=== PATIENT | male | born 1935 | race Caucasian/White ===

== ENCOUNTER 2017-01-04 15:11 | Inpatient (IN) | payer OTHER ==
[~2017-01-04] VITALS: Ht 172.7 cm; Wt 68.9 kg
[~2017-01-04 15:11] MED LIST: ACET325T21 PO; ASPI81TA2 PO; ASPI81TA9 PO; ATOR10TA60 PO; BISA10SU55 RC; BUDE10.2 IH; FURO40TA4 PO; GUAI600T28 PO; IPRA3AMP NEB; LORA0.5T PO; MAGN400O4 PO; METO50TA10 PO; NA P133E2 RC; PANT40TA5 PO; PRIM50TA PO; SPIR25TA3 PO; TAMS0.4C2 PO
[2017-01-04] MEDS ORDERED: PIP/TAZO PER PHARMACY MC PRN (15:30)
[2017-01-04] MEDS ORDERED: IV NORMAL SALINE 500ML BAG 500 ML IV ONE ×2 (15:30→15:45)
[2017-01-04] MEDS ORDERED: methylPREDNISolone SOD SUCC PF 125 MG/2 ML VIAL. IV ONE (15:30)
[2017-01-04] MEDS ORDERED: VANCOMYCIN PER PHARMACY MC ONE (15:30)
--- NOTE | 2017-01-04 15:36 | EKG ---
[facility] [address] [place] [address] Test Date: 2017-01-04 Test Time: 15:24:38 Pat Name: JOSE OLSON Department: Room: Gender: M Foster Parent: : 1935 Requested By: OLIMPIA VILLASENOR Order Number: [id number] Reading MD: Measurements Intervals [place] Rate: 153 P: 77 WI: 116 QRS: 46 QRSD: 84 T: -34 QT: 268 QTc: 432 Interpretive Statements SINUS TACHYCARDIA LOW LIMB LEAD VOLTAGE QRS(T) CONTOUR ABNORMALITY CONSIDER ANTEROSEPTAL MYOCARDIAL DAMAGE ST & T ABNORMALITY, CONSIDER INFERIOR ISCHEMIA OR LEFT VENTRICULAR STRAIN ABNORMAL ECG RI6.01 No previous ECG available for comparison
[2017-01-04] MEDS ORDERED: ACETAMINOPHEN 500 MG TABLET PO ONE (15:45)
[2017-01-04 15:49] LABS: BASO % 0 % (0-3); EOS % 1 % (0-3); HEMATOCRIT 31.6 % (39.0-53.0); HEMOGLOBIN 9.9 g/dL (13.0-17.5); LYMPH # 0.9 x10^3/uL (1.0-4.8); LYMPH % 5 % (24-48); MEAN CORPUSCULAR HEMOGLOBIN 27 pg (25-35); MEAN CORPUSCULAR HGB CONC 31 g/dL (31-37); MEAN CORPUSCULAR VOLUME 85 fL (79-100); MONO % 2 % (0-9); NEUT % 92 % (31-73); PLATELET COUNT 408 x10^3/uL (140-400); RED CELL DISTRIBUTION WIDTH 18.6 % (11.5-14.5); WHITE BLOOD COUNT 18.5 x10^3/uL (4.0-11.0)
--- NOTE | 2017-01-04 15:50 | RAD ---
Exam performed: One view chest. Indication: cough, SOB, fever Date of Service: 01/04/2017 5:21 PM Comparison: Single view chest from 11/08/16. Single AP upright portable view chest findings: Cardiomediastinal silhouette is within limits of normal. Pulmonary vascularity is unremarkable. Coarse prominent interstitial markings are seen in both lungs similar to previous study. Large emphysematous bulla seen in the left upper and mid lung. Minimal airspace opacities seen in the medial left lung base and right midlung. Impression: Minimal infiltrates right midlung and medial left lower lobe. Emphysematous lungs.
[2017-01-04 16:07] LABS: HCO3 ABG 18 mmol/L (21-28); PCO2 ABG 25 mmHg (35-46); PH ABG 7.48 (7.35-7.45); PO2 ABG 57 mmHg (65-108); SAT O2 ABG 90 % (92-99)
[2017-01-04] MEDS ORDERED: PIPERACILLIN/TAZOBACTAM 3.375 GM in IV NORMAL SALINE 50ML 50 ML IV ONE (16:15)
[2017-01-04] MEDS ORDERED: VANCOMYCIN 1.5 GM in IV NORMAL SALINE 500ML BAG 500 ML IV ONE (16:15)
--- NOTE | 2017-01-04 16:15 | PHYS DOC ---
Past Medical History Past Medical History: A-Fib, CHF, COPD, CVA, Hypertension Additional Past Surgical Histo: hernia repair Alcohol Use: Occasionally Drug Use: None Adult General Chief Complaint Chief Complaint: SHORTNESS OF BREATH HPI HPI Patient is a 81 year old male who presents with SOB. Patient sent from [facility]) with c/o SOB. Patient also reports productive cough. He denies significant chest discomfort. Patient is poor historian. Patient's daughter present and reports he has been in and out of the hospital since August. Had been getting care at [place] but she works at [employer] and therefore he has been brought here for care. Review of Systems Review of Systems Constitutional: Chills Eyes: Denies change in visual acuity or eye pain HENT: Denies nasal congestion or sore throat Respiratory: Cough, shortness of breath Cardiovascular: Denies chest pain GI: Denies abdominal pain, nausea, vomiting, bloody stools or diarrhea : Denies dysuria or hematuria Musculoskeletal: Denies back pain or joint pain Integument: Denies rash or skin lesions Neurologic: Denies headache, focal weakness or sensory changes Current Medications Current Medications Current Medications Medications (Trade) Dose Ordered Sig/Porfirio Start Time Stop Time Status Last Admin Dose Admin Acetaminophen 1000 mg 1,000 mg 1X ONCE 01/04/17 15:45 01/04/17 15:47 DC 01/04/17 15:45 1,000 MG Methylprednisolone Sodium Succinate 125 mg 125 mg 1X ONCE 01/04/17 15:30 01/04/17 15:31 DC 01/04/17 15:30 125 MG Piperacillin Sod/ Tazobactam Sod (Zosyn Per Pharmacy) 1 each PRN DAILY PRN 01/04/17 15:30 01/04/17 17:09 DC Piperacillin Sod/ Tazobactam Sod/ Sodium Chloride (Zosyn/Iv Sodium Chloride 0.9% 50ml) 50 ml @ 100 mls/hr 1X ONCE 01/04/17 16:15 01/04/17 16:44 DC 01/04/17 16:15 100 MLS/HR Sodium Chloride 500 ml @ 500 mls/hr 1X ONCE 01/04/17 15:45 01/04/17 16:44 DC 01/04/17 15:45 500 MLS/HR Sodium Chloride (Iv Sodium Chloride 0.9% 500ml Bag) 500 ml @ 500 mls/hr 1X ONCE 01/04/17 15:30 01/04/17 16:29 DC 01/04/17 15:30 500 MLS/HR Vancomycin HCl (Vanco Per Pharmacy) 1 each 1X ONCE 01/04/17 15:30 01/04/17 15:31 UNV Vancomycin HCl 1.5 gm/Sodium Chloride 500 ml @ 250 mls/hr 1X ONCE 01/04/17 16:15 01/04/17 18:14 DC 01/04/17 16:15 250 MLS/HR Allergies Allergies Allergies Coded Allergies Type Severity Reaction Last Updated Verified No Known Drug Allergies 11/08/16 No Physical Exam Physical Exam Constitutional: Well developed, well nourished, no acute distress, non-toxic appearance HENT: Normocephalic, atraumatic, bilateral external ears normal Eyes: EOMI, conjunctiva normal, no discharge Neck: Normal range of motion, no stridor Cardiovascular: Tachycardic to 150, regular rhythm, no murmur Lungs & Thorax: Tachypneic, scattered expiratory wheezing Abdomen: Bowel sounds normal, soft, non-distended, no TTP Skin: Hot, dry, no erythema, no rash Extremities: No obvious deformity, no edema Neurologic: Alert, MORTON on command, no gross deficits noted Current Patient Data Vital Signs Vital Signs Date Time Temp Pulse Resp B/P Pulse Ox O2 Delivery O2 Flow Rate FiO2 01/04/17 16:28 150 30 111/63 90 Nasal Cannula 2 01/04/17 15:48 101.5 101.5 Lab Values Laboratory Tests Test 01/04/17 15:35 01/04/17 16:00 White Blood Count 18.5x10^3/uL (4.0-11.0) H Red Blood Count 3.70x10^6/uL (4.30-5.70) L Hemoglobin 9.9g/dL (13.0-17.5) L Hematocrit 31.6% (39.0-53.0) L Mean Corpuscular Volume 85fL (79-100) Mean Corpuscular Hemoglobin 27pg (25-35) Mean Corpuscular Hemoglobin Concent 31g/dL (31-37) Red Cell Distribution Width 18.6% (11.5-14.5) H Platelet Count 408x10^3/uL (140-400) H Neutrophils (%) (Auto) 92% (31-73) H Lymphocytes (%) (Auto) 5% (24-48) L Monocytes (%) (Auto) 2% (0-9) Eosinophils (%) (Auto) 1% (0-3) Basophils (%) (Auto) 0% (0-3) Neutrophils # (Auto) 17.0x10^3uL (1.8-7.7) H Lymphocytes # (Auto) 0.9x10^3/uL (1.0-4.8) L Monocytes # (Auto) 0.4x10^3/uL (0.0-1.1) Eosinophils # (Auto) 0.1x10^3/uL (0.0-0.7) Basophils # (Auto) 0.0x10^3/uL (0.0-0.2) Segmented Neutrophils % 86% (35-66) H Band Neutrophils % 5% (0-9) Lymphocytes % 5% (24-48) L Monocytes % 4% (0-10) Platelet Estimate Increased (ADEQUATE) Poikilocytosis Slight Anisocytosis Slight Ovalocytes Few Schistocytes Few Sodium Level 134mmol/L (136-145) L Potassium Level 4.4mmol/L (3.5-5.1) Chloride Level 95mmol/L (98-107) L Carbon Dioxide Level 25mmol/L (21-32) Anion Gap 14 (6-14) Blood Urea Nitrogen 46mg/dL (8-26) H Creatinine 2.5mg/dL (0.7-1.3) H Estimated GFR (Cockcroft-Gault) 25.0 BUN/Creatinine Ratio 18 (6-20) Glucose Level 162mg/dL (70-99) H Lactic Acid Level 2.4mmol/L (0.4-2.0) H Calcium Level 9.3mg/dL (8.5-10.1) Total Bilirubin 0.3mg/dL (0.2-1.0) Aspartate Amino Transferase (AST) 22U/L (15-37) Alanine Aminotransferase (ALT) 13U/L (16-63) L Alkaline Phosphatase 70U/L (46-116) Troponin I Quantitative < 0.017ng/mL (0.000-0.055) XG-Mau-G-Type Natriuretic Peptide 1638pg/mL (0-449) H Total Protein 7.5g/dL (6.4-8.2) Albumin 3.2g/dL (3.4-5.0) L Albumin/Globulin Ratio 0.7 (1.0-1.7) L O2 Saturation 90% (92-99) L Arterial Blood pH 7.48 (7.35-7.45) H Arterial Blood pCO2 at Patient Temp 25mmHg (35-46) L Arterial Blood pO2 at Patient Temp 57mmHg (65-108) L Arterial Blood HCO3 18mmol/L (21-28) L Arterial Blood Base Excess -5mmol/L (-3-3) L FiO2 6 lpm nc Laboratory Tests 01/04/17 15:35 Laboratory Tests 01/04/17 15:35 EKG EKG EKG (my read): tachycardia (?atrial flutter), rate 153, normal axis, nonspecific ST changes Radiology/Procedures Radiology/Procedures CXR: Impression: Minimal infiltrates right midlung and medial left lower lobe. Emphysematous lungs. Course & Med Decision Making Course & Med Decision Making Pertinent Labs and Imaging studies reviewed. (See chart for details) Patient is 81 year old male who presents with SOB, cough. Possible pneumonia, appears to have COPD component as well. Will check EKG, CXR, labs to evaluate. Fluid bolus, breathing treatment, steroids ordered. Given broad spectrum abx to cover for HCAP. Appears to be in atrial flutter. CXR results as above. Has leukocytosis. Creatinine 2.5 similar to prior. BNP elevated, also similar to prior. ABG concerning for hypoxemia; placed on NRB, trialed bipap but patient did not tolerate. While BP was initially ok, he became hypotensive while in the ED. Patient is DNR; I discussed electrical cardioversion with patient and daughter. Again, he is DNR and he does not want to be shocked. BP temporarily responsive to IVF; I do wish to be conservative with fluids given h/o CHF, although recent echo shows EF 50-55%. Discussed central line with patient's daughter, will not place at this time as not in line with current goals of care. I discussed options for rate control with Dr. Antonio, as electrical cardioversion is out and typical rate control agents (eg diltiazem) will impact BP. Therefore dose of digoxin ordered (decreased dose due to renal function). Discussed results with patient and daughter. Discussed with Dr. Higgins, will admit under her care for further evaluation and treatment. Critical care time: I spent 40 minutes critical care time with this patient. This does not include time spent on procedures. Dragon Disclaimer Dragon Disclaimer This electronic medical record was generated, in whole or in part, using a voice recognition dictation system. Departure Departure Impression: Primary Impression: Sepsis Disposition: ADMITTED INPATIENT Admitting Physician: Hal Higgins Condition: GUARDED Referrals: UNKNOWN PCP NAME (PCP) OLIMPIA VILLASENOR MD Jan 04, 2017 16:15
[2017-01-04 16:16] LABS: CALCIUM 9.3 mg/dL (8.5-10.1); CREATININE 2.5 mg/dL (0.7-1.3); POTASSIUM 4.4 mmol/L (3.5-5.1)
[2017-01-04 16:23] LABS: ALBUMIN 3.2 g/dL (3.4-5.0); ALBUMIN/GLOBULIN RATIO 0.7 (1.0-1.7); TOTAL BILIRUBIN 0.3 mg/dL (0.2-1.0); TOTAL PROTEIN 7.5 g/dL (6.4-8.2)
[2017-01-04 16:34] LABS: ANISOCYTOSIS SLIGHT; OVALOCYTES FEW; PLT ESTIMATE INCREASED (ADEQUATE); POIKILOCYTOSIS SLIGHT
[2017-01-04 16:35] LABS: SCHISTOCYTES FEW
--- NOTE | 2017-01-04 17:01 | PDOC1 ---
History and Physical Date of Admission Date of Admission 01/04/17 Identification/Chief Complaint Chief Complaint sob Problems: Source Source: Chart review, Patient History of Present Illness History of Present Illness HPI HPI Patient is a 81 year old male who presents with SOB. pt has been feeling sick and was admitted here before for PNA, was sent from SNF. DAUghter works here and require to send pt here. pT is a poor historian. Pt admited cough with sputum, with sob, denies chest pain. was found T 101 , HR 150s in ER. Past Medical History Cardiovascular: CHF, HTN, Hyperlipidemia Pulmonary: COPD CENTRAL NERVOUS SYSTEM: Dementia Renal/: Benign prostatic enlarg. Past Surgical History Past Surgical History: Hernia Repair, Other Family History Family History: No Significant, Family History Unknown Social History Smoke: Quit ALCOHOL: heavy Drugs: None Current Medications Current Medications Current Medications Medications (Trade) Dose Ordered Sig/Porfirio Start Time Stop Time Status Last Admin Dose Admin Acetaminophen 1000 mg 1,000 mg 1X ONCE 01/04/17 15:45 01/04/17 15:47 DC 01/04/17 15:45 1,000 MG Methylprednisolone Sodium Succinate 125 mg 125 mg 1X ONCE 01/04/17 15:30 01/04/17 15:31 DC 01/04/17 15:30 125 MG Piperacillin Sod/ Tazobactam Sod (Zosyn Per Pharmacy) 1 each PRN DAILY PRN 01/04/17 15:30 UNV Piperacillin Sod/ Tazobactam Sod/ Sodium Chloride (Zosyn/Iv Sodium Chloride 0.9% 50ml) 50 ml @ 100 mls/hr 1X ONCE 01/04/17 16:15 01/04/17 16:44 DC 01/04/17 16:15 100 MLS/HR Sodium Chloride 500 ml @ 500 mls/hr 1X ONCE 01/04/17 15:45 01/04/17 16:44 DC 01/04/17 15:45 500 MLS/HR Sodium Chloride (Iv Sodium Chloride 0.9% 500ml Bag) 500 ml @ 500 mls/hr 1X ONCE 01/04/17 15:30 01/04/17 16:29 DC 01/04/17 15:30 500 MLS/HR Vancomycin HCl (Vanco Per Pharmacy) 1 each 1X ONCE 01/04/17 15:30 01/04/17 15:31 UNV Vancomycin HCl 1.5 gm/Sodium Chloride 500 ml @ 250 mls/hr 1X ONCE 01/04/17 16:15 01/04/17 18:14 01/04/17 16:15 250 MLS/HR Allergies Allergies Allergies Coded Allergies Type Severity Reaction Last Updated Verified No Known Drug Allergies 11/08/16 No ROS Review of System CONSTITUTIONAL: No fever or chills EYES: No recent changes SKIN: No rash or itching CARDIOVASCULAR: No chest pain, syncope, palpitations, or edema RESPIRATORY: No SOB or cough GASTROINTESTINAL: No nausea, vomiting or abdominal pain NEUROLOGICAL: No headaches or weakness ENDOCRINE: No cold or heat intolerance GENITOURINARY: No urgency or frequency of urination MUSCULOSKELETAL: No back pain or joint pain LYMPHATICS: No enlarged lymph nodes PSYCHIATRIC: No anxiety or depression Physical Exam Physical Exam GEN.: Alert and oriented. very sob HEENT: Head is normocephalic, atraumatic NECK: Supple. LUNGS: bl mild wheezing HEART: RRR, S1, S2 present. Peripheral pulses intact ABDOMEN: Soft, nontender. Positive bowel sounds. EXTREMITIES: Without any cyanosis. NEUROLOGIC: Normal speech, normal tone PSYCHIATRIC: Normal affect, normal mood. SKIN: No ulcerations Vitals Vitals Vital Signs Date Time Temp Pulse Resp B/P Pulse Ox O2 Delivery O2 Flow Rate FiO2 01/04/17 15:48 101.5 152 30 121/74 Room Air 101.5 Labs Labs Laboratory Tests Test 01/04/17 15:35 01/04/17 16:00 White Blood Count 18.5x10^3/uL (4.0-11.0) Red Blood Count 3.70x10^6/uL (4.30-5.70) Hemoglobin 9.9g/dL (13.0-17.5) Hematocrit 31.6% (39.0-53.0) Mean Corpuscular Volume 85fL (79-100) Mean Corpuscular Hemoglobin 27pg (25-35) Mean Corpuscular Hemoglobin Concent 31g/dL (31-37) Red Cell Distribution Width 18.6% (11.5-14.5) Platelet Count 408x10^3/uL (140-400) Neutrophils (%) (Auto) 92% (31-73) Lymphocytes (%) (Auto) 5% (24-48) Monocytes (%) (Auto) 2% (0-9) Eosinophils (%) (Auto) 1% (0-3) Basophils (%) (Auto) 0% (0-3) Neutrophils # (Auto) 17.0x10^3uL (1.8-7.7) Lymphocytes # (Auto) 0.9x10^3/uL (1.0-4.8) Monocytes # (Auto) 0.4x10^3/uL (0.0-1.1) Eosinophils # (Auto) 0.1x10^3/uL (0.0-0.7) Basophils # (Auto) 0.0x10^3/uL (0.0-0.2) Segmented Neutrophils % 86% (35-66) Band Neutrophils % 5% (0-9) Lymphocytes % 5% (24-48) Monocytes % 4% (0-10) Platelet Estimate Increased (ADEQUATE) Poikilocytosis Slight Anisocytosis Slight Ovalocytes Few Schistocytes Few Sodium Level 134mmol/L (136-145) Potassium Level 4.4mmol/L (3.5-5.1) Chloride Level 95mmol/L (98-107) Carbon Dioxide Level 25mmol/L (21-32) Anion Gap 14 (6-14) Blood Urea Nitrogen 46mg/dL (8-26) Creatinine 2.5mg/dL (0.7-1.3) Estimated GFR (Cockcroft-Gault) 25.0 BUN/Creatinine Ratio 18 (6-20) Glucose Level 162mg/dL (70-99) Lactic Acid Level 2.4mmol/L (0.4-2.0) Calcium Level 9.3mg/dL (8.5-10.1) Total Bilirubin 0.3mg/dL (0.2-1.0) Aspartate Amino Transf (AST/SGOT) 22U/L (15-37) Alanine Aminotransferase (ALT/SGPT) 13U/L (16-63) Alkaline Phosphatase 70U/L (46-116) Troponin I Quantitative < 0.017ng/mL (0.000-0.055) ZB-Ojj-Y-Type Natriuretic Peptide 1638pg/mL (0-449) Total Protein 7.5g/dL (6.4-8.2) Albumin 3.2g/dL (3.4-5.0) Albumin/Globulin Ratio 0.7 (1.0-1.7) O2 Saturation 90% (92-99) Arterial Blood pH 7.48 (7.35-7.45) Arterial Blood pCO2 at Patient Temp 25mmHg (35-46) Arterial Blood pO2 at Patient Temp 57mmHg (65-108) Arterial Blood HCO3 18mmol/L (21-28) Arterial Blood Base Excess -5mmol/L (-3-3) FiO2 6 lpm nc Laboratory Tests Test 01/04/17 15:35 01/04/17 16:00 White Blood Count 18.5x10^3/uL (4.0-11.0) Red Blood Count 3.70x10^6/uL (4.30-5.70) Hemoglobin 9.9g/dL (13.0-17.5) Hematocrit 31.6% (39.0-53.0) Mean Corpuscular Volume 85fL (79-100) Mean Corpuscular Hemoglobin 27pg (25-35) Mean Corpuscular Hemoglobin Concent 31g/dL (31-37) Red Cell Distribution Width 18.6% (11.5-14.5) Platelet Count 408x10^3/uL (140-400) Neutrophils (%) (Auto) 92% (31-73) Lymphocytes (%) (Auto) 5% (24-48) Monocytes (%) (Auto) 2% (0-9) Eosinophils (%) (Auto) 1% (0-3) Basophils (%) (Auto) 0% (0-3) Neutrophils # (Auto) 17.0x10^3uL (1.8-7.7) Lymphocytes # (Auto) 0.9x10^3/uL (1.0-4.8) Monocytes # (Auto) 0.4x10^3/uL (0.0-1.1) Eosinophils # (Auto) 0.1x10^3/uL (0.0-0.7) Basophils # (Auto) 0.0x10^3/uL (0.0-0.2) Segmented Neutrophils % 86% (35-66) Band Neutrophils % 5% (0-9) Lymphocytes % 5% (24-48) Monocytes % 4% (0-10) Platelet Estimate Increased (ADEQUATE) Poikilocytosis Slight Anisocytosis Slight Ovalocytes Few Schistocytes Few Sodium Level 134mmol/L (136-145) Potassium Level 4.4mmol/L (3.5-5.1) Chloride Level 95mmol/L (98-107) Carbon Dioxide Level 25mmol/L (21-32) Anion Gap 14 (6-14) Blood Urea Nitrogen 46mg/dL (8-26) Creatinine 2.5mg/dL (0.7-1.3) Estimated GFR (Cockcroft-Gault) 25.0 BUN/Creatinine Ratio 18 (6-20) Glucose Level 162mg/dL (70-99) Lactic Acid Level 2.4mmol/L (0.4-2.0) Calcium Level 9.3mg/dL (8.5-10.1) Total Bilirubin 0.3mg/dL (0.2-1.0) Aspartate Amino Transf (AST/SGOT) 22U/L (15-37) Alanine Aminotransferase (ALT/SGPT) 13U/L (16-63) Alkaline Phosphatase 70U/L (46-116) Troponin I Quantitative < 0.017ng/mL (0.000-0.055) HE-Znb-J-Type Natriuretic Peptide 1638pg/mL (0-449) Total Protein 7.5g/dL (6.4-8.2) Albumin 3.2g/dL (3.4-5.0) Albumin/Globulin Ratio 0.7 (1.0-1.7) O2 Saturation 90% (92-99) Arterial Blood pH 7.48 (7.35-7.45) Arterial Blood pCO2 at Patient Temp 25mmHg (35-46) Arterial Blood pO2 at Patient Temp 57mmHg (65-108) Arterial Blood HCO3 18mmol/L (21-28) Arterial Blood Base Excess -5mmol/L (-3-3) FiO2 6 lpm nc VTE Prophylaxis Ordered VTE Prophylaxis Devices: Yes VTE Pharmacological Prophylaxi: Yes Assessment/Plan Assessment/Plan 1. acute resp failure with hypoxia 2. COPD exacerbation 3. chronic diastolic chf with EF 50% 4. HTN 5. 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 PFIB 7. sepsis with bronchitis 8. anxiety 9. bedbound with generalized weakness 10.mild malnutrition 11. lactate acidosis 12. h/o CVA wo obvious weakness 13. tachycardia, cannot reach EKG online since needs password for [facility]? plan: 1. card, pulm consult 2. hold lasix, ivf for now 3. cont home meds 4. cough meds 5. check sputum last time was + Kpna 6. dc zosyn since resistent, add meropenum and vanco 7. dvt, gi ppx PTOT labs tmr JULIET GODOY MD Jan 04, 2017 17:01
[2017-01-04] MEDS ORDERED: BISACODYL 10 MG SUPP.RECT RC PRN (17:15)
[2017-01-04] MEDS ORDERED: IV NORMAL SALINE 1000ML BAG 1,000 ML IV ONE ×3 (17:15→19:45)
[2017-01-04] MEDS ORDERED: hydrALAZINE 20 MG/ML VIAL. IVP PRN (17:15)
[2017-01-04] MEDS ORDERED: MAGNESIUM HYDROXIDE 2,400 MG/30 ML ORAL.SUSP. PO PRN (17:15)
[2017-01-04] MEDS ORDERED: IPRATRPIUM/ALBUTEROL 0.5/2.5MG 3 ML NEBU. NEB PRN (17:15)
[2017-01-04] MEDS ORDERED: ACETAMINOPHEN 325 MG TABLET. PO PRN (17:15)
[2017-01-04] MEDS ORDERED: IPRATRPIUM/ALBUTEROL 0.5/2.5MG 3 ML NEBU. NEB ONE (17:45)
[2017-01-04] MEDS ORDERED: IV NORMAL SALINE 1000ML BAG 1,000 ML IV SCH (17:50)
[2017-01-04] MEDS ORDERED: MORPHINE SULFATE 2 MG/ML DISP.SYRIN. IV PRN (18:00)
[2017-01-04] MEDS ORDERED: ONDANSETRON PF 4 MG/2 ML VIAL. IV PRN (18:00)
[2017-01-04] MEDS: LORAZEPAM 0.5 MG TABLET. PO PRN (18:39)
[2017-01-04] MEDS ORDERED: DIGOXIN 500 MCG/2 ML AMPUL. IV ONE (19:15)
[2017-01-04] MEDS: VANCOMYCIN PER PHARMACY MC PRN (19:24)
--- NOTE | 2017-01-04 19:38 | ACF ---
Admission Forms Criteria RESPIRATORY FAILURE [facility] Clinical Indications for Admission to Inpatient Care (Place 'X' for any and all applicable criteria): Hospital admission is needed for appropriate care of the patient because of acute respiratory failure or insufficiency as indicated by ANY ONE of the following(1)(2)(3)(4)(5)(6)(7)(8): [X ]I. Mechanical ventilation needed (acute invasive or noninvasive) [ ]II. Severe ventilation deficit as indicated by ANY ONE of the following (9) [ ]a) Respiratory acidosis (pH less than 7.32 and partial pressure of carbon dioxide greater than 40 mm Hg (5.3 kPa)) [ ]b) Partial pressure of carbon dioxide greater than 44 mm Hg (5.9 kPa ) (new) [ ]c) Airflow measurements less than 25% of predicted (eg, peak expiratory flow rate less than 100 L/minute) [ ]d) Forced vital capacity less than 15 mL/kg of ideal body weight, or 50% decrease in vital capacity from baseline [ ]III. Noncardiac pulmonary edema not resolving with rapid emergency treatment (8) [ ]IV. Severe respiratory distress as indicated by ANY ONE of the following: [ ]a) Severe tachypnea (respiratory rate greater than 30, greater than 45 for 6-month-old, greater than 60 for ) [ ]b) Severe hypoxemia (partial pressure of oxygen less than 50 mm Hg ( 6.7 kPa) on greater than 50% oxygen or partial pressure of oxygen to FIO2 ratio less than 200) [ ]c) Mental status deterioration from respiratory disease [ ]V. Airway obstruction or inadequate protection [A](10)(11) The original [employer] content created by [employer] has been revised. The portions of the content which have been revised are identified through the use of italic text or in bold, and [employer] has neither reviewed nor approved the modified material. All other unmodified content is copyright [employer]. Please see references footnoted in the original [employer] edition 2016 Admission Criteria Met?: Yes CARISSA SNOWDEN Jan 04, 2017 19:38
[2017-01-04] MEDS ORDERED: IPRATRPIUM/ALBUTEROL 0.5/2.5MG 3 ML NEBU. NEB SCH (20:00)
[2017-01-04] MEDS: IPRATRPIUM/ALBUTEROL 0.5/2.5MG 3 ML NEBU. NEB SCH (20:09)
[2017-01-04] MEDS: BUDESONIDE 0.5 MG/2 ML NEBU NEB SCH (20:13)
[2017-01-04 20:27] LABS: OBC FLU VALID
[2017-01-04] MEDS ORDERED: MEROPENEM 500 MG in IV NORMAL SALINE 50ML 50 ML IV SCH (22:00)
[2017-01-04] MEDS: GUAIFENESIN ER 600 MG TABLET.ER PO SCH (22:14)
[2017-01-04] MEDS: methylPREDNISolone SOD SUCC PF 40 MG/ML VIAL. IV SCH (22:14)
[2017-01-04] MEDS ORDERED: NOREPINEPHRINE VIAL 8 MG in IV NORMAL SALINE 250ML 250 ML IV PRN (22:15)
[2017-01-04] MEDS: HEPARIN PF for SUB-Q USE 5,000 UNIT/0.5 ML VIAL. SQ SCH (22:16)
[2017-01-04] MEDS: MEROPENEM 500 MG in IV NORMAL SALINE 50ML 50 ML IV SCH (23:06)
[2017-01-04] MEDS: ATORVASTATIN CALCIUM 10 MG TABLET. PO SCH (23:36)
[2017-01-05] VITALS (24 sets, daily range): BP systolic 87–127; BP diastolic 52–80
[2017-01-05] MEDS: HEPARIN PF for SUB-Q USE 5,000 UNIT/0.5 ML VIAL. SQ SCH ×4 (05:32→22:00)
[2017-01-05 05:36] LABS: BASO % 0 % (0-3); EOS % 0 % (0-3); HEMATOCRIT 27.9 % (39.0-53.0); HEMOGLOBIN 8.6 g/dL (13.0-17.5); LYMPH # 0.6 x10^3/uL (1.0-4.8); LYMPH % 5 % (24-48); MEAN CORPUSCULAR HEMOGLOBIN 27 pg (25-35); MEAN CORPUSCULAR HGB CONC 31 g/dL (31-37); MEAN CORPUSCULAR VOLUME 87 fL (79-100); MONO % 2 % (0-9); NEUT % 93 % (31-73); PLATELET COUNT 327 x10^3/uL (140-400); RED CELL DISTRIBUTION WIDTH 18.7 % (11.5-14.5)
[2017-01-05 05:55] LABS: CALCIUM 8.2 mg/dL (8.5-10.1); CREATININE 2.2 mg/dL (0.7-1.3); GFR 28.9; POTASSIUM 4.1 mmol/L (3.5-5.1)
[2017-01-05] MEDS: PANTOPRAZOLE 40 MG TABLET. PO SCH (07:28)
[2017-01-05] MEDS: ASPIRIN 81 MG TAB.CHEW PO SCH (07:28)
[2017-01-05] MEDS: VANCOMYCIN PER PHARMACY MC PRN ×2 (08:29→08:53)
[2017-01-05] MEDS: MEROPENEM 500 MG in IV NORMAL SALINE 50ML 50 ML IV SCH ×2 (08:34→21:55)
[2017-01-05] MEDS: methylPREDNISolone SOD SUCC PF 40 MG/ML VIAL. IV SCH ×3 (08:35→21:54)
[2017-01-05] MEDS: BUDESONIDE 0.5 MG/2 ML NEBU NEB SCH ×2 (08:40→19:49)
[2017-01-05] MEDS: IPRATRPIUM/ALBUTEROL 0.5/2.5MG 3 ML NEBU. NEB SCH ×4 (08:40→19:49)
[2017-01-05] MEDS ORDERED: IV NORMAL SALINE 1000ML BAG 1,000 ML IV ONE (08:45)
[2017-01-05] MEDS ORDERED: DEXTROSE 50% 25 GM / 50ML DISP.SYRIN. IV PRN (08:45)
[2017-01-05] MEDS ORDERED: GUAIFENESIN 200 MG/10 ML LIQUID. PO PRN (08:45)
--- NOTE | 2017-01-05 08:58 | PDOC2 ---
CARDIAC CONSULT DATE OF CONSULT Date of Consult DATE: 01/05/17 TIME: 08:41 REASON FOR CONSULT Reason for Consult: atrial flutter REFERRING PHYSICIAN Referring Physician: Dr. Isra Reyes SOURCE Source: Chart review, Patient (who is unreliable historian) HISTORY OF PRESENT ILLNESS HISTORY OF PRESENT ILLNESS 81 year old male with 2 week history of difficulty breathing. Reports CXR done @ [facility] but never informed of results. Febrile with presentation to ER with WBC of 12.8. Lactate level elevated on presentation. CXR with bilateral infiltrates in the mid region. Reports productive cough of yellow to green sputum. Found to be in atrial flutter in ER; initially compensated and then become hypotensive. Declined cardioversion and was given digoxin IV. History of atrial fib. Bolused with IV fluids due to presumed sepsis. Reason for Visit: atrial flutter PAST MEDICAL HISTORY Cardiovascular: AFIB, CHF (diastolic), HTN, Hyperlipidemia Pulmonary: COPD (emphysema) CENTRAL NERVOUS SYSTEM: Dementia (?) Musculoskeletal: Osteoarthritis Renal/: Chronic renal insuff, Benign prostatic enlarg. PAST SURGICAL HISTORY Past Surgical History: Hernia Repair FAMILY HISTORY Family History: Family History Unknown SOCIAL HISTORY Smoke: Quit (70 pack year history) ALCOHOL: heavy (possibly up to a case a day when he was working; currently unknown) Lives: Skilled Nursing CURRENT MEDICATIONS CURRENT MEDICATIONS Current Medications Medications (Trade) Dose Ordered Sig/Porfirio Route PRN Reason Start Time Stop Time Status Last Admin Dose Admin Methylprednisolone Sodium Succinate 125 mg 125 mg 1X ONCE IV 01/04/17 15:30 01/04/17 15:31 DC 01/04/17 15:30 Sodium Chloride (Iv Sodium Chloride 0.9% 500ml Bag) 500 ml @ 500 mls/hr 1X ONCE IV 01/04/17 15:30 01/04/17 16:29 DC 01/04/17 15:30 Acetaminophen 1000 mg 1,000 mg 1X ONCE PO 01/04/17 15:45 01/04/17 15:47 DC 01/04/17 15:45 Sodium Chloride 500 ml @ 500 mls/hr 1X ONCE IV 01/04/17 15:45 01/04/17 16:44 DC 01/04/17 15:45 Vancomycin HCl 1.5 gm/Sodium Chloride 500 ml @ 250 mls/hr 1X ONCE IV 01/04/17 16:15 01/04/17 18:14 DC 01/04/17 16:15 Piperacillin Sod/ Tazobactam Sod/ Sodium Chloride (Zosyn/Iv Sodium Chloride 0.9% 50ml) 50 ml @ 100 mls/hr 1X ONCE IV 01/04/17 16:15 01/04/17 16:44 DC 01/04/17 16:15 Aspirin (Children'S Aspirin) 81 mg DAILYWBKFT PO 01/05/17 08:00 01/05/17 07:28 Atorvastatin Calcium (Lipitor) 10 mg QHS PO 01/04/17 21:00 01/04/17 23:36 Guaifenesin (Mucinex) 600 mg BID PO 01/04/17 21:00 01/04/17 22:14 Lorazepam (Ativan) 0.5 mg PRN Q8HRS PRN PO ANXIETY / AGITATION 01/04/17 17:15 01/04/17 18:39 Budesonide (Pulmicort) 0.5 mg RTBID NEB 01/04/17 20:00 01/05/17 08:40 Albuterol/ Ipratropium (Duoneb) 3 ml RTQID NEB 01/04/17 20:00 01/05/17 08:40 Vancomycin HCl (Vanco Per Pharmacy) 1 each PRN DAILY PRN MC SEE COMMENTS 01/04/17 17:15 01/05/17 08:29 Methylprednisolone Sodium Succinate (Solu-Medrol 40mg Vial) 40 mg TID IV 01/04/17 21:00 01/05/17 08:35 Pantoprazole Sodium 40 mg 40 mg DAILYAC PO 01/05/17 07:30 01/05/17 07:28 Sodium Chloride (Iv Sodium Chloride 0.9% 1000ml Bag) 1,000 ml @ 75 mls/hr 1X ONCE IV 01/04/17 17:15 01/05/17 06:34 DC 01/04/17 17:15 Heparin Sodium (Porcine) 5000 unit 5,000 unit Q8HRS SQ 01/04/17 22:00 01/05/17 05:32 Meropenem 500 mg/ Sodium Chloride 50 ml @ 100 mls/hr BID IV 01/04/17 21:00 01/05/17 08:34 Sodium Chloride (Iv Sodium Chloride 0.9% 1000ml Bag) 1,000 ml @ 1,000 mls/hr 1X ONCE IV 01/04/17 17:45 01/04/17 18:44 DC 01/04/17 17:45 Albuterol/ Ipratropium (Duoneb) 3 ml 1X ONCE NEB 01/04/17 17:45 01/04/17 17:49 DC 01/04/17 18:10 Digoxin 125 mcg 125 mcg 1X ONCE IV 01/04/17 19:15 01/04/17 19:16 DC 01/04/17 19:32 Sodium Chloride (Iv Sodium Chloride 0.9% 1000ml Bag) 1,000 ml @ 1,000 mls/hr 1X ONCE IV 01/04/17 19:45 01/04/17 20:44 DC 01/04/17 19:37 ALLERGIES ALLERGIES: Coded Allergies: No Known Drug Allergies (Unverified , 11/08/16) ROS General: YES: Fatigue, Malaise PSYCHOLOGICAL ROS: No: Anxiety, Behavioral Disorder, Concentration difficultie , Decreased libido, Depression, Disorientation, Hallucinations, Hostility, Irritablity, Memory difficulties, Mood Swings, Obsessive thoughts, Other, Physical abuse, Sexual abuse, Sleep disturbances, Suicidal ideation Eyes: No Blurry vision, No Decreased vision, No Double vision, No Dry eyes, No Excessive tearing, No Eye Pain, No Itchy Eyes, No Loss of vision, No Other, No Photophobia, No Scotomata, No Uses contacts, No Uses glasses HEENT: YES: Nasal congestion ALLERGY AND IMMUNOLOGY: No: Hives, Insect Bite Sensitivity, Itchy/Watery Eyes, Nasal Congestion, Other, Post Nasal Drip, Seasonal Allergies Hematological and Lymphatic: No: Bleeding Problems, Blood Clots, Blood Transfusions, Brusing, Night Sweats, Other, Pallor, Swollen Lymph Nodes ENDOCRINE: No: Breast Changes, Galactorrhea, Hair Pattern Changes, Hot Flashes , Malaise/lethargy, Mood Swings, Other, Palpitations, Polydipsia/polyuria, Skin Changes, Temperature Intolerance, Unexpected Weight Changes Respiratory: YES: Cough, SOB with excertion, Shortness of breath, Sputum Changes Cardiovascular: No Chest Pain, No Edema, No Lt Headedness, No Orthopnea, No Other, No Palpitations, No Paroxysmal Noc. Dyspnea Gastrointestinal: No Abdominal Pain, No Constipation, No Diarrhea, No Hematochezia, No Melena, No Nausea, No Other, No Vomiting Genitourinary: No , No , No , No , No , No , No , No Discharge, No Dysuria, No Flank Pain, No Frequency, No Hematuria, No Incontinence, No Other, No Pain, No Retention, No Urgency Musculoskeletal: No Gait Disturbance, No Joint Pain, No Joint Stiffness, No Joint Swelling, No Muscle Pain, No Muscular Weakness, No Other, No Pain In:, No Swelling In: Neurological: No Behavorial Changes, No Bowel/Bladder ControlChng, No Confusion , No Dizziness, No Gait Disturbance, No Headaches, No Impaired Coord/balance, No Memory Loss, No Numbness/Tingling, No Other, No Seizures, No Speech Problems , No Tremors, No Visual Changes, No Weakness Skin: No Acne, No Dry Skin, No Eczema, No Hair Changes, No Lumps, No Mole Changes, No Mottling, No Nail Changes, No Other, No Pruritus, No Rash, No Skin Lesion Changes PHYSICAL EXAM General: Alert, Oriented X3, Cooperative, No acute distress HEENT: Atraumatic, PERRLA Lungs: Other (decreased anteriorly) Heart: Normal S1, Normal S2, Other (IRRR; tele: atrial flutter) Extremities: No edema, Normal pulses Skin: No rashes Neuro: Normal speech Psych/Mental Status: Mental status NL, Mood NL MUSCULOSKELETAL: Osteoarthritic changes both hands VITALS VITALS Vital Signs Date Time Temp Pulse Resp B/P Pulse Ox O2 Delivery O2 Flow Rate FiO2 01/05/17 08:00 74 29 114/69 96 Nasal Cannula 2.0 01/05/17 04:00 98.4 98.4 LABS Lab: Laboratory Tests Test 01/04/17 15:35 01/04/17 16:00 01/04/17 17:30 01/04/17 19:46 White Blood Count 18.5x10^3/uL (4.0-11.0) Red Blood Count 3.70x10^6/uL (4.30-5.70) Hemoglobin 9.9g/dL (13.0-17.5) Hematocrit 31.6% (39.0-53.0) Mean Corpuscular Volume 85fL (79-100) Mean Corpuscular Hemoglobin 27pg (25-35) Mean Corpuscular Hemoglobin Concent 31g/dL (31-37) Red Cell Distribution Width 18.6% (11.5-14.5) Platelet Count 408x10^3/uL (140-400) Neutrophils (%) (Auto) 92% (31-73) Lymphocytes (%) (Auto) 5% (24-48) Monocytes (%) (Auto) 2% (0-9) Eosinophils (%) (Auto) 1% (0-3) Basophils (%) (Auto) 0% (0-3) Neutrophils # (Auto) 17.0x10^3uL (1.8-7.7) Lymphocytes # (Auto) 0.9x10^3/uL (1.0-4.8) Monocytes # (Auto) 0.4x10^3/uL (0.0-1.1) Eosinophils # (Auto) 0.1x10^3/uL (0.0-0.7) Basophils # (Auto) 0.0x10^3/uL (0.0-0.2) Segmented Neutrophils % 86% (35-66) Band Neutrophils % 5% (0-9) Lymphocytes % 5% (24-48) Monocytes % 4% (0-10) Platelet Estimate Increased (ADEQUATE) Poikilocytosis Slight Anisocytosis Slight Ovalocytes Few Schistocytes Few Sodium Level 134mmol/L (136-145) Potassium Level 4.4mmol/L (3.5-5.1) Chloride Level 95mmol/L (98-107) Carbon Dioxide Level 25mmol/L (21-32) Anion Gap 14 (6-14) Blood Urea Nitrogen 46mg/dL (8-26) Creatinine 2.5mg/dL (0.7-1.3) Estimated GFR (Cockcroft-Gault) 25.0 BUN/Creatinine Ratio 18 (6-20) Glucose Level 162mg/dL (70-99) Lactic Acid Level 2.4mmol/L (0.4-2.0) 1.1mmol/L (0.4-2.0) Calcium Level 9.3mg/dL (8.5-10.1) Total Bilirubin 0.3mg/dL (0.2-1.0) Aspartate Amino Transf (AST/SGOT) 22U/L (15-37) Alanine Aminotransferase (ALT/SGPT) 13U/L (16-63) Alkaline Phosphatase 70U/L (46-116) Troponin I Quantitative < 0.017ng/mL (0.000-0.055) RS-Qts-D-Type Natriuretic Peptide 1638pg/mL (0-449) Total Protein 7.5g/dL (6.4-8.2) Albumin 3.2g/dL (3.4-5.0) Albumin/Globulin Ratio 0.7 (1.0-1.7) O2 Saturation 90% (92-99) Arterial Blood pH 7.48 (7.35-7.45) Arterial Blood pCO2 at Patient Temp 25mmHg (35-46) Arterial Blood pO2 at Patient Temp 57mmHg (65-108) Arterial Blood HCO3 18mmol/L (21-28) Arterial Blood Base Excess -5mmol/L (-3-3) FiO2 6 lpm nc Influenza Type A Antigen Negative (NEGATIVE) Influenza Type B Antigen Negative (NEGATIVE) Test 01/05/17 05:00 White Blood Count 12.0x10^3/uL (4.0-11.0) Red Blood Count 3.20x10^6/uL (4.30-5.70) Hemoglobin 8.6g/dL (13.0-17.5) Hematocrit 27.9% (39.0-53.0) Mean Corpuscular Volume 87fL (79-100) Mean Corpuscular Hemoglobin 27pg (25-35) Mean Corpuscular Hemoglobin Concent 31g/dL (31-37) Red Cell Distribution Width 18.7% (11.5-14.5) Platelet Count 327x10^3/uL (140-400) Neutrophils (%) (Auto) 93% (31-73) Lymphocytes (%) (Auto) 5% (24-48) Monocytes (%) (Auto) 2% (0-9) Eosinophils (%) (Auto) 0% (0-3) Basophils (%) (Auto) 0% (0-3) Neutrophils # (Auto) 11.1x10^3uL (1.8-7.7) Lymphocytes # (Auto) 0.6x10^3/uL (1.0-4.8) Monocytes # (Auto) 0.3x10^3/uL (0.0-1.1) Eosinophils # (Auto) 0.0x10^3/uL (0.0-0.7) Basophils # (Auto) 0.0x10^3/uL (0.0-0.2) Sodium Level 136mmol/L (136-145) Potassium Level 4.1mmol/L (3.5-5.1) Chloride Level 104mmol/L (98-107) Carbon Dioxide Level 19mmol/L (21-32) Anion Gap 13 (6-14) Blood Urea Nitrogen 42mg/dL (8-26) Creatinine 2.2mg/dL (0.7-1.3) Estimated GFR (Cockcroft-Gault) 28.9 Glucose Level 210mg/dL (70-99) Lactic Acid Level 1.7mmol/L (0.4-2.0) Calcium Level 8.2mg/dL (8.5-10.1) IMAGES IMAGES CXR: Single AP upright portable view chest findings: Cardiomediastinal silhouette is within limits of normal. Pulmonary vascularity is unremarkable. Coarse prominent interstitial markings are seen in both lungs similar to previous study. Large emphysematous bulla seen in the left upper and mid lung. Minimal airspace opacities seen in the medial left lung base and right midlung. Impression: Minimal infiltrates right midlung and medial left lower lobe. Emphysematous lungs. EKG EKG can open computer program ECHOCARDIOGRAM ECHOCARDIOGRAM 11/09/2016: TTE: The left ventricle is normal size. Left ventricle systolic function is normal. The Ejection Fraction is 50-55%. There is borderline concentric left ventricular hypertrophy. There is no significant aortic valvular stenosis. Doppler and Color Flow revealed no significant aortic regurgitation. Doppler and Color Flow revealed trace mitral valve regurgitation. Doppler and Color Flow revealed mild tricuspid regurgitation. The PA pressure was estimated at 41 mmHg. ASSESSMENT/PLAN ASSESSMENT/PLAN 1. atrial flutter in the setting of sepsis and with atrial fib history K WNL, check Mg; TSH WNL 11/09/2016 rate control - will convert BB to IV while pt is NPO holding on additional digoxin due to elevated creatinine 2. chronic diastolic HF, preserved LV function of 50-55% Nt-proBNP not diagnostic when age adjusted and in setting of LISA continue previous medications 3. acute on chronic respiratory failure with AECOPD has been started on abx per ID and pulm 4. 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
[2017-01-05] MEDS ORDERED: METOPROLOL SUCC 24HR ER 25 MG TAB.ER.24H. PO SCH (09:00)
[2017-01-05] MEDS: TAMSULOSIN 0.4 MG CAP.ER.24H. PO SCH (09:00)
[2017-01-05] MEDS: GUAIFENESIN ER 600 MG TABLET.ER PO SCH ×3 (09:00→21:55)
[2017-01-05] MEDS: METOPROLOL TARTRATE 5 MG/5 ML VIAL. IVP SCH ×3 (09:25→17:08)
--- NOTE | 2017-01-05 09:33 | RAD ---
PROCEDURE Portable chest radiograph 01/05/2017 HISTORY Aspiration. COPD. FINDINGS An AP portable erect digital radiograph of the chest was obtained. Comparison study is dated 11/08/2016. The cardiac silhouette is normal in size. Atherosclerotic calcification of the thoracic aorta is seen. Bullous emphysematous changes are again seen bilaterally. Patchy left lower lobe atelectasis and/or infiltrate is seen. No pneumothorax or pleural effusion is noted. The osseous structures are unchanged. IMPRESSION Patchy left lower lobe atelectasis and/or infiltrate. Electronically signed by: Jose Roberto Richardson MD (Jan 05, 2017 09:30:55)
[2017-01-05] MEDS: INSULIN ASPART 300 UNITS/3 ML INSULN.PEN SQ SCH ×2 (11:38→18:29)
--- NOTE | 2017-01-05 12:58 | PDOC ---
PROGRESS NOTES Chief Complaint Chief Complaint sob, cough 1. acute resp failure with hypoxia 2. COPD exacerbation with bronchitis and possible PNA 3. chronic diastolic chf with EF 50% 4. HTN 5. 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 PFIB 7. sepsis with bronchitis 8. anxiety 9. bedbound with generalized weakness 10.mild malnutrition 11. lactate acidosis 12. h/o CVA wo obvious weakness 13. tachycardia, cannot reach EKG online since needs password for card center? plan: 1. card, pulm consult 2. hold lasix, ivf for now. npo for now , swallow eval given possible asp last night 3. cont home meds 4. cough meds 5. check sputum last time was + Kpna 6. dc zosyn since resistent, add meropenum and vanco 7. dvt, gi ppx PTOT labs tmr SSI for solumedrol now CXR REPeated History of Present Illness History of Present Illness still cough a lot, with sob, on NC now low bp and tachycardia last night, better now Vitals Vitals Vital Signs Date Time Temp Pulse Resp B/P Pulse Ox O2 Delivery O2 Flow Rate FiO2 01/05/17 12:05 96 Nasal Cannula 2.0 01/05/17 11:00 76 24 106/57 01/05/17 09:00 98.3 98.3 Physical Exam General: Alert, Oriented X3, Cooperative, No acute distress Heart: Normal S1, Normal S2, Other Lungs: Clear Extremities: No edema, Normal pulses Skin: No rashes Labs LABS Laboratory Tests Test 01/04/17 15:35 01/04/17 16:00 01/04/17 17:30 01/04/17 19:46 White Blood Count 18.5x10^3/uL (4.0-11.0) Red Blood Count 3.70x10^6/uL (4.30-5.70) Hemoglobin 9.9g/dL (13.0-17.5) Hematocrit 31.6% (39.0-53.0) Mean Corpuscular Volume 85fL (79-100) Mean Corpuscular Hemoglobin 27pg (25-35) Mean Corpuscular Hemoglobin Concent 31g/dL (31-37) Red Cell Distribution Width 18.6% (11.5-14.5) Platelet Count 408x10^3/uL (140-400) Neutrophils (%) (Auto) 92% (31-73) Lymphocytes (%) (Auto) 5% (24-48) Monocytes (%) (Auto) 2% (0-9) Eosinophils (%) (Auto) 1% (0-3) Basophils (%) (Auto) 0% (0-3) Neutrophils # (Auto) 17.0x10^3uL (1.8-7.7) Lymphocytes # (Auto) 0.9x10^3/uL (1.0-4.8) Monocytes # (Auto) 0.4x10^3/uL (0.0-1.1) Eosinophils # (Auto) 0.1x10^3/uL (0.0-0.7) Basophils # (Auto) 0.0x10^3/uL (0.0-0.2) Segmented Neutrophils % 86% (35-66) Band Neutrophils % 5% (0-9) Lymphocytes % 5% (24-48) Monocytes % 4% (0-10) Platelet Estimate Increased (ADEQUATE) Poikilocytosis Slight Anisocytosis Slight Ovalocytes Few Schistocytes Few Sodium Level 134mmol/L (136-145) Potassium Level 4.4mmol/L (3.5-5.1) Chloride Level 95mmol/L (98-107) Carbon Dioxide Level 25mmol/L (21-32) Anion Gap 14 (6-14) Blood Urea Nitrogen 46mg/dL (8-26) Creatinine 2.5mg/dL (0.7-1.3) Estimated GFR (Cockcroft-Gault) 25.0 BUN/Creatinine Ratio 18 (6-20) Glucose Level 162mg/dL (70-99) Lactic Acid Level 2.4mmol/L (0.4-2.0) 1.1mmol/L (0.4-2.0) Calcium Level 9.3mg/dL (8.5-10.1) Total Bilirubin 0.3mg/dL (0.2-1.0) Aspartate Amino Transf (AST/SGOT) 22U/L (15-37) Alanine Aminotransferase (ALT/SGPT) 13U/L (16-63) Alkaline Phosphatase 70U/L (46-116) Troponin I Quantitative < 0.017ng/mL (0.000-0.055) LW-Cov-W-Type Natriuretic Peptide 1638pg/mL (0-449) Total Protein 7.5g/dL (6.4-8.2) Albumin 3.2g/dL (3.4-5.0) Albumin/Globulin Ratio 0.7 (1.0-1.7) O2 Saturation 90% (92-99) Arterial Blood pH 7.48 (7.35-7.45) Arterial Blood pCO2 at Patient Temp 25mmHg (35-46) Arterial Blood pO2 at Patient Temp 57mmHg (65-108) Arterial Blood HCO3 18mmol/L (21-28) Arterial Blood Base Excess -5mmol/L (-3-3) FiO2 6 lpm nc Influenza Type A Antigen Negative (NEGATIVE) Influenza Type B Antigen Negative (NEGATIVE) Test 01/05/17 05:00 01/05/17 11:34 White Blood Count 12.0x10^3/uL (4.0-11.0) Red Blood Count 3.20x10^6/uL (4.30-5.70) Hemoglobin 8.6g/dL (13.0-17.5) Hematocrit 27.9% (39.0-53.0) Mean Corpuscular Volume 87fL (79-100) Mean Corpuscular Hemoglobin 27pg (25-35) Mean Corpuscular Hemoglobin Concent 31g/dL (31-37) Red Cell Distribution Width 18.7% (11.5-14.5) Platelet Count 327x10^3/uL (140-400) Neutrophils (%) (Auto) 93% (31-73) Lymphocytes (%) (Auto) 5% (24-48) Monocytes (%) (Auto) 2% (0-9) Eosinophils (%) (Auto) 0% (0-3) Basophils (%) (Auto) 0% (0-3) Neutrophils # (Auto) 11.1x10^3uL (1.8-7.7) Lymphocytes # (Auto) 0.6x10^3/uL (1.0-4.8) Monocytes # (Auto) 0.3x10^3/uL (0.0-1.1) Eosinophils # (Auto) 0.0x10^3/uL (0.0-0.7) Basophils # (Auto) 0.0x10^3/uL (0.0-0.2) Sodium Level 136mmol/L (136-145) Potassium Level 4.1mmol/L (3.5-5.1) Chloride Level 104mmol/L (98-107) Carbon Dioxide Level 19mmol/L (21-32) Anion Gap 13 (6-14) Blood Urea Nitrogen 42mg/dL (8-26) Creatinine 2.2mg/dL (0.7-1.3) Estimated GFR (Cockcroft-Gault) 28.9 Glucose Level 210mg/dL (70-99) Lactic Acid Level 1.7mmol/L (0.4-2.0) Calcium Level 8.2mg/dL (8.5-10.1) Glucose (Fingerstick) 133mg/dL (70-99) Review of Systems Review of Systems no fever ,chills, or chest pain Assessment and Plan Assessmemt and Plan Problems Medical Problems: (1) Sepsis Status: Acute Problems: Comment Review of Relevant I have reviewed the following items be (where applicable) has been applied. Labs Laboratory Tests Test 01/04/17 15:35 01/04/17 16:00 01/04/17 17:30 01/04/17 19:46 White Blood Count 18.5x10^3/uL (4.0-11.0) Red Blood Count 3.70x10^6/uL (4.30-5.70) Hemoglobin 9.9g/dL (13.0-17.5) Hematocrit 31.6% (39.0-53.0) Mean Corpuscular Volume 85fL (79-100) Mean Corpuscular Hemoglobin 27pg (25-35) Mean Corpuscular Hemoglobin Concent 31g/dL (31-37) Red Cell Distribution Width 18.6% (11.5-14.5) Platelet Count 408x10^3/uL (140-400) Neutrophils (%) (Auto) 92% (31-73) Lymphocytes (%) (Auto) 5% (24-48) Monocytes (%) (Auto) 2% (0-9) Eosinophils (%) (Auto) 1% (0-3) Basophils (%) (Auto) 0% (0-3) Neutrophils # (Auto) 17.0x10^3uL (1.8-7.7) Lymphocytes # (Auto) 0.9x10^3/uL (1.0-4.8) Monocytes # (Auto) 0.4x10^3/uL (0.0-1.1) Eosinophils # (Auto) 0.1x10^3/uL (0.0-0.7) Basophils # (Auto) 0.0x10^3/uL (0.0-0.2) Segmented Neutrophils % 86% (35-66) Band Neutrophils % 5% (0-9) Lymphocytes % 5% (24-48) Monocytes % 4% (0-10) Platelet Estimate Increased (ADEQUATE) Poikilocytosis Slight Anisocytosis Slight Ovalocytes Few Schistocytes Few Sodium Level 134mmol/L (136-145) Potassium Level 4.4mmol/L (3.5-5.1) Chloride Level 95mmol/L (98-107) Carbon Dioxide Level 25mmol/L (21-32) Anion Gap 14 (6-14) Blood Urea Nitrogen 46mg/dL (8-26) Creatinine 2.5mg/dL (0.7-1.3) Estimated GFR (Cockcroft-Gault) 25.0 BUN/Creatinine Ratio 18 (6-20) Glucose Level 162mg/dL (70-99) Lactic Acid Level 2.4mmol/L (0.4-2.0) 1.1mmol/L (0.4-2.0) Calcium Level 9.3mg/dL (8.5-10.1) Total Bilirubin 0.3mg/dL (0.2-1.0) Aspartate Amino Transf (AST/SGOT) 22U/L (15-37) Alanine Aminotransferase (ALT/SGPT) 13U/L (16-63) Alkaline Phosphatase 70U/L (46-116) Troponin I Quantitative < 0.017ng/mL (0.000-0.055) DC-Gmu-A-Type Natriuretic Peptide 1638pg/mL (0-449) Total Protein 7.5g/dL (6.4-8.2) Albumin 3.2g/dL (3.4-5.0) Albumin/Globulin Ratio 0.7 (1.0-1.7) O2 Saturation 90% (92-99) Arterial Blood pH 7.48 (7.35-7.45) Arterial Blood pCO2 at Patient Temp 25mmHg (35-46) Arterial Blood pO2 at Patient Temp 57mmHg (65-108) Arterial Blood HCO3 18mmol/L (21-28) Arterial Blood Base Excess -5mmol/L (-3-3) FiO2 6 lpm nc Influenza Type A Antigen Negative (NEGATIVE) Influenza Type B Antigen Negative (NEGATIVE) Test 01/05/17 05:00 01/05/17 11:34 White Blood Count 12.0x10^3/uL (4.0-11.0) Red Blood Count 3.20x10^6/uL (4.30-5.70) Hemoglobin 8.6g/dL (13.0-17.5) Hematocrit 27.9% (39.0-53.0) Mean Corpuscular Volume 87fL (79-100) Mean Corpuscular Hemoglobin 27pg (25-35) Mean Corpuscular Hemoglobin Concent 31g/dL (31-37) Red Cell Distribution Width 18.7% (11.5-14.5) Platelet Count 327x10^3/uL (140-400) Neutrophils (%) (Auto) 93% (31-73) Lymphocytes (%) (Auto) 5% (24-48) Monocytes (%) (Auto) 2% (0-9) Eosinophils (%) (Auto) 0% (0-3) Basophils (%) (Auto) 0% (0-3) Neutrophils # (Auto) 11.1x10^3uL (1.8-7.7) Lymphocytes # (Auto) 0.6x10^3/uL (1.0-4.8) Monocytes # (Auto) 0.3x10^3/uL (0.0-1.1) Eosinophils # (Auto) 0.0x10^3/uL (0.0-0.7) Basophils # (Auto) 0.0x10^3/uL (0.0-0.2) Sodium Level 136mmol/L (136-145) Potassium Level 4.1mmol/L (3.5-5.1) Chloride Level 104mmol/L (98-107) Carbon Dioxide Level 19mmol/L (21-32) Anion Gap 13 (6-14) Blood Urea Nitrogen 42mg/dL (8-26) Creatinine 2.2mg/dL (0.7-1.3) Estimated GFR (Cockcroft-Gault) 28.9 Glucose Level 210mg/dL (70-99) Lactic Acid Level 1.7mmol/L (0.4-2.0) Calcium Level 8.2mg/dL (8.5-10.1) Glucose (Fingerstick) 133mg/dL (70-99) Laboratory Tests Test 01/04/17 15:35 01/04/17 16:00 01/04/17 17:30 01/04/17 19:46 White Blood Count 18.5x10^3/uL (4.0-11.0) Red Blood Count 3.70x10^6/uL (4.30-5.70) Hemoglobin 9.9g/dL (13.0-17.5) Hematocrit 31.6% (39.0-53.0) Mean Corpuscular Volume 85fL (79-100) Mean Corpuscular Hemoglobin 27pg (25-35) Mean Corpuscular Hemoglobin Concent 31g/dL (31-37) Red Cell Distribution Width 18.6% (11.5-14.5) Platelet Count 408x10^3/uL (140-400) Neutrophils (%) (Auto) 92% (31-73) Lymphocytes (%) (Auto) 5% (24-48) Monocytes (%) (Auto) 2% (0-9) Eosinophils (%) (Auto) 1% (0-3) Basophils (%) (Auto) 0% (0-3) Neutrophils # (Auto) 17.0x10^3uL (1.8-7.7) Lymphocytes # (Auto) 0.9x10^3/uL (1.0-4.8) Monocytes # (Auto) 0.4x10^3/uL (0.0-1.1) Eosinophils # (Auto) 0.1x10^3/uL (0.0-0.7) Basophils # (Auto) 0.0x10^3/uL (0.0-0.2) Segmented Neutrophils % 86% (35-66) Band Neutrophils % 5% (0-9) Lymphocytes % 5% (24-48) Monocytes % 4% (0-10) Platelet Estimate Increased (ADEQUATE) Poikilocytosis Slight Anisocytosis Slight Ovalocytes Few Schistocytes Few Sodium Level 134mmol/L (136-145) Potassium Level 4.4mmol/L (3.5-5.1) Chloride Level 95mmol/L (98-107) Carbon Dioxide Level 25mmol/L (21-32) Anion Gap 14 (6-14) Blood Urea Nitrogen 46mg/dL (8-26) Creatinine 2.5mg/dL (0.7-1.3) Estimated GFR (Cockcroft-Gault) 25.0 BUN/Creatinine Ratio 18 (6-20) Glucose Level 162mg/dL (70-99) Lactic Acid Level 2.4mmol/L (0.4-2.0) 1.1mmol/L (0.4-2.0) Calcium Level 9.3mg/dL (8.5-10.1) Total Bilirubin 0.3mg/dL (0.2-1.0) Aspartate Amino Transf (AST/SGOT) 22U/L (15-37) Alanine Aminotransferase (ALT/SGPT) 13U/L (16-63) Alkaline Phosphatase 70U/L (46-116) Troponin I Quantitative < 0.017ng/mL (0.000-0.055) GT-Hjs-R-Type Natriuretic Peptide 1638pg/mL (0-449) Total Protein 7.5g/dL (6.4-8.2) Albumin 3.2g/dL (3.4-5.0) Albumin/Globulin Ratio 0.7 (1.0-1.7) O2 Saturation 90% (92-99) Arterial Blood pH 7.48 (7.35-7.45) Arterial Blood pCO2 at Patient Temp 25mmHg (35-46) Arterial Blood pO2 at Patient Temp 57mmHg (65-108) Arterial Blood HCO3 18mmol/L (21-28) Arterial Blood Base Excess -5mmol/L (-3-3) FiO2 6 lpm nc Influenza Type A Antigen Negative (NEGATIVE) Influenza Type B Antigen Negative (NEGATIVE) Test 01/05/17 05:00 01/05/17 11:34 White Blood Count 12.0x10^3/uL (4.0-11.0) Red Blood Count 3.20x10^6/uL (4.30-5.70) Hemoglobin 8.6g/dL (13.0-17.5) Hematocrit 27.9% (39.0-53.0) Mean Corpuscular Volume 87fL (79-100) Mean Corpuscular Hemoglobin 27pg (25-35) Mean Corpuscular Hemoglobin Concent 31g/dL (31-37) Red Cell Distribution Width 18.7% (11.5-14.5) Platelet Count 327x10^3/uL (140-400) Neutrophils (%) (Auto) 93% (31-73) Lymphocytes (%) (Auto) 5% (24-48) Monocytes (%) (Auto) 2% (0-9) Eosinophils (%) (Auto) 0% (0-3) Basophils (%) (Auto) 0% (0-3) Neutrophils # (Auto) 11.1x10^3uL (1.8-7.7) Lymphocytes # (Auto) 0.6x10^3/uL (1.0-4.8) Monocytes # (Auto) 0.3x10^3/uL (0.0-1.1) Eosinophils # (Auto) 0.0x10^3/uL (0.0-0.7) Basophils # (Auto) 0.0x10^3/uL (0.0-0.2) Sodium Level 136mmol/L (136-145) Potassium Level 4.1mmol/L (3.5-5.1) Chloride Level 104mmol/L (98-107) Carbon Dioxide Level 19mmol/L (21-32) Anion Gap 13 (6-14) Blood Urea Nitrogen 42mg/dL (8-26) Creatinine 2.2mg/dL (0.7-1.3) Estimated GFR (Cockcroft-Gault) 28.9 Glucose Level 210mg/dL (70-99) Lactic Acid Level 1.7mmol/L (0.4-2.0) Calcium Level 8.2mg/dL (8.5-10.1) Glucose (Fingerstick) 133mg/dL (70-99) Microbiology 01/05/17 Gram Stain - Final, Complete Medications Current Medications Vancomycin HCl (Vanco Per Pharmacy) 1 each 1X ONCE MC ; Start 01/04/17 at 15:30 ; Stop 01/04/17 at 15:31; Status UNV Methylprednisolone Sodium Succinate 125 mg 125 mg 1X ONCE IV Last administered on 01/04/17 15:30; Start 01/04/17 at 15:30; Stop 01/04/17 at 15:31; Status DC Sodium Chloride (Iv Sodium Chloride 0.9% 500ml Bag) 500 ml @ 500 mls/hr 1X ONCE IV Last administered on 01/04/17 15:30; Start 01/04/17 at 15:30; Stop at 16:29; Status DC Piperacillin Sod/ Tazobactam Sod (Zosyn Per Pharmacy) 1 each PRN DAILY PRN MC SEE COMMENTS; Start 01/04/17 at 15:30; Stop 01/04/17 at 17:09; Status DC Acetaminophen 1000 mg 1,000 mg 1X ONCE PO Last administered on 01/04/17 15:45 ; Start 01/04/17 at 15:45; Stop 01/04/17 at 15:47; Status DC Sodium Chloride 500 ml @ 500 mls/hr 1X ONCE IV Last administered on 01/04/17 15:45; Start 01/04/17 at 15:45; Stop 01/04/17 at 16:44; Status DC Vancomycin HCl 1.5 gm/Sodium Chloride 500 ml @ 250 mls/hr 1X ONCE IV Last administered on 01/04/17 16:15; Start 01/04/17 at 16:15; Stop 01/04/17 at 18:14; Status DC Piperacillin Sod/ Tazobactam Sod/ Sodium Chloride (Zosyn/Iv Sodium Chloride 0.9 % 50ml) 50 ml @ 100 mls/hr 1X ONCE IV Last administered on 01/04/17 16:15; Start 01/04/17 at 16:15; Stop 01/04/17 at 16:44; Status DC Acetaminophen (Tylenol) 650 mg Q4HRS PRN PO MILD PAIN; Start 01/04/17 at 17:15 Aspirin (Children'S Aspirin) 81 mg DAILYWBKFT PO Last administered on 01/05/17 07:28; Start 01/05/17 at 08:00 Atorvastatin Calcium (Lipitor) 10 mg QHS PO Last administered on 01/04/17 23:36 ; Start 01/04/17 at 21:00 Bisacodyl (Dulcolax Supp) 10 mg PRN DAILY PRN RC CONSTIPATION; Start 01/04/17 at 17:15 Guaifenesin (Mucinex) 600 mg BID PO Last administered on 01/04/17 22:14; Start 01/04/17 at 21:00 Albuterol/ Ipratropium (Duoneb) 3 ml PRN Q4HRS PRN NEB SHORTNESS OF BREATH; Start 01/04/17 at 17:15; Stop 01/04/17 at 17:15; Status DC Lorazepam (Ativan) 0.5 mg PRN Q8HRS PRN PO ANXIETY / AGITATION Last administered on 01/04/17 18:39; Start 01/04/17 at 17:15 Magnesium Hydroxide (Milk Of Magnesia) 400 mg PRN DAILY PRN PO CONSTIPATION; Start 01/04/17 at 17:15 Metoprolol Succinate (Toprol Xl) 25 mg DAILY PO ; Start 01/05/17 at 09:00; Stop 01/05/17 at 09:00; Status DC Primidone (Mysoline) 50 mg DAILY PO ; Start 01/05/17 at 09:00 Spironolactone (Aldactone) 25 mg DAILY PO ; Start 01/05/17 at 09:00 Tamsulosin HCl (Flomax) 0.4 mg DAILY PO ; Start 01/05/17 at 09:00 Budesonide (Pulmicort) 0.5 mg RTBID NEB Last administered on 01/05/17 08:40; Start 01/04/17 at 20:00 Albuterol/ Ipratropium 3 ml 3 ml RTQID NEB Last administered on 01/05/17 12:05 ; Start 01/04/17 at 20:00 Meropenem/Sodium Chloride (Merrem/Iv Sodium Chloride 0.9% 50ml) 50 ml @ 100 mls /hr Q8HRS IV ; Start 01/04/17 at 22:00; Stop 01/04/17 at 22:00; Status DC Albuterol Sulfate (Ventolin Neb Soln) 2.5 mg PRN Q2HR PRN NEB SHORTNESS OF BREATH; Start 01/04/17 at 17:15 Vancomycin HCl (Vanco Per Pharmacy) 1 each PRN DAILY PRN MC SEE COMMENTS Last administered on 01/05/17 08:53; Start 01/04/17 at 17:15 Methylprednisolone Sodium Succinate (Solu-Medrol 40mg Vial) 40 mg TID IV Last administered on 01/05/17 08:35; Start 01/04/17 at 21:00 Pantoprazole Sodium (Protonix) 40 mg DAILYAC PO Last administered on 01/05/17 07:28; Start 01/05/17 at 07:30 Hydralazine HCl 10 mg 10 mg PRN Q4HRS PRN IVP HYPERTENSION, SEE COMMENTS; Start 01/04/17 at 17:15 Sodium Chloride (Iv Sodium Chloride 0.9% 1000ml Bag) 1,000 ml @ 75 mls/hr 1X ONCE IV Last administered on 01/04/17 17:15; Start 01/04/17 at 17:15; Stop at 06:34; Status DC Heparin Sodium (Porcine) 5000 unit 5,000 unit Q8HRS SQ Last administered on 01/05 05:32; Start 01/04/17 at 22:00 Meropenem 500 mg/ Sodium Chloride 50 ml @ 100 mls/hr BID IV Last administered on 01/05/17 08:34; Start 01/04/17 at 21:00 Sodium Chloride (Iv Sodium Chloride 0.9% 1000ml Bag) 1,000 ml @ 1,000 mls/hr 1X ONCE IV Last administered on 01/04/17 17:45; Start 01/04/17 at 17:45; Stop 01/04/17 at 18:44; Status DC Albuterol/ Ipratropium (Duoneb) 3 ml 1X ONCE NEB Last administered on 18:10; Start 01/04/17 at 17:45; Stop 01/04/17 at 17:49; Status DC Ondansetron HCl (Zofran) 4 mg PRN Q8HRS PRN IV NAUSEA/VOMITING; Start 01/04/17 at 18:00; Stop 01/05/17 at 17:59 Morphine Sulfate 2 mg 2 mg PRN Q2HR PRN IV PAIN; Start 01/04/17 at 18:00; Stop 01/05/17 at 17:59 Sodium Chloride (Iv Sodium Chloride 0.9% 1000ml Bag) 1,000 ml @ 125 mls/hr Q8H IV ; Start 01/04/17 at 17:50; Stop 01/05/17 at 17:49; Status Cancel Albuterol/ Ipratropium (Duoneb) 3 ml RTQID NEB ; Start 01/04/17 at 20:00; Stop at 19:59; Status UNV Digoxin 125 mcg 125 mcg 1X ONCE IV Last administered on 01/04/17 19:32; Start 01/04/17 at 19:15; Stop 01/04/17 at 19:16; Status DC Vancomycin HCl/ Sodium Chloride (Iv Sodium Chloride 0.9% 250ml) 250 ml @ 167 mls/hr Q24H IV ; Start 01/05/17 at 16:00 Vancomycin HCl 1 each 1 each 1X ONCE MC ; Start 01/06/17 at 15:30; Stop 01/06/17 at 15:31 Sodium Chloride 1,000 ml @ 1,000 mls/hr 1X ONCE IV Last administered on 19:37; Start 01/04/17 at 19:45; Stop 01/04/17 at 20:44; Status DC Norepinephrine Bitartrate 8 mg/ Sodium Chloride 258 ml @ 0 mls/hr CONT PRN IV SEE I/O RECORD; Start 01/04/17 at 22:15 Sodium Chloride (Iv Sodium Chloride 0.9% 1000ml Bag) 1,000 ml @ 75 mls/hr 1X ONCE IV Last administered on 01/05/17 09:34; Start 01/05/17 at 08:45; Stop at 22:04 Insulin Aspart (Novolog) 0-9 UNITS TIDWMEALS SQ ; Start 01/05/17 at 12:00 Dextrose 12.5 gm PRN Q15MIN PRN IV SEE COMMENTS; Start 01/05/17 at 08:45 Guaifenesin (Robitussin) 200 mg PRN Q4HRS PRN PO COUGH; Start 01/05/17 at 08:45 Metoprolol Tartrate (Lopressor) 5 mg Q6HRS IVP Last administered on 01/05/17 09 :25; Start 01/05/17 at 09:30 Active Scripts Active Reported Tamsulosin Hcl 0.4 Mg Cap.er.24h 1 Cap PO DAILY Symbicort 160-4.5 Mcg Inhaler (Budesonide/Formoterol Fumarate) 10.2 Gm Hfa.aer.ad 2 Puff IH BID Spironolactone 25 Mg Tablet 1 Tab PO DAILY Primidone 50 Mg Tablet 50 Mg PO DAILY Pantoprazole Sodium 40 Mg Tablet.dr 1 Tab PO BID Metoprolol Succinate 50 Mg Tab.er.24h 25 Mg PO DAILY Lorazepam 0.5 Mg Tablet 1 Tab PO PRN Q8HRS PRN Duoneb 0.5-3(2.5) Mg/3 Ml (Albuterol/Ipratropium) 3 Ml Ampul.neb 3 Ml NEB Q4HRS Milk Of Magnesia (Magnesium Hydroxide) 400 Mg/5 Ml Oral.susp 400 Mg PO PRN DAILY PRN Atorvastatin Calcium 10 Mg Tablet 1 Tab PO DAILY Aspirin 81 Mg Tab.chew 81 Mg PO DAILY Acetaminophen 325 Mg Tablet 650 Mg PO Q4HRS PRN Duoneb 0.5-3(2.5) Mg/3 Ml (Albuterol/Ipratropium) 3 Ml Ampul.neb 3 Ml NEB PRN Q4HRS PRN Guaifenesin 600 Mg Tablet.er 600 Mg PO BID Furosemide 40 Mg Tablet 40 Mg PO DAILY Fleet Enema (Na Phos,M-B/Na Phos,Di-Ba) 133 Ml Enema 1 Each RC PRN DAILY PRN Aspirin Ec (Aspirin) 81 Mg Tablet.dr 1 Tab PO DAILY Dulcolax (Bisacodyl) 10 Mg Supp.rect 10 Mg RC PRN DAILY PRN Vitals/I & O Vital Sign - Last 24 Hours 01/04/17 01/04/17 01/04/17 01/04/17 15:48 15:48 16:28 16:48 Temp 101.5 101.5 Pulse 155 152 150 148 Resp 30 30 30 30 B/P 118/72 121/74 111/63 103/58 Pulse Ox 92 90 95 O2 Delivery Nasal Cannula Room Air Nasal Cannula NonRebreather Mask O2 Flow Rate 2 2 15 01/04/17 01/04/17 01/04/17 01/04/17 17:08 17:50 17:56 18:10 Pulse 148 115 126 Resp 30 30 B/P 97/60 89/66 96/68 Pulse Ox 99 99 100 100 O2 Delivery NonRebreather Mask NonRebreather Mask BiPAP/CPAP BiPAP/CPAP O2 Flow Rate 15 01/04/17 01/04/17 01/04/17 01/04/17 18:11 18:12 18:26 18:41 Pulse 112 144 142 B/P 96/64 87/60 79/52 Pulse Ox 100 100 100 99 O2 Delivery BiPAP/CPAP BiPAP/CPAP NonRebreather Mask NonRebreather Mask 01/04/17 01/04/17 01/04/17 01/04/17 18:56 19:01 19:06 19:10 Pulse 140 140 124 122 B/P 75/51 80/48 75/48 67/51 Pulse Ox 98 87 100 100 O2 Delivery NonRebreather Mask NonRebreather Mask NonRebreather Mask NonRebreather Mask 01/04/17 01/04/17 01/04/17 01/04/17 19:11 19:26 19:27 19:32 Pulse 124 130 138 137 B/P 78/48 64/46 72/50 72/50 Pulse Ox 100 99 99 O2 Delivery NonRebreather Mask NonRebreather Mask NonRebreather Mask 01/04/17 01/04/17 01/04/17 01/04/17 19:36 19:41 19:56 20:11 Pulse 118 102 96 96 B/P 82/54 83/58 87/46 93/46 Pulse Ox 100 100 100 100 O2 Delivery NonRebreather Mask NonRebreather Mask NonRebreather Mask NonRebreather Mask 01/04/17 01/04/17 01/04/17 01/04/17 20:19 20:22 20:26 20:41 Pulse 90 82 B/P 82/48 92/53 Pulse Ox 100 100 98 100 O2 Delivery Venturi Mask Venturi Mask NonRebreather Mask NonRebreather Mask O2 Flow Rate 10.0 10.0 01/04/17 01/04/17 01/04/17 01/04/17 20:56 21:07 21:26 21:56 Pulse 72 76 88 88 Resp 21 22 23 B/P 72/38 84/28 77/35 91/41 Pulse Ox 100 100 100 100 O2 Delivery NonRebreather Mask NonRebreather Mask NonRebreather Mask NonRebreather Mask O2 Flow Rate 10 10 10 01/04/17 01/04/17 01/05/17 01/05/17 22:11 23:59 00:00 01:00 Temp 98.0 98.0 Pulse 84 92 100 Resp 21 22 22 B/P 92/47 97/52 100/52 Pulse Ox 100 96 96 O2 Delivery NonRebreather Mask Nasal Cannula Nasal Cannula Nasal Cannula O2 Flow Rate 10 4.0 4.0 4.0 01/05/17 01/05/17 01/05/17 01/05/17 02:00 03:00 04:00 04:00 Temp 98.4 98.4 Pulse 67 66 67 Resp 20 20 20 B/P 105/55 99/55 123/64 Pulse Ox 97 94 94 O2 Delivery Nasal Cannula Nasal Cannula Nasal Cannula Nasal Cannula O2 Flow Rate 3.0 3.0 3.0 3.0 01/05/17 01/05/17 01/05/17 01/05/17 05:00 06:00 07:00 08:00 Pulse 67 68 69 Resp 20 20 24 B/P 121/66 100/55 96/76 Pulse Ox 100 98 97 O2 Delivery Nasal Cannula Nasal Cannula Nasal Cannula Nasal Cannula O2 Flow Rate 3.0 2.0 2.0 2.0 01/05/17 01/05/17 01/05/17 01/05/17 08:00 08:40 09:00 09:25 Temp 98.3 98.3 Pulse 74 95 145 Resp 29 26 B/P 114/69 110/62 110/62 Pulse Ox 96 95 91 O2 Delivery Nasal Cannula Nasal Cannula Nasal Cannula O2 Flow Rate 2.0 2.0 2.0 01/05/17 01/05/17 01/05/17 10:00 11:00 12:05 Pulse 72 76 Resp 26 24 B/P 105/54 106/57 Pulse Ox 95 97 96 O2 Delivery Nasal Cannula Nasal Cannula Nasal Cannula O2 Flow Rate 2.0 2.0 2.0 Intake and Output 01/04/17 01/04/17 01/05/17 15:00 23:00 07:00 Intake Total 2500 ml 650 ml Output Total 1600 ml Balance 2500 ml -950 ml JULIET GODOY MD Jan 05, 2017 12:58
[2017-01-05] MEDS: PRIMIDONE 50 MG TABLET PO SCH (14:34)
[2017-01-05] MEDS: SPIRONOLACTONE 25 MG TABLET PO SCH (14:34)
[2017-01-05] MEDS: LORAZEPAM 0.5 MG TABLET. PO PRN (15:19)
--- NOTE | 2017-01-05 15:44 | PDOC ---
PULMONARY PROGRESS NOTES Vitals Vital Signs Date Time Temp Pulse Resp B/P Pulse Ox O2 Delivery O2 Flow Rate FiO2 01/05/17 15:00 146 24 94/56 96 Nasal Cannula 2.0 01/05/17 12:00 98.4 98.4 General: Alert, No acute distress HEENT: Other Lungs: Clear Cardiovascular: S1, S2 Abdomen: Soft, Non-tender Extremities: No Edema Labs Laboratory Tests Test 01/04/17 15:35 01/04/17 16:00 01/04/17 17:30 01/04/17 19:46 White Blood Count 18.5x10^3/uL (4.0-11.0) Red Blood Count 3.70x10^6/uL (4.30-5.70) Hemoglobin 9.9g/dL (13.0-17.5) Hematocrit 31.6% (39.0-53.0) Mean Corpuscular Volume 85fL (79-100) Mean Corpuscular Hemoglobin 27pg (25-35) Mean Corpuscular Hemoglobin Concent 31g/dL (31-37) Red Cell Distribution Width 18.6% (11.5-14.5) Platelet Count 408x10^3/uL (140-400) Neutrophils (%) (Auto) 92% (31-73) Lymphocytes (%) (Auto) 5% (24-48) Monocytes (%) (Auto) 2% (0-9) Eosinophils (%) (Auto) 1% (0-3) Basophils (%) (Auto) 0% (0-3) Neutrophils # (Auto) 17.0x10^3uL (1.8-7.7) Lymphocytes # (Auto) 0.9x10^3/uL (1.0-4.8) Monocytes # (Auto) 0.4x10^3/uL (0.0-1.1) Eosinophils # (Auto) 0.1x10^3/uL (0.0-0.7) Basophils # (Auto) 0.0x10^3/uL (0.0-0.2) Segmented Neutrophils % 86% (35-66) Band Neutrophils % 5% (0-9) Lymphocytes % 5% (24-48) Monocytes % 4% (0-10) Platelet Estimate Increased (ADEQUATE) Poikilocytosis Slight Anisocytosis Slight Ovalocytes Few Schistocytes Few Sodium Level 134mmol/L (136-145) Potassium Level 4.4mmol/L (3.5-5.1) Chloride Level 95mmol/L (98-107) Carbon Dioxide Level 25mmol/L (21-32) Anion Gap 14 (6-14) Blood Urea Nitrogen 46mg/dL (8-26) Creatinine 2.5mg/dL (0.7-1.3) Estimated GFR (Cockcroft-Gault) 25.0 BUN/Creatinine Ratio 18 (6-20) Glucose Level 162mg/dL (70-99) Lactic Acid Level 2.4mmol/L (0.4-2.0) 1.1mmol/L (0.4-2.0) Calcium Level 9.3mg/dL (8.5-10.1) Total Bilirubin 0.3mg/dL (0.2-1.0) Aspartate Amino Transf (AST/SGOT) 22U/L (15-37) Alanine Aminotransferase (ALT/SGPT) 13U/L (16-63) Alkaline Phosphatase 70U/L (46-116) Troponin I Quantitative < 0.017ng/mL (0.000-0.055) QE-Cpx-E-Type Natriuretic Peptide 1638pg/mL (0-449) Total Protein 7.5g/dL (6.4-8.2) Albumin 3.2g/dL (3.4-5.0) Albumin/Globulin Ratio 0.7 (1.0-1.7) O2 Saturation 90% (92-99) Arterial Blood pH 7.48 (7.35-7.45) Arterial Blood pCO2 at Patient Temp 25mmHg (35-46) Arterial Blood pO2 at Patient Temp 57mmHg (65-108) Arterial Blood HCO3 18mmol/L (21-28) Arterial Blood Base Excess -5mmol/L (-3-3) FiO2 6 lpm nc Influenza Type A Antigen Negative (NEGATIVE) Influenza Type B Antigen Negative (NEGATIVE) Test 01/05/17 05:00 01/05/17 11:34 White Blood Count 12.0x10^3/uL (4.0-11.0) Red Blood Count 3.20x10^6/uL (4.30-5.70) Hemoglobin 8.6g/dL (13.0-17.5) Hematocrit 27.9% (39.0-53.0) Mean Corpuscular Volume 87fL (79-100) Mean Corpuscular Hemoglobin 27pg (25-35) Mean Corpuscular Hemoglobin Concent 31g/dL (31-37) Red Cell Distribution Width 18.7% (11.5-14.5) Platelet Count 327x10^3/uL (140-400) Neutrophils (%) (Auto) 93% (31-73) Lymphocytes (%) (Auto) 5% (24-48) Monocytes (%) (Auto) 2% (0-9) Eosinophils (%) (Auto) 0% (0-3) Basophils (%) (Auto) 0% (0-3) Neutrophils # (Auto) 11.1x10^3uL (1.8-7.7) Lymphocytes # (Auto) 0.6x10^3/uL (1.0-4.8) Monocytes # (Auto) 0.3x10^3/uL (0.0-1.1) Eosinophils # (Auto) 0.0x10^3/uL (0.0-0.7) Basophils # (Auto) 0.0x10^3/uL (0.0-0.2) Sodium Level 136mmol/L (136-145) Potassium Level 4.1mmol/L (3.5-5.1) Chloride Level 104mmol/L (98-107) Carbon Dioxide Level 19mmol/L (21-32) Anion Gap 13 (6-14) Blood Urea Nitrogen 42mg/dL (8-26) Creatinine 2.2mg/dL (0.7-1.3) Estimated GFR (Cockcroft-Gault) 28.9 Glucose Level 210mg/dL (70-99) Lactic Acid Level 1.7mmol/L (0.4-2.0) Calcium Level 8.2mg/dL (8.5-10.1) Glucose (Fingerstick) 133mg/dL (70-99) Laboratory Tests Test 01/04/17 16:00 01/04/17 17:30 01/04/17 19:46 01/05/17 05:00 O2 Saturation 90% (92-99) Arterial Blood pH 7.48 (7.35-7.45) Arterial Blood pCO2 at Patient Temp 25mmHg (35-46) Arterial Blood pO2 at Patient Temp 57mmHg (65-108) Arterial Blood HCO3 18mmol/L (21-28) Arterial Blood Base Excess -5mmol/L (-3-3) FiO2 6 lpm nc Lactic Acid Level 1.1mmol/L (0.4-2.0) 1.7mmol/L (0.4-2.0) Influenza Type A Antigen Negative (NEGATIVE) Influenza Type B Antigen Negative (NEGATIVE) White Blood Count 12.0x10^3/uL (4.0-11.0) Red Blood Count 3.20x10^6/uL (4.30-5.70) Hemoglobin 8.6g/dL (13.0-17.5) Hematocrit 27.9% (39.0-53.0) Mean Corpuscular Volume 87fL (79-100) Mean Corpuscular Hemoglobin 27pg (25-35) Mean Corpuscular Hemoglobin Concent 31g/dL (31-37) Red Cell Distribution Width 18.7% (11.5-14.5) Platelet Count 327x10^3/uL (140-400) Neutrophils (%) (Auto) 93% (31-73) Lymphocytes (%) (Auto) 5% (24-48) Monocytes (%) (Auto) 2% (0-9) Eosinophils (%) (Auto) 0% (0-3) Basophils (%) (Auto) 0% (0-3) Neutrophils # (Auto) 11.1x10^3uL (1.8-7.7) Lymphocytes # (Auto) 0.6x10^3/uL (1.0-4.8) Monocytes # (Auto) 0.3x10^3/uL (0.0-1.1) Eosinophils # (Auto) 0.0x10^3/uL (0.0-0.7) Basophils # (Auto) 0.0x10^3/uL (0.0-0.2) Sodium Level 136mmol/L (136-145) Potassium Level 4.1mmol/L (3.5-5.1) Chloride Level 104mmol/L (98-107) Carbon Dioxide Level 19mmol/L (21-32) Anion Gap 13 (6-14) Blood Urea Nitrogen 42mg/dL (8-26) Creatinine 2.2mg/dL (0.7-1.3) Estimated GFR (Cockcroft-Gault) 28.9 Glucose Level 210mg/dL (70-99) Calcium Level 8.2mg/dL (8.5-10.1) Test 01/05/17 11:34 Glucose (Fingerstick) 133mg/dL (70-99) Medications Active Scripts Medications Dose Route/Sig Days Date Category Tamsulosin Hcl 0.4 Mg Cap.er.24h 1 Cap PO DAILY 11/09/16 Reported Symbicort 160-4.5 Mcg Inhaler (Budesonide/Formoterol Fumarate) 10.2 Gm Hfa.aer.ad 2 Puff IH BID 11/09/16 Reported Spironolactone 25 Mg Tablet 1 Tab PO DAILY 11/09/16 Reported Primidone 50 Mg Tablet 50 Mg PO DAILY 11/09/16 Reported Pantoprazole Sodium 40 Mg Tablet.dr 1 Tab PO BID 11/09/16 Reported Metoprolol Succinate 50 Mg Tab.er.24h 25 Mg PO DAILY 11/09/16 Reported Lorazepam 0.5 Mg Tablet 1 Tab PO PRN Q8HRS PRN 11/09/16 Reported Duoneb 0.5-3(2.5) Mg/3 Ml (Albuterol/Ipratropium) 3 Ml Ampul.neb 3 Ml NEB Q4HRS 11/09/16 Reported Milk Of Magnesia (Magnesium Hydroxide) 400 Mg/5 Ml Oral.susp 400 Mg PO PRN DAILY PRN 11/09/16 Reported Atorvastatin Calcium 10 Mg Tablet 1 Tab PO DAILY 11/09/16 Reported Aspirin 81 Mg Tab.chew 81 Mg PO DAILY 11/09/16 Reported Acetaminophen 325 Mg Tablet 650 Mg PO Q4HRS PRN 11/09/16 Reported Duoneb 0.5-3(2.5) Mg/3 Ml (Albuterol/Ipratropium) 3 Ml Ampul.neb 3 Ml NEB PRN Q4HRS PRN 11/09/16 Reported Guaifenesin 600 Mg Tablet.er 600 Mg PO BID 11/09/16 Reported Furosemide 40 Mg Tablet 40 Mg PO DAILY 11/09/16 Reported Fleet Enema (Na Phos,M-B/Na Phos,Di-Ba) 133 Ml Enema 1 Each RC PRN DAILY PRN 11/09/16 Reported Aspirin Ec (Aspirin) 81 Mg Tablet.dr 1 Tab PO DAILY 11/09/16 Reported Dulcolax (Bisacodyl) 10 Mg Supp.rect 10 Mg RC PRN DAILY PRN 11/09/16 Reported Impression . FULL CONSULT DICTATED SEE ORDERS THANKS AGREE WITH CURRENT RX ALLEY ROSSI MD Jan 05, 2017 15:44
[2017-01-05] MEDS: VANCOMYCIN 1.25 GM in IV NORMAL SALINE 250ML 250 ML IV SCH (15:47)
[2017-01-05] MEDS ORDERED: DIGOXIN 500 MCG/2 ML AMPUL. IV ONE (20:00)
[2017-01-05] MEDS: ATORVASTATIN CALCIUM 10 MG TABLET. PO SCH ×2 (21:00→21:55)
[2017-01-06] VITALS (20 sets, daily range): BP systolic 108–153; BP diastolic 53–85
[2017-01-06] MEDS: ALBUTEROL SULFATE 2.5 MG/3 ML NEBU. NEB PRN (03:17)
[2017-01-06] MEDS ORDERED: FUROSEMIDE 40 MG/4 ML VIAL IVP ONE (04:00)
[2017-01-06] MEDS: METOPROLOL TARTRATE 5 MG/5 ML VIAL. IVP SCH ×4 (05:21→17:23)
[2017-01-06] MEDS: HEPARIN PF for SUB-Q USE 5,000 UNIT/0.5 ML VIAL. SQ SCH ×3 (05:23→20:10)
[2017-01-06] MEDS: ASPIRIN 81 MG TAB.CHEW PO SCH (08:14)
[2017-01-06] MEDS: methylPREDNISolone SOD SUCC PF 40 MG/ML VIAL. IV SCH ×2 (08:14→20:09)
[2017-01-06] MEDS: SPIRONOLACTONE 25 MG TABLET PO SCH (08:14)
[2017-01-06] MEDS: PANTOPRAZOLE 40 MG TABLET. PO SCH (08:14)
[2017-01-06] MEDS: PRIMIDONE 50 MG TABLET PO SCH (08:15)
[2017-01-06] MEDS: GUAIFENESIN ER 600 MG TABLET.ER PO SCH ×2 (08:15→20:09)
[2017-01-06] MEDS: TAMSULOSIN 0.4 MG CAP.ER.24H. PO SCH (08:15)
[2017-01-06] MEDS: MEROPENEM 500 MG in IV NORMAL SALINE 50ML 50 ML IV SCH ×2 (08:19→21:00)
[2017-01-06] MEDS: INSULIN ASPART 300 UNITS/3 ML INSULN.PEN SQ SCH ×3 (08:26→17:30)
[2017-01-06] MEDS: IPRATRPIUM/ALBUTEROL 0.5/2.5MG 3 ML NEBU. NEB SCH ×4 (08:38→19:52)
[2017-01-06] MEDS: BUDESONIDE 0.5 MG/2 ML NEBU NEB SCH ×2 (08:38→19:52)
[2017-01-06 09:55] LABS: BASO % 0 % (0-3); EOS % 0 % (0-3); HEMOGLOBIN 8.7 g/dL (13.0-17.5); LYMPH # 1.1 x10^3/uL (1.0-4.8); LYMPH % 9 % (24-48); MEAN CORPUSCULAR HEMOGLOBIN 26 pg (25-35); MEAN CORPUSCULAR HGB CONC 31 g/dL (31-37); MEAN CORPUSCULAR VOLUME 84 fL (79-100); MONO % 3 % (0-9); NEUT % 88 % (31-73); PLATELET COUNT 413 x10^3/uL (140-400); RED BLOOD COUNT 3.32 x10^6/uL (4.30-5.70); RED CELL DISTRIBUTION WIDTH 18.5 % (11.5-14.5); WHITE BLOOD COUNT 11.9 x10^3/uL (4.0-11.0)
[2017-01-06 10:03] LABS: CALCIUM 8.4 mg/dL (8.5-10.1); GFR 32.3; POTASSIUM 3.9 mmol/L (3.5-5.1)
--- NOTE | 2017-01-06 12:20 | PDOC ---
PROGRESS NOTES Subjective Subjective The patient appears mildly improved today. Objective Objective Vital Signs Date Time Temp Pulse Resp B/P Pulse Ox O2 Delivery O2 Flow Rate FiO2 01/06/17 11:28 152 111/71 01/06/17 11:00 20 100 Nasal Cannula 2.0 01/06/17 08:00 98.3 98.3 Intake and Output 01/06/17 07:00 Intake Total 634 ml Output Total 2122 ml Balance -1488 ml Intake Oral 260 ml Blood Product IV Normal Saline Flush 374 ml Output Urine Total 2122 ml # Bowel Movements 2 Physical Exam Abdomen: Normal bowel sounds Heart: Other (140.) General: mild distress Lungs: Other (decreased breath sounds) Assessment Assessment Problems Medical Problems: (1) Sepsis Status: Acute 1. atrial flutter in the setting of sepsis and with atrial fib history A control has been difficult but will continue on beta blockers as tolerated. Will not give additional digoxin at this time secondary to patient's renal function. May require further calcium blockers if the patient's blood pressure tolerates it. 2. chronic diastolic HF, preserved LV function of 50-55% Nt-proBNP not diagnostic when age adjusted and in setting of LISA continue previous medications 3. acute on chronic respiratory failure with AECOPD has been started on abx per ID and pulm Comment Review of Relevant I have reviewed the following items be (where applicable) has been applied. Labs Laboratory Tests Test 01/04/17 15:35 01/04/17 16:00 01/04/17 17:30 01/04/17 19:46 White Blood Count 18.5x10^3/uL (4.0-11.0) Red Blood Count 3.70x10^6/uL (4.30-5.70) Hemoglobin 9.9g/dL (13.0-17.5) Hematocrit 31.6% (39.0-53.0) Mean Corpuscular Volume 85fL (79-100) Mean Corpuscular Hemoglobin 27pg (25-35) Mean Corpuscular Hemoglobin Concent 31g/dL (31-37) Red Cell Distribution Width 18.6% (11.5-14.5) Platelet Count 408x10^3/uL (140-400) Neutrophils (%) (Auto) 92% (31-73) Lymphocytes (%) (Auto) 5% (24-48) Monocytes (%) (Auto) 2% (0-9) Eosinophils (%) (Auto) 1% (0-3) Basophils (%) (Auto) 0% (0-3) Neutrophils # (Auto) 17.0x10^3uL (1.8-7.7) Lymphocytes # (Auto) 0.9x10^3/uL (1.0-4.8) Monocytes # (Auto) 0.4x10^3/uL (0.0-1.1) Eosinophils # (Auto) 0.1x10^3/uL (0.0-0.7) Basophils # (Auto) 0.0x10^3/uL (0.0-0.2) Segmented Neutrophils % 86% (35-66) Band Neutrophils % 5% (0-9) Lymphocytes % 5% (24-48) Monocytes % 4% (0-10) Platelet Estimate Increased (ADEQUATE) Poikilocytosis Slight Anisocytosis Slight Ovalocytes Few Schistocytes Few Sodium Level 134mmol/L (136-145) Potassium Level 4.4mmol/L (3.5-5.1) Chloride Level 95mmol/L (98-107) Carbon Dioxide Level 25mmol/L (21-32) Anion Gap 14 (6-14) Blood Urea Nitrogen 46mg/dL (8-26) Creatinine 2.5mg/dL (0.7-1.3) Estimated GFR (Cockcroft-Gault) 25.0 BUN/Creatinine Ratio 18 (6-20) Glucose Level 162mg/dL (70-99) Lactic Acid Level 2.4mmol/L (0.4-2.0) 1.1mmol/L (0.4-2.0) Calcium Level 9.3mg/dL (8.5-10.1) Total Bilirubin 0.3mg/dL (0.2-1.0) Aspartate Amino Transf (AST/SGOT) 22U/L (15-37) Alanine Aminotransferase (ALT/SGPT) 13U/L (16-63) Alkaline Phosphatase 70U/L (46-116) Troponin I Quantitative < 0.017ng/mL (0.000-0.055) LQ-Nvd-T-Type Natriuretic Peptide 1638pg/mL (0-449) Total Protein 7.5g/dL (6.4-8.2) Albumin 3.2g/dL (3.4-5.0) Albumin/Globulin Ratio 0.7 (1.0-1.7) O2 Saturation 90% (92-99) Arterial Blood pH 7.48 (7.35-7.45) Arterial Blood pCO2 at Patient Temp 25mmHg (35-46) Arterial Blood pO2 at Patient Temp 57mmHg (65-108) Arterial Blood HCO3 18mmol/L (21-28) Arterial Blood Base Excess -5mmol/L (-3-3) FiO2 6 lpm nc Influenza Type A Antigen Negative (NEGATIVE) Influenza Type B Antigen Negative (NEGATIVE) Test 01/05/17 02:45 01/05/17 05:00 01/05/17 11:34 01/05/17 17:05 Nasal Screen MRSA (PCR) Negative (Negative) White Blood Count 12.0x10^3/uL (4.0-11.0) Red Blood Count 3.20x10^6/uL (4.30-5.70) Hemoglobin 8.6g/dL (13.0-17.5) Hematocrit 27.9% (39.0-53.0) Mean Corpuscular Volume 87fL (79-100) Mean Corpuscular Hemoglobin 27pg (25-35) Mean Corpuscular Hemoglobin Concent 31g/dL (31-37) Red Cell Distribution Width 18.7% (11.5-14.5) Platelet Count 327x10^3/uL (140-400) Neutrophils (%) (Auto) 93% (31-73) Lymphocytes (%) (Auto) 5% (24-48) Monocytes (%) (Auto) 2% (0-9) Eosinophils (%) (Auto) 0% (0-3) Basophils (%) (Auto) 0% (0-3) Neutrophils # (Auto) 11.1x10^3uL (1.8-7.7) Lymphocytes # (Auto) 0.6x10^3/uL (1.0-4.8) Monocytes # (Auto) 0.3x10^3/uL (0.0-1.1) Eosinophils # (Auto) 0.0x10^3/uL (0.0-0.7) Basophils # (Auto) 0.0x10^3/uL (0.0-0.2) Sodium Level 136mmol/L (136-145) Potassium Level 4.1mmol/L (3.5-5.1) Chloride Level 104mmol/L (98-107) Carbon Dioxide Level 19mmol/L (21-32) Anion Gap 13 (6-14) Blood Urea Nitrogen 42mg/dL (8-26) Creatinine 2.2mg/dL (0.7-1.3) Estimated GFR (Cockcroft-Gault) 28.9 Glucose Level 210mg/dL (70-99) Lactic Acid Level 1.7mmol/L (0.4-2.0) Calcium Level 8.2mg/dL (8.5-10.1) Glucose (Fingerstick) 133mg/dL (70-99) 248mg/dL (70-99) Test 01/06/17 08:21 01/06/17 09:45 Glucose (Fingerstick) 168mg/dL (70-99) White Blood Count 11.9x10^3/uL (4.0-11.0) Red Blood Count 3.32x10^6/uL (4.30-5.70) Hemoglobin 8.7g/dL (13.0-17.5) Hematocrit 28.0% (39.0-53.0) Mean Corpuscular Volume 84fL (79-100) Mean Corpuscular Hemoglobin 26pg (25-35) Mean Corpuscular Hemoglobin Concent 31g/dL (31-37) Red Cell Distribution Width 18.5% (11.5-14.5) Platelet Count 413x10^3/uL (140-400) Neutrophils (%) (Auto) 88% (31-73) Lymphocytes (%) (Auto) 9% (24-48) Monocytes (%) (Auto) 3% (0-9) Eosinophils (%) (Auto) 0% (0-3) Basophils (%) (Auto) 0% (0-3) Neutrophils # (Auto) 10.5x10^3uL (1.8-7.7) Lymphocytes # (Auto) 1.1x10^3/uL (1.0-4.8) Monocytes # (Auto) 0.4x10^3/uL (0.0-1.1) Eosinophils # (Auto) 0.0x10^3/uL (0.0-0.7) Basophils # (Auto) 0.0x10^3/uL (0.0-0.2) Sodium Level 141mmol/L (136-145) Potassium Level 3.9mmol/L (3.5-5.1) Chloride Level 105mmol/L (98-107) Carbon Dioxide Level 23mmol/L (21-32) Anion Gap 13 (6-14) Blood Urea Nitrogen 48mg/dL (8-26) Creatinine 2.0mg/dL (0.7-1.3) Estimated GFR (Cockcroft-Gault) 32.3 Glucose Level 182mg/dL (70-99) Calcium Level 8.4mg/dL (8.5-10.1) Laboratory Tests Test 01/05/17 17:05 01/06/17 08:21 01/06/17 09:45 Glucose (Fingerstick) 248mg/dL (70-99) 168mg/dL (70-99) White Blood Count 11.9x10^3/uL (4.0-11.0) Red Blood Count 3.32x10^6/uL (4.30-5.70) Hemoglobin 8.7g/dL (13.0-17.5) Hematocrit 28.0% (39.0-53.0) Mean Corpuscular Volume 84fL (79-100) Mean Corpuscular Hemoglobin 26pg (25-35) Mean Corpuscular Hemoglobin Concent 31g/dL (31-37) Red Cell Distribution Width 18.5% (11.5-14.5) Platelet Count 413x10^3/uL (140-400) Neutrophils (%) (Auto) 88% (31-73) Lymphocytes (%) (Auto) 9% (24-48) Monocytes (%) (Auto) 3% (0-9) Eosinophils (%) (Auto) 0% (0-3) Basophils (%) (Auto) 0% (0-3) Neutrophils # (Auto) 10.5x10^3uL (1.8-7.7) Lymphocytes # (Auto) 1.1x10^3/uL (1.0-4.8) Monocytes # (Auto) 0.4x10^3/uL (0.0-1.1) Eosinophils # (Auto) 0.0x10^3/uL (0.0-0.7) Basophils # (Auto) 0.0x10^3/uL (0.0-0.2) Sodium Level 141mmol/L (136-145) Potassium Level 3.9mmol/L (3.5-5.1) Chloride Level 105mmol/L (98-107) Carbon Dioxide Level 23mmol/L (21-32) Anion Gap 13 (6-14) Blood Urea Nitrogen 48mg/dL (8-26) Creatinine 2.0mg/dL (0.7-1.3) Estimated GFR (Cockcroft-Gault) 32.3 Glucose Level 182mg/dL (70-99) Calcium Level 8.4mg/dL (8.5-10.1) Microbiology 01/04/17 Blood Culture - Preliminary, Resulted NO GROWTH AFTER 1 DAY 01/05/17 Gram Stain - Final, Complete Medications Current Medications Vancomycin HCl (Vanco Per Pharmacy) 1 each 1X ONCE MC ; Start 01/04/17 at 15:30 ; Stop 01/04/17 at 15:31; Status UNV Methylprednisolone Sodium Succinate 125 mg 125 mg 1X ONCE IV Last administered on 01/04/17 15:30; Start 01/04/17 at 15:30; Stop 01/04/17 at 15:31; Status DC Sodium Chloride (Iv Sodium Chloride 0.9% 500ml Bag) 500 ml @ 500 mls/hr 1X ONCE IV Last administered on 01/04/17 15:30; Start 01/04/17 at 15:30; Stop at 16:29; Status DC Piperacillin Sod/ Tazobactam Sod (Zosyn Per Pharmacy) 1 each PRN DAILY PRN MC SEE COMMENTS; Start 01/04/17 at 15:30; Stop 01/04/17 at 17:09; Status DC Acetaminophen 1000 mg 1,000 mg 1X ONCE PO Last administered on 01/04/17 15:45 ; Start 01/04/17 at 15:45; Stop 01/04/17 at 15:47; Status DC Sodium Chloride 500 ml @ 500 mls/hr 1X ONCE IV Last administered on 01/04/17 15:45; Start 01/04/17 at 15:45; Stop 01/04/17 at 16:44; Status DC Vancomycin HCl 1.5 gm/Sodium Chloride 500 ml @ 250 mls/hr 1X ONCE IV Last administered on 01/04/17 16:15; Start 01/04/17 at 16:15; Stop 01/04/17 at 18:14; Status DC Piperacillin Sod/ Tazobactam Sod/ Sodium Chloride (Zosyn/Iv Sodium Chloride 0.9 % 50ml) 50 ml @ 100 mls/hr 1X ONCE IV Last administered on 01/04/17 16:15; Start 01/04/17 at 16:15; Stop 01/04/17 at 16:44; Status DC Acetaminophen (Tylenol) 650 mg Q4HRS PRN PO MILD PAIN; Start 01/04/17 at 17:15 Aspirin (Children'S Aspirin) 81 mg DAILYWBKFT PO Last administered on 01/06/17 08:14; Start 01/05/17 at 08:00 Atorvastatin Calcium (Lipitor) 10 mg QHS PO Last administered on 01/04/17 23:36 ; Start 01/04/17 at 21:00 Bisacodyl (Dulcolax Supp) 10 mg PRN DAILY PRN RC CONSTIPATION; Start 01/04/17 at 17:15 Guaifenesin (Mucinex) 600 mg BID PO Last administered on 01/06/17 08:15; Start 01/04/17 at 21:00 Albuterol/ Ipratropium (Duoneb) 3 ml PRN Q4HRS PRN NEB SHORTNESS OF BREATH; Start 01/04/17 at 17:15; Stop 01/04/17 at 17:15; Status DC Lorazepam (Ativan) 0.5 mg PRN Q8HRS PRN PO ANXIETY / AGITATION Last administered on 01/05/17 15:19; Start 01/04/17 at 17:15 Magnesium Hydroxide (Milk Of Magnesia) 400 mg PRN DAILY PRN PO CONSTIPATION; Start 01/04/17 at 17:15 Metoprolol Succinate (Toprol Xl) 25 mg DAILY PO ; Start 01/05/17 at 09:00; Stop 01/05/17 at 09:00; Status DC Primidone (Mysoline) 50 mg DAILY PO Last administered on 01/06/17 08:15; Start 01/05/17 at 09:00 Spironolactone (Aldactone) 25 mg DAILY PO Last administered on 01/06/17 08:14; Start 01/05/17 at 09:00 Tamsulosin HCl (Flomax) 0.4 mg DAILY PO Last administered on 01/06/17 08:15; Start 01/05/17 at 09:00 Budesonide (Pulmicort) 0.5 mg RTBID NEB Last administered on 01/06/17 08:38; Start 01/04/17 at 20:00 Albuterol/ Ipratropium 3 ml 3 ml RTQID NEB Last administered on 01/06/17 08:38 ; Start 01/04/17 at 20:00 Meropenem/Sodium Chloride (Merrem/Iv Sodium Chloride 0.9% 50ml) 50 ml @ 100 mls /hr Q8HRS IV ; Start 01/04/17 at 22:00; Stop 01/04/17 at 22:00; Status DC Albuterol Sulfate (Ventolin Neb Soln) 2.5 mg PRN Q2HR PRN NEB SHORTNESS OF BREATH Last administered on 01/06/17 03:17; Start 01/04/17 at 17:15 Vancomycin HCl (Vanco Per Pharmacy) 1 each PRN DAILY PRN MC SEE COMMENTS Last administered on 01/05/17 08:53; Start 01/04/17 at 17:15 Methylprednisolone Sodium Succinate (Solu-Medrol 40mg Vial) 40 mg TID IV Last administered on 01/06/17 08:14; Start 01/04/17 at 21:00 Pantoprazole Sodium (Protonix) 40 mg DAILYAC PO Last administered on 01/06/17 08:14; Start 01/05/17 at 07:30 Hydralazine HCl 10 mg 10 mg PRN Q4HRS PRN IVP HYPERTENSION, SEE COMMENTS; Start 01/04/17 at 17:15 Sodium Chloride (Iv Sodium Chloride 0.9% 1000ml Bag) 1,000 ml @ 75 mls/hr 1X ONCE IV Last administered on 01/04/17 17:15; Start 01/04/17 at 17:15; Stop at 06:34; Status DC Heparin Sodium (Porcine) 5000 unit 5,000 unit Q8HRS SQ Last administered on 01/06 05:23; Start 01/04/17 at 22:00 Meropenem 500 mg/ Sodium Chloride 50 ml @ 100 mls/hr BID IV Last administered on 01/06/17 08:19; Start 01/04/17 at 21:00 Sodium Chloride (Iv Sodium Chloride 0.9% 1000ml Bag) 1,000 ml @ 1,000 mls/hr 1X ONCE IV Last administered on 01/04/17 17:45; Start 01/04/17 at 17:45; Stop 01/04/17 at 18:44; Status DC Albuterol/ Ipratropium (Duoneb) 3 ml 1X ONCE NEB Last administered on 18:10; Start 01/04/17 at 17:45; Stop 01/04/17 at 17:49; Status DC Ondansetron HCl (Zofran) 4 mg PRN Q8HRS PRN IV NAUSEA/VOMITING; Start 01/04/17 at 18:00; Stop 01/05/17 at 17:59; Status DC Morphine Sulfate 2 mg 2 mg PRN Q2HR PRN IV PAIN; Start 01/04/17 at 18:00; Stop 01/05/17 at 17:59; Status DC Sodium Chloride (Iv Sodium Chloride 0.9% 1000ml Bag) 1,000 ml @ 125 mls/hr Q8H IV ; Start 01/04/17 at 17:50; Stop 01/05/17 at 17:49; Status Cancel Albuterol/ Ipratropium (Duoneb) 3 ml RTQID NEB ; Start 01/04/17 at 20:00; Stop at 19:59; Status UNV Digoxin 125 mcg 125 mcg 1X ONCE IV Last administered on 01/04/17 19:32; Start 01/04/17 at 19:15; Stop 01/04/17 at 19:16; Status DC Vancomycin HCl/ Sodium Chloride (Iv Sodium Chloride 0.9% 250ml) 250 ml @ 167 mls/hr Q24H IV Last administered on 01/05/17 15:47; Start 01/05/17 at 16:00 Vancomycin HCl 1 each 1 each 1X ONCE MC ; Start 01/06/17 at 15:30; Stop 01/06/17 at 15:31 Sodium Chloride 1,000 ml @ 1,000 mls/hr 1X ONCE IV Last administered on 19:37; Start 01/04/17 at 19:45; Stop 01/04/17 at 20:44; Status DC Norepinephrine Bitartrate 8 mg/ Sodium Chloride 258 ml @ 0 mls/hr CONT PRN IV SEE I/O RECORD; Start 01/04/17 at 22:15 Sodium Chloride (Iv Sodium Chloride 0.9% 1000ml Bag) 1,000 ml @ 75 mls/hr 1X ONCE IV Last administered on 01/05/17 09:34; Start 01/05/17 at 08:45; Stop at 22:04; Status DC Insulin Aspart (Novolog) 0-9 UNITS TIDWMEALS SQ Last administered on 01/06/17 08:26; Start 01/05/17 at 12:00 Dextrose 12.5 gm PRN Q15MIN PRN IV SEE COMMENTS; Start 01/05/17 at 08:45 Guaifenesin (Robitussin) 200 mg PRN Q4HRS PRN PO COUGH; Start 01/05/17 at 08:45 ; Stop 01/05/17 at 12:57; Status DC Metoprolol Tartrate (Lopressor) 5 mg Q6HRS IVP Last administered on 01/06/17 11 :28; Start 01/05/17 at 09:30 Digoxin (Lanoxin) 250 mcg 1X ONCE IV Last administered on 01/05/17 21:54; Start 01/05/17 at 20:00; Stop 01/05/17 at 20:01; Status DC Furosemide (Lasix) 40 mg 1X ONCE IVP Last administered on 01/06/17 03:37; Start 01/06/17 at 04:00; Stop 01/06/17 at 04:01; Status DC Active Scripts Active Reported Tamsulosin Hcl 0.4 Mg Cap.er.24h 1 Cap PO DAILY Symbicort 160-4.5 Mcg Inhaler (Budesonide/Formoterol Fumarate) 10.2 Gm Hfa.aer.ad 2 Puff IH BID Spironolactone 25 Mg Tablet 1 Tab PO DAILY Primidone 50 Mg Tablet 50 Mg PO DAILY Pantoprazole Sodium 40 Mg Tablet.dr 1 Tab PO BID Metoprolol Succinate 50 Mg Tab.er.24h 25 Mg PO DAILY Lorazepam 0.5 Mg Tablet 1 Tab PO PRN Q8HRS PRN Duoneb 0.5-3(2.5) Mg/3 Ml (Albuterol/Ipratropium) 3 Ml Ampul.neb 3 Ml NEB Q4HRS Milk Of Magnesia (Magnesium Hydroxide) 400 Mg/5 Ml Oral.susp 400 Mg PO PRN DAILY PRN Atorvastatin Calcium 10 Mg Tablet 1 Tab PO DAILY Aspirin 81 Mg Tab.chew 81 Mg PO DAILY Acetaminophen 325 Mg Tablet 650 Mg PO Q4HRS PRN Duoneb 0.5-3(2.5) Mg/3 Ml (Albuterol/Ipratropium) 3 Ml Ampul.neb 3 Ml NEB PRN Q4HRS PRN Guaifenesin 600 Mg Tablet.er 600 Mg PO BID Furosemide 40 Mg Tablet 40 Mg PO DAILY Fleet Enema (Na Phos,M-B/Na Phos,Di-Ba) 133 Ml Enema 1 Each RC PRN DAILY PRN Aspirin Ec (Aspirin) 81 Mg Tablet.dr 1 Tab PO DAILY Dulcolax (Bisacodyl) 10 Mg Supp.rect 10 Mg RC PRN DAILY PRN Vitals/I & O Vital Sign - Last 24 Hours 01/05/17 01/05/17 01/05/17 01/05/17 12:51 13:00 14:00 15:00 Pulse 144 95 86 146 Resp 24 24 24 B/P 108/55 112/55 112/55 94/56 Pulse Ox 98 97 96 O2 Delivery Nasal Cannula Nasal Cannula Nasal Cannula O2 Flow Rate 2.0 2.0 2.0 01/05/17 01/05/17 01/05/17 01/05/17 16:00 16:00 17:00 17:08 Temp 99.3 99.3 Pulse 148 146 148 Resp 25 24 B/P 98/68 99/60 99/60 Pulse Ox 93 95 O2 Delivery Nasal Cannula Nasal Cannula Nasal Cannula O2 Flow Rate 2.0 2.0 2.0 01/05/17 01/05/17 01/05/17 01/05/17 18:00 19:00 19:51 20:00 Pulse 144 144 Resp 26 22 B/P 87/64 99/64 Pulse Ox 97 97 97 O2 Delivery Nasal Cannula Nasal Cannula Nasal Cannula Nasal Cannula O2 Flow Rate 2.0 2.0 2.0 2.0 01/05/17 01/05/17 01/05/17 01/05/17 20:00 21:00 21:54 22:00 Temp 98.5 98.5 Pulse 144 122 137 144 Resp 26 22 22 B/P 87/70 100/64 106/64 115/71 Pulse Ox 94 97 97 O2 Delivery Nasal Cannula Nasal Cannula Nasal Cannula O2 Flow Rate 2.0 2.0 2.0 01/05/17 01/05/17 01/06/17 01/06/17 23:00 23:59 00:00 00:00 Temp 98.0 98.0 Pulse 112 61 72 Resp 22 B/P 127/80 127/68 115/53 Pulse Ox 97 97 O2 Delivery Nasal Cannula Nasal Cannula Nasal Cannula O2 Flow Rate 2.0 2.0 2.0 01/06/17 01/06/17 01/06/17 01/06/17 01:00 02:00 03:00 03:17 Pulse 112 70 132 Resp 22 20 32 B/P 135/63 151/69 126/73 Pulse Ox 99 99 96 96 O2 Delivery Nasal Cannula Nasal Cannula Nasal Cannula Nasal Cannula O2 Flow Rate 2.0 2.0 2.0 2.0 01/06/17 01/06/17 01/06/17 01/06/17 04:00 04:00 05:00 05:21 Temp 98.2 98.2 Pulse 146 106 90 Resp 30 26 B/P 124/70 135/59 135/59 Pulse Ox 96 96 O2 Delivery Nasal Cannula Nasal Cannula Nasal Cannula O2 Flow Rate 2.0 2.0 2.0 01/06/17 01/06/17 01/06/17 01/06/17 06:00 07:00 08:00 08:00 Temp 98.3 98.3 Pulse 69 73 69 Resp 20 24 28 B/P 122/58 119/58 119/63 Pulse Ox 96 97 98 O2 Delivery Nasal Cannula Nasal Cannula Nasal Cannula Nasal Cannula O2 Flow Rate 2.0 2.0 2.0 2.0 01/06/17 01/06/17 01/06/17 01/06/17 08:30 09:00 10:00 11:00 Pulse 152 152 148 Resp 22 21 20 B/P 128/76 109/71 111/71 Pulse Ox 99 98 97 100 O2 Delivery Nasal Cannula Nasal Cannula Nasal Cannula Nasal Cannula O2 Flow Rate 2.0 2.0 2.0 2.0 01/06/17 11:28 Pulse 152 B/P 111/71 Intake and Output 01/05/17 01/05/17 01/06/17 15:00 23:00 07:00 Intake Total 60 ml 0 ml 574 ml Output Total 307 ml 215 ml 1600 ml Balance -247 ml -215 ml -1026 ml SVITLANA DOWELL MD Jan 06, 2017 12:20
--- NOTE | 2017-01-06 13:02 | PDOC ---
PROGRESS NOTES Chief Complaint Chief Complaint sob, cough 1. acute resp failure with hypoxia 2. COPD exacerbation with bronchitis and possible PNA 3. chronic diastolic chf with EF 50% 4. HTN 5. 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 PFIB 7. sepsis with bronchitis 8. anxiety 9. bedbound with generalized weakness 10.mild malnutrition 11. lactate acidosis 12. h/o CVA wo obvious weakness 13. tachycardia, cannot reach EKG online since needs password for [facility] center? plan: 1. card, pulm consult 2.dysphagia 1 diet 3. cont home meds, resume lasix 40mg po daily 4. cough meds 5. check sputum last time was + Kpna 6. dc zosyn since resistent, add meropenum and vanco 7. dvt, gi ppx PTOT labs tmr SSI for solumedrol now , decrease to bid on metoprolol 5mg iv qid as per card, no dig History of Present Illness History of Present Illness still cough a lot, with sob, on NC now tachycardia , required dig last nigh Vitals Vitals Vital Signs Date Time Temp Pulse Resp B/P Pulse Ox O2 Delivery O2 Flow Rate FiO2 01/06/17 12:38 100 Nasal Cannula 2.0 01/06/17 11:28 152 111/71 01/06/17 11:00 20 01/06/17 08:00 98.3 98.3 Physical Exam General: Alert, Oriented X3, Cooperative, mild distress Heart: Regular rate, Normal S1, Other (140.) Lungs: Crackles (bl basilar mild) Abdomen: Normal bowel sounds Extremities: No edema, Normal pulses Skin: No rashes Labs LABS Laboratory Tests Test 01/05/17 17:05 01/06/17 08:21 01/06/17 09:45 Glucose (Fingerstick) 248mg/dL (70-99) 168mg/dL (70-99) White Blood Count 11.9x10^3/uL (4.0-11.0) Red Blood Count 3.32x10^6/uL (4.30-5.70) Hemoglobin 8.7g/dL (13.0-17.5) Hematocrit 28.0% (39.0-53.0) Mean Corpuscular Volume 84fL (79-100) Mean Corpuscular Hemoglobin 26pg (25-35) Mean Corpuscular Hemoglobin Concent 31g/dL (31-37) Red Cell Distribution Width 18.5% (11.5-14.5) Platelet Count 413x10^3/uL (140-400) Neutrophils (%) (Auto) 88% (31-73) Lymphocytes (%) (Auto) 9% (24-48) Monocytes (%) (Auto) 3% (0-9) Eosinophils (%) (Auto) 0% (0-3) Basophils (%) (Auto) 0% (0-3) Neutrophils # (Auto) 10.5x10^3uL (1.8-7.7) Lymphocytes # (Auto) 1.1x10^3/uL (1.0-4.8) Monocytes # (Auto) 0.4x10^3/uL (0.0-1.1) Eosinophils # (Auto) 0.0x10^3/uL (0.0-0.7) Basophils # (Auto) 0.0x10^3/uL (0.0-0.2) Sodium Level 141mmol/L (136-145) Potassium Level 3.9mmol/L (3.5-5.1) Chloride Level 105mmol/L (98-107) Carbon Dioxide Level 23mmol/L (21-32) Anion Gap 13 (6-14) Blood Urea Nitrogen 48mg/dL (8-26) Creatinine 2.0mg/dL (0.7-1.3) Estimated GFR (Cockcroft-Gault) 32.3 Glucose Level 182mg/dL (70-99) Calcium Level 8.4mg/dL (8.5-10.1) Review of Systems Review of Systems no fever, chills, chest pain Assessment and Plan Assessmemt and Plan Problems Medical Problems: (1) Sepsis Status: Acute Problems: Comment Review of Relevant I have reviewed the following items be (where applicable) has been applied. Labs Laboratory Tests Test 01/04/17 15:35 01/04/17 16:00 01/04/17 17:30 01/04/17 19:46 White Blood Count 18.5x10^3/uL (4.0-11.0) Red Blood Count 3.70x10^6/uL (4.30-5.70) Hemoglobin 9.9g/dL (13.0-17.5) Hematocrit 31.6% (39.0-53.0) Mean Corpuscular Volume 85fL (79-100) Mean Corpuscular Hemoglobin 27pg (25-35) Mean Corpuscular Hemoglobin Concent 31g/dL (31-37) Red Cell Distribution Width 18.6% (11.5-14.5) Platelet Count 408x10^3/uL (140-400) Neutrophils (%) (Auto) 92% (31-73) Lymphocytes (%) (Auto) 5% (24-48) Monocytes (%) (Auto) 2% (0-9) Eosinophils (%) (Auto) 1% (0-3) Basophils (%) (Auto) 0% (0-3) Neutrophils # (Auto) 17.0x10^3uL (1.8-7.7) Lymphocytes # (Auto) 0.9x10^3/uL (1.0-4.8) Monocytes # (Auto) 0.4x10^3/uL (0.0-1.1) Eosinophils # (Auto) 0.1x10^3/uL (0.0-0.7) Basophils # (Auto) 0.0x10^3/uL (0.0-0.2) Segmented Neutrophils % 86% (35-66) Band Neutrophils % 5% (0-9) Lymphocytes % 5% (24-48) Monocytes % 4% (0-10) Platelet Estimate Increased (ADEQUATE) Poikilocytosis Slight Anisocytosis Slight Ovalocytes Few Schistocytes Few Sodium Level 134mmol/L (136-145) Potassium Level 4.4mmol/L (3.5-5.1) Chloride Level 95mmol/L (98-107) Carbon Dioxide Level 25mmol/L (21-32) Anion Gap 14 (6-14) Blood Urea Nitrogen 46mg/dL (8-26) Creatinine 2.5mg/dL (0.7-1.3) Estimated GFR (Cockcroft-Gault) 25.0 BUN/Creatinine Ratio 18 (6-20) Glucose Level 162mg/dL (70-99) Lactic Acid Level 2.4mmol/L (0.4-2.0) 1.1mmol/L (0.4-2.0) Calcium Level 9.3mg/dL (8.5-10.1) Total Bilirubin 0.3mg/dL (0.2-1.0) Aspartate Amino Transf (AST/SGOT) 22U/L (15-37) Alanine Aminotransferase (ALT/SGPT) 13U/L (16-63) Alkaline Phosphatase 70U/L (46-116) Troponin I Quantitative < 0.017ng/mL (0.000-0.055) FM-Vja-K-Type Natriuretic Peptide 1638pg/mL (0-449) Total Protein 7.5g/dL (6.4-8.2) Albumin 3.2g/dL (3.4-5.0) Albumin/Globulin Ratio 0.7 (1.0-1.7) O2 Saturation 90% (92-99) Arterial Blood pH 7.48 (7.35-7.45) Arterial Blood pCO2 at Patient Temp 25mmHg (35-46) Arterial Blood pO2 at Patient Temp 57mmHg (65-108) Arterial Blood HCO3 18mmol/L (21-28) Arterial Blood Base Excess -5mmol/L (-3-3) FiO2 6 lpm nc Influenza Type A Antigen Negative (NEGATIVE) Influenza Type B Antigen Negative (NEGATIVE) Test 01/05/17 02:45 01/05/17 05:00 01/05/17 11:34 01/05/17 17:05 Nasal Screen MRSA (PCR) Negative (Negative) White Blood Count 12.0x10^3/uL (4.0-11.0) Red Blood Count 3.20x10^6/uL (4.30-5.70) Hemoglobin 8.6g/dL (13.0-17.5) Hematocrit 27.9% (39.0-53.0) Mean Corpuscular Volume 87fL (79-100) Mean Corpuscular Hemoglobin 27pg (25-35) Mean Corpuscular Hemoglobin Concent 31g/dL (31-37) Red Cell Distribution Width 18.7% (11.5-14.5) Platelet Count 327x10^3/uL (140-400) Neutrophils (%) (Auto) 93% (31-73) Lymphocytes (%) (Auto) 5% (24-48) Monocytes (%) (Auto) 2% (0-9) Eosinophils (%) (Auto) 0% (0-3) Basophils (%) (Auto) 0% (0-3) Neutrophils # (Auto) 11.1x10^3uL (1.8-7.7) Lymphocytes # (Auto) 0.6x10^3/uL (1.0-4.8) Monocytes # (Auto) 0.3x10^3/uL (0.0-1.1) Eosinophils # (Auto) 0.0x10^3/uL (0.0-0.7) Basophils # (Auto) 0.0x10^3/uL (0.0-0.2) Sodium Level 136mmol/L (136-145) Potassium Level 4.1mmol/L (3.5-5.1) Chloride Level 104mmol/L (98-107) Carbon Dioxide Level 19mmol/L (21-32) Anion Gap 13 (6-14) Blood Urea Nitrogen 42mg/dL (8-26) Creatinine 2.2mg/dL (0.7-1.3) Estimated GFR (Cockcroft-Gault) 28.9 Glucose Level 210mg/dL (70-99) Lactic Acid Level 1.7mmol/L (0.4-2.0) Calcium Level 8.2mg/dL (8.5-10.1) Glucose (Fingerstick) 133mg/dL (70-99) 248mg/dL (70-99) Test 01/06/17 08:21 01/06/17 09:45 Glucose (Fingerstick) 168mg/dL (70-99) White Blood Count 11.9x10^3/uL (4.0-11.0) Red Blood Count 3.32x10^6/uL (4.30-5.70) Hemoglobin 8.7g/dL (13.0-17.5) Hematocrit 28.0% (39.0-53.0) Mean Corpuscular Volume 84fL (79-100) Mean Corpuscular Hemoglobin 26pg (25-35) Mean Corpuscular Hemoglobin Concent 31g/dL (31-37) Red Cell Distribution Width 18.5% (11.5-14.5) Platelet Count 413x10^3/uL (140-400) Neutrophils (%) (Auto) 88% (31-73) Lymphocytes (%) (Auto) 9% (24-48) Monocytes (%) (Auto) 3% (0-9) Eosinophils (%) (Auto) 0% (0-3) Basophils (%) (Auto) 0% (0-3) Neutrophils # (Auto) 10.5x10^3uL (1.8-7.7) Lymphocytes # (Auto) 1.1x10^3/uL (1.0-4.8) Monocytes # (Auto) 0.4x10^3/uL (0.0-1.1) Eosinophils # (Auto) 0.0x10^3/uL (0.0-0.7) Basophils # (Auto) 0.0x10^3/uL (0.0-0.2) Sodium Level 141mmol/L (136-145) Potassium Level 3.9mmol/L (3.5-5.1) Chloride Level 105mmol/L (98-107) Carbon Dioxide Level 23mmol/L (21-32) Anion Gap 13 (6-14) Blood Urea Nitrogen 48mg/dL (8-26) Creatinine 2.0mg/dL (0.7-1.3) Estimated GFR (Cockcroft-Gault) 32.3 Glucose Level 182mg/dL (70-99) Calcium Level 8.4mg/dL (8.5-10.1) Laboratory Tests Test 01/05/17 17:05 01/06/17 08:21 01/06/17 09:45 Glucose (Fingerstick) 248mg/dL (70-99) 168mg/dL (70-99) White Blood Count 11.9x10^3/uL (4.0-11.0) Red Blood Count 3.32x10^6/uL (4.30-5.70) Hemoglobin 8.7g/dL (13.0-17.5) Hematocrit 28.0% (39.0-53.0) Mean Corpuscular Volume 84fL (79-100) Mean Corpuscular Hemoglobin 26pg (25-35) Mean Corpuscular Hemoglobin Concent 31g/dL (31-37) Red Cell Distribution Width 18.5% (11.5-14.5) Platelet Count 413x10^3/uL (140-400) Neutrophils (%) (Auto) 88% (31-73) Lymphocytes (%) (Auto) 9% (24-48) Monocytes (%) (Auto) 3% (0-9) Eosinophils (%) (Auto) 0% (0-3) Basophils (%) (Auto) 0% (0-3) Neutrophils # (Auto) 10.5x10^3uL (1.8-7.7) Lymphocytes # (Auto) 1.1x10^3/uL (1.0-4.8) Monocytes # (Auto) 0.4x10^3/uL (0.0-1.1) Eosinophils # (Auto) 0.0x10^3/uL (0.0-0.7) Basophils # (Auto) 0.0x10^3/uL (0.0-0.2) Sodium Level 141mmol/L (136-145) Potassium Level 3.9mmol/L (3.5-5.1) Chloride Level 105mmol/L (98-107) Carbon Dioxide Level 23mmol/L (21-32) Anion Gap 13 (6-14) Blood Urea Nitrogen 48mg/dL (8-26) Creatinine 2.0mg/dL (0.7-1.3) Estimated GFR (Cockcroft-Gault) 32.3 Glucose Level 182mg/dL (70-99) Calcium Level 8.4mg/dL (8.5-10.1) Microbiology 01/04/17 Blood Culture - Preliminary, Resulted NO GROWTH AFTER 1 DAY 01/05/17 Gram Stain - Final, Complete Medications Current Medications Vancomycin HCl (Vanco Per Pharmacy) 1 each 1X ONCE MC ; Start 01/04/17 at 15:30 ; Stop 01/04/17 at 15:31; Status UNV Methylprednisolone Sodium Succinate 125 mg 125 mg 1X ONCE IV Last administered on 01/04/17 15:30; Start 01/04/17 at 15:30; Stop 01/04/17 at 15:31; Status DC Sodium Chloride (Iv Sodium Chloride 0.9% 500ml Bag) 500 ml @ 500 mls/hr 1X ONCE IV Last administered on 01/04/17 15:30; Start 01/04/17 at 15:30; Stop at 16:29; Status DC Piperacillin Sod/ Tazobactam Sod (Zosyn Per Pharmacy) 1 each PRN DAILY PRN MC SEE COMMENTS; Start 01/04/17 at 15:30; Stop 01/04/17 at 17:09; Status DC Acetaminophen 1000 mg 1,000 mg 1X ONCE PO Last administered on 01/04/17 15:45 ; Start 01/04/17 at 15:45; Stop 01/04/17 at 15:47; Status DC Sodium Chloride 500 ml @ 500 mls/hr 1X ONCE IV Last administered on 01/04/17 15:45; Start 01/04/17 at 15:45; Stop 01/04/17 at 16:44; Status DC Vancomycin HCl 1.5 gm/Sodium Chloride 500 ml @ 250 mls/hr 1X ONCE IV Last administered on 01/04/17 16:15; Start 01/04/17 at 16:15; Stop 01/04/17 at 18:14; Status DC Piperacillin Sod/ Tazobactam Sod/ Sodium Chloride (Zosyn/Iv Sodium Chloride 0.9 % 50ml) 50 ml @ 100 mls/hr 1X ONCE IV Last administered on 01/04/17 16:15; Start 01/04/17 at 16:15; Stop 01/04/17 at 16:44; Status DC Acetaminophen (Tylenol) 650 mg Q4HRS PRN PO MILD PAIN; Start 01/04/17 at 17:15 Aspirin (Children'S Aspirin) 81 mg DAILYWBKFT PO Last administered on 01/06/17 08:14; Start 01/05/17 at 08:00 Atorvastatin Calcium (Lipitor) 10 mg QHS PO Last administered on 01/04/17 23:36 ; Start 01/04/17 at 21:00 Bisacodyl (Dulcolax Supp) 10 mg PRN DAILY PRN RC CONSTIPATION; Start 01/04/17 at 17:15 Guaifenesin (Mucinex) 600 mg BID PO Last administered on 01/06/17 08:15; Start 01/04/17 at 21:00 Albuterol/ Ipratropium (Duoneb) 3 ml PRN Q4HRS PRN NEB SHORTNESS OF BREATH; Start 01/04/17 at 17:15; Stop 01/04/17 at 17:15; Status DC Lorazepam (Ativan) 0.5 mg PRN Q8HRS PRN PO ANXIETY / AGITATION Last administered on 01/05/17 15:19; Start 01/04/17 at 17:15 Magnesium Hydroxide (Milk Of Magnesia) 400 mg PRN DAILY PRN PO CONSTIPATION; Start 01/04/17 at 17:15 Metoprolol Succinate (Toprol Xl) 25 mg DAILY PO ; Start 01/05/17 at 09:00; Stop 01/05/17 at 09:00; Status DC Primidone (Mysoline) 50 mg DAILY PO Last administered on 01/06/17 08:15; Start 01/05/17 at 09:00 Spironolactone (Aldactone) 25 mg DAILY PO Last administered on 01/06/17 08:14; Start 01/05/17 at 09:00 Tamsulosin HCl (Flomax) 0.4 mg DAILY PO Last administered on 01/06/17 08:15; Start 01/05/17 at 09:00 Budesonide (Pulmicort) 0.5 mg RTBID NEB Last administered on 01/06/17 08:38; Start 01/04/17 at 20:00 Albuterol/ Ipratropium 3 ml 3 ml RTQID NEB Last administered on 01/06/17 12:38 ; Start 01/04/17 at 20:00 Meropenem/Sodium Chloride (Merrem/Iv Sodium Chloride 0.9% 50ml) 50 ml @ 100 mls /hr Q8HRS IV ; Start 01/04/17 at 22:00; Stop 01/04/17 at 22:00; Status DC Albuterol Sulfate (Ventolin Neb Soln) 2.5 mg PRN Q2HR PRN NEB SHORTNESS OF BREATH Last administered on 01/06/17 03:17; Start 01/04/17 at 17:15 Vancomycin HCl (Vanco Per Pharmacy) 1 each PRN DAILY PRN MC SEE COMMENTS Last administered on 01/05/17 08:53; Start 01/04/17 at 17:15 Methylprednisolone Sodium Succinate (Solu-Medrol 40mg Vial) 40 mg TID IV Last administered on 01/06/17 08:14; Start 01/04/17 at 21:00 Pantoprazole Sodium (Protonix) 40 mg DAILYAC PO Last administered on 01/06/17 08:14; Start 01/05/17 at 07:30 Hydralazine HCl 10 mg 10 mg PRN Q4HRS PRN IVP HYPERTENSION, SEE COMMENTS; Start 01/04/17 at 17:15 Sodium Chloride (Iv Sodium Chloride 0.9% 1000ml Bag) 1,000 ml @ 75 mls/hr 1X ONCE IV Last administered on 01/04/17 17:15; Start 01/04/17 at 17:15; Stop at 06:34; Status DC Heparin Sodium (Porcine) 5000 unit 5,000 unit Q8HRS SQ Last administered on 01/06 05:23; Start 01/04/17 at 22:00 Meropenem 500 mg/ Sodium Chloride 50 ml @ 100 mls/hr BID IV Last administered on 01/06/17 08:19; Start 01/04/17 at 21:00 Sodium Chloride (Iv Sodium Chloride 0.9% 1000ml Bag) 1,000 ml @ 1,000 mls/hr 1X ONCE IV Last administered on 01/04/17 17:45; Start 01/04/17 at 17:45; Stop 01/04/17 at 18:44; Status DC Albuterol/ Ipratropium (Duoneb) 3 ml 1X ONCE NEB Last administered on 18:10; Start 01/04/17 at 17:45; Stop 01/04/17 at 17:49; Status DC Ondansetron HCl (Zofran) 4 mg PRN Q8HRS PRN IV NAUSEA/VOMITING; Start 01/04/17 at 18:00; Stop 01/05/17 at 17:59; Status DC Morphine Sulfate 2 mg 2 mg PRN Q2HR PRN IV PAIN; Start 01/04/17 at 18:00; Stop 01/05/17 at 17:59; Status DC Sodium Chloride (Iv Sodium Chloride 0.9% 1000ml Bag) 1,000 ml @ 125 mls/hr Q8H IV ; Start 01/04/17 at 17:50; Stop 01/05/17 at 17:49; Status Cancel Albuterol/ Ipratropium (Duoneb) 3 ml RTQID NEB ; Start 01/04/17 at 20:00; Stop at 19:59; Status UNV Digoxin 125 mcg 125 mcg 1X ONCE IV Last administered on 01/04/17 19:32; Start 01/04/17 at 19:15; Stop 01/04/17 at 19:16; Status DC Vancomycin HCl/ Sodium Chloride (Iv Sodium Chloride 0.9% 250ml) 250 ml @ 167 mls/hr Q24H IV Last administered on 01/05/17 15:47; Start 01/05/17 at 16:00 Vancomycin HCl 1 each 1 each 1X ONCE MC ; Start 01/06/17 at 15:30; Stop 01/06/17 at 15:31 Sodium Chloride 1,000 ml @ 1,000 mls/hr 1X ONCE IV Last administered on 19:37; Start 01/04/17 at 19:45; Stop 01/04/17 at 20:44; Status DC Norepinephrine Bitartrate 8 mg/ Sodium Chloride 258 ml @ 0 mls/hr CONT PRN IV SEE I/O RECORD; Start 01/04/17 at 22:15 Sodium Chloride (Iv Sodium Chloride 0.9% 1000ml Bag) 1,000 ml @ 75 mls/hr 1X ONCE IV Last administered on 01/05/17 09:34; Start 01/05/17 at 08:45; Stop at 22:04; Status DC Insulin Aspart (Novolog) 0-9 UNITS TIDWMEALS SQ Last administered on 01/06/17 12:37; Start 01/05/17 at 12:00 Dextrose 12.5 gm PRN Q15MIN PRN IV SEE COMMENTS; Start 01/05/17 at 08:45 Guaifenesin (Robitussin) 200 mg PRN Q4HRS PRN PO COUGH; Start 01/05/17 at 08:45 ; Stop 01/05/17 at 12:57; Status DC Metoprolol Tartrate (Lopressor) 5 mg Q6HRS IVP Last administered on 01/06/17 11 :28; Start 01/05/17 at 09:30 Digoxin (Lanoxin) 250 mcg 1X ONCE IV Last administered on 01/05/17 21:54; Start 01/05/17 at 20:00; Stop 01/05/17 at 20:01; Status DC Furosemide (Lasix) 40 mg 1X ONCE IVP Last administered on 2/5/17at 03:37; Start 01/06/17 at 04:00; Stop 01/06/17 at 04:01; Status DC Active Scripts Active Reported Tamsulosin Hcl 0.4 Mg Cap.er.24h 1 Cap PO DAILY Symbicort 160-4.5 Mcg Inhaler (Budesonide/Formoterol Fumarate) 10.2 Gm Hfa.aer.ad 2 Puff IH BID Spironolactone 25 Mg Tablet 1 Tab PO DAILY Primidone 50 Mg Tablet 50 Mg PO DAILY Pantoprazole Sodium 40 Mg Tablet.dr 1 Tab PO BID Metoprolol Succinate 50 Mg Tab.er.24h 25 Mg PO DAILY Lorazepam 0.5 Mg Tablet 1 Tab PO PRN Q8HRS PRN Duoneb 0.5-3(2.5) Mg/3 Ml (Albuterol/Ipratropium) 3 Ml Ampul.neb 3 Ml NEB Q4HRS Milk Of Magnesia (Magnesium Hydroxide) 400 Mg/5 Ml Oral.susp 400 Mg PO PRN DAILY PRN Atorvastatin Calcium 10 Mg Tablet 1 Tab PO DAILY Aspirin 81 Mg Tab.chew 81 Mg PO DAILY Acetaminophen 325 Mg Tablet 650 Mg PO Q4HRS PRN Duoneb 0.5-3(2.5) Mg/3 Ml (Albuterol/Ipratropium) 3 Ml Ampul.neb 3 Ml NEB PRN Q4HRS PRN Guaifenesin 600 Mg Tablet.er 600 Mg PO BID Furosemide 40 Mg Tablet 40 Mg PO DAILY Fleet Enema (Na Phos,M-B/Na Phos,Di-Ba) 133 Ml Enema 1 Each RC PRN DAILY PRN Aspirin Ec (Aspirin) 81 Mg Tablet.dr 1 Tab PO DAILY Dulcolax (Bisacodyl) 10 Mg Supp.rect 10 Mg RC PRN DAILY PRN Vitals/I & O Vital Sign - Last 24 Hours 01/05/17 01/05/17 01/05/17 01/05/17 13:00 14:00 15:00 16:00 Pulse 95 86 146 Resp 24 24 24 B/P 112/55 112/55 94/56 Pulse Ox 98 97 96 O2 Delivery Nasal Cannula Nasal Cannula Nasal Cannula Nasal Cannula O2 Flow Rate 2.0 2.0 2.0 2.0 01/05/17 01/05/17 01/05/17 01/05/17 16:00 17:00 17:08 18:00 Temp 99.3 99.3 Pulse 148 146 148 144 Resp 26 B/P 98/68 99/60 99/60 87/64 Pulse Ox 93 95 97 O2 Delivery Nasal Cannula Nasal Cannula Nasal Cannula O2 Flow Rate 2.0 2.0 2.0 01/05/17 01/05/17 01/05/17 01/05/17 19:00 19:51 20:00 20:00 Temp 98.5 98.5 Pulse 144 144 Resp B/P 99/64 87/70 Pulse Ox 97 97 94 O2 Delivery Nasal Cannula Nasal Cannula Nasal Cannula Nasal Cannula O2 Flow Rate 2.0 2.0 2.0 2.0 01/05/17 01/05/17 01/05/17 01/05/17 21:00 21:54 22:00 23:00 Pulse 122 137 144 112 Resp B/P 100/64 106/64 115/71 127/80 Pulse Ox 97 97 97 O2 Delivery Nasal Cannula Nasal Cannula Nasal Cannula O2 Flow Rate 2.0 2.0 2.0 01/05/17 01/06/17 01/06/17 01/06/17 23:59 00:00 00:00 01:00 Temp 98.0 98.0 Pulse 61 72 112 Resp B/P 127/68 115/53 135/63 Pulse Ox 97 99 O2 Delivery Nasal Cannula Nasal Cannula Nasal Cannula O2 Flow Rate 2.0 2.0 2.0 01/06/17 01/06/17 01/06/17 01/06/17 02:00 03:00 03:17 04:00 Pulse 70 132 Resp 20 32 B/P 151/69 126/73 Pulse Ox 99 96 96 O2 Delivery Nasal Cannula Nasal Cannula Nasal Cannula Nasal Cannula O2 Flow Rate 2.0 2.0 2.0 2.0 01/06/17 01/06/17 01/06/17 01/06/17 04:00 05:00 05:21 06:00 Temp 98.2 98.2 Pulse 146 106 90 69 Resp 30 26 20 B/P 124/70 135/59 135/59 122/58 Pulse Ox 96 96 96 O2 Delivery Nasal Cannula Nasal Cannula Nasal Cannula O2 Flow Rate 2.0 2.0 2.0 01/06/17 01/06/17 01/06/17 01/06/17 07:00 08:00 08:00 08:30 Temp 98.3 98.3 Pulse 73 69 Resp 24 28 B/P 119/58 119/63 Pulse Ox 97 98 99 O2 Delivery Nasal Cannula Nasal Cannula Nasal Cannula Nasal Cannula O2 Flow Rate 2.0 2.0 2.0 2.0 01/06/17 01/06/17 01/06/17 01/06/17 09:00 10:00 11:00 11:28 Pulse 152 152 148 152 Resp 22 21 20 B/P 128/76 109/71 111/71 111/71 Pulse Ox 98 97 100 O2 Delivery Nasal Cannula Nasal Cannula Nasal Cannula O2 Flow Rate 2.0 2.0 2.0 01/06/17 12:38 Pulse Ox 100 O2 Delivery Nasal Cannula O2 Flow Rate 2.0 Intake and Output 01/05/17 01/05/17 01/06/17 15:00 23:00 07:00 Intake Total 60 ml 0 ml 574 ml Output Total 307 ml 215 ml 1600 ml Balance -247 ml -215 ml -1026 ml JULIET GODOY MD Jan 06, 2017 13:02
--- NOTE | 2017-01-06 13:41 | PDOC ---
PULMONARY PROGRESS NOTES Subjective PT FEELS BETTER LESS SOA Vitals Vital Signs Date Time Temp Pulse Resp B/P Pulse Ox O2 Delivery O2 Flow Rate FiO2 01/06/17 12:38 100 Nasal Cannula 2.0 01/06/17 12:00 98.5 140 25 135/69 98.5 ROS: No Nausea, No Chest Pain, No Abdominal Pain, No Increase Cough General: Alert, No acute distress HEENT: Other Lungs: Wheezing Cardiovascular: S1, S2 Abdomen: Soft, Non-tender Neuro Exam: Alert Extremities: No Edema Skin: Warm Labs Laboratory Tests Test 01/04/17 15:35 01/04/17 16:00 01/04/17 17:30 01/04/17 19:46 White Blood Count 18.5x10^3/uL (4.0-11.0) Red Blood Count 3.70x10^6/uL (4.30-5.70) Hemoglobin 9.9g/dL (13.0-17.5) Hematocrit 31.6% (39.0-53.0) Mean Corpuscular Volume 85fL (79-100) Mean Corpuscular Hemoglobin 27pg (25-35) Mean Corpuscular Hemoglobin Concent 31g/dL (31-37) Red Cell Distribution Width 18.6% (11.5-14.5) Platelet Count 408x10^3/uL (140-400) Neutrophils (%) (Auto) 92% (31-73) Lymphocytes (%) (Auto) 5% (24-48) Monocytes (%) (Auto) 2% (0-9) Eosinophils (%) (Auto) 1% (0-3) Basophils (%) (Auto) 0% (0-3) Neutrophils # (Auto) 17.0x10^3uL (1.8-7.7) Lymphocytes # (Auto) 0.9x10^3/uL (1.0-4.8) Monocytes # (Auto) 0.4x10^3/uL (0.0-1.1) Eosinophils # (Auto) 0.1x10^3/uL (0.0-0.7) Basophils # (Auto) 0.0x10^3/uL (0.0-0.2) Segmented Neutrophils % 86% (35-66) Band Neutrophils % 5% (0-9) Lymphocytes % 5% (24-48) Monocytes % 4% (0-10) Platelet Estimate Increased (ADEQUATE) Poikilocytosis Slight Anisocytosis Slight Ovalocytes Few Schistocytes Few Sodium Level 134mmol/L (136-145) Potassium Level 4.4mmol/L (3.5-5.1) Chloride Level 95mmol/L (98-107) Carbon Dioxide Level 25mmol/L (21-32) Anion Gap 14 (6-14) Blood Urea Nitrogen 46mg/dL (8-26) Creatinine 2.5mg/dL (0.7-1.3) Estimated GFR (Cockcroft-Gault) 25.0 BUN/Creatinine Ratio 18 (6-20) Glucose Level 162mg/dL (70-99) Lactic Acid Level 2.4mmol/L (0.4-2.0) 1.1mmol/L (0.4-2.0) Calcium Level 9.3mg/dL (8.5-10.1) Total Bilirubin 0.3mg/dL (0.2-1.0) Aspartate Amino Transf (AST/SGOT) 22U/L (15-37) Alanine Aminotransferase (ALT/SGPT) 13U/L (16-63) Alkaline Phosphatase 70U/L (46-116) Troponin I Quantitative < 0.017ng/mL (0.000-0.055) QL-Nib-D-Type Natriuretic Peptide 1638pg/mL (0-449) Total Protein 7.5g/dL (6.4-8.2) Albumin 3.2g/dL (3.4-5.0) Albumin/Globulin Ratio 0.7 (1.0-1.7) O2 Saturation 90% (92-99) Arterial Blood pH 7.48 (7.35-7.45) Arterial Blood pCO2 at Patient Temp 25mmHg (35-46) Arterial Blood pO2 at Patient Temp 57mmHg (65-108) Arterial Blood HCO3 18mmol/L (21-28) Arterial Blood Base Excess -5mmol/L (-3-3) FiO2 6 lpm nc Influenza Type A Antigen Negative (NEGATIVE) Influenza Type B Antigen Negative (NEGATIVE) Test 01/05/17 02:45 01/05/17 05:00 01/05/17 11:34 01/05/17 17:05 Nasal Screen MRSA (PCR) Negative (Negative) White Blood Count 12.0x10^3/uL (4.0-11.0) Red Blood Count 3.20x10^6/uL (4.30-5.70) Hemoglobin 8.6g/dL (13.0-17.5) Hematocrit 27.9% (39.0-53.0) Mean Corpuscular Volume 87fL (79-100) Mean Corpuscular Hemoglobin 27pg (25-35) Mean Corpuscular Hemoglobin Concent 31g/dL (31-37) Red Cell Distribution Width 18.7% (11.5-14.5) Platelet Count 327x10^3/uL (140-400) Neutrophils (%) (Auto) 93% (31-73) Lymphocytes (%) (Auto) 5% (24-48) Monocytes (%) (Auto) 2% (0-9) Eosinophils (%) (Auto) 0% (0-3) Basophils (%) (Auto) 0% (0-3) Neutrophils # (Auto) 11.1x10^3uL (1.8-7.7) Lymphocytes # (Auto) 0.6x10^3/uL (1.0-4.8) Monocytes # (Auto) 0.3x10^3/uL (0.0-1.1) Eosinophils # (Auto) 0.0x10^3/uL (0.0-0.7) Basophils # (Auto) 0.0x10^3/uL (0.0-0.2) Sodium Level 136mmol/L (136-145) Potassium Level 4.1mmol/L (3.5-5.1) Chloride Level 104mmol/L (98-107) Carbon Dioxide Level 19mmol/L (21-32) Anion Gap 13 (6-14) Blood Urea Nitrogen 42mg/dL (8-26) Creatinine 2.2mg/dL (0.7-1.3) Estimated GFR (Cockcroft-Gault) 28.9 Glucose Level 210mg/dL (70-99) Lactic Acid Level 1.7mmol/L (0.4-2.0) Calcium Level 8.2mg/dL (8.5-10.1) Glucose (Fingerstick) 133mg/dL (70-99) 248mg/dL (70-99) Test 01/06/17 08:21 01/06/17 09:45 Glucose (Fingerstick) 168mg/dL (70-99) White Blood Count 11.9x10^3/uL (4.0-11.0) Red Blood Count 3.32x10^6/uL (4.30-5.70) Hemoglobin 8.7g/dL (13.0-17.5) Hematocrit 28.0% (39.0-53.0) Mean Corpuscular Volume 84fL (79-100) Mean Corpuscular Hemoglobin 26pg (25-35) Mean Corpuscular Hemoglobin Concent 31g/dL (31-37) Red Cell Distribution Width 18.5% (11.5-14.5) Platelet Count 413x10^3/uL (140-400) Neutrophils (%) (Auto) 88% (31-73) Lymphocytes (%) (Auto) 9% (24-48) Monocytes (%) (Auto) 3% (0-9) Eosinophils (%) (Auto) 0% (0-3) Basophils (%) (Auto) 0% (0-3) Neutrophils # (Auto) 10.5x10^3uL (1.8-7.7) Lymphocytes # (Auto) 1.1x10^3/uL (1.0-4.8) Monocytes # (Auto) 0.4x10^3/uL (0.0-1.1) Eosinophils # (Auto) 0.0x10^3/uL (0.0-0.7) Basophils # (Auto) 0.0x10^3/uL (0.0-0.2) Sodium Level 141mmol/L (136-145) Potassium Level 3.9mmol/L (3.5-5.1) Chloride Level 105mmol/L (98-107) Carbon Dioxide Level 23mmol/L (21-32) Anion Gap 13 (6-14) Blood Urea Nitrogen 48mg/dL (8-26) Creatinine 2.0mg/dL (0.7-1.3) Estimated GFR (Cockcroft-Gault) 32.3 Glucose Level 182mg/dL (70-99) Calcium Level 8.4mg/dL (8.5-10.1) Laboratory Tests Test 01/05/17 17:05 01/06/17 08:21 01/06/17 09:45 Glucose (Fingerstick) 248mg/dL (70-99) 168mg/dL (70-99) White Blood Count 11.9x10^3/uL (4.0-11.0) Red Blood Count 3.32x10^6/uL (4.30-5.70) Hemoglobin 8.7g/dL (13.0-17.5) Hematocrit 28.0% (39.0-53.0) Mean Corpuscular Volume 84fL (79-100) Mean Corpuscular Hemoglobin 26pg (25-35) Mean Corpuscular Hemoglobin Concent 31g/dL (31-37) Red Cell Distribution Width 18.5% (11.5-14.5) Platelet Count 413x10^3/uL (140-400) Neutrophils (%) (Auto) 88% (31-73) Lymphocytes (%) (Auto) 9% (24-48) Monocytes (%) (Auto) 3% (0-9) Eosinophils (%) (Auto) 0% (0-3) Basophils (%) (Auto) 0% (0-3) Neutrophils # (Auto) 10.5x10^3uL (1.8-7.7) Lymphocytes # (Auto) 1.1x10^3/uL (1.0-4.8) Monocytes # (Auto) 0.4x10^3/uL (0.0-1.1) Eosinophils # (Auto) 0.0x10^3/uL (0.0-0.7) Basophils # (Auto) 0.0x10^3/uL (0.0-0.2) Sodium Level 141mmol/L (136-145) Potassium Level 3.9mmol/L (3.5-5.1) Chloride Level 105mmol/L (98-107) Carbon Dioxide Level 23mmol/L (21-32) Anion Gap 13 (6-14) Blood Urea Nitrogen 48mg/dL (8-26) Creatinine 2.0mg/dL (0.7-1.3) Estimated GFR (Cockcroft-Gault) 32.3 Glucose Level 182mg/dL (70-99) Calcium Level 8.4mg/dL (8.5-10.1) Medications Active Scripts Medications Dose Route/Sig Days Date Category Tamsulosin Hcl 0.4 Mg Cap.er.24h 1 Cap PO DAILY 11/09/16 Reported Symbicort 160-4.5 Mcg Inhaler (Budesonide/Formoterol Fumarate) 10.2 Gm Hfa.aer.ad 2 Puff IH BID 11/09/16 Reported Spironolactone 25 Mg Tablet 1 Tab PO DAILY 11/09/16 Reported Primidone 50 Mg Tablet 50 Mg PO DAILY 11/09/16 Reported Pantoprazole Sodium 40 Mg Tablet.dr 1 Tab PO BID 11/09/16 Reported Metoprolol Succinate 50 Mg Tab.er.24h 25 Mg PO DAILY 11/09/16 Reported Lorazepam 0.5 Mg Tablet 1 Tab PO PRN Q8HRS PRN 11/09/16 Reported Duoneb 0.5-3(2.5) Mg/3 Ml (Albuterol/Ipratropium) 3 Ml Ampul.neb 3 Ml NEB Q4HRS 11/09/16 Reported Milk Of Magnesia (Magnesium Hydroxide) 400 Mg/5 Ml Oral.susp 400 Mg PO PRN DAILY PRN 11/09/16 Reported Atorvastatin Calcium 10 Mg Tablet 1 Tab PO DAILY 11/09/16 Reported Aspirin 81 Mg Tab.chew 81 Mg PO DAILY 11/09/16 Reported Acetaminophen 325 Mg Tablet 650 Mg PO Q4HRS PRN 11/09/16 Reported Duoneb 0.5-3(2.5) Mg/3 Ml (Albuterol/Ipratropium) 3 Ml Ampul.neb 3 Ml NEB PRN Q4HRS PRN 11/09/16 Reported Guaifenesin 600 Mg Tablet.er 600 Mg PO BID 11/09/16 Reported Furosemide 40 Mg Tablet 40 Mg PO DAILY 11/09/16 Reported Fleet Enema (Na Phos,M-B/Na Phos,Di-Ba) 133 Ml Enema 1 Each RC PRN DAILY PRN 11/09/16 Reported Aspirin Ec (Aspirin) 81 Mg Tablet.dr 1 Tab PO DAILY 11/09/16 Reported Dulcolax (Bisacodyl) 10 Mg Supp.rect 10 Mg RC PRN DAILY PRN 11/09/16 Reported Impression . Acute resp failure sec to AECOPD Pneumonia atrial flutter chronic diastolic HF, preserved LV function of 50-55% Plan . continue the same follow card input PT eval see my dictation ALLEY ROSSI MD Jan 06, 2017 13:41
[2017-01-06] MEDS: VANCOMYCIN 1.25 GM in IV NORMAL SALINE 250ML 250 ML IV SCH (16:37)
[2017-01-06] MEDS: VANCOMYCIN PER PHARMACY MC PRN (17:26)
[2017-01-06] MEDS ORDERED: SODIUM CHLORIDE 0.65% NASAL SPRAY 45ML BOTTLE. NS PRN (17:45)
[2017-01-06] MEDS: DILTIAZEM 125 MG in IV DEXTROSE 5% 100 ML IV PRN (18:25)
--- NOTE | 2017-01-06 19:28 | CONS ---
DATE OF CONSULTATION: 01/05/2017 ATTENDING PHYSICIAN: Elen Higgins MD REASON FOR CONSULTATION: The patient seen in pulmonary consultation at the request of Dr. Higgins for abnormal x-ray and respiratory failure. HISTORY OF PRESENT ILLNESS: The patient is an 81-year-old that is currently residing at a group home facility. Actually, he was in the hospital back in early part of November with COPD exacerbation, pulmonary fibrosis, possible pneumonia. He was treated at that time. He was discharged to the group home facility. Over the last 2-3 days, he has had increasing shortness of breath, increasing oxygen requirements. He presented. He is hypotensive. He is currently being treated for sepsis. He had a chest x-ray, which revealed bilateral infiltrates, which have increased since yesterday. The patient has a cough productive of mucus. No hemoptysis. During his last visit, he had an echocardiogram on 11/09/2016, which revealed pulmonary artery pressure of 41, ejection fraction of 50%-55%. The patient had fever of 101 documented in the group home facility. PAST MEDICAL HISTORY: COPD, chronic heart failure, hypertension, hyperlipidemia, dementia, benign prostatic hypertrophy. PAST SURGICAL HISTORY: Status post hernia repair. FAMILY HISTORY: Noncontributory in this age group. SOCIAL HISTORY: History of tobacco, started at the age of 17. REVIEW OF SYSTEMS: As indicated above, otherwise, a 10-point system could not be adequately reviewed as a consequence of the patient's current dementia. He is on Symbicort at home. CURRENT MEDICATION: List was reviewed. Please see the MRAD. He is currently being treated with meropenem and vancomycin. PHYSICAL EXAMINATION: GENERAL: The patient was awake, alert, following commands, in no significant respiratory distress, currently on 2 liters of oxygen supplementation. HEENT: Eyes, the sclerae were nonicteric. NECK: Jugular venous distention was not elevated. No lymphadenopathy. LUNGS: [place] bilaterally with no wheezes. CARDIOVASCULAR: Regular rate and rhythm with S1, S2, no S3. ABDOMEN: Soft, nontender, nondistended. EXTREMITIES: No clubbing, cyanosis, or edema. NEUROLOGIC: The patient was awake, alert, following commands. A detailed neuro exam was not performed. LABORATORY DATA: White count was elevated at 18,000. Arterial blood gas, pH of 7.48, PaCO2 of 25, PaO2 of 57 on 6 liters. Electrolytes were noted. BUN was elevated. Creatinine was elevated. BNP was elevated. Albumin was low. Chest x-ray revealed bilateral pulmonary infiltrates, which have increased since yesterday. Serology for influenza was negative. IMPRESSION: 1. Acute on chronic respiratory failure, multifactorial. Suspect Gram-negative, possibly Gram-positive pneumonia. 2. History of chronic heart failure. 3. Sepsis with hypotension. 4. Dementia. 5. Mild protein malnutrition, present upon admission. 6. Lactic acidosis. 7. Possible aspiration pneumonia. 8. Acute exacerbation of chronic obstructive pulmonary disease secondary to above. PLAN: 1. Continue current IV fluids and Levophed if needed to maintain mean arterial pressure above 60. 2. Oxygen supplementation, titrate down. The patient at one point was requiring 15 liters. 3. Continue broad-spectrum antibiotics. 4. Recommend speech evaluation for possible aspiration. 5. DVT and GI prophylaxes. I do appreciate the privilege in sharing in the patient's care. Total cumulative critical care time of 40 minutes. ALLEY ROSSI MD DR: MILVIA/makenna JOB#: [id number] / [id number]
[2017-01-06] MEDS: LORAZEPAM 0.5 MG TABLET. PO PRN (20:09)
[2017-01-06] MEDS: ATORVASTATIN CALCIUM 10 MG TABLET. PO SCH (20:09)
[2017-01-07] VITALS (12 sets, daily range): BP systolic 115–139; BP diastolic 50–75
[2017-01-07] MEDS: ALBUTEROL SULFATE 2.5 MG/3 ML NEBU. NEB PRN (00:10)
[2017-01-07] MEDS ORDERED: FUROSEMIDE 40 MG/4 ML VIAL IVP ONE (00:30)
[2017-01-07] MEDS: DILTIAZEM 125 MG in IV DEXTROSE 5% 100 ML IV PRN (04:21)
[2017-01-07] MEDS: HEPARIN PF for SUB-Q USE 5,000 UNIT/0.5 ML VIAL. SQ SCH ×3 (05:55→22:09)
[2017-01-07 06:47] LABS: BASO % 0 % (0-3); EOS % 0 % (0-3); HEMATOCRIT 28.3 % (39.0-53.0); HEMOGLOBIN 8.8 g/dL (13.0-17.5); LYMPH # 0.8 x10^3/uL (1.0-4.8); LYMPH % 6 % (24-48); MEAN CORPUSCULAR HEMOGLOBIN 26 pg (25-35); MEAN CORPUSCULAR HGB CONC 31 g/dL (31-37); MEAN CORPUSCULAR VOLUME 84 fL (79-100); MONO % 3 % (0-9); NEUT % 91 % (31-73); PLATELET COUNT 421 x10^3/uL (140-400); RED BLOOD COUNT 3.36 x10^6/uL (4.30-5.70); RED CELL DISTRIBUTION WIDTH 18.8 % (11.5-14.5)
[2017-01-07 07:40] LABS: CALCIUM 8.8 mg/dL (8.5-10.1); CREATININE 1.8 mg/dL (0.7-1.3); GFR 36.5; POTASSIUM 4.5 mmol/L (3.5-5.1)
[2017-01-07] MEDS: methylPREDNISolone SOD SUCC PF 40 MG/ML VIAL. IV SCH ×2 (08:32→20:27)
[2017-01-07] MEDS: PRIMIDONE 50 MG TABLET PO SCH (08:32)
[2017-01-07] MEDS: PANTOPRAZOLE 40 MG TABLET. PO SCH (08:33)
[2017-01-07] MEDS: ASPIRIN 81 MG TAB.CHEW PO SCH (08:33)
[2017-01-07] MEDS: SPIRONOLACTONE 25 MG TABLET PO SCH (08:33)
[2017-01-07] MEDS: TAMSULOSIN 0.4 MG CAP.ER.24H. PO SCH (08:33)
[2017-01-07] MEDS: GUAIFENESIN ER 600 MG TABLET.ER PO SCH ×2 (08:33→20:28)
[2017-01-07] MEDS: FUROSEMIDE 40 MG TABLET PO SCH (08:38)
[2017-01-07] MEDS: MEROPENEM 500 MG in IV NORMAL SALINE 50ML 50 ML IV SCH ×2 (08:50→20:28)
[2017-01-07] MEDS: INSULIN ASPART 300 UNITS/3 ML INSULN.PEN SQ SCH ×3 (08:58→17:55)
[2017-01-07] MEDS: BUDESONIDE 0.5 MG/2 ML NEBU NEB SCH ×2 (09:00→20:15)
[2017-01-07] MEDS: IPRATRPIUM/ALBUTEROL 0.5/2.5MG 3 ML NEBU. NEB SCH ×4 (09:00→20:15)
--- NOTE | 2017-01-07 12:08 | PDOC ---
PULMONARY PROGRESS NOTES Subjective PT FEELS BETTER LESS SOA Vitals Vital Signs Date Time Temp Pulse Resp B/P Pulse Ox O2 Delivery O2 Flow Rate FiO2 01/07/17 11:00 98.2 92 28 115/62 98 Nasal Cannula 2.0 98.2 ROS: No Nausea, No Chest Pain, No Abdominal Pain, No Increase Cough General: Alert, No acute distress HEENT: Other Lungs: Clear Cardiovascular: S1, S2 Abdomen: Soft, Non-tender Neuro Exam: Alert Extremities: No Edema Skin: Warm Labs Laboratory Tests Test 01/05/17 17:05 01/06/17 08:21 01/06/17 09:45 01/06/17 12:33 Glucose (Fingerstick) 248mg/dL (70-99) 168mg/dL (70-99) 206mg/dL (70-99) White Blood Count 11.9x10^3/uL (4.0-11.0) Red Blood Count 3.32x10^6/uL (4.30-5.70) Hemoglobin 8.7g/dL (13.0-17.5) Hematocrit 28.0% (39.0-53.0) Mean Corpuscular Volume 84fL (79-100) Mean Corpuscular Hemoglobin 26pg (25-35) Mean Corpuscular Hemoglobin Concent 31g/dL (31-37) Red Cell Distribution Width 18.5% (11.5-14.5) Platelet Count 413x10^3/uL (140-400) Neutrophils (%) (Auto) 88% (31-73) Lymphocytes (%) (Auto) 9% (24-48) Monocytes (%) (Auto) 3% (0-9) Eosinophils (%) (Auto) 0% (0-3) Basophils (%) (Auto) 0% (0-3) Neutrophils # (Auto) 10.5x10^3uL (1.8-7.7) Lymphocytes # (Auto) 1.1x10^3/uL (1.0-4.8) Monocytes # (Auto) 0.4x10^3/uL (0.0-1.1) Eosinophils # (Auto) 0.0x10^3/uL (0.0-0.7) Basophils # (Auto) 0.0x10^3/uL (0.0-0.2) Sodium Level 141mmol/L (136-145) Potassium Level 3.9mmol/L (3.5-5.1) Chloride Level 105mmol/L (98-107) Carbon Dioxide Level 23mmol/L (21-32) Anion Gap 13 (6-14) Blood Urea Nitrogen 48mg/dL (8-26) Creatinine 2.0mg/dL (0.7-1.3) Estimated GFR (Cockcroft-Gault) 32.3 Glucose Level 182mg/dL (70-99) Calcium Level 8.4mg/dL (8.5-10.1) Test 01/06/17 15:30 01/06/17 17:28 01/07/17 06:19 Vancomycin Level Trough 17.1mcg/mL (10.0-20.0) Vancomycin Last Dose Date Vancomycin Last Dose Time Glucose (Fingerstick) 242mg/dL (70-99) White Blood Count 13.0x10^3/uL (4.0-11.0) Red Blood Count 3.36x10^6/uL (4.30-5.70) Hemoglobin 8.8g/dL (13.0-17.5) Hematocrit 28.3% (39.0-53.0) Mean Corpuscular Volume 84fL (79-100) Mean Corpuscular Hemoglobin 26pg (25-35) Mean Corpuscular Hemoglobin Concent 31g/dL (31-37) Red Cell Distribution Width 18.8% (11.5-14.5) Platelet Count 421x10^3/uL (140-400) Neutrophils (%) (Auto) 91% (31-73) Lymphocytes (%) (Auto) 6% (24-48) Monocytes (%) (Auto) 3% (0-9) Eosinophils (%) (Auto) 0% (0-3) Basophils (%) (Auto) 0% (0-3) Neutrophils # (Auto) 11.9x10^3uL (1.8-7.7) Lymphocytes # (Auto) 0.8x10^3/uL (1.0-4.8) Monocytes # (Auto) 0.4x10^3/uL (0.0-1.1) Eosinophils # (Auto) 0.0x10^3/uL (0.0-0.7) Basophils # (Auto) 0.0x10^3/uL (0.0-0.2) Sodium Level 139mmol/L (136-145) Potassium Level 4.5mmol/L (3.5-5.1) Chloride Level 105mmol/L (98-107) Carbon Dioxide Level 23mmol/L (21-32) Anion Gap 11 (6-14) Blood Urea Nitrogen 45mg/dL (8-26) Creatinine 1.8mg/dL (0.7-1.3) Estimated GFR (Cockcroft-Gault) 36.5 Glucose Level 203mg/dL (70-99) Calcium Level 8.8mg/dL (8.5-10.1) Laboratory Tests Test 01/06/17 12:33 01/06/17 15:30 01/06/17 17:28 01/07/17 06:19 Glucose (Fingerstick) 206mg/dL (70-99) 242mg/dL (70-99) Vancomycin Level Trough 17.1mcg/mL (10.0-20.0) Vancomycin Last Dose Date Vancomycin Last Dose Time White Blood Count 13.0x10^3/uL (4.0-11.0) Red Blood Count 3.36x10^6/uL (4.30-5.70) Hemoglobin 8.8g/dL (13.0-17.5) Hematocrit 28.3% (39.0-53.0) Mean Corpuscular Volume 84fL (79-100) Mean Corpuscular Hemoglobin 26pg (25-35) Mean Corpuscular Hemoglobin Concent 31g/dL (31-37) Red Cell Distribution Width 18.8% (11.5-14.5) Platelet Count 421x10^3/uL (140-400) Neutrophils (%) (Auto) 91% (31-73) Lymphocytes (%) (Auto) 6% (24-48) Monocytes (%) (Auto) 3% (0-9) Eosinophils (%) (Auto) 0% (0-3) Basophils (%) (Auto) 0% (0-3) Neutrophils # (Auto) 11.9x10^3uL (1.8-7.7) Lymphocytes # (Auto) 0.8x10^3/uL (1.0-4.8) Monocytes # (Auto) 0.4x10^3/uL (0.0-1.1) Eosinophils # (Auto) 0.0x10^3/uL (0.0-0.7) Basophils # (Auto) 0.0x10^3/uL (0.0-0.2) Sodium Level 139mmol/L (136-145) Potassium Level 4.5mmol/L (3.5-5.1) Chloride Level 105mmol/L (98-107) Carbon Dioxide Level 23mmol/L (21-32) Anion Gap 11 (6-14) Blood Urea Nitrogen 45mg/dL (8-26) Creatinine 1.8mg/dL (0.7-1.3) Estimated GFR (Cockcroft-Gault) 36.5 Glucose Level 203mg/dL (70-99) Calcium Level 8.8mg/dL (8.5-10.1) Medications Active Scripts Medications Dose Route/Sig Days Date Category Tamsulosin Hcl 0.4 Mg Cap.er.24h 1 Cap PO DAILY 11/09/16 Reported Symbicort 160-4.5 Mcg Inhaler (Budesonide/Formoterol Fumarate) 10.2 Gm Hfa.aer.ad 2 Puff IH BID 11/09/16 Reported Spironolactone 25 Mg Tablet 1 Tab PO DAILY 11/09/16 Reported Primidone 50 Mg Tablet 50 Mg PO DAILY 11/09/16 Reported Pantoprazole Sodium 40 Mg Tablet.dr 1 Tab PO BID 11/09/16 Reported Metoprolol Succinate 50 Mg Tab.er.24h 25 Mg PO DAILY 11/09/16 Reported Lorazepam 0.5 Mg Tablet 1 Tab PO PRN Q8HRS PRN 11/09/16 Reported Duoneb 0.5-3(2.5) Mg/3 Ml (Albuterol/Ipratropium) 3 Ml Ampul.neb 3 Ml NEB Q4HRS 11/09/16 Reported Milk Of Magnesia (Magnesium Hydroxide) 400 Mg/5 Ml Oral.susp 400 Mg PO PRN DAILY PRN 11/09/16 Reported Atorvastatin Calcium 10 Mg Tablet 1 Tab PO DAILY 11/09/16 Reported Aspirin 81 Mg Tab.chew 81 Mg PO DAILY 11/09/16 Reported Acetaminophen 325 Mg Tablet 650 Mg PO Q4HRS PRN 11/09/16 Reported Duoneb 0.5-3(2.5) Mg/3 Ml (Albuterol/Ipratropium) 3 Ml Ampul.neb 3 Ml NEB PRN Q4HRS PRN 11/09/16 Reported Guaifenesin 600 Mg Tablet.er 600 Mg PO BID 11/09/16 Reported Furosemide 40 Mg Tablet 40 Mg PO DAILY 11/09/16 Reported Fleet Enema (Na Phos,M-B/Na Phos,Di-Ba) 133 Ml Enema 1 Each RC PRN DAILY PRN 11/09/16 Reported Aspirin Ec (Aspirin) 81 Mg Tablet.dr 1 Tab PO DAILY 11/09/16 Reported Dulcolax (Bisacodyl) 10 Mg Supp.rect 10 Mg RC PRN DAILY PRN 11/09/16 Reported Impression . 1. Acute on chronic respiratory failure, multifactorial. Suspect Gram-negative, possibly Gram-positive pneumonia. 2. History of chronic heart failure. 3. Sepsis with hypotension.resolved 4. Dementia. 5. Mild protein malnutrition, present upon admission. 6. Lactic acidosis. 7. Possible aspiration pneumonia. 8. Acute exacerbation of chronic obstructive pulmonary disease secondary to above. Plan . 1. Doing better 2. Oxygen supplementation, titrate down. 3. Continue broad-spectrum antibiotics per ID 4. speech evaluation done/ dysphagia diet 5. DVT and GI prophylaxes. 6. clinically better 7. steroid taper YOSELIN KAUFMAN MD Jan 07, 2017 12:08
--- NOTE | 2017-01-07 12:29 | PDOC ---
PROGRESS NOTES Chief Complaint Chief Complaint sob, cough 1. acute resp failure with hypoxia 2. COPD exacerbation with bronchitis and possible PNA 3. chronic diastolic chf with EF 50% 4. HTN 5. 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 PFIB 7. sepsis with bronchitis 8. anxiety 9. bedbound with generalized weakness 10.mild malnutrition 11. lactate acidosis 12. h/o CVA wo obvious weakness 13. tachycardia, cannot reach EKG online since needs password for [facility]? plan: 1. card, pulm consulted 2.dysphagia 1 diet 3. cont home meds, resume lasix 40mg po daily 4. cough meds 5. check sputum last time was + Kpna 6. dc zosyn since resistent, add meropenum and vanco 7. dvt, gi ppx PTOT labs tmr SSI for solumedrol now , decrease to bid on metoprolol 5mg iv qid as per laura, dced today, i will add 25mg bid for now History of Present Illness History of Present Illness cough slightly better with mild sob, on NC4L now tachycardia BETTER Vitals Vitals Vital Signs Date Time Temp Pulse Resp B/P Pulse Ox O2 Delivery O2 Flow Rate FiO2 01/07/17 11:00 98.2 92 28 115/62 98 Nasal Cannula 2.0 98.2 Physical Exam General: Alert, Oriented X3, Cooperative, mild distress Heart: Regular rate, Normal S1, Other (140.) Lungs: Clear Abdomen: Normal bowel sounds Extremities: No edema, Normal pulses Skin: No rashes Labs LABS Laboratory Tests Test 01/06/17 12:33 01/06/17 15:30 01/06/17 17:28 01/07/17 06:19 Glucose (Fingerstick) 206mg/dL (70-99) 242mg/dL (70-99) Vancomycin Level Trough 17.1mcg/mL (10.0-20.0) Vancomycin Last Dose Date Vancomycin Last Dose Time White Blood Count 13.0x10^3/uL (4.0-11.0) Red Blood Count 3.36x10^6/uL (4.30-5.70) Hemoglobin 8.8g/dL (13.0-17.5) Hematocrit 28.3% (39.0-53.0) Mean Corpuscular Volume 84fL (79-100) Mean Corpuscular Hemoglobin 26pg (25-35) Mean Corpuscular Hemoglobin Concent 31g/dL (31-37) Red Cell Distribution Width 18.8% (11.5-14.5) Platelet Count 421x10^3/uL (140-400) Neutrophils (%) (Auto) 91% (31-73) Lymphocytes (%) (Auto) 6% (24-48) Monocytes (%) (Auto) 3% (0-9) Eosinophils (%) (Auto) 0% (0-3) Basophils (%) (Auto) 0% (0-3) Neutrophils # (Auto) 11.9x10^3uL (1.8-7.7) Lymphocytes # (Auto) 0.8x10^3/uL (1.0-4.8) Monocytes # (Auto) 0.4x10^3/uL (0.0-1.1) Eosinophils # (Auto) 0.0x10^3/uL (0.0-0.7) Basophils # (Auto) 0.0x10^3/uL (0.0-0.2) Sodium Level 139mmol/L (136-145) Potassium Level 4.5mmol/L (3.5-5.1) Chloride Level 105mmol/L (98-107) Carbon Dioxide Level 23mmol/L (21-32) Anion Gap 11 (6-14) Blood Urea Nitrogen 45mg/dL (8-26) Creatinine 1.8mg/dL (0.7-1.3) Estimated GFR (Cockcroft-Gault) 36.5 Glucose Level 203mg/dL (70-99) Calcium Level 8.8mg/dL (8.5-10.1) Test 01/07/17 07:32 01/07/17 12:19 Glucose (Fingerstick) 175mg/dL (70-99) 215mg/dL (70-99) Review of Systems Review of Systems no fever, chills, sob or chest pain Assessment and Plan Assessmemt and Plan Problems Medical Problems: (1) Sepsis Status: Acute Problems: Comment Review of Relevant I have reviewed the following items be (where applicable) has been applied. Labs Laboratory Tests Test 01/05/17 17:05 01/06/17 08:21 01/06/17 09:45 01/06/17 12:33 Glucose (Fingerstick) 248mg/dL (70-99) 168mg/dL (70-99) 206mg/dL (70-99) White Blood Count 11.9x10^3/uL (4.0-11.0) Red Blood Count 3.32x10^6/uL (4.30-5.70) Hemoglobin 8.7g/dL (13.0-17.5) Hematocrit 28.0% (39.0-53.0) Mean Corpuscular Volume 84fL (79-100) Mean Corpuscular Hemoglobin 26pg (25-35) Mean Corpuscular Hemoglobin Concent 31g/dL (31-37) Red Cell Distribution Width 18.5% (11.5-14.5) Platelet Count 413x10^3/uL (140-400) Neutrophils (%) (Auto) 88% (31-73) Lymphocytes (%) (Auto) 9% (24-48) Monocytes (%) (Auto) 3% (0-9) Eosinophils (%) (Auto) 0% (0-3) Basophils (%) (Auto) 0% (0-3) Neutrophils # (Auto) 10.5x10^3uL (1.8-7.7) Lymphocytes # (Auto) 1.1x10^3/uL (1.0-4.8) Monocytes # (Auto) 0.4x10^3/uL (0.0-1.1) Eosinophils # (Auto) 0.0x10^3/uL (0.0-0.7) Basophils # (Auto) 0.0x10^3/uL (0.0-0.2) Sodium Level 141mmol/L (136-145) Potassium Level 3.9mmol/L (3.5-5.1) Chloride Level 105mmol/L (98-107) Carbon Dioxide Level 23mmol/L (21-32) Anion Gap 13 (6-14) Blood Urea Nitrogen 48mg/dL (8-26) Creatinine 2.0mg/dL (0.7-1.3) Estimated GFR (Cockcroft-Gault) 32.3 Glucose Level 182mg/dL (70-99) Calcium Level 8.4mg/dL (8.5-10.1) Test 01/06/17 15:30 01/06/17 17:28 01/07/17 06:19 01/07/17 07:32 Vancomycin Level Trough 17.1mcg/mL (10.0-20.0) Vancomycin Last Dose Date Vancomycin Last Dose Time Glucose (Fingerstick) 242mg/dL (70-99) 175mg/dL (70-99) White Blood Count 13.0x10^3/uL (4.0-11.0) Red Blood Count 3.36x10^6/uL (4.30-5.70) Hemoglobin 8.8g/dL (13.0-17.5) Hematocrit 28.3% (39.0-53.0) Mean Corpuscular Volume 84fL (79-100) Mean Corpuscular Hemoglobin 26pg (25-35) Mean Corpuscular Hemoglobin Concent 31g/dL (31-37) Red Cell Distribution Width 18.8% (11.5-14.5) Platelet Count 421x10^3/uL (140-400) Neutrophils (%) (Auto) 91% (31-73) Lymphocytes (%) (Auto) 6% (24-48) Monocytes (%) (Auto) 3% (0-9) Eosinophils (%) (Auto) 0% (0-3) Basophils (%) (Auto) 0% (0-3) Neutrophils # (Auto) 11.9x10^3uL (1.8-7.7) Lymphocytes # (Auto) 0.8x10^3/uL (1.0-4.8) Monocytes # (Auto) 0.4x10^3/uL (0.0-1.1) Eosinophils # (Auto) 0.0x10^3/uL (0.0-0.7) Basophils # (Auto) 0.0x10^3/uL (0.0-0.2) Sodium Level 139mmol/L (136-145) Potassium Level 4.5mmol/L (3.5-5.1) Chloride Level 105mmol/L (98-107) Carbon Dioxide Level 23mmol/L (21-32) Anion Gap 11 (6-14) Blood Urea Nitrogen 45mg/dL (8-26) Creatinine 1.8mg/dL (0.7-1.3) Estimated GFR (Cockcroft-Gault) 36.5 Glucose Level 203mg/dL (70-99) Calcium Level 8.8mg/dL (8.5-10.1) Test 01/07/17 12:19 Glucose (Fingerstick) 215mg/dL (70-99) Laboratory Tests Test 01/06/17 12:33 01/06/17 15:30 01/06/17 17:28 01/07/17 06:19 Glucose (Fingerstick) 206mg/dL (70-99) 242mg/dL (70-99) Vancomycin Level Trough 17.1mcg/mL (10.0-20.0) Vancomycin Last Dose Date Vancomycin Last Dose Time White Blood Count 13.0x10^3/uL (4.0-11.0) Red Blood Count 3.36x10^6/uL (4.30-5.70) Hemoglobin 8.8g/dL (13.0-17.5) Hematocrit 28.3% (39.0-53.0) Mean Corpuscular Volume 84fL (79-100) Mean Corpuscular Hemoglobin 26pg (25-35) Mean Corpuscular Hemoglobin Concent 31g/dL (31-37) Red Cell Distribution Width 18.8% (11.5-14.5) Platelet Count 421x10^3/uL (140-400) Neutrophils (%) (Auto) 91% (31-73) Lymphocytes (%) (Auto) 6% (24-48) Monocytes (%) (Auto) 3% (0-9) Eosinophils (%) (Auto) 0% (0-3) Basophils (%) (Auto) 0% (0-3) Neutrophils # (Auto) 11.9x10^3uL (1.8-7.7) Lymphocytes # (Auto) 0.8x10^3/uL (1.0-4.8) Monocytes # (Auto) 0.4x10^3/uL (0.0-1.1) Eosinophils # (Auto) 0.0x10^3/uL (0.0-0.7) Basophils # (Auto) 0.0x10^3/uL (0.0-0.2) Sodium Level 139mmol/L (136-145) Potassium Level 4.5mmol/L (3.5-5.1) Chloride Level 105mmol/L (98-107) Carbon Dioxide Level 23mmol/L (21-32) Anion Gap 11 (6-14) Blood Urea Nitrogen 45mg/dL (8-26) Creatinine 1.8mg/dL (0.7-1.3) Estimated GFR (Cockcroft-Gault) 36.5 Glucose Level 203mg/dL (70-99) Calcium Level 8.8mg/dL (8.5-10.1) Test 01/07/17 07:32 01/07/17 12:19 Glucose (Fingerstick) 175mg/dL (70-99) 215mg/dL (70-99) Microbiology 01/04/17 Blood Culture - Preliminary, Resulted NO GROWTH AFTER 2 DAYS 01/05/17 Gram Stain - Final, Complete Medications Current Medications Vancomycin HCl (Vanco Per Pharmacy) 1 each 1X ONCE MC ; Start 01/04/17 at 15:30 ; Stop 01/04/17 at 15:31; Status UNV Methylprednisolone Sodium Succinate 125 mg 125 mg 1X ONCE IV Last administered on 01/04/17 15:30; Start 01/04/17 at 15:30; Stop 01/04/17 at 15:31; Status DC Sodium Chloride (Iv Sodium Chloride 0.9% 500ml Bag) 500 ml @ 500 mls/hr 1X ONCE IV Last administered on 01/04/17 15:30; Start 01/04/17 at 15:30; Stop at 16:29; Status DC Piperacillin Sod/ Tazobactam Sod (Zosyn Per Pharmacy) 1 each PRN DAILY PRN MC SEE COMMENTS; Start 01/04/17 at 15:30; Stop 01/04/17 at 17:09; Status DC Acetaminophen 1000 mg 1,000 mg 1X ONCE PO Last administered on 01/04/17 15:45 ; Start 01/04/17 at 15:45; Stop 01/04/17 at 15:47; Status DC Sodium Chloride 500 ml @ 500 mls/hr 1X ONCE IV Last administered on 01/04/17 15:45; Start 01/04/17 at 15:45; Stop 01/04/17 at 16:44; Status DC Vancomycin HCl 1.5 gm/Sodium Chloride 500 ml @ 250 mls/hr 1X ONCE IV Last administered on 01/04/17 16:15; Start 01/04/17 at 16:15; Stop 01/04/17 at 18:14; Status DC Piperacillin Sod/ Tazobactam Sod/ Sodium Chloride (Zosyn/Iv Sodium Chloride 0.9 % 50ml) 50 ml @ 100 mls/hr 1X ONCE IV Last administered on 01/04/17 16:15; Start 01/04/17 at 16:15; Stop 01/04/17 at 16:44; Status DC Acetaminophen (Tylenol) 650 mg Q4HRS PRN PO MILD PAIN; Start 01/04/17 at 17:15 Aspirin (Children'S Aspirin) 81 mg DAILYWBKFT PO Last administered on 01/07/17 08:33; Start 01/05/17 at 08:00 Atorvastatin Calcium (Lipitor) 10 mg QHS PO Last administered on 01/06/17 20:09 ; Start 01/04/17 at 21:00 Bisacodyl (Dulcolax Supp) 10 mg PRN DAILY PRN RC CONSTIPATION; Start 01/04/17 at 17:15 Guaifenesin (Mucinex) 600 mg BID PO Last administered on 01/07/17 08:33; Start 01/04/17 at 21:00 Albuterol/ Ipratropium (Duoneb) 3 ml PRN Q4HRS PRN NEB SHORTNESS OF BREATH; Start 01/04/17 at 17:15; Stop 01/04/17 at 17:15; Status DC Lorazepam (Ativan) 0.5 mg PRN Q8HRS PRN PO ANXIETY / AGITATION Last administered on 01/06/17 20:09; Start 01/04/17 at 17:15 Magnesium Hydroxide (Milk Of Magnesia) 400 mg PRN DAILY PRN PO CONSTIPATION; Start 01/04/17 at 17:15 Metoprolol Succinate (Toprol Xl) 25 mg DAILY PO ; Start 01/05/17 at 09:00; Stop 01/05/17 at 09:00; Status DC Primidone (Mysoline) 50 mg DAILY PO Last administered on 01/07/17 08:32; Start 01/05/17 at 09:00 Spironolactone (Aldactone) 25 mg DAILY PO Last administered on 01/07/17 08:33; Start 01/05/17 at 09:00 Tamsulosin HCl (Flomax) 0.4 mg DAILY PO Last administered on 01/07/17 08:33; Start 01/05/17 at 09:00 Budesonide (Pulmicort) 0.5 mg RTBID NEB Last administered on 01/07/17 09:00; Start 01/04/17 at 20:00 Albuterol/ Ipratropium 3 ml 3 ml RTQID NEB Last administered on 01/07/17 09:00 ; Start 01/04/17 at 20:00 Meropenem/Sodium Chloride (Merrem/Iv Sodium Chloride 0.9% 50ml) 50 ml @ 100 mls /hr Q8HRS IV ; Start 01/04/17 at 22:00; Stop 01/04/17 at 22:00; Status DC Albuterol Sulfate (Ventolin Neb Soln) 2.5 mg PRN Q2HR PRN NEB SHORTNESS OF BREATH Last administered on 01/07/17 00:10; Start 01/04/17 at 17:15 Vancomycin HCl (Vanco Per Pharmacy) 1 each PRN DAILY PRN MC SEE COMMENTS Last administered on 01/06/17 17:26; Start 01/04/17 at 17:15 Methylprednisolone Sodium Succinate (Solu-Medrol 40mg Vial) 40 mg TID IV Last administered on 01/06/17 08:14; Start 01/04/17 at 21:00; Stop 01/06/17 at 13:00; Status DC Pantoprazole Sodium (Protonix) 40 mg DAILYAC PO Last administered on 01/07/17 08:33; Start 01/05/17 at 07:30 Hydralazine HCl 10 mg 10 mg PRN Q4HRS PRN IVP HYPERTENSION, SEE COMMENTS; Start 01/04/17 at 17:15 Sodium Chloride (Iv Sodium Chloride 0.9% 1000ml Bag) 1,000 ml @ 75 mls/hr 1X ONCE IV Last administered on 01/04/17 17:15; Start 01/04/17 at 17:15; Stop at 06:34; Status DC Heparin Sodium (Porcine) 5000 unit 5,000 unit Q8HRS SQ Last administered on 01/07 05:55; Start 01/04/17 at 22:00 Meropenem 500 mg/ Sodium Chloride 50 ml @ 100 mls/hr BID IV Last administered on 01/07/17 08:50; Start 01/04/17 at 21:00 Sodium Chloride (Iv Sodium Chloride 0.9% 1000ml Bag) 1,000 ml @ 1,000 mls/hr 1X ONCE IV Last administered on 01/04/17 17:45; Start 01/04/17 at 17:45; Stop 01/04/17 at 18:44; Status DC Albuterol/ Ipratropium (Duoneb) 3 ml 1X ONCE NEB Last administered on 18:10; Start 01/04/17 at 17:45; Stop 01/04/17 at 17:49; Status DC Ondansetron HCl (Zofran) 4 mg PRN Q8HRS PRN IV NAUSEA/VOMITING; Start 01/04/17 at 18:00; Stop 01/05/17 at 17:59; Status DC Morphine Sulfate 2 mg 2 mg PRN Q2HR PRN IV PAIN; Start 01/04/17 at 18:00; Stop 01/05/17 at 17:59; Status DC Sodium Chloride (Iv Sodium Chloride 0.9% 1000ml Bag) 1,000 ml @ 125 mls/hr Q8H IV ; Start 01/04/17 at 17:50; Stop 01/05/17 at 17:49; Status Cancel Albuterol/ Ipratropium (Duoneb) 3 ml RTQID NEB ; Start 01/04/17 at 20:00; Stop at 19:59; Status UNV Digoxin 125 mcg 125 mcg 1X ONCE IV Last administered on 01/04/17 19:32; Start 01/04/17 at 19:15; Stop 01/04/17 at 19:16; Status DC Vancomycin HCl/ Sodium Chloride (Iv Sodium Chloride 0.9% 250ml) 250 ml @ 167 mls/hr Q24H IV Last administered on 01/06/17 16:37; Start 01/05/17 at 16:00 Vancomycin HCl 1 each 1 each 1X ONCE MC Last administered on 01/06/17 15:30; Start 01/06/17 at 15:30; Stop 01/06/17 at 15:31; Status DC Sodium Chloride 1,000 ml @ 1,000 mls/hr 1X ONCE IV Last administered on 19:37; Start 01/04/17 at 19:45; Stop 01/04/17 at 20:44; Status DC Norepinephrine Bitartrate 8 mg/ Sodium Chloride 258 ml @ 0 mls/hr CONT PRN IV SEE I/O RECORD; Start 01/04/17 at 22:15; Stop 01/06/17 at 22:35; Status DC Sodium Chloride (Iv Sodium Chloride 0.9% 1000ml Bag) 1,000 ml @ 75 mls/hr 1X ONCE IV Last administered on 01/05/17 09:34; Start 01/05/17 at 08:45; Stop at 22:04; Status DC Insulin Aspart (Novolog) 0-9 UNITS TIDWMEALS SQ Last administered on 01/07/17 08:58; Start 01/05/17 at 12:00 Dextrose 12.5 gm PRN Q15MIN PRN IV SEE COMMENTS; Start 01/05/17 at 08:45 Guaifenesin (Robitussin) 200 mg PRN Q4HRS PRN PO COUGH; Start 01/05/17 at 08:45 ; Stop 01/05/17 at 12:57; Status DC Metoprolol Tartrate (Lopressor) 5 mg Q6HRS IVP Last administered on 01/06/17 17 :23; Start 01/05/17 at 09:30; Stop 01/06/17 at 23:15; Status DC Digoxin (Lanoxin) 250 mcg 1X ONCE IV Last administered on 01/05/17 21:54; Start 01/05/17 at 20:00; Stop 01/05/17 at 20:01; Status DC Furosemide (Lasix) 40 mg 1X ONCE IVP Last administered on 01/06/17 03:37; Start 01/06/17 at 04:00; Stop 01/06/17 at 04:01; Status DC Methylprednisolone Sodium Succinate (Solu-Medrol 40mg Vial) 40 mg BID IV Last administered on 01/07/17 08:32; Start 01/06/17 at 21:00 Furosemide (Lasix) 40 mg DAILY PO Last administered on 01/07/17 08:38; Start at 09:00 Sodium Chloride 1 diana 1 diana PRN Q1HR PRN NS NASAL CONGESTION; Start 01/06/17 at 17:45 Diltiazem HCl/ Dextrose (Cardizem) 125 ml @ 0 mls/hr CONT PRN IV SEE I/O RECORD Last administered on 01/07/17 04:21; Start 01/06/17 at 18:00 Furosemide (Lasix) 40 mg 1X ONCE IVP Last administered on 01/07/17 00:12; Start 01/07/17 at 00:30; Stop 01/07/17 at 00:31; Status DC Active Scripts Active Reported Tamsulosin Hcl 0.4 Mg Cap.er.24h 1 Cap PO DAILY Symbicort 160-4.5 Mcg Inhaler (Budesonide/Formoterol Fumarate) 10.2 Gm Hfa.aer.ad 2 Puff IH BID Spironolactone 25 Mg Tablet 1 Tab PO DAILY Primidone 50 Mg Tablet 50 Mg PO DAILY Pantoprazole Sodium 40 Mg Tablet. 1 Tab PO BID Metoprolol Succinate 50 Mg Tab.er.24h 25 Mg PO DAILY Lorazepam 0.5 Mg Tablet 1 Tab PO PRN Q8HRS PRN Duoneb 0.5-3(2.5) Mg/3 Ml (Albuterol/Ipratropium) 3 Ml Ampul.neb 3 Ml NEB Q4HRS Milk Of Magnesia (Magnesium Hydroxide) 400 Mg/5 Ml Oral.susp 400 Mg PO PRN DAILY PRN Atorvastatin Calcium 10 Mg Tablet 1 Tab PO DAILY Aspirin 81 Mg Tab.chew 81 Mg PO DAILY Acetaminophen 325 Mg Tablet 650 Mg PO Q4HRS PRN Duoneb 0.5-3(2.5) Mg/3 Ml (Albuterol/Ipratropium) 3 Ml Ampul.neb 3 Ml NEB PRN Q4HRS PRN Guaifenesin 600 Mg Tablet.er 600 Mg PO BID Furosemide 40 Mg Tablet 40 Mg PO DAILY Fleet Enema (Na Phos,M-B/Na Phos,Di-Ba) 133 Ml Enema 1 Each RC PRN DAILY PRN Aspirin Ec (Aspirin) 81 Mg Tablet. 1 Tab PO DAILY Dulcolax (Bisacodyl) 10 Mg Supp.rect 10 Mg RC PRN DAILY PRN Vitals/I & O Vital Sign - Last 24 Hours 201/06/17 01/06/17 01/06/17 12:38 15:00 15:42 17:23 Temp 98.5 98.5 Pulse 136 136 Resp 26 B/P 121/63 121/63 Pulse Ox 100 100 98 O2 Delivery Nasal Cannula Nasal Cannula Nasal Cannula O2 Flow Rate 2.0 2.0 2.0 01/06/17 01/06/17 01/06/17 01/06/17 18:15 18:30 19:00 19:54 Temp 98.4 98.4 Pulse 154 136 141 Resp 22 B/P 108/72 113/79 127/70 Pulse Ox 100 98 O2 Delivery Nasal Cannula Nasal Cannula O2 Flow Rate 2.0 4.0 01/06/17 01/06/17 01/06/17 01/06/17 19:55 20:00 22:45 22:52 Temp 97.7 97.7 Pulse 102 Resp 34 B/P 129/63 Pulse Ox 98 96 O2 Delivery Nasal Cannula Nasal Cannula Room Air Nasal Cannula O2 Flow Rate 4.0 2.0 2.0 2.0 01/06/17 01/06/17 01/07/17 01/07/17 22:56 23:56 00:12 00:56 Pulse 100 156 114 B/P 139/66 153/85 139/63 Pulse Ox 98 O2 Delivery Nasal Cannula O2 Flow Rate 4.0 01/07/17 01/07/17 01/07/17 01/07/17 01:56 02:56 03:30 03:56 Temp 98.0 98.0 Pulse 80 80 79 98 Resp 28 B/P 122/63 115/65 127/60 Pulse Ox 97 O2 Delivery Nasal Cannula O2 Flow Rate 2.0 01/07/17 01/07/17 01/07/17 01/07/17 04:56 05:56 07:00 08:00 Temp 98.5 98.5 Pulse 78 79 62 Resp 26 B/P 118/62 122/65 118/65 Pulse Ox 98 O2 Delivery Nasal Cannula Nasal Cannula O2 Flow Rate 2.0 4.0 01/07/17 01/07/17 01/07/17 09:01 09:02 11:00 Temp 98.2 98.2 Pulse 92 Resp 28 B/P 115/62 Pulse Ox 97 98 O2 Delivery Nasal Cannula Nasal Cannula Nasal Cannula O2 Flow Rate 4.0 4.0 2.0 Intake and Output 01/06/17 01/06/17 01/07/17 15:00 23:00 07:00 Intake Total 720 ml 120 ml 201 ml Output Total 1150 ml 200 ml 1450 ml Balance -430 ml -80 ml -1249 ml JULIET GODOY MD Jan 07, 2017 12:29
[2017-01-07] MEDS: VANCOMYCIN PER PHARMACY MC PRN (13:52)
--- NOTE | 2017-01-07 14:00 | PDOC ---
CARDIO Progress Notes Date and Time Date of Service 01/07/2017 Time of Evaluation 1335 Subjective Subjective: No Chest Pain, No shortness of breath, No Palpitations, No Dizziness Vitals Vitals Vital Signs Date Time Temp Pulse Resp B/P Pulse Ox O2 Delivery O2 Flow Rate FiO2 01/07/17 12:32 Nasal Cannula 4.0 01/07/17 11:00 98.2 92 28 115/62 98 98.2 Weight Weight [ ] Input and Output Intake and Output Intake and Output 01/07/17 07:00 Intake Total 1041 ml Output Total 2800 ml Balance -1759 ml Intake Oral 958 ml IV Total 83 ml Output Urine Total 2550 ml Urine/Stool Mix 250 ml # Voids 1 # Bowel Movements 2 Laboratory Labs Laboratory Tests Test 01/06/17 15:30 01/06/17 17:28 01/07/17 06:19 01/07/17 07:32 Vancomycin Level Trough 17.1mcg/mL (10.0-20.0) Vancomycin Last Dose Date Vancomycin Last Dose Time Glucose (Fingerstick) 242mg/dL (70-99) 175mg/dL (70-99) White Blood Count 13.0x10^3/uL (4.0-11.0) Red Blood Count 3.36x10^6/uL (4.30-5.70) Hemoglobin 8.8g/dL (13.0-17.5) Hematocrit 28.3% (39.0-53.0) Mean Corpuscular Volume 84fL (79-100) Mean Corpuscular Hemoglobin 26pg (25-35) Mean Corpuscular Hemoglobin Concent 31g/dL (31-37) Red Cell Distribution Width 18.8% (11.5-14.5) Platelet Count 421x10^3/uL (140-400) Neutrophils (%) (Auto) 91% (31-73) Lymphocytes (%) (Auto) 6% (24-48) Monocytes (%) (Auto) 3% (0-9) Eosinophils (%) (Auto) 0% (0-3) Basophils (%) (Auto) 0% (0-3) Neutrophils # (Auto) 11.9x10^3uL (1.8-7.7) Lymphocytes # (Auto) 0.8x10^3/uL (1.0-4.8) Monocytes # (Auto) 0.4x10^3/uL (0.0-1.1) Eosinophils # (Auto) 0.0x10^3/uL (0.0-0.7) Basophils # (Auto) 0.0x10^3/uL (0.0-0.2) Sodium Level 139mmol/L (136-145) Potassium Level 4.5mmol/L (3.5-5.1) Chloride Level 105mmol/L (98-107) Carbon Dioxide Level 23mmol/L (21-32) Anion Gap 11 (6-14) Blood Urea Nitrogen 45mg/dL (8-26) Creatinine 1.8mg/dL (0.7-1.3) Estimated GFR (Cockcroft-Gault) 36.5 Glucose Level 203mg/dL (70-99) Calcium Level 8.8mg/dL (8.5-10.1) Test 01/07/17 12:19 Glucose (Fingerstick) 215mg/dL (70-99) Microbiology Micro Microbiology 01/04/17 Blood Culture - Preliminary, Resulted NO GROWTH AFTER 2 DAYS 01/05/17 Gram Stain - Final, Complete Physical Exam HEENT: Neck Supple W Full Motion Chest: Symmetric LUNGS: Other (bibasilar crackles) Heart: S1S2, murmurs (2/6 systolic murmur to LLS border), irregularly irregular (atrial flutter) Abdomen: Soft N/T Extremities: No Edema, No Calf Tenderness Neurology: alert, follow commands Assessment Assessment 1. 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 Atrial flutter: hx of AFIB, suspect chronic. Episodes of RVR mainly with activity. Likely accentuated by infectious process. 3. Chronic diastolic CHF: TTE 11/2016 unremarkable for significant changes. 4. LISA on CKD3: improved 5. Dementia 6. HTN/HLP Recommendations 1. Restart home metoprolol. DC cardizem drip and start on cardizem CD 120 mg po daily and will uptitrate per rate control. 2. Currently on ASA. Not on OAC, suspect poor candidate with noted dementia, significant fall risk, dizzy spells. 3. Continue with secondary prevention and diuretic therapy. ELIO SOMMERS APRN Jan 07, 2017 14:00
[2017-01-07] MEDS: DILTIAZEM HCL 120 MG CAP.ER.24H PO SCH (14:43)
[2017-01-07] MEDS: METOPROLOL TART IMMED RELEASE 25 MG TABLET PO SCH ×2 (14:43→20:27)
[2017-01-07] MEDS: VANCOMYCIN 1.25 GM in IV NORMAL SALINE 250ML 250 ML IV SCH (16:19)
[2017-01-07] MEDS: ATORVASTATIN CALCIUM 10 MG TABLET. PO SCH (20:27)
[2017-01-07] MEDS: LORAZEPAM 0.5 MG TABLET. PO PRN (20:57)
[2017-01-07] MEDS ORDERED: DIGOXIN 500 MCG/2 ML AMPUL. IV ONE (21:15)
[2017-01-08 03:00] VITALS: BP 150/93
[2017-01-08] MEDS: HEPARIN PF for SUB-Q USE 5,000 UNIT/0.5 ML VIAL. SQ SCH ×3 (05:10→21:21)
[2017-01-08 05:42] LABS: CALCIUM 9.3 mg/dL (8.5-10.1); CREATININE 1.6 mg/dL (0.7-1.3); GFR 41.8; POTASSIUM 4.8 mmol/L (3.5-5.1)
[2017-01-08 06:44] VITALS: BP 161/79
[2017-01-08] MEDS: IPRATRPIUM/ALBUTEROL 0.5/2.5MG 3 ML NEBU. NEB SCH ×4 (07:44→19:27)
[2017-01-08] MEDS: BUDESONIDE 0.5 MG/2 ML NEBU NEB SCH ×2 (07:44→19:27)
[2017-01-08] MEDS: PRIMIDONE 50 MG TABLET PO SCH (08:02)
[2017-01-08] MEDS: METOPROLOL TART IMMED RELEASE 25 MG TABLET PO SCH (08:02)
[2017-01-08] MEDS: TAMSULOSIN 0.4 MG CAP.ER.24H. PO SCH (08:02)
[2017-01-08] MEDS: SPIRONOLACTONE 25 MG TABLET PO SCH (08:02)
[2017-01-08] MEDS: DILTIAZEM HCL 120 MG CAP.ER.24H PO SCH (08:02)
[2017-01-08] MEDS: GUAIFENESIN ER 600 MG TABLET.ER PO SCH ×2 (08:03→20:49)
[2017-01-08] MEDS: ASPIRIN 81 MG TAB.CHEW PO SCH (08:03)
[2017-01-08] MEDS: PANTOPRAZOLE 40 MG TABLET. PO SCH (08:03)
[2017-01-08] MEDS: FUROSEMIDE 40 MG TABLET PO SCH (08:03)
[2017-01-08] MEDS: methylPREDNISolone SOD SUCC PF 40 MG/ML VIAL. IV SCH ×2 (08:04→20:49)
[2017-01-08] MEDS: MEROPENEM 500 MG in IV NORMAL SALINE 50ML 50 ML IV SCH ×2 (08:05→20:49)
[2017-01-08] MEDS: INSULIN ASPART 300 UNITS/3 ML INSULN.PEN SQ SCH ×3 (08:14→17:46)
[2017-01-08 11:24] VITALS: BP 124/67
--- NOTE | 2017-01-08 11:41 | PDOC ---
PULMONARY PROGRESS NOTES Subjective PT FEELS ,SOA WITH EXERTION Vitals Vital Signs Date Time Temp Pulse Resp B/P Pulse Ox O2 Delivery O2 Flow Rate FiO2 01/08/17 11:24 97.8 77 22 124/67 97 Nasal Cannula 3.0 97.8 ROS: No Nausea, No Chest Pain, No Abdominal Pain, No Increase Cough General: Alert, No acute distress HEENT: Other Lungs: Clear Cardiovascular: S1, S2 Abdomen: Soft, Non-tender Neuro Exam: Alert Extremities: No Edema Skin: Warm Labs Laboratory Tests Test 01/06/17 12:33 01/06/17 15:30 01/06/17 17:28 01/07/17 06:19 Glucose (Fingerstick) 206mg/dL (70-99) 242mg/dL (70-99) Vancomycin Level Trough 17.1mcg/mL (10.0-20.0) Vancomycin Last Dose Date Vancomycin Last Dose Time White Blood Count 13.0x10^3/uL (4.0-11.0) Red Blood Count 3.36x10^6/uL (4.30-5.70) Hemoglobin 8.8g/dL (13.0-17.5) Hematocrit 28.3% (39.0-53.0) Mean Corpuscular Volume 84fL (79-100) Mean Corpuscular Hemoglobin 26pg (25-35) Mean Corpuscular Hemoglobin Concent 31g/dL (31-37) Red Cell Distribution Width 18.8% (11.5-14.5) Platelet Count 421x10^3/uL (140-400) Neutrophils (%) (Auto) 91% (31-73) Lymphocytes (%) (Auto) 6% (24-48) Monocytes (%) (Auto) 3% (0-9) Eosinophils (%) (Auto) 0% (0-3) Basophils (%) (Auto) 0% (0-3) Neutrophils # (Auto) 11.9x10^3uL (1.8-7.7) Lymphocytes # (Auto) 0.8x10^3/uL (1.0-4.8) Monocytes # (Auto) 0.4x10^3/uL (0.0-1.1) Eosinophils # (Auto) 0.0x10^3/uL (0.0-0.7) Basophils # (Auto) 0.0x10^3/uL (0.0-0.2) Sodium Level 139mmol/L (136-145) Potassium Level 4.5mmol/L (3.5-5.1) Chloride Level 105mmol/L (98-107) Carbon Dioxide Level 23mmol/L (21-32) Anion Gap 11 (6-14) Blood Urea Nitrogen 45mg/dL (8-26) Creatinine 1.8mg/dL (0.7-1.3) Estimated GFR (Cockcroft-Gault) 36.5 Glucose Level 203mg/dL (70-99) Calcium Level 8.8mg/dL (8.5-10.1) Magnesium Level 2.0mg/dL (1.8-2.4) Test 01/07/17 07:32 01/07/17 12:19 01/07/17 17:13 01/07/17 20:25 Glucose (Fingerstick) 175mg/dL (70-99) 215mg/dL (70-99) 251mg/dL (70-99) 178mg/dL (70-99) Test 01/08/17 05:06 01/08/17 07:19 Sodium Level 140mmol/L (136-145) Potassium Level 4.8mmol/L (3.5-5.1) Chloride Level 106mmol/L (98-107) Carbon Dioxide Level 27mmol/L (21-32) Anion Gap 7 (6-14) Blood Urea Nitrogen 47mg/dL (8-26) Creatinine 1.6mg/dL (0.7-1.3) Estimated GFR (Cockcroft-Gault) 41.8 Glucose Level 191mg/dL (70-99) Calcium Level 9.3mg/dL (8.5-10.1) Glucose (Fingerstick) 159mg/dL (70-99) Laboratory Tests Test 01/07/17 12:19 01/07/17 17:13 01/07/17 20:25 01/08/17 05:06 Glucose (Fingerstick) 215mg/dL (70-99) 251mg/dL (70-99) 178mg/dL (70-99) Sodium Level 140mmol/L (136-145) Potassium Level 4.8mmol/L (3.5-5.1) Chloride Level 106mmol/L (98-107) Carbon Dioxide Level 27mmol/L (21-32) Anion Gap 7 (6-14) Blood Urea Nitrogen 47mg/dL (8-26) Creatinine 1.6mg/dL (0.7-1.3) Estimated GFR (Cockcroft-Gault) 41.8 Glucose Level 191mg/dL (70-99) Calcium Level 9.3mg/dL (8.5-10.1) Test 01/08/17 07:19 Glucose (Fingerstick) 159mg/dL (70-99) Medications Active Scripts Medications Dose Route/Sig Days Date Category Tamsulosin Hcl 0.4 Mg Cap.er.24h 1 Cap PO DAILY 11/09/16 Reported Symbicort 160-4.5 Mcg Inhaler (Budesonide/Formoterol Fumarate) 10.2 Gm Hfa.aer.ad 2 Puff IH BID 11/09/16 Reported Spironolactone 25 Mg Tablet 1 Tab PO DAILY 11/09/16 Reported Primidone 50 Mg Tablet 50 Mg PO DAILY 11/09/16 Reported Pantoprazole Sodium 40 Mg Tablet.dr 1 Tab PO BID 11/09/16 Reported Metoprolol Succinate 50 Mg Tab.er.24h 25 Mg PO DAILY 11/09/16 Reported Lorazepam 0.5 Mg Tablet 1 Tab PO PRN Q8HRS PRN 11/09/16 Reported Duoneb 0.5-3(2.5) Mg/3 Ml (Albuterol/Ipratropium) 3 Ml Ampul.neb 3 Ml NEB Q4HRS 11/09/16 Reported Milk Of Magnesia (Magnesium Hydroxide) 400 Mg/5 Ml Oral.susp 400 Mg PO PRN DAILY PRN 11/09/16 Reported Atorvastatin Calcium 10 Mg Tablet 1 Tab PO DAILY 11/09/16 Reported Aspirin 81 Mg Tab.chew 81 Mg PO DAILY 11/09/16 Reported Acetaminophen 325 Mg Tablet 650 Mg PO Q4HRS PRN 11/09/16 Reported Duoneb 0.5-3(2.5) Mg/3 Ml (Albuterol/Ipratropium) 3 Ml Ampul.neb 3 Ml NEB PRN Q4HRS PRN 11/09/16 Reported Guaifenesin 600 Mg Tablet.er 600 Mg PO BID 11/09/16 Reported Furosemide 40 Mg Tablet 40 Mg PO DAILY 11/09/16 Reported Fleet Enema (Na Phos,M-B/Na Phos,Di-Ba) 133 Ml Enema 1 Each RC PRN DAILY PRN 11/09/16 Reported Aspirin Ec (Aspirin) 81 Mg Tablet.dr 1 Tab PO DAILY 11/09/16 Reported Dulcolax (Bisacodyl) 10 Mg Supp.rect 10 Mg RC PRN DAILY PRN 11/09/16 Reported Impression . 1. Acute on chronic respiratory failure, multifactorial. Suspect Gram-negative, possibly Gram-positive pneumonia. 2. History of chronic heart failure. 3. Sepsis with hypotension.resolved 4. Dementia. 5. Mild protein malnutrition, present upon admission. 6. Lactic acidosis. 7. Possible aspiration pneumonia. 8. Acute exacerbation of chronic obstructive pulmonary disease secondary to above. Plan . 1. Increase ambulation/ increase oxygen with ambulation if needed 2. d/w RN 3. Continue broad-spectrum antibiotics per ID 4. speech evaluation done/ dysphagia diet 5. DVT and GI prophylaxes. 6. clinically better 7. steroid taper YOSELIN KAUFMAN MD Jan 08, 2017 11:41
--- NOTE | 2017-01-08 12:03 | PDOC ---
CARDIO Progress Notes Date and Time Date of Service 01/08/2017 Time of Evaluation 1140 Subjective Subjective: No Chest Pain, No shortness of breath, No Palpitations, No Dizziness, Other (still has some SANON) Vitals Vitals Vital Signs Date Time Temp Pulse Resp B/P Pulse Ox O2 Delivery O2 Flow Rate FiO2 01/08/17 11:24 97.8 77 22 124/67 97 Nasal Cannula 3.0 97.8 Weight Weight [ ] Input and Output Intake and Output Intake and Output 01/08/17 07:00 Intake Total 950 ml Output Total 2901 ml Balance -1951 ml Intake Oral 450 ml IV Total 500 ml Output Urine Total 2550 ml Stool Total 1 ml Urine/Stool Mix 350 ml # Voids 2 Laboratory Labs Laboratory Tests Test 01/07/17 12:19 01/07/17 17:13 01/07/17 20:25 01/08/17 05:06 Glucose (Fingerstick) 215mg/dL (70-99) 251mg/dL (70-99) 178mg/dL (70-99) Sodium Level 140mmol/L (136-145) Potassium Level 4.8mmol/L (3.5-5.1) Chloride Level 106mmol/L (98-107) Carbon Dioxide Level 27mmol/L (21-32) Anion Gap 7 (6-14) Blood Urea Nitrogen 47mg/dL (8-26) Creatinine 1.6mg/dL (0.7-1.3) Estimated GFR (Cockcroft-Gault) 41.8 Glucose Level 191mg/dL (70-99) Calcium Level 9.3mg/dL (8.5-10.1) Test 01/08/17 07:19 01/08/17 11:35 Glucose (Fingerstick) 159mg/dL (70-99) 322mg/dL (70-99) Microbiology Micro Microbiology 01/04/17 Blood Culture - Preliminary, Resulted NO GROWTH AFTER 3 DAYS 01/05/17 Gram Stain - Final, Complete Physical Exam HEENT: Neck Supple W Full Motion Chest: Symmetric LUNGS: Other (bibasilar crackles with wheeze) Heart: S1S2, murmurs (2/6 systolic murmur to LLS border), irregularly irregular (atrial flutter) Abdomen: Soft N/T Extremities: No Edema, No Calf Tenderness Neurology: alert, oriented, follow commands Assessment Assessment 1. 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 Atrial flutter: hx of AFIB, suspect chronic. HR 110 to 140s with activity and with albuterol treatments 3. Chronic diastolic CHF: TTE 11/2016 unremarkable for significant changes. 4. LISA on CKD3: improved 5. Dementia 6. HTN/HLP Recommendations 1. Otherwise rate controlled. Wheezing continues. DC BB and intensify Cardizem CD and further uptitrate as warranted. 240 mg po daily 2. Currently on ASA. Not on OAC, suspect poor candidate with noted dementia, significant fall risk, dizzy spells. 3. Continue with secondary prevention and diuretic therapy. ELIO SOMMERS APRN Jan 08, 2017 12:03
--- NOTE | 2017-01-08 12:07 | PDOC ---
PROGRESS NOTES Chief Complaint Chief Complaint sob, cough 1. Acute on chronic respiratory failure with hypoxia 2. COPD exacerbation with Pneumonia. 3. Chronic diastolic chf with EF 50% 4. HTN 5. 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 PFIB 7. Sepsis with bronchitis 8. anxiety 9. bedbound with generalized weakness 10.mild malnutrition 11. lactate acidosis 12. h/o CVA wo obvious weakness plan ABX per id HR not controlled, Cardizem dose has been adjusted by cardiology Poor candidate for oral ac duet o fall risk PT/OT Supplemental oxygen periodic nebulizations, Xopenex labs reviewed. History of Present Illness History of Present Illness cough sob better no chest pain Vitals Vitals Vital Signs Date Time Temp Pulse Resp B/P Pulse Ox O2 Delivery O2 Flow Rate FiO2 01/08/17 11:24 97.8 77 22 124/67 97 Nasal Cannula 3.0 97.8 Physical Exam General: Alert, Oriented X3, Cooperative, mild distress Heart: Normal S1, Other Lungs: Clear Abdomen: Normal bowel sounds Extremities: No edema, Normal pulses Skin: No rashes Labs LABS Laboratory Tests Test 01/07/17 12:19 01/07/17 17:13 01/07/17 20:25 01/08/17 05:06 Glucose (Fingerstick) 215mg/dL (70-99) 251mg/dL (70-99) 178mg/dL (70-99) Sodium Level 140mmol/L (136-145) Potassium Level 4.8mmol/L (3.5-5.1) Chloride Level 106mmol/L (98-107) Carbon Dioxide Level 27mmol/L (21-32) Anion Gap 7 (6-14) Blood Urea Nitrogen 47mg/dL (8-26) Creatinine 1.6mg/dL (0.7-1.3) Estimated GFR (Cockcroft-Gault) 41.8 Glucose Level 191mg/dL (70-99) Calcium Level 9.3mg/dL (8.5-10.1) Test 01/08/17 07:19 01/08/17 11:35 Glucose (Fingerstick) 159mg/dL (70-99) 322mg/dL (70-99) Assessment and Plan Assessmemt and Plan Problems Medical Problems: (1) Sepsis Status: Acute Problems: Comment Review of Relevant I have reviewed the following items be (where applicable) has been applied. Labs Laboratory Tests Test 01/06/17 12:33 01/06/17 15:30 01/06/17 17:28 01/07/17 06:19 Glucose (Fingerstick) 206mg/dL (70-99) 242mg/dL (70-99) Vancomycin Level Trough 17.1mcg/mL (10.0-20.0) Vancomycin Last Dose Date Vancomycin Last Dose Time White Blood Count 13.0x10^3/uL (4.0-11.0) Red Blood Count 3.36x10^6/uL (4.30-5.70) Hemoglobin 8.8g/dL (13.0-17.5) Hematocrit 28.3% (39.0-53.0) Mean Corpuscular Volume 84fL (79-100) Mean Corpuscular Hemoglobin 26pg (25-35) Mean Corpuscular Hemoglobin Concent 31g/dL (31-37) Red Cell Distribution Width 18.8% (11.5-14.5) Platelet Count 421x10^3/uL (140-400) Neutrophils (%) (Auto) 91% (31-73) Lymphocytes (%) (Auto) 6% (24-48) Monocytes (%) (Auto) 3% (0-9) Eosinophils (%) (Auto) 0% (0-3) Basophils (%) (Auto) 0% (0-3) Neutrophils # (Auto) 11.9x10^3uL (1.8-7.7) Lymphocytes # (Auto) 0.8x10^3/uL (1.0-4.8) Monocytes # (Auto) 0.4x10^3/uL (0.0-1.1) Eosinophils # (Auto) 0.0x10^3/uL (0.0-0.7) Basophils # (Auto) 0.0x10^3/uL (0.0-0.2) Sodium Level 139mmol/L (136-145) Potassium Level 4.5mmol/L (3.5-5.1) Chloride Level 105mmol/L (98-107) Carbon Dioxide Level 23mmol/L (21-32) Anion Gap 11 (6-14) Blood Urea Nitrogen 45mg/dL (8-26) Creatinine 1.8mg/dL (0.7-1.3) Estimated GFR (Cockcroft-Gault) 36.5 Glucose Level 203mg/dL (70-99) Calcium Level 8.8mg/dL (8.5-10.1) Magnesium Level 2.0mg/dL (1.8-2.4) Test 01/07/17 07:32 01/07/17 12:19 01/07/17 17:13 01/07/17 20:25 Glucose (Fingerstick) 175mg/dL (70-99) 215mg/dL (70-99) 251mg/dL (70-99) 178mg/dL (70-99) Test 01/08/17 05:06 01/08/17 07:19 01/08/17 11:35 Sodium Level 140mmol/L (136-145) Potassium Level 4.8mmol/L (3.5-5.1) Chloride Level 106mmol/L (98-107) Carbon Dioxide Level 27mmol/L (21-32) Anion Gap 7 (6-14) Blood Urea Nitrogen 47mg/dL (8-26) Creatinine 1.6mg/dL (0.7-1.3) Estimated GFR (Cockcroft-Gault) 41.8 Glucose Level 191mg/dL (70-99) Calcium Level 9.3mg/dL (8.5-10.1) Glucose (Fingerstick) 159mg/dL (70-99) 322mg/dL (70-99) Laboratory Tests Test 01/07/17 12:19 01/07/17 17:13 01/07/17 20:25 01/08/17 05:06 Glucose (Fingerstick) 215mg/dL (70-99) 251mg/dL (70-99) 178mg/dL (70-99) Sodium Level 140mmol/L (136-145) Potassium Level 4.8mmol/L (3.5-5.1) Chloride Level 106mmol/L (98-107) Carbon Dioxide Level 27mmol/L (21-32) Anion Gap 7 (6-14) Blood Urea Nitrogen 47mg/dL (8-26) Creatinine 1.6mg/dL (0.7-1.3) Estimated GFR (Cockcroft-Gault) 41.8 Glucose Level 191mg/dL (70-99) Calcium Level 9.3mg/dL (8.5-10.1) Test 01/08/17 07:19 01/08/17 11:35 Glucose (Fingerstick) 159mg/dL (70-99) 322mg/dL (70-99) Microbiology 01/04/17 Blood Culture - Preliminary, Resulted NO GROWTH AFTER 3 DAYS 01/05/17 Gram Stain - Final, Complete Medications Current Medications Vancomycin HCl (Vanco Per Pharmacy) 1 each 1X ONCE MC ; Start 01/04/17 at 15:30 ; Stop 01/04/17 at 15:31; Status UNV Methylprednisolone Sodium Succinate 125 mg 125 mg 1X ONCE IV Last administered on 01/04/17 15:30; Start 01/04/17 at 15:30; Stop 01/04/17 at 15:31; Status DC Sodium Chloride (Iv Sodium Chloride 0.9% 500ml Bag) 500 ml @ 500 mls/hr 1X ONCE IV Last administered on 01/04/17 15:30; Start 01/04/17 at 15:30; Stop at 16:29; Status DC Piperacillin Sod/ Tazobactam Sod (Zosyn Per Pharmacy) 1 each PRN DAILY PRN MC SEE COMMENTS; Start 01/04/17 at 15:30; Stop 01/04/17 at 17:09; Status DC Acetaminophen 1000 mg 1,000 mg 1X ONCE PO Last administered on 01/04/17 15:45 ; Start 01/04/17 at 15:45; Stop 01/04/17 at 15:47; Status DC Sodium Chloride 500 ml @ 500 mls/hr 1X ONCE IV Last administered on 01/04/17 15:45; Start 01/04/17 at 15:45; Stop 01/04/17 at 16:44; Status DC Vancomycin HCl 1.5 gm/Sodium Chloride 500 ml @ 250 mls/hr 1X ONCE IV Last administered on 01/04/17 16:15; Start 01/04/17 at 16:15; Stop 01/04/17 at 18:14; Status DC Piperacillin Sod/ Tazobactam Sod/ Sodium Chloride (Zosyn/Iv Sodium Chloride 0.9 % 50ml) 50 ml @ 100 mls/hr 1X ONCE IV Last administered on 01/04/17 16:15; Start 01/04/17 at 16:15; Stop 01/04/17 at 16:44; Status DC Acetaminophen (Tylenol) 650 mg Q4HRS PRN PO MILD PAIN; Start 01/04/17 at 17:15 Aspirin (Children'S Aspirin) 81 mg DAILYWBKFT PO Last administered on 01/08/17 08:03; Start 01/05/17 at 08:00 Atorvastatin Calcium (Lipitor) 10 mg QHS PO Last administered on 01/07/17 20:27 ; Start 01/04/17 at 21:00 Bisacodyl (Dulcolax Supp) 10 mg PRN DAILY PRN RC CONSTIPATION; Start 01/04/17 at 17:15 Guaifenesin (Mucinex) 600 mg BID PO Last administered on 01/08/17 08:03; Start 01/04/17 at 21:00 Albuterol/ Ipratropium (Duoneb) 3 ml PRN Q4HRS PRN NEB SHORTNESS OF BREATH; Start 01/04/17 at 17:15; Stop 01/04/17 at 17:15; Status DC Lorazepam (Ativan) 0.5 mg PRN Q8HRS PRN PO ANXIETY / AGITATION Last administered on 01/07/17 20:57; Start 01/04/17 at 17:15 Magnesium Hydroxide (Milk Of Magnesia) 400 mg PRN DAILY PRN PO CONSTIPATION; Start 01/04/17 at 17:15 Metoprolol Succinate (Toprol Xl) 25 mg DAILY PO ; Start 01/05/17 at 09:00; Stop 01/05/17 at 09:00; Status DC Primidone (Mysoline) 50 mg DAILY PO Last administered on 01/08/17 08:02; Start 01/05/17 at 09:00 Spironolactone (Aldactone) 25 mg DAILY PO Last administered on 01/08/17 08:02; Start 01/05/17 at 09:00 Tamsulosin HCl (Flomax) 0.4 mg DAILY PO Last administered on 01/08/17 08:02; Start 01/05/17 at 09:00 Budesonide (Pulmicort) 0.5 mg RTBID NEB Last administered on 01/08/17 07:44; Start 01/04/17 at 20:00 Albuterol/ Ipratropium 3 ml 3 ml RTQID NEB Last administered on 01/08/17 07:44 ; Start 01/04/17 at 20:00 Meropenem/Sodium Chloride (Merrem/Iv Sodium Chloride 0.9% 50ml) 50 ml @ 100 mls /hr Q8HRS IV ; Start 01/04/17 at 22:00; Stop 01/04/17 at 22:00; Status DC Albuterol Sulfate (Ventolin Neb Soln) 2.5 mg PRN Q2HR PRN NEB SHORTNESS OF BREATH Last administered on 01/07/17 00:10; Start 01/04/17 at 17:15 Vancomycin HCl (Vanco Per Pharmacy) 1 each PRN DAILY PRN MC SEE COMMENTS Last administered on 01/07/17 13:52; Start 01/04/17 at 17:15 Methylprednisolone Sodium Succinate (Solu-Medrol 40mg Vial) 40 mg TID IV Last administered on 01/06/17 08:14; Start 01/04/17 at 21:00; Stop 01/06/17 at 13:00; Status DC Pantoprazole Sodium (Protonix) 40 mg DAILYAC PO Last administered on 01/08/17 08:03; Start 01/05/17 at 07:30 Hydralazine HCl 10 mg 10 mg PRN Q4HRS PRN IVP HYPERTENSION, SEE COMMENTS; Start 01/04/17 at 17:15 Sodium Chloride (Iv Sodium Chloride 0.9% 1000ml Bag) 1,000 ml @ 75 mls/hr 1X ONCE IV Last administered on 01/04/17 17:15; Start 01/04/17 at 17:15; Stop at 06:34; Status DC Heparin Sodium (Porcine) 5000 unit 5,000 unit Q8HRS SQ Last administered on 01/08 05:10; Start 01/04/17 at 22:00 Meropenem 500 mg/ Sodium Chloride 50 ml @ 100 mls/hr BID IV Last administered on 01/08/17 08:05; Start 01/04/17 at 21:00 Sodium Chloride (Iv Sodium Chloride 0.9% 1000ml Bag) 1,000 ml @ 1,000 mls/hr 1X ONCE IV Last administered on 01/04/17 17:45; Start 01/04/17 at 17:45; Stop 01/04/17 at 18:44; Status DC Albuterol/ Ipratropium (Duoneb) 3 ml 1X ONCE NEB Last administered on 18:10; Start 01/04/17 at 17:45; Stop 01/04/17 at 17:49; Status DC Ondansetron HCl (Zofran) 4 mg PRN Q8HRS PRN IV NAUSEA/VOMITING; Start 01/04/17 at 18:00; Stop 01/05/17 at 17:59; Status DC Morphine Sulfate 2 mg 2 mg PRN Q2HR PRN IV PAIN; Start 01/04/17 at 18:00; Stop 01/05/17 at 17:59; Status DC Sodium Chloride (Iv Sodium Chloride 0.9% 1000ml Bag) 1,000 ml @ 125 mls/hr Q8H IV ; Start 01/04/17 at 17:50; Stop 01/05/17 at 17:49; Status Cancel Albuterol/ Ipratropium (Duoneb) 3 ml RTQID NEB ; Start 01/04/17 at 20:00; Stop at 19:59; Status UNV Digoxin 125 mcg 125 mcg 1X ONCE IV Last administered on 01/04/17 19:32; Start 01/04/17 at 19:15; Stop 01/04/17 at 19:16; Status DC Vancomycin HCl/ Sodium Chloride (Iv Sodium Chloride 0.9% 250ml) 250 ml @ 167 mls/hr Q24H IV Last administered on 01/07/17 16:19; Start 01/05/17 at 16:00 Vancomycin HCl 1 each 1 each 1X ONCE MC Last administered on 01/06/17 15:30; Start 01/06/17 at 15:30; Stop 01/06/17 at 15:31; Status DC Sodium Chloride 1,000 ml @ 1,000 mls/hr 1X ONCE IV Last administered on 19:37; Start 01/04/17 at 19:45; Stop 01/04/17 at 20:44; Status DC Norepinephrine Bitartrate 8 mg/ Sodium Chloride 258 ml @ 0 mls/hr CONT PRN IV SEE I/O RECORD; Start 01/04/17 at 22:15; Stop 01/06/17 at 22:35; Status DC Sodium Chloride (Iv Sodium Chloride 0.9% 1000ml Bag) 1,000 ml @ 75 mls/hr 1X ONCE IV Last administered on 01/05/17 09:34; Start 01/05/17 at 08:45; Stop at 22:04; Status DC Insulin Aspart (Novolog) 0-9 UNITS TIDWMEALS SQ Last administered on 01/08/17 08:14; Start 01/05/17 at 12:00 Dextrose 12.5 gm PRN Q15MIN PRN IV SEE COMMENTS; Start 01/05/17 at 08:45 Guaifenesin (Robitussin) 200 mg PRN Q4HRS PRN PO COUGH; Start 01/05/17 at 08:45 ; Stop 01/05/17 at 12:57; Status DC Metoprolol Tartrate (Lopressor) 5 mg Q6HRS IVP Last administered on 01/06/17 17 :23; Start 01/05/17 at 09:30; Stop 01/06/17 at 23:15; Status DC Digoxin (Lanoxin) 250 mcg 1X ONCE IV Last administered on 01/05/17 21:54; Start 01/05/17 at 20:00; Stop 01/05/17 at 20:01; Status DC Furosemide (Lasix) 40 mg 1X ONCE IVP Last administered on 01/06/17 03:37; Start 01/06/17 at 04:00; Stop 01/06/17 at 04:01; Status DC Methylprednisolone Sodium Succinate (Solu-Medrol 40mg Vial) 40 mg BID IV Last administered on 01/08/17 08:04; Start 01/06/17 at 21:00 Furosemide (Lasix) 40 mg DAILY PO Last administered on 01/08/17 08:03; Start at 09:00 Sodium Chloride 1 diana 1 diana PRN Q1HR PRN NS NASAL CONGESTION; Start 01/06/17 at 17:45 Diltiazem HCl/ Dextrose (Cardizem) 125 ml @ 0 mls/hr CONT PRN IV SEE I/O RECORD Last administered on 01/07/17 04:21; Start 01/06/17 at 18:00; Stop at 13:55; Status DC Furosemide (Lasix) 40 mg 1X ONCE IVP Last administered on 01/07/17 00:12; Start 01/07/17 at 00:30; Stop 01/07/17 at 00:31; Status DC Metoprolol Tartrate (Lopressor) 25 mg BID PO Last administered on 01/08/17 08: 02; Start 01/07/17 at 13:00 Diltiazem HCl (Cardizem 24hr Cd) 120 mg DAILY PO Last administered on 01/08/17 08:02; Start 01/07/17 at 14:00 Digoxin (Lanoxin) 250 mcg 1X ONCE IV Last administered on 01/07/17 21:11; Start 01/07/17 at 21:15; Stop 01/07/17 at 21:16; Status DC Active Scripts Active Reported Tamsulosin Hcl 0.4 Mg Cap.er.24h 1 Cap PO DAILY Symbicort 160-4.5 Mcg Inhaler (Budesonide/Formoterol Fumarate) 10.2 Gm Hfa.aer.ad 2 Puff IH BID Spironolactone 25 Mg Tablet 1 Tab PO DAILY Primidone 50 Mg Tablet 50 Mg PO DAILY Pantoprazole Sodium 40 Mg Tablet.dr 1 Tab PO BID Metoprolol Succinate 50 Mg Tab.er.24h 25 Mg PO DAILY Lorazepam 0.5 Mg Tablet 1 Tab PO PRN Q8HRS PRN Duoneb 0.5-3(2.5) Mg/3 Ml (Albuterol/Ipratropium) 3 Ml Ampul.neb 3 Ml NEB Q4HRS Milk Of Magnesia (Magnesium Hydroxide) 400 Mg/5 Ml Oral.susp 400 Mg PO PRN DAILY PRN Atorvastatin Calcium 10 Mg Tablet 1 Tab PO DAILY Aspirin 81 Mg Tab.chew 81 Mg PO DAILY Acetaminophen 325 Mg Tablet 650 Mg PO Q4HRS PRN Duoneb 0.5-3(2.5) Mg/3 Ml (Albuterol/Ipratropium) 3 Ml Ampul.neb 3 Ml NEB PRN Q4HRS PRN Guaifenesin 600 Mg Tablet.er 600 Mg PO BID Furosemide 40 Mg Tablet 40 Mg PO DAILY Fleet Enema (Na Phos,M-B/Na Phos,Di-Ba) 133 Ml Enema 1 Each RC PRN DAILY PRN Aspirin Ec (Aspirin) 81 Mg Tablet. 1 Tab PO DAILY Dulcolax (Bisacodyl) 10 Mg Supp.rect 10 Mg RC PRN DAILY PRN Vitals/I & O Vital Sign - Last 24 Hours 01/07/17 01/07/17 01/07/17 01/07/17 12:32 14:43 14:43 15:00 Temp 98.3 98.3 Pulse 92 92 78 Resp 26 B/P 115/62 115/62 116/50 Pulse Ox 96 O2 Delivery Nasal Cannula Nasal Cannula O2 Flow Rate 4.0 2.0 01/07/17 01/07/17 01/07/17 01/07/17 15:51 19:00 19:34 20:16 Temp 98.6 98.6 Pulse 82 Resp 28 B/P 137/75 Pulse Ox 96 O2 Delivery Nasal Cannula Nasal Cannula Nasal Cannula Nasal Cannula O2 Flow Rate 4.0 2.0 2.0 4.0 01/07/17 01/07/17 01/07/17 01/07/17 20:16 20:27 20:58 21:11 Pulse 156 156 135 Resp 32 B/P 127/76 117/74 132/72 O2 Delivery Nasal Cannula O2 Flow Rate 4.0 01/07/17 01/08/17 01/08/17 01/08/17 23:05 03:00 06:44 07:46 Temp 98.1 98.4 97.6 98.1 98.4 97.6 Pulse 69 80 67 Resp 22 36 18 B/P 123/61 150/93 161/79 Pulse Ox 92 93 96 93 O2 Delivery Nasal Cannula Nasal Cannula Nasal Cannula Nasal Cannula O2 Flow Rate 2.0 2.0 2.0 4.0 01/08/17 01/08/17 01/08/17 01/08/17 07:50 07:50 08:02 08:02 Pulse 67 67 B/P 161/79 161/79 Pulse Ox 93 O2 Delivery Nasal Cannula Nasal Cannula O2 Flow Rate 4.0 4.0 01/08/17 11:24 Temp 97.8 97.8 Pulse 77 Resp 22 B/P 124/67 Pulse Ox 97 O2 Delivery Nasal Cannula O2 Flow Rate 3.0 Intake and Output 01/07/17 01/07/17 01/08/17 15:00 23:00 07:00 Intake Total 50 ml 750 ml 150 ml Output Total 801 ml 1150 ml 950 ml Balance -751 ml -400 ml -800 ml JUSTIN CHURCH MD Jan 08, 2017 12:07
[2017-01-08] MEDS: VANCOMYCIN PER PHARMACY MC PRN ×2 (14:01→14:02)
[2017-01-08] MEDS: VANCOMYCIN 1.25 GM in IV NORMAL SALINE 250ML 250 ML IV SCH (14:25)
[2017-01-08 15:00] VITALS: BP 141/54
[2017-01-08 19:20] VITALS: BP 143/62
[2017-01-08] MEDS: ATORVASTATIN CALCIUM 10 MG TABLET. PO SCH (20:47)
[2017-01-08] MEDS ORDERED: DILTIAZEM HCL 120 MG CAP.ER.24H PO ONE (21:00)
[2017-01-08] MEDS: NYSTATIN 100,000 UNITS/ML 5 ML ORAL.SUSP. SWSW SCH (21:37)
[2017-01-08 23:20] VITALS: BP 148/61
[2017-01-09 03:05] VITALS: BP 150/67
[2017-01-09] MEDS: HEPARIN PF for SUB-Q USE 5,000 UNIT/0.5 ML VIAL. SQ SCH ×3 (06:21→22:09)
[2017-01-09 07:48] VITALS: BP 149/73
[2017-01-09] MEDS: BUDESONIDE 0.5 MG/2 ML NEBU NEB SCH ×2 (08:19→19:24)
[2017-01-09] MEDS: IPRATRPIUM/ALBUTEROL 0.5/2.5MG 3 ML NEBU. NEB SCH ×4 (08:19→19:24)
[2017-01-09] MEDS: ASPIRIN 81 MG TAB.CHEW PO SCH (08:43)
[2017-01-09] MEDS: PANTOPRAZOLE 40 MG TABLET. PO SCH (08:43)
[2017-01-09] MEDS: NYSTATIN 100,000 UNITS/ML 5 ML ORAL.SUSP. SWSW SCH ×2 (08:43→21:59)
[2017-01-09] MEDS: GUAIFENESIN ER 600 MG TABLET.ER PO SCH ×2 (08:49→21:59)
[2017-01-09] MEDS: TAMSULOSIN 0.4 MG CAP.ER.24H. PO SCH (08:51)
[2017-01-09] MEDS: FUROSEMIDE 40 MG TABLET PO SCH (08:51)
[2017-01-09] MEDS: DILTIAZEM HCL 120 MG CAP.ER.24H PO SCH (08:51)
[2017-01-09] MEDS: methylPREDNISolone SOD SUCC PF 40 MG/ML VIAL. IV SCH ×2 (08:52→22:00)
[2017-01-09] MEDS: MEROPENEM 500 MG in IV NORMAL SALINE 50ML 50 ML IV SCH ×3 (08:56→22:04)
[2017-01-09] MEDS: INSULIN ASPART 300 UNITS/3 ML INSULN.PEN SQ SCH ×3 (09:08→17:26)
[2017-01-09] MEDS: VANCOMYCIN PER PHARMACY MC PRN (09:08)
[2017-01-09] MEDS: PRIMIDONE 50 MG TABLET PO SCH (09:16)
[2017-01-09] MEDS: SPIRONOLACTONE 25 MG TABLET PO SCH (09:16)
--- NOTE | 2017-01-09 10:42 | PDOC ---
ELIO SOMMERS POACHER OPERATOR 01/09/17 1042: CARDIO Progress Notes Date and Time Date of Service 01/09/2017 Time of Evaluation 0920 Subjective Subjective: No Chest Pain, No shortness of breath, No Palpitations, No Dizziness, Other (feels better today) Vitals Vitals Vital Signs Date Time Temp Pulse Resp B/P Pulse Ox O2 Delivery O2 Flow Rate FiO2 01/09/17 08:51 78 149/73 01/09/17 08:19 99 Nasal Cannula 4.0 01/09/17 07:48 98.6 28 98.6 Weight Weight [ ] Input and Output Intake and Output Intake and Output 01/09/17 07:00 Intake Total 1710 ml Output Total 2100 ml Balance -390 ml Intake Oral 1360 ml IV Total 350 ml Output Urine Total 2100 ml # Bowel Movements 3 Laboratory Labs Laboratory Tests Test 01/08/17 11:35 01/08/17 16:36 01/08/17 20:46 01/09/17 07:54 Glucose (Fingerstick) 322mg/dL (70-99) 235mg/dL (70-99) 209mg/dL (70-99) 177mg/dL (70-99) Microbiology Micro Microbiology 01/04/17 Blood Culture - Preliminary, Resulted NO GROWTH AFTER 4 DAYS 01/05/17 Gram Stain - Final, Complete Physical Exam HEENT: Neck Supple W Full Motion Chest: Symmetric LUNGS: Other (bibasilar crackles) Heart: S1S2, RRR, murmurs (2/6 systolic murmur to LLS border) Abdomen: Soft N/T Extremities: No Edema, No Calf Tenderness Neurology: alert, oriented, follow commands Assessment Assessment 1. 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 PAFIB: converted to SR upon increase of CCB but remains to have paroxysmal events 3. Chronic diastolic CHF: TTE 11/2016 unremarkable for significant changes: compensated 4. LISA on CKD3 5. Dementia 6. HTN/HLP 7. Subclinical hyperthyroidism: TSH 0.125 Recommendations 1. Continue with current cardizem CD at 240 mg daily. No known CAD, LV systolic function is normal. Will consider for multaq, will discuss with primary insurance claims analyst. . 2. Currently on ASA. Not on OAC, suspect poor candidate with noted dementia, significant fall risk, dizzy spells. 3. Continue with secondary prevention Repeat EKG today 4. Stop aldactone. Hold lasix in the next 48 hours. Maintain hydration adequacy. DONNA ZAYSA MD 01/09/171817: CARDIO Progress Notes Plan Plan Patient seen and examined. Agree with above nurse practitioner note. Overnight telemetry review has revealed some mild bradycardia. He currently has multifocal atrial tachycardia but no clear evidence of atrial fibrillation over the last 12-24 hours. On examination he has decreased breath sounds. Laboratory studies reviewed. We will plan for continued Cardizem with initiation of daytime beta blockade to help decrease his heart rates during activity. Also avoiding nighttime beta- blockade will decrease risk of bradycardia. I did briefly discuss with the patient the possibility that he may need a pacemaker should he have any significant bradycardia in light of his multifocal atrial tachycardia and need for beta-blocking and calcium channel blocking agents. No Multaq. ELIO SOMMERS APRN Jan 09, 2017 10:42 DONNA ZAYAS MD Jan 09, 2017 18:18
[2017-01-09 11:11] VITALS: BP 149/53
--- NOTE | 2017-01-09 11:24 | PDOC ---
PROGRESS NOTES Chief Complaint Chief Complaint sob, cough 1. Acute on chronic respiratory failure with hypoxia 2. COPD exacerbation with Pneumonia. 3. Chronic diastolic CHF with EF 50% 4. HTN 5. 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 PFIB 7. Sepsis 8. Anxiety 9. bedbound with generalized weakness 10. Mild malnutrition 11. lactate acidosis 12. h/o CVA wo obvious weakness Plan ABX per id HR not controlled with ambulations, Cardizem dose has been adjusted Poor candidate for oral ac due to fall risk PT/OT Supplemental oxygen periodic nebulizations, Xopenex SSI Heparin for dvt prophylaxis. labs reviewed. History of Present Illness History of Present Illness cough sob better no chest pain Vitals Vitals Vital Signs Date Time Temp Pulse Resp B/P Pulse Ox O2 Delivery O2 Flow Rate FiO2 01/09/17 11:11 98.4 112 25 149/53 94 Nasal Cannula 98.4 01/09/17 08:19 4.0 Physical Exam General: Alert, Oriented X3, Cooperative, mild distress Heart: Normal S1, Other Lungs: Clear Abdomen: Normal bowel sounds Extremities: No edema, Normal pulses Skin: No rashes Labs LABS Laboratory Tests Test 01/08/17 11:35 01/08/17 16:36 01/08/17 20:46 01/09/17 07:54 Glucose (Fingerstick) 322mg/dL (70-99) 235mg/dL (70-99) 209mg/dL (70-99) 177mg/dL (70-99) Assessment and Plan Assessmemt and Plan Problems Medical Problems: (1) Sepsis Status: Acute Problems: Comment Review of Relevant I have reviewed the following items be (where applicable) has been applied. Labs Laboratory Tests Test 01/07/17 12:19 01/07/17 17:13 01/07/17 20:25 01/08/17 05:06 Glucose (Fingerstick) 215mg/dL (70-99) 251mg/dL (70-99) 178mg/dL (70-99) Sodium Level 140mmol/L (136-145) Potassium Level 4.8mmol/L (3.5-5.1) Chloride Level 106mmol/L (98-107) Carbon Dioxide Level 27mmol/L (21-32) Anion Gap 7 (6-14) Blood Urea Nitrogen 47mg/dL (8-26) Creatinine 1.6mg/dL (0.7-1.3) Estimated GFR (Cockcroft-Gault) 41.8 Glucose Level 191mg/dL (70-99) Calcium Level 9.3mg/dL (8.5-10.1) Test 01/08/17 07:19 01/08/17 11:35 01/08/17 16:36 01/08/17 20:46 Glucose (Fingerstick) 159mg/dL (70-99) 322mg/dL (70-99) 235mg/dL (70-99) 209mg/dL (70-99) Test 01/09/17 07:54 Glucose (Fingerstick) 177mg/dL (70-99) Laboratory Tests Test 01/08/17 11:35 01/08/17 16:36 01/08/17 20:46 01/09/17 07:54 Glucose (Fingerstick) 322mg/dL (70-99) 235mg/dL (70-99) 209mg/dL (70-99) 177mg/dL (70-99) Microbiology 01/04/17 Blood Culture - Preliminary, Resulted NO GROWTH AFTER 4 DAYS 01/05/17 Gram Stain - Final, Complete Medications Current Medications Vancomycin HCl (Vanco Per Pharmacy) 1 each 1X ONCE MC ; Start 01/04/17 at 15:30 ; Stop 01/04/17 at 15:31; Status UNV Methylprednisolone Sodium Succinate 125 mg 125 mg 1X ONCE IV Last administered on 01/04/17 15:30; Start 01/04/17 at 15:30; Stop 01/04/17 at 15:31; Status DC Sodium Chloride (Iv Sodium Chloride 0.9% 500ml Bag) 500 ml @ 500 mls/hr 1X ONCE IV Last administered on 01/04/17 15:30; Start 01/04/17 at 15:30; Stop at 16:29; Status DC Piperacillin Sod/ Tazobactam Sod (Zosyn Per Pharmacy) 1 each PRN DAILY PRN MC SEE COMMENTS; Start 01/04/17 at 15:30; Stop 01/04/17 at 17:09; Status DC Acetaminophen 1000 mg 1,000 mg 1X ONCE PO Last administered on 01/04/17 15:45 ; Start 01/04/17 at 15:45; Stop 01/04/17 at 15:47; Status DC Sodium Chloride 500 ml @ 500 mls/hr 1X ONCE IV Last administered on 01/04/17 15:45; Start 01/04/17 at 15:45; Stop 01/04/17 at 16:44; Status DC Vancomycin HCl 1.5 gm/Sodium Chloride 500 ml @ 250 mls/hr 1X ONCE IV Last administered on 01/04/17 16:15; Start 01/04/17 at 16:15; Stop 01/04/17 at 18:14; Status DC Piperacillin Sod/ Tazobactam Sod/ Sodium Chloride (Zosyn/Iv Sodium Chloride 0.9 % 50ml) 50 ml @ 100 mls/hr 1X ONCE IV Last administered on 01/04/17 16:15; Start 01/04/17 at 16:15; Stop 01/04/17 at 16:44; Status DC Acetaminophen (Tylenol) 650 mg Q4HRS PRN PO MILD PAIN; Start 01/04/17 at 17:15 Aspirin (Children'S Aspirin) 81 mg DAILYWBKFT PO Last administered on 01/09/17 08:43; Start 01/05/17 at 08:00 Atorvastatin Calcium (Lipitor) 10 mg QHS PO Last administered on 01/08/17 20:47 ; Start 01/04/17 at 21:00 Bisacodyl (Dulcolax Supp) 10 mg PRN DAILY PRN RC CONSTIPATION; Start 01/04/17 at 17:15 Guaifenesin (Mucinex) 600 mg BID PO Last administered on 01/09/17 08:49; Start 01/04/17 at 21:00 Albuterol/ Ipratropium (Duoneb) 3 ml PRN Q4HRS PRN NEB SHORTNESS OF BREATH; Start 01/04/17 at 17:15; Stop 01/04/17 at 17:15; Status DC Lorazepam (Ativan) 0.5 mg PRN Q8HRS PRN PO ANXIETY / AGITATION Last administered on 01/07/17 20:57; Start 01/04/17 at 17:15 Magnesium Hydroxide (Milk Of Magnesia) 400 mg PRN DAILY PRN PO CONSTIPATION; Start 01/04/17 at 17:15 Metoprolol Succinate (Toprol Xl) 25 mg DAILY PO ; Start 01/05/17 at 09:00; Stop 01/05/17 at 09:00; Status DC Primidone (Mysoline) 50 mg DAILY PO Last administered on 01/09/17 09:16; Start 01/05/17 at 09:00 Spironolactone (Aldactone) 25 mg DAILY PO Last administered on 01/09/17 09:16; Start 01/05/17 at 09:00 Tamsulosin HCl (Flomax) 0.4 mg DAILY PO Last administered on 01/09/17 08:51; Start 01/05/17 at 09:00 Budesonide (Pulmicort) 0.5 mg RTBID NEB Last administered on 01/09/17 08:19; Start 01/04/17 at 20:00 Albuterol/ Ipratropium 3 ml 3 ml RTQID NEB Last administered on 01/09/17 08:19 ; Start 01/04/17 at 20:00 Meropenem/Sodium Chloride (Merrem/Iv Sodium Chloride 0.9% 50ml) 50 ml @ 100 mls /hr Q8HRS IV ; Start 01/04/17 at 22:00; Stop 01/04/17 at 22:00; Status DC Albuterol Sulfate (Ventolin Neb Soln) 2.5 mg PRN Q2HR PRN NEB SHORTNESS OF BREATH Last administered on 01/07/17 00:10; Start 01/04/17 at 17:15 Vancomycin HCl (Vanco Per Pharmacy) 1 each PRN DAILY PRN MC SEE COMMENTS Last administered on 01/09/17 09:08; Start 01/04/17 at 17:15 Methylprednisolone Sodium Succinate (Solu-Medrol 40mg Vial) 40 mg TID IV Last administered on 01/06/17 08:14; Start 01/04/17 at 21:00; Stop 01/06/17 at 13:00; Status DC Pantoprazole Sodium (Protonix) 40 mg DAILYAC PO Last administered on 01/09/17 08:43; Start 01/05/17 at 07:30 Hydralazine HCl 10 mg 10 mg PRN Q4HRS PRN IVP HYPERTENSION, SEE COMMENTS; Start 01/04/17 at 17:15 Sodium Chloride (Iv Sodium Chloride 0.9% 1000ml Bag) 1,000 ml @ 75 mls/hr 1X ONCE IV Last administered on 01/04/17 17:15; Start 01/04/17 at 17:15; Stop at 06:34; Status DC Heparin Sodium (Porcine) 5000 unit 5,000 unit Q8HRS SQ Last administered on 01/09 06:21; Start 01/04/17 at 22:00 Meropenem 500 mg/ Sodium Chloride 50 ml @ 100 mls/hr BID IV Last administered on 01/09/17 08:56; Start 01/04/17 at 21:00; Stop 01/09/17 at 09:02; Status DC Sodium Chloride (Iv Sodium Chloride 0.9% 1000ml Bag) 1,000 ml @ 1,000 mls/hr 1X ONCE IV Last administered on 01/04/17 17:45; Start 01/04/17 at 17:45; Stop 01/04/17 at 18:44; Status DC Albuterol/ Ipratropium (Duoneb) 3 ml 1X ONCE NEB Last administered on 18:10; Start 01/04/17 at 17:45; Stop 01/04/17 at 17:49; Status DC Ondansetron HCl (Zofran) 4 mg PRN Q8HRS PRN IV NAUSEA/VOMITING; Start 01/04/17 at 18:00; Stop 01/05/17 at 17:59; Status DC Morphine Sulfate 2 mg 2 mg PRN Q2HR PRN IV PAIN; Start 01/04/17 at 18:00; Stop 01/05/17 at 17:59; Status DC Sodium Chloride (Iv Sodium Chloride 0.9% 1000ml Bag) 1,000 ml @ 125 mls/hr Q8H IV ; Start 01/04/17 at 17:50; Stop 01/05/17 at 17:49; Status Cancel Albuterol/ Ipratropium (Duoneb) 3 ml RTQID NEB ; Start 01/04/17 at 20:00; Stop at 19:59; Status UNV Digoxin 125 mcg 125 mcg 1X ONCE IV Last administered on 01/04/17 19:32; Start 01/04/17 at 19:15; Stop 01/04/17 at 19:16; Status DC Vancomycin HCl/ Sodium Chloride (Iv Sodium Chloride 0.9% 250ml) 250 ml @ 167 mls/hr Q24H IV Last administered on 01/08/17 14:25; Start 01/05/17 at 16:00 Vancomycin HCl 1 each 1 each 1X ONCE MC Last administered on 01/06/17 15:30; Start 01/06/17 at 15:30; Stop 01/06/17 at 15:31; Status DC Sodium Chloride 1,000 ml @ 1,000 mls/hr 1X ONCE IV Last administered on 19:37; Start 01/04/17 at 19:45; Stop 01/04/17 at 20:44; Status DC Norepinephrine Bitartrate 8 mg/ Sodium Chloride 258 ml @ 0 mls/hr CONT PRN IV SEE I/O RECORD; Start 01/04/17 at 22:15; Stop 01/06/17 at 22:35; Status DC Sodium Chloride (Iv Sodium Chloride 0.9% 1000ml Bag) 1,000 ml @ 75 mls/hr 1X ONCE IV Last administered on 01/05/17 09:34; Start 01/05/17 at 08:45; Stop at 22:04; Status DC Insulin Aspart (Novolog) 0-9 UNITS TIDWMEALS SQ Last administered on 01/09/17 09:08; Start 01/05/17 at 12:00 Dextrose 12.5 gm PRN Q15MIN PRN IV SEE COMMENTS; Start 01/05/17 at 08:45 Guaifenesin (Robitussin) 200 mg PRN Q4HRS PRN PO COUGH; Start 01/05/17 at 08:45 ; Stop 01/05/17 at 12:57; Status DC Metoprolol Tartrate (Lopressor) 5 mg Q6HRS IVP Last administered on 01/06/17 17 :23; Start 01/05/17 at 09:30; Stop 01/06/17 at 23:15; Status DC Digoxin (Lanoxin) 250 mcg 1X ONCE IV Last administered on 01/05/17 21:54; Start 01/05/17 at 20:00; Stop 01/05/17 at 20:01; Status DC Furosemide (Lasix) 40 mg 1X ONCE IVP Last administered on 01/06/17 03:37; Start 01/06/17 at 04:00; Stop 01/06/17 at 04:01; Status DC Methylprednisolone Sodium Succinate (Solu-Medrol 40mg Vial) 40 mg BID IV Last administered on 01/09/17 08:52; Start 01/06/17 at 21:00 Furosemide (Lasix) 40 mg DAILY PO Last administered on 01/09/17 08:51; Start at 09:00 Sodium Chloride 1 diana 1 diana PRN Q1HR PRN NS NASAL CONGESTION; Start 01/06/17 at 17:45 Diltiazem HCl/ Dextrose (Cardizem) 125 ml @ 0 mls/hr CONT PRN IV SEE I/O RECORD Last administered on 01/07/17 04:21; Start 01/06/17 at 18:00; Stop at 13:55; Status DC Furosemide (Lasix) 40 mg 1X ONCE IVP Last administered on 01/07/17 00:12; Start 01/07/17 at 00:30; Stop 01/07/17 at 00:31; Status DC Metoprolol Tartrate (Lopressor) 25 mg BID PO Last administered on 01/08/17 08: 02; Start 01/07/17 at 13:00; Stop 01/08/17 at 13:24; Status DC Diltiazem HCl (Cardizem 24hr Cd) 120 mg DAILY PO Last administered on 01/08/17 08:02; Start 01/07/17 at 14:00; Stop 01/08/17 at 13:24; Status DC Digoxin (Lanoxin) 250 mcg 1X ONCE IV Last administered on 01/07/17 21:11; Start 01/07/17 at 21:15; Stop 01/07/17 at 21:16; Status DC Diltiazem HCl (Cardizem 24hr Cd) 240 mg DAILY PO Last administered on 01/09/17 08:51; Start 01/09/17 at 09:00 Diltiazem HCl (Cardizem 24hr Cd) 120 mg 1X ONCE PO Last administered on 20:48; Start 01/08/17 at 21:00; Stop 01/08/17 at 21:01; Status DC Nystatin 5 ml 5 ml BID SWSW Last administered on 01/09/17 08:43; Start 01/08/17 at 22:00 Meropenem/Sodium Chloride (Merrem/Iv Sodium Chloride 0.9% 50ml) 50 ml @ 100 mls /hr Q8HRS IV ; Start 01/09/17 at 15:00 Active Scripts Active Reported Tamsulosin Hcl 0.4 Mg Cap.er.24h 1 Cap PO DAILY Symbicort 160-4.5 Mcg Inhaler (Budesonide/Formoterol Fumarate) 10.2 Gm Hfa.aer.ad 2 Puff IH BID Spironolactone 25 Mg Tablet 1 Tab PO DAILY Primidone 50 Mg Tablet 50 Mg PO DAILY Pantoprazole Sodium 40 Mg Tablet.dr 1 Tab PO BID Metoprolol Succinate 50 Mg Tab.er.24h 25 Mg PO DAILY Lorazepam 0.5 Mg Tablet 1 Tab PO PRN Q8HRS PRN Duoneb 0.5-3(2.5) Mg/3 Ml (Albuterol/Ipratropium) 3 Ml Ampul.neb 3 Ml NEB Q4HRS Milk Of Magnesia (Magnesium Hydroxide) 400 Mg/5 Ml Oral.susp 400 Mg PO PRN DAILY PRN Atorvastatin Calcium 10 Mg Tablet 1 Tab PO DAILY Aspirin 81 Mg Tab.chew 81 Mg PO DAILY Acetaminophen 325 Mg Tablet 650 Mg PO Q4HRS PRN Duoneb 0.5-3(2.5) Mg/3 Ml (Albuterol/Ipratropium) 3 Ml Ampul.neb 3 Ml NEB PRN Q4HRS PRN Guaifenesin 600 Mg Tablet.er 600 Mg PO BID Furosemide 40 Mg Tablet 40 Mg PO DAILY Fleet Enema (Na Phos,M-B/Na Phos,Di-Ba) 133 Ml Enema 1 Each RC PRN DAILY PRN Aspirin Ec (Aspirin) 81 Mg Tablet.dr 1 Tab PO DAILY Dulcolax (Bisacodyl) 10 Mg Supp.rect 10 Mg RC PRN DAILY PRN Vitals/I & O Vital Sign - Last 24 Hours 01/08/17 01/08/17 01/08/17 01/08/17 11:24 12:36 15:00 15:29 Temp 97.8 98.2 97.8 98.2 Pulse 77 66 Resp 22 18 B/P 124/67 141/54 Pulse Ox 97 99 99 99 O2 Delivery Nasal Cannula Nasal Cannula Nasal Cannula Nasal Cannula O2 Flow Rate 3.0 4.0 3.0 4.0 01/08/17 01/08/17 01/08/17 01/08/17 19:20 19:30 19:30 20:00 Temp 97.8 97.8 Pulse 66 Resp 22 B/P 143/62 Pulse Ox 98 99 99 O2 Delivery Nasal Cannula Nasal Cannula Nasal Cannula Nasal Cannula O2 Flow Rate 2.0 4.0 4.0 2.0 01/08/17 01/08/17 01/09/17 01/09/17 20:48 23:20 03:05 07:48 Temp 97.7 97.6 98.6 97.7 97.6 98.6 Pulse 90 73 83 78 Resp 24 28 28 B/P 145/73 148/61 150/67 149/73 Pulse Ox 97 95 96 O2 Delivery Nasal Cannula Nasal Cannula Nasal Cannula O2 Flow Rate 2.0 2.0 01/09/17 01/09/17 01/09/17 01/09/17 08:00 08:19 08:51 11:11 Temp 98.4 98.4 Pulse 78 112 Resp 25 B/P 149/73 149/53 Pulse Ox 99 94 O2 Delivery Nasal Cannula Nasal Cannula Nasal Cannula O2 Flow Rate 3.0 4.0 Intake and Output 01/08/17 01/08/17 01/09/17 15:00 23:00 07:00 Intake Total 910 ml 600 ml 200 ml Output Total 1100 ml 400 ml 600 ml Balance -190 ml 200 ml -400 ml JUSTIN CHURCH MD Jan 09, 2017 11:24
--- NOTE | 2017-01-09 12:03 | PDOC ---
PULMONARY PROGRESS NOTES Subjective PT FEELS ,SOA WITH EXERTION Vitals Vital Signs Date Time Temp Pulse Resp B/P Pulse Ox O2 Delivery O2 Flow Rate FiO2 01/09/17 11:47 Nasal Cannula 4.0 01/09/17 11:11 98.4 112 25 149/53 94 98.4 ROS: No Nausea, No Chest Pain, No Abdominal Pain, No Increase Cough General: Alert, No acute distress HEENT: Other Lungs: Clear Cardiovascular: S1, S2 Abdomen: Soft, Non-tender Neuro Exam: Alert Extremities: No Edema Skin: Warm Labs Laboratory Tests Test 01/07/17 12:19 01/07/17 17:13 01/07/17 20:25 01/08/17 05:06 Glucose (Fingerstick) 215mg/dL (70-99) 251mg/dL (70-99) 178mg/dL (70-99) Sodium Level 140mmol/L (136-145) Potassium Level 4.8mmol/L (3.5-5.1) Chloride Level 106mmol/L (98-107) Carbon Dioxide Level 27mmol/L (21-32) Anion Gap 7 (6-14) Blood Urea Nitrogen 47mg/dL (8-26) Creatinine 1.6mg/dL (0.7-1.3) Estimated GFR (Cockcroft-Gault) 41.8 Glucose Level 191mg/dL (70-99) Calcium Level 9.3mg/dL (8.5-10.1) Test 01/08/17 07:19 01/08/17 11:35 01/08/17 16:36 01/08/17 20:46 Glucose (Fingerstick) 159mg/dL (70-99) 322mg/dL (70-99) 235mg/dL (70-99) 209mg/dL (70-99) Test 01/09/17 07:54 Glucose (Fingerstick) 177mg/dL (70-99) Laboratory Tests Test 01/08/17 16:36 01/08/17 20:46 01/09/17 07:54 Glucose (Fingerstick) 235mg/dL (70-99) 209mg/dL (70-99) 177mg/dL (70-99) Medications Active Scripts Medications Dose Route/Sig Days Date Category Tamsulosin Hcl 0.4 Mg Cap.er.24h 1 Cap PO DAILY 11/09/16 Reported Symbicort 160-4.5 Mcg Inhaler (Budesonide/Formoterol Fumarate) 10.2 Gm Hfa.aer.ad 2 Puff IH BID 11/09/16 Reported Spironolactone 25 Mg Tablet 1 Tab PO DAILY 11/09/16 Reported Primidone 50 Mg Tablet 50 Mg PO DAILY 11/09/16 Reported Pantoprazole Sodium 40 Mg Tablet.dr 1 Tab PO BID 11/09/16 Reported Metoprolol Succinate 50 Mg Tab.er.24h 25 Mg PO DAILY 11/09/16 Reported Lorazepam 0.5 Mg Tablet 1 Tab PO PRN Q8HRS PRN 11/09/16 Reported Duoneb 0.5-3(2.5) Mg/3 Ml (Albuterol/Ipratropium) 3 Ml Ampul.neb 3 Ml NEB Q4HRS 11/09/16 Reported Milk Of Magnesia (Magnesium Hydroxide) 400 Mg/5 Ml Oral.susp 400 Mg PO PRN DAILY PRN 11/09/16 Reported Atorvastatin Calcium 10 Mg Tablet 1 Tab PO DAILY 11/09/16 Reported Aspirin 81 Mg Tab.chew 81 Mg PO DAILY 11/09/16 Reported Acetaminophen 325 Mg Tablet 650 Mg PO Q4HRS PRN 11/09/16 Reported Duoneb 0.5-3(2.5) Mg/3 Ml (Albuterol/Ipratropium) 3 Ml Ampul.neb 3 Ml NEB PRN Q4HRS PRN 11/09/16 Reported Guaifenesin 600 Mg Tablet.er 600 Mg PO BID 11/09/16 Reported Furosemide 40 Mg Tablet 40 Mg PO DAILY 11/09/16 Reported Fleet Enema (Na Phos,M-B/Na Phos,Di-Ba) 133 Ml Enema 1 Each RC PRN DAILY PRN 11/09/16 Reported Aspirin Ec (Aspirin) 81 Mg Tablet.dr 1 Tab PO DAILY 11/09/16 Reported Dulcolax (Bisacodyl) 10 Mg Supp.rect 10 Mg RC PRN DAILY PRN 11/09/16 Reported Impression . 1. Acute on chronic respiratory failure, multifactorial. Suspect Gram-negative, possibly Gram-positive pneumonia. 2. History of chronic heart failure. 3. Sepsis with hypotension.resolved 4. Dementia. 5. Mild protein malnutrition, present upon admission. 6. Lactic acidosis. 7. Possible aspiration pneumonia. 8. Acute exacerbation of chronic obstructive pulmonary disease secondary to above. Plan . 1. Increase ambulation/ increase oxygen with ambulation if needed 2. d/w RN 3. antibiotics per ID 4. speech evaluation done/ dysphagia diet 5. DVT and GI prophylaxes. 6. clinically better 7. steroid taper d/c plans per PCP YOSELIN KAUFMAN MD Jan 09, 2017 12:03
--- NOTE | 2017-01-09 12:19 | PDOC ---
Infectious Disease Note ROS ROS GEN: Denies fevers, chills, sweats HEENT: Denies blurred vision, sore throat CV: Denies chest pain RESP: Denies shortness of air, cough GI: Denies n/v/d NEURO: Denies confusion, dizziness MSK: Denies weakness, joint pain/swelling Vital Sign Vital Signs Vital Signs Date Time Temp Pulse Resp B/P Pulse Ox O2 Delivery O2 Flow Rate FiO2 01/09/17 11:47 Nasal Cannula 4.0 01/09/17 11:11 98.4 112 25 149/53 94 98.4 Physical Exam PHYSICAL EXAM GENERAL: NAD, Alert HEENT: PERRL, OC/OP NECK: Supple, no JVD, no LN LUNGS: Clear HEART: S1S2, no gallop, no murmur ABD: Soft, NT, no organomegaly, no rebound EXT: No edema, no cyanosis 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
[2017-01-09 12:20] LABS: CALCIUM 9.1 mg/dL (8.5-10.1); CREATININE 1.8 mg/dL (0.7-1.3); GFR 36.5; MAGNESIUM 2.1 mg/dL (1.8-2.4); POTASSIUM 4.3 mmol/L (3.5-5.1)
[2017-01-09] MEDS: MICAFUNGIN 100 MG in IV DEXTROSE 5% 100 ML IV SCH (13:57)
[2017-01-09] MEDS: CHLORHEXIDINE 0.12% 15 ML MOUTHWASH. SWSP SCH ×2 (14:56→21:59)
[2017-01-09 15:17] VITALS: BP 140/48
--- NOTE | 2017-01-09 16:21 | EKG ---
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
[2017-01-09] MEDS: METOPROLOL TART IMMED RELEASE 50 MG TABLET PO SCH (17:28)
[2017-01-09] MEDS ORDERED: DIGOXIN 500 MCG/2 ML AMPUL. IV ONE (17:30)
[2017-01-09 19:30] VITALS: BP 142/45
[2017-01-09] MEDS: ATORVASTATIN CALCIUM 10 MG TABLET. PO SCH (21:59)
[2017-01-09 22:30] VITALS: BP 133/61
[2017-01-10 02:42] VITALS: BP 162/76
[2017-01-10] MEDS: BUDESONIDE 0.5 MG/2 ML NEBU NEB SCH ×2 (06:08→19:31)
[2017-01-10] MEDS: IPRATRPIUM/ALBUTEROL 0.5/2.5MG 3 ML NEBU. NEB SCH ×4 (06:08→19:31)
[2017-01-10] MEDS: MEROPENEM 500 MG in IV NORMAL SALINE 50ML 50 ML IV SCH (06:22)
[2017-01-10] MEDS: HEPARIN PF for SUB-Q USE 5,000 UNIT/0.5 ML VIAL. SQ SCH ×3 (06:28→21:38)
[2017-01-10 07:06] LABS: CALCIUM 9.3 mg/dL (8.5-10.1); CREATININE 1.8 mg/dL (0.7-1.3); GFR 36.5; POTASSIUM 4.4 mmol/L (3.5-5.1)
[2017-01-10 07:15] VITALS: BP 121/61
[2017-01-10] MEDS: CHLORHEXIDINE 0.12% 15 ML MOUTHWASH. SWSP SCH ×3 (08:04→21:28)
[2017-01-10] MEDS: NYSTATIN 100,000 UNITS/ML 5 ML ORAL.SUSP. SWSW SCH ×2 (08:04→21:29)
[2017-01-10] MEDS: DILTIAZEM HCL 120 MG CAP.ER.24H PO SCH (08:05)
[2017-01-10] MEDS: TAMSULOSIN 0.4 MG CAP.ER.24H. PO SCH (08:06)
[2017-01-10] MEDS: PRIMIDONE 50 MG TABLET PO SCH (08:06)
[2017-01-10] MEDS: PANTOPRAZOLE 40 MG TABLET. PO SCH (08:06)
[2017-01-10] MEDS: GUAIFENESIN ER 600 MG TABLET.ER PO SCH ×2 (08:06→21:29)
[2017-01-10] MEDS: ASPIRIN 81 MG TAB.CHEW PO SCH (08:07)
[2017-01-10] MEDS: methylPREDNISolone SOD SUCC PF 40 MG/ML VIAL. IV SCH (08:07)
[2017-01-10] MEDS: METOPROLOL TART IMMED RELEASE 50 MG TABLET PO SCH (08:08)
[2017-01-10] MEDS: INSULIN ASPART 300 UNITS/3 ML INSULN.PEN SQ SCH ×3 (08:14→18:19)
[2017-01-10] MEDS ORDERED: DIGOXIN 125 MCG TABLET PO SCH (09:00)
[2017-01-10] MEDS: PREDNISONE 20 MG TABLET PO SCH (09:00)
--- NOTE | 2017-01-10 09:22 | PDOC ---
Infectious Disease Note Subjective Subjective Some better. Still sputum but better overall. Mouth improving ROS ROS GEN: Denies fevers, chills, sweats HEENT: Denies blurred vision, sore throat CV: Denies chest pain RESP: Denies shortness of air GI: Denies n/v/d NEURO: Denies confusion, dizziness MSK: Denies weakness, joint pain/swelling Vital Sign Vital Signs Vital Signs Date Time Temp Pulse Resp B/P Pulse Ox O2 Delivery O2 Flow Rate FiO2 01/10/17 08:08 104 121/61 01/10/17 07:15 98.1 22 94 Nasal Cannula 2.0 98.1 Physical Exam PHYSICAL EXAM GENERAL: NAD, Alert - eating HEENT: PERRL, OC/OP still some thrush but better NECK: Supple, no JVD, no LN LUNGS: Slight wheeze on left. on 02 HEART: S1S2, no gallop, no murmur ABD: Soft, NT, no organomegaly, no rebound EXT: No edema, no cyanosis [employer]ING: Alert, 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, no focal neurologic deficit SKIN: No rash IV: ok Labs Lab Laboratory Tests Test 01/09/17 11:30 01/09/17 12:13 01/09/17 16:33 01/09/17 21:18 Sodium Level 143mmol/L (136-145) Potassium Level 4.3mmol/L (3.5-5.1) Chloride Level 103mmol/L (98-107) Carbon Dioxide Level 29mmol/L (21-32) Anion Gap 11 (6-14) Blood Urea Nitrogen 50mg/dL (8-26) Creatinine 1.8mg/dL (0.7-1.3) Estimated GFR (Cockcroft-Gault) 36.5 Glucose Level 231mg/dL (70-99) Calcium Level 9.1mg/dL (8.5-10.1) Magnesium Level 2.1mg/dL (1.8-2.4) Thyroid Stimulating Hormone (TSH) 0.125uIU/mL (0.358-3.74) Glucose (Fingerstick) 228mg/dL (70-99) 306mg/dL (70-99) 215mg/dL (70-99) Test 01/10/17 06:33 01/10/17 08:01 Sodium Level 141mmol/L (136-145) Potassium Level 4.4mmol/L (3.5-5.1) Chloride Level 103mmol/L (98-107) Carbon Dioxide Level 28mmol/L (21-32) Anion Gap 10 (6-14) Blood Urea Nitrogen 48mg/dL (8-26) Creatinine 1.8mg/dL (0.7-1.3) Estimated GFR (Cockcroft-Gault) 36.5 Glucose Level 246mg/dL (70-99) Calcium Level 9.3mg/dL (8.5-10.1) Magnesium Level 2.1mg/dL (1.8-2.4) Glucose (Fingerstick) 287mg/dL (70-99) Objective Assessment Thrush Pneumonia Afib Leukocytosis Plan Plan of Care D/c Meropenem begin Augmentin thru 01/14 Dose Micafungin times 2 for heavy thrush ? convert to Prednisone Cont Nystatin Add Peridex s/spit F/u labs and cults PETE FRANCISCO MD Jan 10, 2017 09:22
--- NOTE | 2017-01-10 09:29 | PDOC ---
ELIO SOMMERS FUR DESIGNER 01/10/17 0929: CARDIO Progress Notes Date and Time Date of Service 01/10/2017 Time of Evaluation 0943 Subjective Subjective: No Chest Pain, No shortness of breath, No Palpitations, No Dizziness, Other (tolerating ambulation better) Vitals Vitals Vital Signs Date Time Temp Pulse Resp B/P Pulse Ox O2 Delivery O2 Flow Rate FiO2 01/10/17 08:08 104 121/61 01/10/17 08:00 Nasal Cannula 2.0 01/10/17 07:15 98.1 22 94 98.1 Weight Weight [ ] Input and Output Intake and Output Intake and Output 01/10/17 07:00 Intake Total 970 ml Output Total 1325 ml Balance -355 ml Intake Oral 920 ml IV Total 50 ml Output Urine Total 1325 ml # Bowel Movements 3 Laboratory Labs Laboratory Tests Test 01/09/17 11:30 01/09/17 12:13 01/09/17 16:33 01/09/17 21:18 Sodium Level 143mmol/L (136-145) Potassium Level 4.3mmol/L (3.5-5.1) Chloride Level 103mmol/L (98-107) Carbon Dioxide Level 29mmol/L (21-32) Anion Gap 11 (6-14) Blood Urea Nitrogen 50mg/dL (8-26) Creatinine 1.8mg/dL (0.7-1.3) Estimated GFR (Cockcroft-Gault) 36.5 Glucose Level 231mg/dL (70-99) Calcium Level 9.1mg/dL (8.5-10.1) Magnesium Level 2.1mg/dL (1.8-2.4) Thyroid Stimulating Hormone (TSH) 0.125uIU/mL (0.358-3.74) Glucose (Fingerstick) 228mg/dL (70-99) 306mg/dL (70-99) 215mg/dL (70-99) Test 01/10/17 06:33 01/10/17 08:01 Sodium Level 141mmol/L (136-145) Potassium Level 4.4mmol/L (3.5-5.1) Chloride Level 103mmol/L (98-107) Carbon Dioxide Level 28mmol/L (21-32) Anion Gap 10 (6-14) Blood Urea Nitrogen 48mg/dL (8-26) Creatinine 1.8mg/dL (0.7-1.3) Estimated GFR (Cockcroft-Gault) 36.5 Glucose Level 246mg/dL (70-99) Calcium Level 9.3mg/dL (8.5-10.1) Magnesium Level 2.1mg/dL (1.8-2.4) Glucose (Fingerstick) 287mg/dL (70-99) Microbiology Micro Microbiology 01/04/17 Blood Culture - Final, Complete NO GROWTH AFTER 5 DAYS 01/05/17 Gram Stain - Final, Complete Physical Exam HEENT: Neck Supple W Full Motion Chest: Symmetric LUNGS: Other (bibasilar crackles; faint upper wheeze) Heart: S1S2, murmurs (2/6 systolic murmur to LLS border), other (irregular. SR with MAT/WAP) Abdomen: Soft N/T Extremities: No Edema, No Calf Tenderness Neurology: alert, oriented, follow commands Assessment Assessment 1. 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 PAFIB vs MAT. 3. Chronic diastolic CHF: compensated 4. LISA on CKD3 5. Dementia 6. HTN/HLP 7. Subclinical hyperthyroidism: TSH 0.125 Recommendations 1. Continue with current cardizem CD at 240 mg daily. Still has some exertional tachycardia. Daytime metoprolol, adjust per tolerance 2. Remains in SR. Will consider for MCOT to rule out any possibility of SSS. 3. Currently on ASA. Not on OAC, suspect poor candidate with noted dementia, significant fall risk, dizzy spells. 4. Continue with secondary prevention 5. Cr improved. Restart lasix tomorrow. Maintain hydration adequacy. DONNA ZAYAS MD 01/10/17 2301: CARDIO Progress Notes Plan Plan Pt. seen and examined. Agree with above [employer] PROFIL[employer] note. No acute events overnight. HR better controlled today. Less wheezing on exam. Continue supportive care with daytime b-drew to help suppress HR. If stable overnight, can likely be dc'ed from a CV perspective. Will f/u in a.m. ELIO SOMMERS APRN Jan 10, 2017 09:29 DONNA ZAYAS MD Jan 10, 2017 23:01
[2017-01-10] MEDS ORDERED: BARIUM SULFATE 40% 148 GM PWD PO ONE (10:00)
--- NOTE | 2017-01-10 10:09 | PDOC ---
PROGRESS NOTES Chief Complaint Chief Complaint sob, cough 1. Acute on chronic respiratory failure with hypoxia 2. COPD exacerbation with Pneumonia. 3. Chronic diastolic CHF with EF 50% 4. HTN 5. 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 PFIB 7. Sepsis 8. Anxiety 9. bedbound with generalized weakness 10. Mild malnutrition 11. lactate acidosis 12. h/o CVA wo obvious weakness Plan ABX per id Augmenting HR controlled at rest Cardizem dose has been adjusted Poor candidate for oral ac due to fall risk steroid taper PT/OT Supplemental oxygen periodic nebulizations, Xopenex SSI Heparin for dvt prophylaxis. labs reviewed. History of Present Illness History of Present Illness cough sob better no chest pain Vitals Vitals Vital Signs Date Time Temp Pulse Resp B/P Pulse Ox O2 Delivery O2 Flow Rate FiO2 01/10/17 08:08 104 121/61 01/10/17 08:00 Nasal Cannula 2.0 01/10/17 07:15 98.1 22 94 98.1 Physical Exam General: Alert, Oriented X3, Cooperative, mild distress Heart: Normal S1, Other Lungs: Clear Abdomen: Normal bowel sounds Extremities: No edema, Normal pulses Skin: No rashes Labs LABS Laboratory Tests Test 01/09/17 11:30 01/09/17 12:13 01/09/17 16:33 01/09/17 21:18 Sodium Level 143mmol/L (136-145) Potassium Level 4.3mmol/L (3.5-5.1) Chloride Level 103mmol/L (98-107) Carbon Dioxide Level 29mmol/L (21-32) Anion Gap 11 (6-14) Blood Urea Nitrogen 50mg/dL (8-26) Creatinine 1.8mg/dL (0.7-1.3) Estimated GFR (Cockcroft-Gault) 36.5 Glucose Level 231mg/dL (70-99) Calcium Level 9.1mg/dL (8.5-10.1) Magnesium Level 2.1mg/dL (1.8-2.4) Thyroid Stimulating Hormone (TSH) 0.125uIU/mL (0.358-3.74) Glucose (Fingerstick) 228mg/dL (70-99) 306mg/dL (70-99) 215mg/dL (70-99) Test 01/10/17 06:33 01/10/17 08:01 Sodium Level 141mmol/L (136-145) Potassium Level 4.4mmol/L (3.5-5.1) Chloride Level 103mmol/L (98-107) Carbon Dioxide Level 28mmol/L (21-32) Anion Gap 10 (6-14) Blood Urea Nitrogen 48mg/dL (8-26) Creatinine 1.8mg/dL (0.7-1.3) Estimated GFR (Cockcroft-Gault) 36.5 Glucose Level 246mg/dL (70-99) Calcium Level 9.3mg/dL (8.5-10.1) Magnesium Level 2.1mg/dL (1.8-2.4) Glucose (Fingerstick) 287mg/dL (70-99) Assessment and Plan Assessmemt and Plan Problems Medical Problems: (1) Sepsis Status: Acute Problems: Comment Review of Relevant I have reviewed the following items be (where applicable) has been applied. Labs Laboratory Tests Test 01/08/17 11:35 01/08/17 16:36 01/08/17 20:46 01/09/17 07:54 Glucose (Fingerstick) 322mg/dL (70-99) 235mg/dL (70-99) 209mg/dL (70-99) 177mg/dL (70-99) Test 01/09/17 11:30 01/09/17 12:13 01/09/17 16:33 01/09/17 21:18 Sodium Level 143mmol/L (136-145) Potassium Level 4.3mmol/L (3.5-5.1) Chloride Level 103mmol/L (98-107) Carbon Dioxide Level 29mmol/L (21-32) Anion Gap 11 (6-14) Blood Urea Nitrogen 50mg/dL (8-26) Creatinine 1.8mg/dL (0.7-1.3) Estimated GFR (Cockcroft-Gault) 36.5 Glucose Level 231mg/dL (70-99) Calcium Level 9.1mg/dL (8.5-10.1) Magnesium Level 2.1mg/dL (1.8-2.4) Thyroid Stimulating Hormone (TSH) 0.125uIU/mL (0.358-3.74) Glucose (Fingerstick) 228mg/dL (70-99) 306mg/dL (70-99) 215mg/dL (70-99) Test 01/10/17 06:33 01/10/17 08:01 Sodium Level 141mmol/L (136-145) Potassium Level 4.4mmol/L (3.5-5.1) Chloride Level 103mmol/L (98-107) Carbon Dioxide Level 28mmol/L (21-32) Anion Gap 10 (6-14) Blood Urea Nitrogen 48mg/dL (8-26) Creatinine 1.8mg/dL (0.7-1.3) Estimated GFR (Cockcroft-Gault) 36.5 Glucose Level 246mg/dL (70-99) Calcium Level 9.3mg/dL (8.5-10.1) Magnesium Level 2.1mg/dL (1.8-2.4) Glucose (Fingerstick) 287mg/dL (70-99) Laboratory Tests Test 01/09/17 11:30 01/09/17 12:13 01/09/17 16:33 01/09/17 21:18 Sodium Level 143mmol/L (136-145) Potassium Level 4.3mmol/L (3.5-5.1) Chloride Level 103mmol/L (98-107) Carbon Dioxide Level 29mmol/L (21-32) Anion Gap 11 (6-14) Blood Urea Nitrogen 50mg/dL (8-26) Creatinine 1.8mg/dL (0.7-1.3) Estimated GFR (Cockcroft-Gault) 36.5 Glucose Level 231mg/dL (70-99) Calcium Level 9.1mg/dL (8.5-10.1) Magnesium Level 2.1mg/dL (1.8-2.4) Thyroid Stimulating Hormone (TSH) 0.125uIU/mL (0.358-3.74) Glucose (Fingerstick) 228mg/dL (70-99) 306mg/dL (70-99) 215mg/dL (70-99) Test 01/10/17 06:33 01/10/17 08:01 Sodium Level 141mmol/L (136-145) Potassium Level 4.4mmol/L (3.5-5.1) Chloride Level 103mmol/L (98-107) Carbon Dioxide Level 28mmol/L (21-32) Anion Gap 10 (6-14) Blood Urea Nitrogen 48mg/dL (8-26) Creatinine 1.8mg/dL (0.7-1.3) Estimated GFR (Cockcroft-Gault) 36.5 Glucose Level 246mg/dL (70-99) Calcium Level 9.3mg/dL (8.5-10.1) Magnesium Level 2.1mg/dL (1.8-2.4) Glucose (Fingerstick) 287mg/dL (70-99) Microbiology 01/04/17 Blood Culture - Final, Complete NO GROWTH AFTER 5 DAYS 01/05/17 Gram Stain - Final, Complete Medications Current Medications Vancomycin HCl (Vanco Per Pharmacy) 1 each 1X ONCE MC ; Start 01/04/17 at 15:30 ; Stop 01/04/17 at 15:31; Status UNV Methylprednisolone Sodium Succinate 125 mg 125 mg 1X ONCE IV Last administered on 01/04/17 15:30; Start 01/04/17 at 15:30; Stop 01/04/17 at 15:31; Status DC Sodium Chloride (Iv Sodium Chloride 0.9% 500ml Bag) 500 ml @ 500 mls/hr 1X ONCE IV Last administered on 01/04/17 15:30; Start 01/04/17 at 15:30; Stop at 16:29; Status DC Piperacillin Sod/ Tazobactam Sod (Zosyn Per Pharmacy) 1 each PRN DAILY PRN MC SEE COMMENTS; Start 01/04/17 at 15:30; Stop 01/04/17 at 17:09; Status DC Acetaminophen 1000 mg 1,000 mg 1X ONCE PO Last administered on 01/04/17 15:45 ; Start 01/04/17 at 15:45; Stop 01/04/17 at 15:47; Status DC Sodium Chloride 500 ml @ 500 mls/hr 1X ONCE IV Last administered on 01/04/17 15:45; Start 01/04/17 at 15:45; Stop 01/04/17 at 16:44; Status DC Vancomycin HCl 1.5 gm/Sodium Chloride 500 ml @ 250 mls/hr 1X ONCE IV Last administered on 01/04/17 16:15; Start 01/04/17 at 16:15; Stop 01/04/17 at 18:14; Status DC Piperacillin Sod/ Tazobactam Sod/ Sodium Chloride (Zosyn/Iv Sodium Chloride 0.9 % 50ml) 50 ml @ 100 mls/hr 1X ONCE IV Last administered on 01/04/17 16:15; Start 01/04/17 at 16:15; Stop 01/04/17 at 16:44; Status DC Acetaminophen (Tylenol) 650 mg Q4HRS PRN PO MILD PAIN; Start 01/04/17 at 17:15 Aspirin (Children'S Aspirin) 81 mg DAILYWBKFT PO Last administered on 01/10/17 08:07; Start 01/05/17 at 08:00 Atorvastatin Calcium (Lipitor) 10 mg QHS PO Last administered on 01/09/17 21:59 ; Start 01/04/17 at 21:00 Bisacodyl (Dulcolax Supp) 10 mg PRN DAILY PRN RC CONSTIPATION; Start 01/04/17 at 17:15 Guaifenesin (Mucinex) 600 mg BID PO Last administered on 01/10/17 08:06; Start 01/04/17 at 21:00 Albuterol/ Ipratropium (Duoneb) 3 ml PRN Q4HRS PRN NEB SHORTNESS OF BREATH; Start 01/04/17 at 17:15; Stop 01/04/17 at 17:15; Status DC Lorazepam (Ativan) 0.5 mg PRN Q8HRS PRN PO ANXIETY / AGITATION Last administered on 01/07/17 20:57; Start 01/04/17 at 17:15 Magnesium Hydroxide (Milk Of Magnesia) 400 mg PRN DAILY PRN PO CONSTIPATION; Start 01/04/17 at 17:15 Metoprolol Succinate (Toprol Xl) 25 mg DAILY PO ; Start 01/05/17 at 09:00; Stop 01/05/17 at 09:00; Status DC Primidone (Mysoline) 50 mg DAILY PO Last administered on 01/10/17 08:06; Start 01/05/17 at 09:00 Spironolactone (Aldactone) 25 mg DAILY PO Last administered on 01/09/17 09:16; Start 01/05/17 at 09:00; Stop 01/09/17 at 15:01; Status DC Tamsulosin HCl (Flomax) 0.4 mg DAILY PO Last administered on 01/10/17 08:06; Start 01/05/17 at 09:00 Budesonide (Pulmicort) 0.5 mg RTBID NEB Last administered on 01/10/17 06:08; Start 01/04/17 at 20:00 Albuterol/ Ipratropium 3 ml 3 ml RTQID NEB Last administered on 01/10/17 06:08 ; Start 01/04/17 at 20:00 Meropenem/Sodium Chloride (Merrem/Iv Sodium Chloride 0.9% 50ml) 50 ml @ 100 mls /hr Q8HRS IV ; Start 01/04/17 at 22:00; Stop 01/04/17 at 22:00; Status DC Albuterol Sulfate (Ventolin Neb Soln) 2.5 mg PRN Q2HR PRN NEB SHORTNESS OF BREATH Last administered on 01/07/17 00:10; Start 01/04/17 at 17:15 Vancomycin HCl (Vanco Per Pharmacy) 1 each PRN DAILY PRN MC SEE COMMENTS Last administered on 01/09/17 09:08; Start 01/04/17 at 17:15; Stop 01/09/17 at 12:19; Status DC Methylprednisolone Sodium Succinate (Solu-Medrol 40mg Vial) 40 mg TID IV Last administered on 01/06/17 08:14; Start 01/04/17 at 21:00; Stop 01/06/17 at 13:00; Status DC Pantoprazole Sodium (Protonix) 40 mg DAILYAC PO Last administered on 01/10/17 08:06; Start 01/05/17 at 07:30 Hydralazine HCl 10 mg 10 mg PRN Q4HRS PRN IVP HYPERTENSION, SEE COMMENTS; Start 01/04/17 at 17:15 Sodium Chloride (Iv Sodium Chloride 0.9% 1000ml Bag) 1,000 ml @ 75 mls/hr 1X ONCE IV Last administered on 01/04/17 17:15; Start 01/04/17 at 17:15; Stop at 06:34; Status DC Heparin Sodium (Porcine) 5000 unit 5,000 unit Q8HRS SQ Last administered on 01/10 06:28; Start 01/04/17 at 22:00 Meropenem 500 mg/ Sodium Chloride 50 ml @ 100 mls/hr BID IV Last administered on 01/09/17 08:56; Start 01/04/17 at 21:00; Stop 01/09/17 at 09:02; Status DC Sodium Chloride (Iv Sodium Chloride 0.9% 1000ml Bag) 1,000 ml @ 1,000 mls/hr 1X ONCE IV Last administered on 01/04/17 17:45; Start 01/04/17 at 17:45; Stop 01/04/17 at 18:44; Status DC Albuterol/ Ipratropium (Duoneb) 3 ml 1X ONCE NEB Last administered on 18:10; Start 01/04/17 at 17:45; Stop 01/04/17 at 17:49; Status DC Ondansetron HCl (Zofran) 4 mg PRN Q8HRS PRN IV NAUSEA/VOMITING; Start 01/04/17 at 18:00; Stop 01/05/17 at 17:59; Status DC Morphine Sulfate 2 mg 2 mg PRN Q2HR PRN IV PAIN; Start 01/04/17 at 18:00; Stop 01/05/17 at 17:59; Status DC Sodium Chloride (Iv Sodium Chloride 0.9% 1000ml Bag) 1,000 ml @ 125 mls/hr Q8H IV ; Start 01/04/17 at 17:50; Stop 01/05/17 at 17:49; Status Cancel Albuterol/ Ipratropium (Duoneb) 3 ml RTQID NEB ; Start 01/04/17 at 20:00; Stop at 19:59; Status UNV Digoxin 125 mcg 125 mcg 1X ONCE IV Last administered on 01/04/17 19:32; Start 01/04/17 at 19:15; Stop 01/04/17 at 19:16; Status DC Vancomycin HCl/ Sodium Chloride (Iv Sodium Chloride 0.9% 250ml) 250 ml @ 167 mls/hr Q24H IV Last administered on 01/08/17 14:25; Start 01/05/17 at 16:00; Stop 01/09/17 at 12:19; Status DC Vancomycin HCl 1 each 1 each 1X ONCE MC Last administered on 2/5/17at 15:30; Start 01/06/17 at 15:30; Stop 01/06/17 at 15:31; Status DC Sodium Chloride 1,000 ml @ 1,000 mls/hr 1X ONCE IV Last administered on 19:37; Start 01/04/17 at 19:45; Stop 01/04/17 at 20:44; Status DC Norepinephrine Bitartrate 8 mg/ Sodium Chloride 258 ml @ 0 mls/hr CONT PRN IV SEE I/O RECORD; Start 01/04/17 at 22:15; Stop 01/06/17 at 22:35; Status DC Sodium Chloride (Iv Sodium Chloride 0.9% 1000ml Bag) 1,000 ml @ 75 mls/hr 1X ONCE IV Last administered on 01/05/17 09:34; Start 01/05/17 at 08:45; Stop at 22:04; Status DC Insulin Aspart (Novolog) 0-9 UNITS TIDWMEALS SQ Last administered on 01/10/17 08:14; Start 01/05/17 at 12:00 Dextrose 12.5 gm PRN Q15MIN PRN IV SEE COMMENTS; Start 01/05/17 at 08:45 Guaifenesin (Robitussin) 200 mg PRN Q4HRS PRN PO COUGH; Start 01/05/17 at 08:45 ; Stop 01/05/17 at 12:57; Status DC Metoprolol Tartrate (Lopressor) 5 mg Q6HRS IVP Last administered on 01/06/17 17 :23; Start 01/05/17 at 09:30; Stop 01/06/17 at 23:15; Status DC Digoxin (Lanoxin) 250 mcg 1X ONCE IV Last administered on 01/05/17 21:54; Start 01/05/17 at 20:00; Stop 01/05/17 at 20:01; Status DC Furosemide (Lasix) 40 mg 1X ONCE IVP Last administered on 01/06/17 03:37; Start 01/06/17 at 04:00; Stop 01/06/17 at 04:01; Status DC Methylprednisolone Sodium Succinate (Solu-Medrol 40mg Vial) 40 mg BID IV Last administered on 01/10/17 08:07; Start 01/06/17 at 21:00 Furosemide (Lasix) 40 mg DAILY PO Last administered on 01/09/17 08:51; Start at 09:00; Stop 01/09/17 at 15:01; Status DC Sodium Chloride 1 diana 1 diana PRN Q1HR PRN NS NASAL CONGESTION; Start 01/06/17 at 17:45 Diltiazem HCl/ Dextrose (Cardizem) 125 ml @ 0 mls/hr CONT PRN IV SEE I/O RECORD Last administered on 01/07/17 04:21; Start 01/06/17 at 18:00; Stop at 13:55; Status DC Furosemide (Lasix) 40 mg 1X ONCE IVP Last administered on 01/07/17 00:12; Start 01/07/17 at 00:30; Stop 01/07/17 at 00:31; Status DC Metoprolol Tartrate (Lopressor) 25 mg BID PO Last administered on 01/08/17 08: 02; Start 01/07/17 at 13:00; Stop 01/08/17 at 13:24; Status DC Diltiazem HCl (Cardizem 24hr Cd) 120 mg DAILY PO Last administered on 01/08/17 08:02; Start 01/07/17 at 14:00; Stop 01/08/17 at 13:24; Status DC Digoxin (Lanoxin) 250 mcg 1X ONCE IV Last administered on 01/07/17 21:11; Start 01/07/17 at 21:15; Stop 01/07/17 at 21:16; Status DC Diltiazem HCl (Cardizem 24hr Cd) 240 mg DAILY PO Last administered on 01/10/17 08:05; Start 01/09/17 at 09:00 Diltiazem HCl (Cardizem 24hr Cd) 120 mg 1X ONCE PO Last administered on 20:48; Start 01/08/17 at 21:00; Stop 01/08/17 at 21:01; Status DC Nystatin 5 ml 5 ml BID SWSW Last administered on 01/10/17 08:04; Start 01/08/17 at 22:00 Meropenem/Sodium Chloride (Merrem/Iv Sodium Chloride 0.9% 50ml) 50 ml @ 100 mls /hr Q8HRS IV Last administered on 01/10/17 06:22; Start 01/09/17 at 15:00; Stop 01/10/17 at 09:21; Status DC Chlorhexidine Gluconate 15 ml 15 ml TID SWSP Last administered on 01/10/17 08: 04; Start 01/09/17 at 14:00 Micafungin Sodium/ Dextrose (Mycamine) 100 ml @ 100 mls/hr Q24H IV Last administered on 01/09/17 13:57; Start 01/09/17 at 12:30 Furosemide (Lasix) 40 mg DAILY PO ; Start 01/11/17 at 09:00 Digoxin (Lanoxin) 500 mcg 1X ONCE IV ; Start 01/09/17 at 17:30; Stop 01/09/17 at 17:30; Status DC Digoxin (Lanoxin) 125 mcg DAILY PO ; Start 01/10/17 at 09:00; Stop 01/10/17 at 09: 00; Status DC Metoprolol Tartrate (Lopressor) 50 mg DAILY PO Last administered on 01/10/17 08 :08; Start 01/09/17 at 18:00 Amoxicillin/ Clavulanate Potassium (Augmentin 500/ 125mg) 1 tab BID PO ; Start 01/10/17 at 21:00 Barium Sulfate (Varibar Thin Liquid) 148 gm 1X ONCE PO ; Start 01/10/17 at 10:00 ; Stop 01/10/17 at 10:03; Status DC Active Scripts Active Reported Tamsulosin Hcl 0.4 Mg Cap.er.24h 1 Cap PO DAILY Symbicort 160-4.5 Mcg Inhaler (Budesonide/Formoterol Fumarate) 10.2 Gm Hfa.aer.ad 2 Puff IH BID Spironolactone 25 Mg Tablet 1 Tab PO DAILY Primidone 50 Mg Tablet 50 Mg PO DAILY Pantoprazole Sodium 40 Mg Tablet.dr 1 Tab PO BID Metoprolol Succinate 50 Mg Tab.er.24h 25 Mg PO DAILY Lorazepam 0.5 Mg Tablet 1 Tab PO PRN Q8HRS PRN Duoneb 0.5-3(2.5) Mg/3 Ml (Albuterol/Ipratropium) 3 Ml Ampul.neb 3 Ml NEB Q4HRS Milk Of Magnesia (Magnesium Hydroxide) 400 Mg/5 Ml Oral.susp 400 Mg PO PRN DAILY PRN Atorvastatin Calcium 10 Mg Tablet 1 Tab PO DAILY Aspirin 81 Mg Tab.chew 81 Mg PO DAILY Acetaminophen 325 Mg Tablet 650 Mg PO Q4HRS PRN Duoneb 0.5-3(2.5) Mg/3 Ml (Albuterol/Ipratropium) 3 Ml Ampul.neb 3 Ml NEB PRN Q4HRS PRN Guaifenesin 600 Mg Tablet.er 600 Mg PO BID Furosemide 40 Mg Tablet 40 Mg PO DAILY Fleet Enema (Na Phos,M-B/Na Phos,Di-Ba) 133 Ml Enema 1 Each RC PRN DAILY PRN Aspirin Ec (Aspirin) 81 Mg Tablet.dr 1 Tab PO DAILY Dulcolax (Bisacodyl) 10 Mg Supp.rect 10 Mg RC PRN DAILY PRN Vitals/I & O Vital Sign - Last 24 Hours 01/09/17 01/09/17 01/09/17 01/09/17 11:11 11:47 15:17 16:10 Temp 98.4 98.0 98.4 98.0 Pulse 112 96 Resp 20 B/P 149/53 140/48 Pulse Ox 94 93 O2 Delivery Nasal Cannula Nasal Cannula Nasal Cannula Nasal Cannula O2 Flow Rate 4.0 4.0 01/09/17 01/09/17 01/09/17 01/09/17 19:25 19:26 19:30 19:40 Temp 98.1 98.1 Pulse 96 Resp 18 B/P 142/45 Pulse Ox 98 98 96 O2 Delivery Nasal Cannula Nasal Cannula Nasal Cannula Nasal Cannula O2 Flow Rate 4.0 4.0 2.0 2.0 01/09/17 01/10/17 01/10/17 01/10/17 22:30 02:42 06:05 07:15 Temp 97.8 97.8 98.1 97.8 97.8 98.1 Pulse 94 70 104 Resp 22 22 B/P 133/61 162/76 121/61 Pulse Ox 96 99 98 94 O2 Delivery Nasal Cannula Nasal Cannula Nasal Cannula Nasal Cannula O2 Flow Rate 2.0 2.0 4.0 2.0 01/10/17 01/10/17 01/10/17 08:00 08:05 08:08 Pulse 104 104 B/P 121/61 121/61 O2 Delivery Nasal Cannula O2 Flow Rate 2.0 Intake and Output 01/09/17 01/09/17 01/10/17 15:00 23:00 07:00 Intake Total 710 ml 260 ml Output Total 625 ml 700 ml Balance -625 ml 710 ml -440 ml JUSTIN CHRUCH MD Jan 10, 2017 10:09
[2017-01-10 11:00] VITALS: BP 130/64
--- NOTE | 2017-01-10 11:22 | RAD ---
Video fluoroscopic swallowing study Clinical indications: Dysphagia, oral pharyngeal phase. Total fluoroscopic time: 3.8 minutes. Total fluoroscopic static spot images: 0. Findings: A video fluoroscopic swallowing study is performed with the speech pathologist present. Deep laryngeal penetration down to the level of the cords is seen with thin liquids with residual coating of the anterior aspect of the larynx. No laryngeal aspiration below the level of cords is seen. Vallecular pooling is seen and laryngeal penetration secondary to overflow is evident. The laryngeal penetration resolves with thicker honey-like consistency liquids. The laryngeal penetration is silent. IMPRESSION: Laryngeal penetration is seen with thin liquids. Full report to follow by speech pathology.
[2017-01-10] MEDS: MICAFUNGIN 100 MG in IV DEXTROSE 5% 100 ML IV SCH (13:26)
[2017-01-10 15:00] VITALS: BP 127/52
--- NOTE | 2017-01-10 15:10 | PDOC ---
PULMONARY PROGRESS NOTES Subjective PT FEELS , Vitals Vital Signs Date Time Temp Pulse Resp B/P Pulse Ox O2 Delivery O2 Flow Rate FiO2 01/10/17 11:40 99 Nasal Cannula 3.0 01/10/17 11:00 97.9 69 16 130/64 97.9 ROS: No Nausea, No Chest Pain, No Abdominal Pain, No Increase Cough General: Alert, No acute distress HEENT: Other Lungs: Clear Cardiovascular: S1, S2 Abdomen: Soft, Non-tender Neuro Exam: Alert Extremities: No Edema Skin: Warm Labs Laboratory Tests Test 01/08/17 16:36 01/08/17 20:46 01/09/17 07:54 01/09/17 11:30 Glucose (Fingerstick) 235mg/dL (70-99) 209mg/dL (70-99) 177mg/dL (70-99) Sodium Level 143mmol/L (136-145) Potassium Level 4.3mmol/L (3.5-5.1) Chloride Level 103mmol/L (98-107) Carbon Dioxide Level 29mmol/L (21-32) Anion Gap 11 (6-14) Blood Urea Nitrogen 50mg/dL (8-26) Creatinine 1.8mg/dL (0.7-1.3) Estimated GFR (Cockcroft-Gault) 36.5 Glucose Level 231mg/dL (70-99) Calcium Level 9.1mg/dL (8.5-10.1) Magnesium Level 2.1mg/dL (1.8-2.4) Thyroid Stimulating Hormone (TSH) 0.125uIU/mL (0.358-3.74) Test 01/09/17 12:13 01/09/17 16:33 01/09/17 21:18 01/10/17 06:33 Glucose (Fingerstick) 228mg/dL (70-99) 306mg/dL (70-99) 215mg/dL (70-99) Sodium Level 141mmol/L (136-145) Potassium Level 4.4mmol/L (3.5-5.1) Chloride Level 103mmol/L (98-107) Carbon Dioxide Level 28mmol/L (21-32) Anion Gap 10 (6-14) Blood Urea Nitrogen 48mg/dL (8-26) Creatinine 1.8mg/dL (0.7-1.3) Estimated GFR (Cockcroft-Gault) 36.5 Glucose Level 246mg/dL (70-99) Calcium Level 9.3mg/dL (8.5-10.1) Magnesium Level 2.1mg/dL (1.8-2.4) Test 01/10/17 08:01 Glucose (Fingerstick) 287mg/dL (70-99) Laboratory Tests Test 01/09/17 16:33 01/09/17 21:18 01/10/17 06:33 01/10/17 08:01 Glucose (Fingerstick) 306mg/dL (70-99) 215mg/dL (70-99) 287mg/dL (70-99) Sodium Level 141mmol/L (136-145) Potassium Level 4.4mmol/L (3.5-5.1) Chloride Level 103mmol/L (98-107) Carbon Dioxide Level 28mmol/L (21-32) Anion Gap 10 (6-14) Blood Urea Nitrogen 48mg/dL (8-26) Creatinine 1.8mg/dL (0.7-1.3) Estimated GFR (Cockcroft-Gault) 36.5 Glucose Level 246mg/dL (70-99) Calcium Level 9.3mg/dL (8.5-10.1) Magnesium Level 2.1mg/dL (1.8-2.4) Medications Active Scripts Medications Dose Route/Sig Days Date Category Tamsulosin Hcl 0.4 Mg Cap.er.24h 1 Cap PO DAILY 11/09/16 Reported Symbicort 160-4.5 Mcg Inhaler (Budesonide/Formoterol Fumarate) 10.2 Gm Hfa.aer.ad 2 Puff IH BID 11/09/16 Reported Spironolactone 25 Mg Tablet 1 Tab PO DAILY 11/09/16 Reported Primidone 50 Mg Tablet 50 Mg PO DAILY 11/09/16 Reported Pantoprazole Sodium 40 Mg Tablet.dr 1 Tab PO BID 11/09/16 Reported Metoprolol Succinate 50 Mg Tab.er.24h 25 Mg PO DAILY 11/09/16 Reported Lorazepam 0.5 Mg Tablet 1 Tab PO PRN Q8HRS PRN 11/09/16 Reported Duoneb 0.5-3(2.5) Mg/3 Ml (Albuterol/Ipratropium) 3 Ml Ampul.neb 3 Ml NEB Q4HRS 11/09/16 Reported Milk Of Magnesia (Magnesium Hydroxide) 400 Mg/5 Ml Oral.susp 400 Mg PO PRN DAILY PRN 11/09/16 Reported Atorvastatin Calcium 10 Mg Tablet 1 Tab PO DAILY 11/09/16 Reported Aspirin 81 Mg Tab.chew 81 Mg PO DAILY 11/09/16 Reported Acetaminophen 325 Mg Tablet 650 Mg PO Q4HRS PRN 11/09/16 Reported Duoneb 0.5-3(2.5) Mg/3 Ml (Albuterol/Ipratropium) 3 Ml Ampul.neb 3 Ml NEB PRN Q4HRS PRN 11/09/16 Reported Guaifenesin 600 Mg Tablet.er 600 Mg PO BID 11/09/16 Reported Furosemide 40 Mg Tablet 40 Mg PO DAILY 11/09/16 Reported Fleet Enema (Na Phos,M-B/Na Phos,Di-Ba) 133 Ml Enema 1 Each RC PRN DAILY PRN 11/09/16 Reported Aspirin Ec (Aspirin) 81 Mg Tablet.dr 1 Tab PO DAILY 11/09/16 Reported Dulcolax (Bisacodyl) 10 Mg Supp.rect 10 Mg RC PRN DAILY PRN 11/09/16 Reported Impression . 1. Acute on chronic respiratory failure, multifactorial. Suspect Gram-negative, possibly Gram-positive pneumonia./ CHF 2. History of chronic heart failure. 3. Sepsis with hypotension.resolved 4. Dementia. 5. Mild protein malnutrition, present upon admission. 6. Lactic acidosis. 7. Possible aspiration pneumonia. 8. Acute exacerbation of chronic obstructive pulmonary disease secondary to above. 9. Dysphagia Plan . 1. Increase ambulation 2. d/w RN 3. antibiotics per ID 4. speech evaluation done/ dysphagia diet 5. DVT and GI prophylaxes. 6. clinically better 7. steroid taper d/c plans per PCP YOSELIN KAUFMAN MD Jan 10, 2017 15:10
--- NOTE | 2017-01-10 17:13 | CONS ---
DATE OF CONSULTATION: 01/09/2017 LOCATION: The patient's room is 250. REQUESTING PHYSICIAN: Dr. Kim REASON FOR CONSULTATION: Pneumonia and thrush. HISTORY OF PRESENT ILLNESS: The patient is a pleasant 81-year-old gentleman who was at [facility], has a history of COPD and was brought to [facility] for shortness of air. He states he was at this facility, told the people there that he felt like he had pneumonia, they had taken x-ray, apparently was clear, but two days later became acutely short of air and was transferred to [facility]. He underwent a chest x-ray which showed bilateral infiltrates. White count was elevated at 18,000. He had a pH of 7.48, pCO2 of 25, pO2 of 57 on 6 liters. He states he is not normally on oxygen at home. Denied any fevers or chills and was subsequently admitted to the hospital. He is currently on steroids, vancomycin and meropenem. He was started on Solu-Medrol and vancomycin in the Emergency Room. Zosyn was then added, but was changed to meropenem. He has developed thrush over the last several days and started oral nystatin. Currently, he is lying in bed, states he is feeling much better than when he gotten here, has no chest pain, does have some sputum production and occasional soft stool. No problems passing his urine. PAST MEDICAL HISTORY: Positive for a sputum culture back in November with Klebsiella pneumoniae species resistant to ampicillin, cefazolin, cefepime, Rocephin, cefuroxime, piperacillin and Bactrim. ADDITIONAL PAST MEDICAL HISTORY: Positive for atrial fibrillation, congestive heart failure, diastolic, hypertension, hyperlipidemia, COPD, emphysema, questionable dementia, osteoarthritis, chronic renal insufficiency and BPH. PAST SURGICAL HISTORY: Positive for hernia repair. SOCIAL HISTORY: He states he quit smoking a year ago, started at age 17. FAMILY HISTORY: Noncontributory. CURRENT MEDICATIONS: Include nystatin, vancomycin, meropenem, aspirin, Lipitor, Pulmicort, diltiazem, Lasix, Mucinex. Other meds are available and have been reviewed in the chart. PHYSICAL EXAMINATION: VITAL SIGNS: He is afebrile, temperature 94, heart rate 112, respirations 25, blood pressure 149/53. He is on 4 L nasal cannula, satting 94%. CONSTITUTIONAL: He is a pleasant gentleman. He is cooperative, in no acute distress. HEENT: Pupils are equal and reactive. Normal conjunctivae. Oral cavity, pharynx shows dentures, but also has a fair amount of thrush. NECK: Supple. LUNGS: Have some mild rhonchi. HEART: S1, S2, is in atrial fibrillation. ABDOMEN: Soft, nontender, nondistended, positive bowel sounds. EXTREMITIES: Without clubbing, cyanosis. He has trace edema. SKIN: Warm to touch without generalized signs of rash. He does have multiple tattoos. NEUROLOGIC: He is nonfocal, moves all extremities. PSYCHIATRIC: Affect is appropriate. LABORATORY VALUES: White count 13, hemoglobin 8.8, platelets of 421, segs are 91. Most recent glucose of 177. Most recent creatinine yesterday of 1.6, improved from 2.5 at the time of presentation. Influenza screen was negative. MRSA screen was negative. Urinalysis was not collected. Most recent chest x-ray from the 4th, patchy left upper lobe atelectasis and/or infiltrate. IMPRESSION: 1. Thrush. 2. Pneumonia. 3. Atrial fibrillation. 4. Leukocytosis. RECOMMENDATIONS: For now, we will discontinue the vancomycin. We will continue the meropenem. Dose micafungin x 2 for heavy thrush, continue the nystatin but also add Peridex swish and spit t.i.d. Follow up on labs and cultures. Thank you for allowing me to participate in this patient's care. If you have any questions, please do not hesitate to contact me. PETE FRANCISCO MD DR: HEDY/makenna JOB#: [id number] / [id number]
[2017-01-10 19:30] VITALS: BP 126/52
[2017-01-10] MEDS: AMOXICILLIN/K CLAV 500/125MG TABLET. PO SCH (21:29)
[2017-01-10] MEDS: ATORVASTATIN CALCIUM 10 MG TABLET. PO SCH (21:29)
[2017-01-10 22:52] VITALS: BP 137/70
[2017-01-11 03:30] VITALS: BP 149/56
[2017-01-11] MEDS: HEPARIN PF for SUB-Q USE 5,000 UNIT/0.5 ML VIAL. SQ SCH (06:28)
[2017-01-11 07:00] VITALS: BP 151/57
[2017-01-11] MEDS: BUDESONIDE 0.5 MG/2 ML NEBU NEB SCH (08:00)
[2017-01-11] MEDS: IPRATRPIUM/ALBUTEROL 0.5/2.5MG 3 ML NEBU. NEB SCH ×2 (08:00→11:46)
--- NOTE | 2017-01-11 08:07 | PDOC ---
Infectious Disease Note Subjective Subjective Better. + BM. Less cough Mouth improving ROS ROS GEN: Denies fevers, chills, sweats HEENT: Denies blurred vision, sore throat CV: Denies chest pain RESP: Denies shortness of air, cough GI: Denies n/v/d NEURO: Denies confusion, dizziness MSK: Denies weakness, joint pain/swelling Vital Sign Vital Signs Vital Signs Date Time Temp Pulse Resp B/P Pulse Ox O2 Delivery O2 Flow Rate FiO2 01/11/17 03:30 98.4 71 20 149/56 96 Nasal Cannula 2.0 98.4 Physical Exam PHYSICAL EXAM GENERAL: NAD, Alert HEENT: PERRL, OC/OP - improving NECK: Supple, no JVD, no LN LUNGS: Clear HEART: S1S2, no gallop, no murmur ABD: Soft, NT, no organomegaly, no rebound EXT: No edema, no cyanosis 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
[2017-01-11] MEDS: TAMSULOSIN 0.4 MG CAP.ER.24H. PO SCH (08:51)
[2017-01-11] MEDS: NYSTATIN 100,000 UNITS/ML 5 ML ORAL.SUSP. SWSW SCH (08:51)
[2017-01-11] MEDS: ASPIRIN 81 MG TAB.CHEW PO SCH (08:52)
[2017-01-11] MEDS: PRIMIDONE 50 MG TABLET PO SCH (08:53)
[2017-01-11] MEDS: AMOXICILLIN/K CLAV 500/125MG TABLET. PO SCH (08:53)
[2017-01-11] MEDS: PANTOPRAZOLE 40 MG TABLET. PO SCH (08:53)
[2017-01-11] MEDS: GUAIFENESIN ER 600 MG TABLET.ER PO SCH (08:53)
[2017-01-11] MEDS: PREDNISONE 20 MG TABLET PO SCH (08:53)
[2017-01-11] MEDS: DILTIAZEM HCL 120 MG CAP.ER.24H PO SCH (08:54)
[2017-01-11] MEDS ORDERED: METOPROLOL TART IMMED RELEASE 25 MG TABLET PO SCH (09:00)
[2017-01-11] MEDS ORDERED: FUROSEMIDE 40 MG TABLET PO SCH (09:00)
[2017-01-11] MEDS: INSULIN ASPART 300 UNITS/3 ML INSULN.PEN SQ SCH (09:04)
[2017-01-11 11:00] VITALS: BP 143/55
--- NOTE | 2017-01-11 15:52 | PDOC ---
PULMONARY PROGRESS NOTES Subjective PT FEELS ,BETTER Vitals Vital Signs Date Time Temp Pulse Resp B/P Pulse Ox O2 Delivery O2 Flow Rate FiO2 01/11/17 11:47 Nasal Cannula 2.0 01/11/17 11:00 98.1 65 20 143/55 99 98.1 ROS: No Nausea, No Chest Pain, No Abdominal Pain, No Increase Cough General: Alert, No acute distress HEENT: Other Lungs: Clear Cardiovascular: S1, S2 Abdomen: Soft, Non-tender Neuro Exam: Alert Extremities: No Edema Skin: Warm Labs Laboratory Tests Test 01/09/17 16:33 01/09/17 21:18 01/10/17 06:33 01/10/17 08:01 Glucose (Fingerstick) 306mg/dL (70-99) 215mg/dL (70-99) 287mg/dL (70-99) Sodium Level 141mmol/L (136-145) Potassium Level 4.4mmol/L (3.5-5.1) Chloride Level 103mmol/L (98-107) Carbon Dioxide Level 28mmol/L (21-32) Anion Gap 10 (6-14) Blood Urea Nitrogen 48mg/dL (8-26) Creatinine 1.8mg/dL (0.7-1.3) Estimated GFR (Cockcroft-Gault) 36.5 Glucose Level 246mg/dL (70-99) Calcium Level 9.3mg/dL (8.5-10.1) Magnesium Level 2.1mg/dL (1.8-2.4) Test 01/10/17 11:27 01/10/17 16:40 01/10/17 21:34 01/11/17 07:40 Glucose (Fingerstick) 217mg/dL (70-99) 162mg/dL (70-99) 273mg/dL (70-99) 170mg/dL (70-99) Test 01/11/17 10:47 Glucose (Fingerstick) 201mg/dL (70-99) Laboratory Tests Test 01/10/17 16:40 01/10/17 21:34 01/11/17 07:40 01/11/17 10:47 Glucose (Fingerstick) 162mg/dL (70-99) 273mg/dL (70-99) 170mg/dL (70-99) 201mg/dL (70-99) Medications Active Scripts Medications Dose Route/Sig Days Date Category Tamsulosin Hcl 0.4 Mg Cap.er.24h 1 Cap PO DAILY 11/09/16 Reported Symbicort 160-4.5 Mcg Inhaler (Budesonide/Formoterol Fumarate) 10.2 Gm Hfa.aer.ad 2 Puff IH BID 11/09/16 Reported Spironolactone 25 Mg Tablet 1 Tab PO DAILY 11/09/16 Reported Primidone 50 Mg Tablet 50 Mg PO DAILY 11/09/16 Reported Pantoprazole Sodium 40 Mg Tablet.dr 1 Tab PO BID 11/09/16 Reported Metoprolol Succinate 50 Mg Tab.er.24h 25 Mg PO DAILY 11/09/16 Reported Lorazepam 0.5 Mg Tablet 1 Tab PO PRN Q8HRS PRN 11/09/16 Reported Duoneb 0.5-3(2.5) Mg/3 Ml (Albuterol/Ipratropium) 3 Ml Ampul.neb 3 Ml NEB Q4HRS 11/09/16 Reported Milk Of Magnesia (Magnesium Hydroxide) 400 Mg/5 Ml Oral.susp 400 Mg PO PRN DAILY PRN 11/09/16 Reported Atorvastatin Calcium 10 Mg Tablet 1 Tab PO DAILY 11/09/16 Reported Aspirin 81 Mg Tab.chew 81 Mg PO DAILY 11/09/16 Reported Acetaminophen 325 Mg Tablet 650 Mg PO Q4HRS PRN 11/09/16 Reported Duoneb 0.5-3(2.5) Mg/3 Ml (Albuterol/Ipratropium) 3 Ml Ampul.neb 3 Ml NEB PRN Q4HRS PRN 11/09/16 Reported Guaifenesin 600 Mg Tablet.er 600 Mg PO BID 11/09/16 Reported Furosemide 40 Mg Tablet 40 Mg PO DAILY 11/09/16 Reported Fleet Enema (Na Phos,M-B/Na Phos,Di-Ba) 133 Ml Enema 1 Each RC PRN DAILY PRN 11/09/16 Reported Aspirin Ec (Aspirin) 81 Mg Tablet.dr 1 Tab PO DAILY 11/09/16 Reported Dulcolax (Bisacodyl) 10 Mg Supp.rect 10 Mg RC PRN DAILY PRN 11/09/16 Reported Impression . 1. Acute on chronic respiratory failure, multifactorial. Suspect Gram-negative, possibly Gram-positive pneumonia./ CHF 2. History of chronic heart failure. 3. Sepsis with hypotension.resolved 4. Dementia. 5. Mild protein malnutrition, present upon admission. 6. Lactic acidosis. 7. Possible aspiration pneumonia. 8. Acute exacerbation of chronic obstructive pulmonary disease secondary to above. 9. Dysphagia Plan . 1. Increase ambulation 2. d/w RN 3. antibiotics per ID 4. speech evaluation done/ dysphagia diet 5. DVT and GI prophylaxes. 6. clinically better 7. steroid taper d/c plans per PCP YOSELIN KAUFMAN MD Jan 11, 2017 15:52
[2017-01-12] MEDS ORDERED: PREDNISONE 10 MG TABLET PO SCH (09:00)
[2017-01-14] MEDS ORDERED: PREDNISONE 20 MG TABLET PO SCH (09:00)
[2017-01-16] MEDS ORDERED: PREDNISONE 10 MG TABLET PO SCH (09:00)
[2017-01-18] MEDS ORDERED: PREDNISONE 5 MG TABLET PO SCH (09:00)
== END 2017-01-11 15:30 | DRG 871 ==
LOC: ER 15:11 → 2 NORTH 16:45 → 1 WEST ICU 21:34 → 2 SOUTH 01-06 22:34
PROVIDERS: ADMIT Internal Medicine; ATTEND Internal Medicine
PROC: 5A09357 Assistance with Respiratory Ventilation, Less than 24 Consecutive Hours, Continuous Positive Airway Pressure (ICD-10-PCS; principal; 2017-01-04)
DX: A41.9 Sepsis, unspecified organism (principal); J96.21 Acute and chronic respiratory failure with hypoxia; N17.0 Acute kidney failure with tubular necrosis; J69.0 Pneumonitis due to inhalation of food and vomit; E44.1 Mild protein-calorie malnutrition; I13.0 Hypertensive heart and chronic kidney disease with heart failure and stage 1 through stage 4 chronic kidney disease, or unspecified chronic kidney disease; I48.92 Unspecified atrial flutter; I50.32 Chronic diastolic (congestive) heart failure; J44.0 Chronic obstructive pulmonary disease with (acute) lower respiratory infection; J44.1 Chronic obstructive pulmonary disease with (acute) exacerbation; E87.2 Acidosis; B37.0 Candidal stomatitis; M19.90 Unspecified osteoarthritis, unspecified site; Z16.11 Resistance to penicillins; I95.9 Hypotension, unspecified; E05.90 Thyrotoxicosis, unspecified without thyrotoxic crisis or storm; E78.5 Hyperlipidemia, unspecified; F03.90 Unspecified dementia, unspecified severity, without behavioral disturbance, psychotic disturbance, mood disturbance, and anxiety; F41.9 Anxiety disorder, unspecified; I48.91 Unspecified atrial fibrillation; N18.3 Chronic kidney disease, stage 3 (moderate); N40.0 Benign prostatic hyperplasia without lower urinary tract symptoms; R13.10 Dysphagia, unspecified; Z66 Do not resuscitate; Z74.01 Bed confinement status; Z86.73 Personal history of transient ischemic attack (TIA), and cerebral infarction without residual deficits; Z87.891 Personal history of nicotine dependence
CPT/HCPCS: 36415; 36600; 51702; 71010; 74230; 80048; 80053; 80202; 82805; 82947; 83605; 83735; 83880; 84443; 84484; 85007; 85027; 87040; 87070; 87205; 87641; 87804; 93005; 94250; 94640; 94760; 96360; 96361; 96365; 96366; 96375; J1160; J1815; J1940; J2185; J2248; J2543; J2920; J2930; J3370; J3490; J7030; J7040; J7050; J7512; J7620; 92526; 92610; 92611; 97116; 97535; 99291-25

== ENCOUNTER 2017-02-03 23:45 | Inpatient (IN) | payer OTHER ==
[~2017-02-03] VITALS: Ht 177.8 cm; Wt 64.0 kg
[2017-02-04] VITALS (13 sets, daily range): BP systolic 91–153; BP diastolic 49–73
[2017-02-04 00:15] LABS: BASO % 0 % (0-3); EOS % 1 % (0-3); HEMATOCRIT 29.4 % (39.0-53.0); HEMOGLOBIN 9.2 g/dL (13.0-17.5); LYMPH % 18 % (24-48); MEAN CORPUSCULAR HEMOGLOBIN 26 pg (25-35); MEAN CORPUSCULAR HGB CONC 31 g/dL (31-37); MEAN CORPUSCULAR VOLUME 82 fL (79-100); MONO % 7 % (0-9); NEUT % 74 % (31-73); PLATELET COUNT 373 x10^3/uL (140-400); RED CELL DISTRIBUTION WIDTH 20.3 % (11.5-14.5)
[2017-02-04 00:28] LABS: CALCIUM 8.8 mg/dL (8.5-10.1); GFR 32.3; POTASSIUM 4.6 mmol/L (3.5-5.1)
[2017-02-04] MEDS ORDERED: IPRATRPIUM/ALBUTEROL 0.5/2.5MG 3 ML NEBU. NEB ONE (00:30)
[2017-02-04 00:33] LABS: OBC FLU VALID
[2017-02-04 00:33] LABS: ALBUMIN 2.7 g/dL (3.4-5.0); ALBUMIN/GLOBULIN RATIO 0.9 (1.0-1.7); TOTAL BILIRUBIN 0.3 mg/dL (0.2-1.0); TOTAL PROTEIN 5.7 g/dL (6.4-8.2)
[2017-02-04] MEDS ORDERED: PIPERACILLIN/TAZOBACTAM 4.5 GM in IV NORMAL SALINE 100ML 100 ML IV ONE (01:00)
[2017-02-04] MEDS ORDERED: ACETAMINOPHEN 325 MG TABLET. PO PRN (01:00)
[2017-02-04] MEDS ORDERED: TOBRAMYCIN PER PHARMACY MC PRN (01:00)
[2017-02-04] MEDS ORDERED: MORPHINE SULFATE 2 MG/ML DISP.SYRIN. IV PRN (01:00)
[2017-02-04] MEDS ORDERED: ONDANSETRON PF 4 MG/2 ML VIAL. IV PRN (01:00)
[2017-02-04] MEDS: IV NORMAL SALINE 1000ML BAG 1,000 ML IV SCH ×2 (01:29→02:00)
[2017-02-04] MEDS ORDERED: NORMAL SALINE IV ONE (01:30)
[2017-02-04] MEDS ORDERED: LORAZEPAM 2 MG/ML VIAL IV ONE (01:30)
[2017-02-04] MEDS ORDERED: TOBRAMYCIN SULFATE IV ONE (01:30)
[2017-02-04 02:00] LABS: HCO3 ABG 24 mmol/L (21-28); PCO2 ABG 38 mmHg (35-46); PH ABG 7.42 (7.35-7.45); PO2 ABG 87 mmHg (65-108); SAT O2 ABG 95 % (92-99)
[2017-02-04] MEDS ORDERED: DIPHENHYDRAMINE 50 MG/ML VIAL IVP ONE (02:45)
[2017-02-04 03:50] LABS: MICROCYTOSIS SLIGHT; PLT ESTIMATE ADEQUATE (ADEQUATE)
[2017-02-04] MEDS ORDERED: DILT240C32 PO (03:50)
[2017-02-04] MEDS ORDERED: BREO ELLIPTA 11 EACH IH (03:50)
[2017-02-04] MEDS ORDERED: PANT40TA3 PO (03:50)
[2017-02-04] MEDS ORDERED: MULT-246 PO (03:50)
[2017-02-04 03:51] LABS: ANISOCYTOSIS MOD; OVALOCYTES FEW; POLYCHROMASIA SLIGHT; TEAR DROP CELLS FEW
--- NOTE | 2017-02-04 04:01 | PHYS DOC ---
Past Medical History Past Medical History: A-Fib, CHF, COPD, CVA, Hypertension Additional Past Medical Histor: PNEUMONIA, ACUTE AND CHRONIC RESP FAILURE, GENERALIZED MUSCLE WEAKNESS, Past Surgical History: No Surgical History Additional Past Surgical Histo: hernia repair Alcohol Use: Occasionally Drug Use: None Adult General Chief Complaint Chief Complaint: SHORTNESS OF BREATH HPI HPI Patient is a 81 year old gentleman who history skin for hypertension, CHF, COPD , strokes, pneumonia, atrial fib who presents here today secondary to fever and recent diagnosis of pneumonia. According to the patient's daughter he was diagnosed with pneumonia several weeks ago was admitted to the hospital was discharged a couple weeks after a prolonged hospital course. Patient has been coughing with occasional sputum. According to the daughter they did an x-ray of his chest at the facility and he was diagnosed again with recurrent pneumonia. They started on some Zithromax at the facility however the daughter does not think he is improving and he appears to be agitated so she has to come to the ER. She does seem agitated. He is alert awake and oriented to person and place. He is oriented to situation. Patient does seem to be agitated and does have episodes of delirium. Further history is difficult to obtain from the patient secondary to his confusion at this time. Patient's physical exam was significant for diminished breath sounds in his right lung. Patient is tachypneic with respiratory rate of about 40-50. Patient is not tachycardic. His heart rate is running in the 80s. This is significant because we thought initially he might be agitated and tachypnea secondary to overuse of albuterol at the nursing facility which the daughter reports they give him 6. Treatments. Patient was placed on 4 L O2. Patient's oxygen levels remained stable in the 95% range however he is extremities. Neck he does seem somewhat agitated. Secondary to his tachypnea and agitation we went ahead and placed him on BiPAP however the patient did not have any significant improvement we had respiratory obtain a blood gas on the patient which was much better than anticipated. Patient's PCO2 was given a couple range as well as his pH. He did not appear to be in respiratory distress by ABG criteria. While in the ER patient was initiated on H Protocol and Sepsis Protocol. Patient Was Started on Zosyn As Well As Tobramycin IV. Patient Was Given Benadryl for His Agitation. Patient will be admitted to the hospital for further IV antibiotics and further evaluation of his agitation. We will continue him on BiPAP. She was admitted to the ICU for further management of his BiPAP settings. Critical care time of 35 minutes reutilized and a treatment and management of this patient's care. Review of Systems Review of Systems Constitutional: Denies fever or chills [] Eyes: Denies change in visual acuity, redness, or eye pain [] All other review systems are negative except as documented in the history of present illness portion. Current Medications Current Medications Current Medications Medications (Trade) Dose Ordered Sig/Porfirio Start Time Stop Time Status Last Admin Dose Admin Acetaminophen (Tylenol) 650 mg PRN Q4HRS PRN 02/04/17 01:00 02/05/17 00:59 Albuterol/ Ipratropium (Duoneb) 3 ml 1X ONCE 02/04/17 00:30 02/04/17 00:31 DC 02/04/17 00:31 3 ML Morphine Sulfate 2 mg PRN Q2HR PRN 02/04/17 01:00 02/05/17 00:59 Ondansetron HCl (Zofran) 4 mg PRN Q8HRS PRN 02/04/17 01:00 02/05/17 00:59 Piperacillin Sod/ Tazobactam Sod 4.5 gm/Sodium Chloride 100 ml @ 200 mls/hr 1X ONCE 02/04/17 01:00 02/04/17 01:29 DC 02/04/17 01:29 200 MLS/HR Sodium Chloride (Iv Sodium Chloride 0.9% 1000ml Bag) 1,000 ml @ 1,000 mls/hr Q1H 02/04/17 01:00 02/04/17 02:24 DC 02/04/17 01:29 1,000 MLS/HR Tobramycin Sulfate 1 each 1 each PRN DAILY PRN 02/04/17 01:00 02/04/17 03:00 1 EACH Allergies Allergies Allergies Coded Allergies Type Severity Reaction Last Updated Verified No Known Drug Allergies 11/08/16 No Physical Exam Physical Exam Constitutional: Well developed, well nourished,agitated HENT: Normocephalic, atraumatic, bilateral external ears normal, oropharynx moist, no oral exudates, nose normal. [] Eyes: PERRLA, EOMI Neck: Normal range of motion, no tenderness, supple, no stridor. [] Cardiovascular:Heart rate regular rhythm, Lungs & Thorax: Diminished breath Sounds left lung. Tachypneic Abdomen: Bowel sounds normal, soft, no tenderness, no masses, no pulsatile masses. [] Skin: Warm, dry, no erythema, no rash. [] Back: No tenderness, no CVA tenderness. [] Extremities: No tenderness, no cyanosis, no clubbing, ROM intact, no edema. [] Neurologic: Alert and oriented X 3, normal motor function, normal sensory function, no focal deficits noted. [] Psychologic: Affect normal, judgement normal, mood normal. [] Current Patient Data Vital Signs Vital Signs Date Time Temp Pulse Resp B/P Pulse Ox O2 Delivery O2 Flow Rate FiO2 02/04/17 00:33 96 Nasal Cannula 3.0 02/04/17 00:02 98.3 94 60 125/60 98.3 Lab Values Laboratory Tests Test 02/04/17 00:01 02/04/17 00:05 White Blood Count 11.0x10^3/uL (4.0-11.0) Red Blood Count 3.60x10^6/uL (4.30-5.70) L Hemoglobin 9.2g/dL (13.0-17.5) L Hematocrit 29.4% (39.0-53.0) L Mean Corpuscular Volume 82fL (79-100) Mean Corpuscular Hemoglobin 26pg (25-35) Mean Corpuscular Hemoglobin Concent 31g/dL (31-37) Red Cell Distribution Width 20.3% (11.5-14.5) H Platelet Count 373x10^3/uL (140-400) Neutrophils (%) (Auto) 74% (31-73) H Lymphocytes (%) (Auto) 18% (24-48) L Monocytes (%) (Auto) 7% (0-9) Eosinophils (%) (Auto) 1% (0-3) Basophils (%) (Auto) 0% (0-3) Neutrophils # (Auto) 8.1x10^3uL (1.8-7.7) H Lymphocytes # (Auto) 2.0x10^3/uL (1.0-4.8) Monocytes # (Auto) 0.7x10^3/uL (0.0-1.1) Eosinophils # (Auto) 0.1x10^3/uL (0.0-0.7) Basophils # (Auto) 0.0x10^3/uL (0.0-0.2) Platelet Estimate Adequate (ADEQUATE) Giant Platelets Occ Polychromasia Slight Anisocytosis Mod Microcytosis Slight Tear Drop Cells Few Ovalocytes Few Sodium Level 139mmol/L (136-145) Potassium Level 4.6mmol/L (3.5-5.1) Chloride Level 99mmol/L (98-107) Carbon Dioxide Level 29mmol/L (21-32) Anion Gap 11 (6-14) Blood Urea Nitrogen 30mg/dL (8-26) H Creatinine 2.0mg/dL (0.7-1.3) H Estimated GFR (Cockcroft-Gault) 32.3 BUN/Creatinine Ratio 15 (6-20) Glucose Level 165mg/dL (70-99) H Lactic Acid Level 1.9mmol/L (0.4-2.0) Calcium Level 8.8mg/dL (8.5-10.1) Total Bilirubin 0.3mg/dL (0.2-1.0) Aspartate Amino Transferase (AST) 14U/L (15-37) L Alanine Aminotransferase (ALT) 10U/L (16-63) L Alkaline Phosphatase 85U/L (46-116) Troponin I Quantitative < 0.017ng/mL (0.000-0.055) SF-Ldk-X-Type Natriuretic Peptide 1041pg/mL (0-449) H Total Protein 5.7g/dL (6.4-8.2) L Albumin 2.7g/dL (3.4-5.0) L Albumin/Globulin Ratio 0.9 (1.0-1.7) L Influenza Type A Antigen Negative (NEGATIVE) Influenza Type B Antigen Negative (NEGATIVE) Laboratory Tests 02/04/17 00:01 Laboratory Tests 02/04/17 00:01 EKG EKG [] Radiology/Procedures Radiology/Procedures [] Course & Med Decision Making Course & Med Decision Making Pertinent Labs and Imaging studies reviewed. (See chart for details) [] Dragon Disclaimer Dragon Disclaimer This electronic medical record was generated, in whole or in part, using a voice recognition dictation system. Departure Departure Referrals: UNKNOWN PCP NAME (PCP) MARGY ARDON MD Feb 04, 2017 04:01
--- NOTE | 2017-02-04 04:22 | ACF ---
Admit Criteria Forms Admit Criteria Forms Admit Criteria Forms RESPIRATORY FAILURE GRG Clinical Indications for Admission to Inpatient Care (Place 'X' for any and all applicable criteria): Hospital admission is needed for appropriate care of the patient because of acute respiratory failure or insufficiency as indicated by ANY ONE of the following(1)(2)(3)(4)(5)(6)(7)(8): [X]I. Mechanical ventilation needed (acute invasive or noninvasive) [ ]II. Severe ventilation deficit as indicated by ANY ONE of the following (9) [ ]a) Respiratory acidosis (pH less than 7.32 and partial pressure of carbon dioxide greater than 40 mm Hg (5.3 kPa)) [ ]b) Partial pressure of carbon dioxide greater than 44 mm Hg (5.9 kPa ) (new) [ ]c) Airflow measurements less than 25% of predicted (eg, peak expiratory flow rate less than 100 L/minute) [ ]d) Forced vital capacity less than 15 mL/kg of ideal body weight, or 50% decrease in vital capacity from baseline [ ]III. Noncardiac pulmonary edema not resolving with rapid emergency treatment (8) [ ]IV. Severe respiratory distress as indicated by ANY ONE of the following: [ ]a) Severe tachypnea (respiratory rate greater than 30, greater than 45 for 6-month-old, greater than 60 for ) [ ]b) Severe hypoxemia (partial pressure of oxygen less than 50 mm Hg ( 6.7 kPa) on greater than 50% oxygen or partial pressure of oxygen to FIO2 ratio less than 200) [ ]c) Mental status deterioration from respiratory disease [ ]V. Airway obstruction or inadequate protection [A](10)(11) The original [employer] content created by [employer] has been revised. The portions of the content which have been revised are identified through the use of italic text or in bold, and [employer] has neither reviewed nor approved the modified material. All other unmodified content is copyright [employer]. Please see references footnoted in the original [employer] edition 2016 DARA SUNG Feb 04, 2017 04:22
[2017-02-04] MEDS ORDERED: PIPERACILLIN/TAZOBACTAM 2.25 GM in IV NORMAL SALINE 50ML 50 ML IV SCH (06:00)
--- NOTE | 2017-02-04 06:45 | EKG ---
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
--- NOTE | 2017-02-04 07:30 | RAD ---
EXAM: Chest one view. HISTORY: Shortness of breath. COMPARISON: 01/05/2017. FINDINGS: A frontal view of the chest is obtained. There is a mild airspace infiltrate in the right upper lobe. Milder opacities in the bases may indicate atelectasis or scarring. Chronic obstructive pulmonary disease is likely present. A few calcified granulomas are noted on the right. There is no pneumothorax or pleural effusion. The heart is not enlarged. There are atherosclerotic calcifications of the aorta. IMPRESSION: 1. Mild right upper lobe pneumonia. 2. Bibasilar atelectasis versus additional mild infiltrates. 3. Chronic obstructive pulmonary disease.
[2017-02-04] MEDS: IPRATRPIUM/ALBUTEROL 0.5/2.5MG 3 ML NEBU. NEB SCH ×4 (08:28→19:51)
--- NOTE | 2017-02-04 08:55 | PDOC1 ---
History and Physical Date of Admission Date of Admission DATE: 02/04/17 TIME: 08:46 Identification/Chief Complaint Chief Complaint cough, fever, confusion Source Source: Chart review History of Present Illness History of Present Illness Mr. Torres, is a 81 year old admti from ER, fever and pneumonia. Recently admitted to another hospital was discharged a couple weeks ago, after a long inpatient stay for PNA Apparently, has bene in SNU, now worsening coughing with occasional sputum. SNU CXR seeminly, with recurrent pneumonia. Zithromax started without improvement, then agitated so she has to come to the ER. He is lethargic, but arousable, then, alert to person only. supratracheal rales on exam started on Bipap in ER, now on NC Past Medical History Past Medical History hypertension, CHF, COPD, strokes, pneumonia, atrial fib Cardiovascular: AFIB, CHF, HTN, Hyperlipidemia Pulmonary: COPD CENTRAL NERVOUS SYSTEM: Dementia Musculoskeletal: Osteoarthritis Renal/: Chronic renal insuff, Benign prostatic enlarg. Past Surgical History Past Surgical History: Hernia Repair Family History Family History: No Significant, Family History Unknown Social History ALCOHOL: heavy Drugs: None Current Problem List Problem List Problems Medical Problems: (1) Acute respiratory failure Status: Acute (2) Dyspnea Status: Acute (3) HCAP (healthcare-associated pneumonia) Status: Acute Problems: Current Medications Current Medications Current Medications Albuterol/ Ipratropium (Duoneb) 3 ml 1X ONCE NEB Last administered on 00:31; Start 02/04/17 at 00:30; Stop 02/04/17 at 00:31; Status DC Tobramycin Sulfate 1 each 1 each PRN DAILY PRN PHARMACY TO DOSE Last administered on 02/04/17 03:00; Start 02/04/17 at 01:00 Piperacillin Sod/ Tazobactam Sod 4.5 gm/Sodium Chloride 100 ml @ 200 mls/hr 1X ONCE IV Last administered on 02/04/17 01:29; Start 02/04/17 at 01:00; Stop 02/04/17 at 01:29; Status DC Tobramycin Sulfate/Sodium Chloride (Nebcin/Iv Sodium Chloride 0.9% 100ml) 108.75 ml @ 108.75 mls/hr 1X ONCE IV Last administered on 02/04/17 02:32; Start 02/04/17 at 01:30; Stop 02/04/17 at 02:29; Status DC Lorazepam 1 mg 1 mg 1X ONCE IV Last administered on 02/04/17 01:29; Start 02/04 at 01:30; Stop 02/04/17 at 01:31; Status DC Sodium Chloride (Iv Sodium Chloride 0.9% 1000ml Bag) 1,000 ml @ 1,000 mls/hr Q1H IV Last administered on 02/04/17 02:00; Start 02/04/17 at 01:00; Stop at 02:24; Status DC Ondansetron HCl (Zofran) 4 mg PRN Q8HRS PRN IV NAUSEA/VOMITING; Start 02/04/17 at 01:00; Stop 02/05/17 at 00:59 Morphine Sulfate 2 mg PRN Q2HR PRN IV SEVERE PAIN; Start 02/04/17 at 01:00; Stop 02/05/17 at 00:59 Acetaminophen (Tylenol) 650 mg PRN Q4HRS PRN PO FEVER; Start 02/04/17 at 01:00; Stop 02/05/17 at 00:59 Albuterol/ Ipratropium (Duoneb) 3 ml RTQID NEB Last administered on 02/04/17 08 :28; Start 02/04/17 at 08:00; Stop 02/05/17 at 07:59 Diphenhydramine HCl (Benadryl) 25 mg 1X ONCE IVP Last administered on 02:31; Start 02/04/17 at 02:45; Stop 02/04/17 at 02:46; Status DC Tobramycin Sulfate 1 each 1 each 1X ONCE MC ; Start 02/04/17 at 14:30; Stop 02/04 at 14:31 Tobramycin Sulfate 350 mg/ Sodium Chloride 108.75 ml @ 108.75 mls/hr Q48H IV ; Start 02/05/17 at 23:00 Piperacillin Sod/ Tazobactam Sod/ Sodium Chloride (Zosyn/Iv Sodium Chloride 0.9 % 50ml) 50 ml @ 100 mls/hr Q6HRS IV Last administered on 02/04/17 05:47; Start 02/04/17 at 06:00 Active Scripts Active Reported Protonix (Pantoprazole Sodium) 40 Mg Tablet.dr 1 Tab PO DAILY Multi-Vitamin Daily (Multivitamin) 1 Each Tablet 1 Each PO DAILY Diltiazem 24HR Cd (Diltiazem Hcl) 240 Mg Cap.er.24h 240 Mg PO DAILY Breo Ellipta 100-25 Mcg Inh (Fluticasone/Vilanterol) 1 Each Aer.pow.ba 1 Puff IH DAILY Tamsulosin Hcl 0.4 Mg Cap.er.24h 1 Cap PO DAILY Primidone 50 Mg Tablet 50 Mg PO DAILY Metoprolol Succinate 50 Mg Tab.er.24h 25 Mg PO DAILY Lorazepam 0.5 Mg Tablet 1 Tab PO PRN Q8HRS PRN Milk Of Magnesia (Magnesium Hydroxide) 400 Mg/5 Ml Oral.susp 400 Mg PO PRN DAILY PRN Atorvastatin Calcium 10 Mg Tablet 1 Tab PO DAILY Aspirin 81 Mg Tab.chew 81 Mg PO DAILY Acetaminophen 325 Mg Tablet 650 Mg PO Q4HRS PRN Duoneb 0.5-3(2.5) Mg/3 Ml (Albuterol/Ipratropium) 3 Ml Ampul.neb 3 Ml NEB PRN Q4HRS PRN Furosemide 40 Mg Tablet 40 Mg PO DAILY Dulcolax (Bisacodyl) 10 Mg Supp.rect 10 Mg RC PRN DAILY PRN Allergies Allergies: Coded Allergies: No Known Drug Allergies (Unverified , 11/08/16) ROS Review of System lethargic, slow to respond, non sensical General: No: Appetite, Chills, Fatigue, Malaise, Night Sweats, Other PSYCHOLOGICAL ROS: No: Anxiety, Behavioral Disorder, Concentration difficultie , Decreased libido, Depression, Disorientation, Hallucinations, Hostility, Irritablity, Memory difficulties, Mood Swings, Obsessive thoughts, Other, Physical abuse, Sexual abuse, Sleep disturbances, Suicidal ideation Physical Exam General: Alert, Cooperative, mild distress, Other (disoriented) HEENT: EOMI, Mucous membr. moist/pink Lungs: Other (mod volume, dim right, gross rales, ) Heart: no murmurs Extremities: No clubbing, No edema Neuro: Sensation intact, Cranial nerves 3-12 NL, Other Psych/Mental Status: Other (confused, lethargic) Vitals Vitals Vital Signs Date Time Temp Pulse Resp B/P Pulse Ox O2 Delivery O2 Flow Rate FiO2 02/04/17 08:28 98 BiPAP/CPAP 02/04/17 08:06 3.0 02/04/17 07:00 98.5 66 15 135/55 98.5 Labs Labs Laboratory Tests Test 02/04/17 00:01 02/04/17 00:05 02/04/17 01:58 02/04/17 07:20 White Blood Count 11.0x10^3/uL (4.0-11.0) Red Blood Count 3.60x10^6/uL (4.30-5.70) Hemoglobin 9.2g/dL (13.0-17.5) Hematocrit 29.4% (39.0-53.0) Mean Corpuscular Volume 82fL (79-100) Mean Corpuscular Hemoglobin 26pg (25-35) Mean Corpuscular Hemoglobin Concent 31g/dL (31-37) Red Cell Distribution Width 20.3% (11.5-14.5) Platelet Count 373x10^3/uL (140-400) Neutrophils (%) (Auto) 74% (31-73) Lymphocytes (%) (Auto) 18% (24-48) Monocytes (%) (Auto) 7% (0-9) Eosinophils (%) (Auto) 1% (0-3) Basophils (%) (Auto) 0% (0-3) Neutrophils # (Auto) 8.1x10^3uL (1.8-7.7) Lymphocytes # (Auto) 2.0x10^3/uL (1.0-4.8) Monocytes # (Auto) 0.7x10^3/uL (0.0-1.1) Eosinophils # (Auto) 0.1x10^3/uL (0.0-0.7) Basophils # (Auto) 0.0x10^3/uL (0.0-0.2) Platelet Estimate Adequate (ADEQUATE) Giant Platelets Occ Polychromasia Slight Anisocytosis Mod Microcytosis Slight Tear Drop Cells Few Ovalocytes Few Sodium Level 139mmol/L (136-145) Potassium Level 4.6mmol/L (3.5-5.1) Chloride Level 99mmol/L (98-107) Carbon Dioxide Level 29mmol/L (21-32) Anion Gap 11 (6-14) Blood Urea Nitrogen 30mg/dL (8-26) Creatinine 2.0mg/dL (0.7-1.3) Estimated GFR (Cockcroft-Gault) 32.3 BUN/Creatinine Ratio 15 (6-20) Glucose Level 165mg/dL (70-99) Lactic Acid Level 1.9mmol/L (0.4-2.0) Calcium Level 8.8mg/dL (8.5-10.1) Total Bilirubin 0.3mg/dL (0.2-1.0) Aspartate Amino Transf (AST/SGOT) 14U/L (15-37) Alanine Aminotransferase (ALT/SGPT) 10U/L (16-63) Alkaline Phosphatase 85U/L (46-116) Troponin I Quantitative < 0.017ng/mL (0.000-0.055) < 0.017ng/mL (0.000-0.055) TZ-Dra-H-Type Natriuretic Peptide 1041pg/mL (0-449) Total Protein 5.7g/dL (6.4-8.2) Albumin 2.7g/dL (3.4-5.0) Albumin/Globulin Ratio 0.9 (1.0-1.7) Influenza Type A Antigen Negative (NEGATIVE) Influenza Type B Antigen Negative (NEGATIVE) O2 Saturation 95% (92-99) Arterial Blood pH 7.42 (7.35-7.45) Arterial Blood pCO2 at Patient Temp 38mmHg (35-46) Arterial Blood pO2 at Patient Temp 87mmHg (65-108) Arterial Blood HCO3 24mmol/L (21-28) Arterial Blood Base Excess 0mmol/L (-3-3) FiO2 30.0 Laboratory Tests Test 02/04/17 00:01 02/04/17 00:05 02/04/17 01:58 02/04/17 07:20 White Blood Count 11.0x10^3/uL (4.0-11.0) Red Blood Count 3.60x10^6/uL (4.30-5.70) Hemoglobin 9.2g/dL (13.0-17.5) Hematocrit 29.4% (39.0-53.0) Mean Corpuscular Volume 82fL (79-100) Mean Corpuscular Hemoglobin 26pg (25-35) Mean Corpuscular Hemoglobin Concent 31g/dL (31-37) Red Cell Distribution Width 20.3% (11.5-14.5) Platelet Count 373x10^3/uL (140-400) Neutrophils (%) (Auto) 74% (31-73) Lymphocytes (%) (Auto) 18% (24-48) Monocytes (%) (Auto) 7% (0-9) Eosinophils (%) (Auto) 1% (0-3) Basophils (%) (Auto) 0% (0-3) Neutrophils # (Auto) 8.1x10^3uL (1.8-7.7) Lymphocytes # (Auto) 2.0x10^3/uL (1.0-4.8) Monocytes # (Auto) 0.7x10^3/uL (0.0-1.1) Eosinophils # (Auto) 0.1x10^3/uL (0.0-0.7) Basophils # (Auto) 0.0x10^3/uL (0.0-0.2) Platelet Estimate Adequate (ADEQUATE) Giant Platelets Occ Polychromasia Slight Anisocytosis Mod Microcytosis Slight Tear Drop Cells Few Ovalocytes Few Sodium Level 139mmol/L (136-145) Potassium Level 4.6mmol/L (3.5-5.1) Chloride Level 99mmol/L (98-107) Carbon Dioxide Level 29mmol/L (21-32) Anion Gap 11 (6-14) Blood Urea Nitrogen 30mg/dL (8-26) Creatinine 2.0mg/dL (0.7-1.3) Estimated GFR (Cockcroft-Gault) 32.3 BUN/Creatinine Ratio 15 (6-20) Glucose Level 165mg/dL (70-99) Lactic Acid Level 1.9mmol/L (0.4-2.0) Calcium Level 8.8mg/dL (8.5-10.1) Total Bilirubin 0.3mg/dL (0.2-1.0) Aspartate Amino Transf (AST/SGOT) 14U/L (15-37) Alanine Aminotransferase (ALT/SGPT) 10U/L (16-63) Alkaline Phosphatase 85U/L (46-116) Troponin I Quantitative < 0.017ng/mL (0.000-0.055) < 0.017ng/mL (0.000-0.055) ZL-Nzq-G-Type Natriuretic Peptide 1041pg/mL (0-449) Total Protein 5.7g/dL (6.4-8.2) Albumin 2.7g/dL (3.4-5.0) Albumin/Globulin Ratio 0.9 (1.0-1.7) Influenza Type A Antigen Negative (NEGATIVE) Influenza Type B Antigen Negative (NEGATIVE) O2 Saturation 95% (92-99) Arterial Blood pH 7.42 (7.35-7.45) Arterial Blood pCO2 at Patient Temp 38mmHg (35-46) Arterial Blood pO2 at Patient Temp 87mmHg (65-108) Arterial Blood HCO3 24mmol/L (21-28) Arterial Blood Base Excess 0mmol/L (-3-3) FiO2 30.0 VTE Prophylaxis Ordered VTE Prophylaxis Devices: Yes VTE Pharmacological Prophylaxi: Yes Assessment/Plan Assessment/Plan Sepsis PNA, treat as HCAP weakness, acute delirium, metabolic encephalopathy ICU admit, 35min mod malnutrition CKD 3, anemia of CKD, and microcytic, check iron panel consult Renal, pulm, CV broad abx started in ER cont current VICK OVIEDO MD Feb 04, 2017 08:55
[2017-02-04] MEDS ORDERED: VANCOMYCIN PER PHARMACY MC PRN (09:15)
--- NOTE | 2017-02-04 09:19 | PDOC ---
Provider Note Provider Note dictated HCAP Antibiotic ct chest avoid YOSELIN Trent MD Feb 04, 2017 09:19
--- NOTE | 2017-02-04 09:32 | PDOC2 ---
CARDIAC CONSULT DATE OF CONSULT Date of Consult DATE: 02/04/17 TIME: 09:07 REASON FOR CONSULT Reason for Consult: CHF REFERRING PHYSICIAN Referring Physician: Promise SOURCE Source: Chart review, Patient HISTORY OF PRESENT ILLNESS HISTORY OF PRESENT ILLNESS This is a pleasant but poor historian 81 yo male admitted for increased confusion, agitation, and SOA/cough. He resides from the [facility] home and has been noted with fever. Upon admission in ED he has been noted with pneumonia which he recently from previous admission. He was deemed noted with SOA and was placed on bipap. He was also agitated at that time which he received some ativan. Currently he is compensated utilizing supplemental O2 via NC. Denies SOA, CP. Oriented to self but otherwise does not known the time and place. He is judy and in no distress and denies any discomfort. PAST MEDICAL HISTORY Cardiovascular: AFIB (?), CHF, HTN, Hyperlipidemia Pulmonary: COPD, Pneumonia, Other (aspiration) CENTRAL NERVOUS SYSTEM: Dementia GI: GERD Heme/Onc: Anemia NOS Hepatobiliary: No pertinent hx Psych: Other (past alcoholism) Musculoskeletal: Osteoarthritis Rheumatologic: No pertinent hx Infectious disease: No pertinent hx ENT: No pertinent hx Renal/: Chronic renal insuff (CKD2), Benign prostatic enlarg. Endocrine: Hyperthyroidism (subclinical) Dermatology: No pertinent hx PAST SURGICAL HISTORY Past Surgical History: Hernia Repair, Colon Resection (?), Other (colosotomy in the past) FAMILY HISTORY Family History: Family History Unknown SOCIAL HISTORY Social History Smoke: Quit (70 pack year history) ALCOHOL: past alcoholism Lives: [place] CURRENT MEDICATIONS CURRENT MEDICATIONS Current Medications Medications (Trade) Dose Ordered Sig/Porfirio Route PRN Reason Start Time Stop Time Status Last Admin Dose Admin Albuterol/ Ipratropium (Duoneb) 3 ml 1X ONCE NEB 02/04/17 00:30 02/04/17 00:31 DC 02/04/17 00:31 Tobramycin Sulfate 1 each 1 each PRN DAILY PRN PHARMACY TO DOSE 02/04/17 01:00 02/04/17 03:00 Piperacillin Sod/ Tazobactam Sod 4.5 gm/Sodium Chloride 100 ml @ 200 mls/hr 1X ONCE IV 02/04/17 01:00 02/04/17 01:29 DC 02/04/17 01:29 Tobramycin Sulfate/Sodium Chloride (Nebcin/Iv Sodium Chloride 0.9% 100ml) 108.75 ml @ 108.75 mls/hr 1X ONCE IV 02/04/17 01:30 02/04/17 02:29 DC 02/04/17 02:32 Lorazepam 1 mg 1 mg 1X ONCE IV 02/04/17 01:30 02/04/17 01:31 DC 02/04/17 01:29 Sodium Chloride (Iv Sodium Chloride 0.9% 1000ml Bag) 1,000 ml @ 1,000 mls/hr Q1H IV 02/04/17 01:00 02/04/17 02:24 DC 02/04/17 02:00 Albuterol/ Ipratropium (Duoneb) 3 ml RTQID NEB 02/04/17 08:00 02/05/17 07:59 02/04/17 08:28 Diphenhydramine HCl 25 mg 25 mg 1X ONCE IVP 02/04/17 02:45 02/04/17 02:46 DC 02/04/17 02:31 Piperacillin Sod/ Tazobactam Sod/ Sodium Chloride (Zosyn/Iv Sodium Chloride 0.9% 50ml) 50 ml @ 100 mls/hr Q6HRS IV 02/04/17 06:00 02/04/17 05:47 ALLERGIES ALLERGIES: Coded Allergies: No Known Drug Allergies (Unverified , 11/08/16) ROS Review of System unreliable, poor historian PHYSICAL EXAM General: Alert, Cooperative, No acute distress HEENT: Atraumatic, Mucous membr. moist/pink Lungs: Other (upper rhonchi, diminished bases) Heart: Normal S1, Normal S2, Other (irregular- WAP) Abdomen: Soft, No tenderness Extremities: No cyanosis, No edema Skin: No breakdown, No significant lesion, Other (UE ecchymoses) Neuro: Normal speech, Sensation intact Psych/Mental Status: Mood NL MUSCULOSKELETAL: Osteoarthritic changes both hands VITALS VITALS Vital Signs Date Time Temp Pulse Resp B/P Pulse Ox O2 Delivery O2 Flow Rate FiO2 02/04/17 08:28 98 BiPAP/CPAP 02/04/17 08:06 3.0 02/04/17 07:00 98.5 66 15 135/55 98.5 LABS Lab: Laboratory Tests Test 02/04/17 00:01 02/04/17 00:05 02/04/17 01:58 02/04/17 07:20 White Blood Count 11.0x10^3/uL (4.0-11.0) Red Blood Count 3.60x10^6/uL (4.30-5.70) Hemoglobin 9.2g/dL (13.0-17.5) Hematocrit 29.4% (39.0-53.0) Mean Corpuscular Volume 82fL (79-100) Mean Corpuscular Hemoglobin 26pg (25-35) Mean Corpuscular Hemoglobin Concent 31g/dL (31-37) Red Cell Distribution Width 20.3% (11.5-14.5) Platelet Count 373x10^3/uL (140-400) Neutrophils (%) (Auto) 74% (31-73) Lymphocytes (%) (Auto) 18% (24-48) Monocytes (%) (Auto) 7% (0-9) Eosinophils (%) (Auto) 1% (0-3) Basophils (%) (Auto) 0% (0-3) Neutrophils # (Auto) 8.1x10^3uL (1.8-7.7) Lymphocytes # (Auto) 2.0x10^3/uL (1.0-4.8) Monocytes # (Auto) 0.7x10^3/uL (0.0-1.1) Eosinophils # (Auto) 0.1x10^3/uL (0.0-0.7) Basophils # (Auto) 0.0x10^3/uL (0.0-0.2) Platelet Estimate Adequate (ADEQUATE) Giant Platelets Occ Polychromasia Slight Anisocytosis Mod Microcytosis Slight Tear Drop Cells Few Ovalocytes Few Sodium Level 139mmol/L (136-145) Potassium Level 4.6mmol/L (3.5-5.1) Chloride Level 99mmol/L (98-107) Carbon Dioxide Level 29mmol/L (21-32) Anion Gap 11 (6-14) Blood Urea Nitrogen 30mg/dL (8-26) Creatinine 2.0mg/dL (0.7-1.3) Estimated GFR (Cockcroft-Gault) 32.3 BUN/Creatinine Ratio 15 (6-20) Glucose Level 165mg/dL (70-99) Lactic Acid Level 1.9mmol/L (0.4-2.0) Calcium Level 8.8mg/dL (8.5-10.1) Total Bilirubin 0.3mg/dL (0.2-1.0) Aspartate Amino Transf (AST/SGOT) 14U/L (15-37) Alanine Aminotransferase (ALT/SGPT) 10U/L (16-63) Alkaline Phosphatase 85U/L (46-116) Troponin I Quantitative < 0.017ng/mL (0.000-0.055) < 0.017ng/mL (0.000-0.055) WE-Qgz-R-Type Natriuretic Peptide 1041pg/mL (0-449) Total Protein 5.7g/dL (6.4-8.2) Albumin 2.7g/dL (3.4-5.0) Albumin/Globulin Ratio 0.9 (1.0-1.7) Influenza Type A Antigen Negative (NEGATIVE) Influenza Type B Antigen Negative (NEGATIVE) O2 Saturation 95% (92-99) Arterial Blood pH 7.42 (7.35-7.45) Arterial Blood pCO2 at Patient Temp 38mmHg (35-46) Arterial Blood pO2 at Patient Temp 87mmHg (65-108) Arterial Blood HCO3 24mmol/L (21-28) Arterial Blood Base Excess 0mmol/L (-3-3) FiO2 30.0 ECHOCARDIOGRAM ECHOCARDIOGRAM <Conclusion> The left ventricle is normal size. Left ventricle systolic function is normal. The Ejection Fraction is 50-55%. There is borderline concentric left ventricular hypertrophy. There is no significant aortic valvular stenosis. Doppler and Color Flow revealed no significant aortic regurgitation. Doppler and Color Flow revealed trace mitral valve regurgitation. Doppler and Color Flow revealed mild tricuspid regurgitation. The PA pressure was estimated at 41 mmHg. DATE: 11/09/16 1314 ASSESSMENT/PLAN ASSESSMENT/PLAN 1. Pneumonia: Recurrent. Also noted with laryngeal aspiration with thin liquids 01/04/2017 videoswallow 2. AECOPD 3. Chronic diastolic CHF: pro NT BNP 1041, SOA more from COPD/pneumonia. 4. Dementia 5. CKD3-4: baseline Cr appears to be at 2.0 6. Anemia of chronic disease: Hgb 9.2 7. HTN/HLP 8. Arrhythmia: possible suspicion for AFIB in past admission bu likely MAT. Currently WAP. Recommendations 1. Unable to fully verify afib burden since outpt event monitoring is not possible since this is not covered when a pt is in a facility 2. Continue with metoprolol and cardizem. ASA 3. Not a good candidate for anticoagulation 4. Continue with secondary prevention 5. Antibiotic coverage per ID/pulmonary 6. Recommend nephrology consult. Supportive care, no further cardiac workup is warranted. Follow up as needed. May transfer to Med-surg with tele. Problems: ELIO SOMMERS APRN Feb 04, 2017 09:32
--- NOTE | 2017-02-04 10:24 | CONS ---
DATE OF CONSULTATION: 02/04/2017 ATTENDING PHYSICIAN: Barrie Couch MD REASON FOR CONSULTATION: Abnormal chest x-ray, pneumonia, encephalopathy. HISTORY OF PRESENT ILLNESS: The patient is an 81-year-old male who was hospitalized a few weeks ago and was treated for pneumonia at [facility]. He has been in a skilled care facility and was brought back to [place] ER with increasing coughing and occasional sputum production. The patient's chest x-ray was reviewed and I had compared the chest x-ray from January 2017. There appears to be new infiltrate in the right upper lobe. The infiltrate in the right lower lobe appears to be similar and there was minimal atelectasis or infiltrate in the left base which appears to be similar as well. I am unable to ask any history from the patient due to his confusion. He does not know whether this confusion is new or old. He was started on tobramycin and Zosyn in the Emergency Room. He also received one dose of lorazepam IV 1 mg. He was initially placed on BiPAP. His arterial blood gases while on BiPAP showed a pH of 7.42, pCO2 of 38, and a pO2 of 87 on 30% FIO2. Currently, he has been off of the BiPAP and is on nasal cannula. the screen is negative, BUN was 13 and creatinine of 2.0 suggestive of renal failure. Consultation requested further evaluation and management. PAST MEDICAL HISTORY: Significant for CHF, history of COPD, history of CVA, pneumonia, atrial fibrillation, history of hyperlipidemia, hypertension, dementia, chronic renal insufficiency, and BPH. PAST SURGICAL HISTORY: Hernia repair. SOCIAL HISTORY: Heavy history of alcohol use in the past. MEDICATIONS: All reviewed as listed in the MRAD. His home medications were reviewed as well. REVIEW OF SYSTEMS: Unable to obtain from the patient due to his encephalopathy. SOCIAL HISTORY: Lives at the skilled care facility. PHYSICAL EXAMINATION: GENERAL: He is in no obvious respiratory distress, but is confused. VITAL SIGNS: Blood pressure 135/55, pulse ox 100% on current nasal cannula. HEENT: Sclerae nonicteric. NECK: Supple. LUNGS: Diminished breath sounds. CARDIOVASCULAR: Regular rate and rhythm. ABDOMEN: Soft, nontender. EXTREMITIES: With no pitting edema. LABORATORY DATA: Reviewed, his white cell count 11.0, hemoglobin 9.2, and platelets are 373. BUN is 30, creatinine 2.0. Albumin 2.7. IMPRESSION: 1. Acute hypoxic respiratory failure secondary to recurrent healthcare-associated pneumonia. Chest x-ray showing new infiltrate in the right upper lobe. The basal mild atelectasis or infiltrates are unchanged compared to previous film. 2. Abnormal chest x-ray with new infiltrate in the right upper lobe suggesting new pneumonia, healthcare-associated. Suspect gram-negative and gram-positive. 3. Suspected acute on chronic renal failure, probably dehydration. 4. Moderate protein-calorie malnutrition. 5. Influenza screen negative. 6. Encephalopathy, metabolic due to pneumonia, but could be toxic as well. He did receive Ativan in the ER and has p.r.n. lorazepam as a home medication. He also received Benadryl in the ER as well. RECOMMENDATIONS: 1. Continue with present nasal cannula. 2. Continue Zosyn, add Levaquin and vancomycin, and discontinue tobramycin. Discussed with Dr. Maldonado. 3. Monitor his Neurology status and will also call detention to know what his baseline mental status is. 4. Avoid benzodiazepines. 5. Follow up chest x-ray in few days. 6. Obtain noncontrast CT of chest to better assess for pneumonia. 7. IV hydration and monitor renal function. 8. Improve nutritional status. 9. DVT prophylaxis with Lovenox. 10. Stress ulcer prophylaxis. 11. Discussed with Dr. Maldonado and RN. Critical care time 39 minutes. YOSELIN KAUFMAN MD DR: NABIL/makenna JOB#: [id number] / [id number] SAMUEL
[2017-02-04] MEDS ORDERED: VANCOMYCIN 1.75 GM in IV NORMAL SALINE 500ML BAG 500 ML IV ONE (11:00)
[2017-02-04] MEDS: ENOXAPARIN 30 MG/0.3 ML DISP.SYRIN. SQ SCH (11:21)
--- NOTE | 2017-02-04 11:56 | PDOC2 ---
CONSULT Date of Consult Date of Consult DATE: 02/04/17 TIME: 11:53 Reason for Consult Reason for Consult: ^ed Creat, ? CKD Referring Physician Referring Physician: Dr Couch Identification/Chief Complaint Chief Complaint Hypoxia Problems: Source Source: Chart review, Patient History of Present Illness Reason for Visit: as dictated Past Medical History Cardiovascular: AFIB (?), CHF, HTN, Hyperlipidemia Pulmonary: COPD, Pneumonia, Other (aspiration) CENTRAL NERVOUS SYSTEM: Dementia Heme/Onc: Anemia NOS Hepatobiliary: No pertinent hx Psych: Other (past alcoholism) Musculoskeletal: Osteoarthritis Rheumatologic: No pertinent hx Infectious disease: No pertinent hx Renal/: Chronic renal insuff (CKD2), Benign prostatic enlarg. Endocrine: Hyperthyroidism (subclinical) Dermatology: No pertinent hx Past Surgical History Past Surgical History: Hernia Repair, Colon Resection (?), Other (colosotomy in the past) Family History Family History Pt smoewhat confused to answer, denies fam Hx Family History: Family History Unknown Social History Quit ALCOHOL: heavy Drugs: None Lives: Shelter Current Problem List Problem List Problems Medical Problems: (1) Acute respiratory failure Status: Acute (2) Dyspnea Status: Acute (3) HCAP (healthcare-associated pneumonia) Status: Acute Current Medications Current Medications Current Medications Albuterol/ Ipratropium (Duoneb) 3 ml 1X ONCE NEB Last administered on 00:31; Start 02/04/17 at 00:30; Stop 02/04/17 at 00:31; Status DC Tobramycin Sulfate 1 each 1 each PRN DAILY PRN PHARMACY TO DOSE Last administered on 02/04/17 03:00; Start 02/04/17 at 01:00; Stop 02/04/17 at 09:26; Status DC Piperacillin Sod/ Tazobactam Sod 4.5 gm/Sodium Chloride 100 ml @ 200 mls/hr 1X ONCE IV Last administered on 02/04/17 01:29; Start 02/04/17 at 01:00; Stop 02/04/17 at 01:29; Status DC Tobramycin Sulfate/Sodium Chloride (Nebcin/Iv Sodium Chloride 0.9% 100ml) 108.75 ml @ 108.75 mls/hr 1X ONCE IV Last administered on 02/04/17 02:32; Start 02/04/17 at 01:30; Stop 02/04/17 at 09:24; Status DC Lorazepam 1 mg 1 mg 1X ONCE IV Last administered on 02/04/17 01:29; Start 02/04 at 01:30; Stop 02/04/17 at 01:31; Status DC Sodium Chloride (Iv Sodium Chloride 0.9% 1000ml Bag) 1,000 ml @ 1,000 mls/hr Q1H IV Last administered on 02/04/17 02:00; Start 02/04/17 at 01:00; Stop at 02:24; Status DC Ondansetron HCl (Zofran) 4 mg PRN Q8HRS PRN IV NAUSEA/VOMITING; Start 02/04/17 at 01:00; Stop 02/05/17 at 00:59 Morphine Sulfate 2 mg PRN Q2HR PRN IV SEVERE PAIN; Start 02/04/17 at 01:00; Stop 02/05/17 at 00:59 Acetaminophen (Tylenol) 650 mg PRN Q4HRS PRN PO FEVER; Start 02/04/17 at 01:00; Stop 02/05/17 at 00:59 Albuterol/ Ipratropium (Duoneb) 3 ml RTQID NEB Last administered on 02/04/17 08 :28; Start 02/04/17 at 08:00; Stop 02/05/17 at 07:59 Diphenhydramine HCl (Benadryl) 25 mg 1X ONCE IVP Last administered on 02:31; Start 02/04/17 at 02:45; Stop 02/04/17 at 02:46; Status DC Tobramycin Sulfate 1 each 1 each 1X ONCE MC ; Start 02/04/17 at 14:30; Stop 02/04 at 14:30; Status DC Tobramycin Sulfate 350 mg/ Sodium Chloride 108.75 ml @ 108.75 mls/hr Q48H IV ; Start 02/05/17 at 23:00; Stop 02/05/17 at 23:00; Status DC Piperacillin Sod/ Tazobactam Sod/ Sodium Chloride (Zosyn/Iv Sodium Chloride 0.9 % 50ml) 50 ml @ 100 mls/hr Q6HRS IV Last administered on 02/04/17 05:47; Start 02/04/17 at 06:00 Vancomycin HCl 1 each 1 each PRN DAILY PRN MC SEE COMMENTS Last administered on 02/04/17 09:37; Start 02/04/17 at 09:15 Levofloxacin/ Dextrose (LEVAQUIN 750mg PREMIX) 150 ml @ 100 mls/hr 1X ONCE IV Last administered on 02/04/17 11:21; Start 02/04/17 at 09:30; Stop 02/04/17 at 10:59; Status DC Enoxaparin Sodium 30 mg 30 mg Q24H SQ Last administered on 02/04/17 11:21; Start 02/04/17 at 09:30 Vancomycin HCl 1.75 gm/Sodium Chloride 500 ml @ 250 mls/hr 1X ONCE IV Last administered on 02/04/17 11:23; Start 02/04/17 at 11:00; Stop 02/04/17 at 12:59 Vancomycin HCl/ Sodium Chloride (Iv Sodium Chloride 0.9% 250ml) 250 ml @ 250 mls/hr Q24H IV ; Start 02/05/17 at 11:00 Vancomycin HCl 1 each 1X ONCE MC ; Start 02/06/17 at 10:30; Stop 02/06/17 at 10: 31 Active Scripts Active Reported Protonix (Pantoprazole Sodium) 40 Mg Tablet.dr 1 Tab PO DAILY Multi-Vitamin Daily (Multivitamin) 1 Each Tablet 1 Each PO DAILY Diltiazem 24HR Cd (Diltiazem Hcl) 240 Mg Cap.er.24h 240 Mg PO DAILY Breo Ellipta 100-25 Mcg Inh (Fluticasone/Vilanterol) 1 Each Aer.pow.ba 1 Puff IH DAILY Tamsulosin Hcl 0.4 Mg Cap.er.24h 1 Cap PO DAILY Primidone 50 Mg Tablet 50 Mg PO DAILY Metoprolol Succinate 50 Mg Tab.er.24h 25 Mg PO DAILY Lorazepam 0.5 Mg Tablet 1 Tab PO PRN Q8HRS PRN Milk Of Magnesia (Magnesium Hydroxide) 400 Mg/5 Ml Oral.susp 400 Mg PO PRN DAILY PRN Atorvastatin Calcium 10 Mg Tablet 1 Tab PO DAILY Aspirin 81 Mg Tab.chew 81 Mg PO DAILY Acetaminophen 325 Mg Tablet 650 Mg PO Q4HRS PRN Duoneb 0.5-3(2.5) Mg/3 Ml (Albuterol/Ipratropium) 3 Ml Ampul.neb 3 Ml NEB PRN Q4HRS PRN Furosemide 40 Mg Tablet 40 Mg PO DAILY Dulcolax (Bisacodyl) 10 Mg Supp.rect 10 Mg RC PRN DAILY PRN Allergies Allergies: Coded Allergies: No Known Drug Allergies (Unverified , 11/08/16) ROS Review of System unable to obtain due to some level of confusion Physical Exam Physical Exam General Appearance: Awake Alert Oriented x 2 In no Distress Eyes: VIsion Unchanged Conjunctiva Normal EN: No EN Drainage Mucous Memb. moist Neck: no JVD no JVP Supple no Thyromegaly CVS: S1 S2 no Murmur No Gallop No Rub no Edema Resp: no Rales occ URT Rhonchi no Acc. Muscle use GI: BAS +ve NO Bruit Non Tender Non Distended : no CVA tenderness; no Suprapubic Tenderness SKIN: no Rashes Breast Exam deferred Mu.Sk: Adequate ROM min Muscle Atrophy Heme: Unable to palpate Obvious LAD no palp Splenomegaly NEURO: Good Strength and Tone Cranial Nerves II - XII grossly intact Psych: ? Depressed no Active hallucination Vital Signs Vital Signs Date Time Temp Pulse Resp B/P Pulse Ox O2 Delivery O2 Flow Rate FiO2 02/04/17 11:33 Bi-pap 2.5 02/04/17 11:29 63 20 145/63 98 02/04/17 07:00 98.5 98.5 Assessment & Plan CKD III - no prior baseline x from Nov 2016. Current FLuid and E-lyte status does not necessitate emergent need for Dialysis. check UA and US. HypoALbuminemia - presumably du eto recent Pn and hospitalization. Anemia: check Iron, Epogen Transfuse as needed for hgb < 7 Resp distress/ Hypoxia - now better and off of BiPAP; doubt fluid related HTN: Current BP meds reviewed. See orders for changes. Discussed Plan of Care and prognosis etc. at length with family. Labs Labs Laboratory Tests Test 02/04/17 00:01 02/04/17 00:05 02/04/17 01:58 02/04/17 07:20 White Blood Count 11.0x10^3/uL (4.0-11.0) Red Blood Count 3.60x10^6/uL (4.30-5.70) Hemoglobin 9.2g/dL (13.0-17.5) Hematocrit 29.4% (39.0-53.0) Mean Corpuscular Volume 82fL (79-100) Mean Corpuscular Hemoglobin 26pg (25-35) Mean Corpuscular Hemoglobin Concent 31g/dL (31-37) Red Cell Distribution Width 20.3% (11.5-14.5) Platelet Count 373x10^3/uL (140-400) Neutrophils (%) (Auto) 74% (31-73) Lymphocytes (%) (Auto) 18% (24-48) Monocytes (%) (Auto) 7% (0-9) Eosinophils (%) (Auto) 1% (0-3) Basophils (%) (Auto) 0% (0-3) Neutrophils # (Auto) 8.1x10^3uL (1.8-7.7) Lymphocytes # (Auto) 2.0x10^3/uL (1.0-4.8) Monocytes # (Auto) 0.7x10^3/uL (0.0-1.1) Eosinophils # (Auto) 0.1x10^3/uL (0.0-0.7) Basophils # (Auto) 0.0x10^3/uL (0.0-0.2) Platelet Estimate Adequate (ADEQUATE) Giant Platelets Occ Polychromasia Slight Anisocytosis Mod Microcytosis Slight Tear Drop Cells Few Ovalocytes Few Sodium Level 139mmol/L (136-145) Potassium Level 4.6mmol/L (3.5-5.1) Chloride Level 99mmol/L (98-107) Carbon Dioxide Level 29mmol/L (21-32) Anion Gap 11 (6-14) Blood Urea Nitrogen 30mg/dL (8-26) Creatinine 2.0mg/dL (0.7-1.3) Estimated GFR (Cockcroft-Gault) 32.3 BUN/Creatinine Ratio 15 (6-20) Glucose Level 165mg/dL (70-99) Lactic Acid Level 1.9mmol/L (0.4-2.0) Calcium Level 8.8mg/dL (8.5-10.1) Total Bilirubin 0.3mg/dL (0.2-1.0) Aspartate Amino Transf (AST/SGOT) 14U/L (15-37) Alanine Aminotransferase (ALT/SGPT) 10U/L (16-63) Alkaline Phosphatase 85U/L (46-116) Troponin I Quantitative < 0.017ng/mL (0.000-0.055) < 0.017ng/mL (0.000-0.055) JQ-Kgj-P-Type Natriuretic Peptide 1041pg/mL (0-449) Total Protein 5.7g/dL (6.4-8.2) Albumin 2.7g/dL (3.4-5.0) Albumin/Globulin Ratio 0.9 (1.0-1.7) Influenza Type A Antigen Negative (NEGATIVE) Influenza Type B Antigen Negative (NEGATIVE) O2 Saturation 95% (92-99) Arterial Blood pH 7.42 (7.35-7.45) Arterial Blood pCO2 at Patient Temp 38mmHg (35-46) Arterial Blood pO2 at Patient Temp 87mmHg (65-108) Arterial Blood HCO3 24mmol/L (21-28) Arterial Blood Base Excess 0mmol/L (-3-3) FiO2 30.0 Laboratory Tests Test 02/04/17 00:01 02/04/17 00:05 02/04/17 01:58 02/04/17 07:20 White Blood Count 11.0x10^3/uL (4.0-11.0) Red Blood Count 3.60x10^6/uL (4.30-5.70) Hemoglobin 9.2g/dL (13.0-17.5) Hematocrit 29.4% (39.0-53.0) Mean Corpuscular Volume 82fL (79-100) Mean Corpuscular Hemoglobin 26pg (25-35) Mean Corpuscular Hemoglobin Concent 31g/dL (31-37) Red Cell Distribution Width 20.3% (11.5-14.5) Platelet Count 373x10^3/uL (140-400) Neutrophils (%) (Auto) 74% (31-73) Lymphocytes (%) (Auto) 18% (24-48) Monocytes (%) (Auto) 7% (0-9) Eosinophils (%) (Auto) 1% (0-3) Basophils (%) (Auto) 0% (0-3) Neutrophils # (Auto) 8.1x10^3uL (1.8-7.7) Lymphocytes # (Auto) 2.0x10^3/uL (1.0-4.8) Monocytes # (Auto) 0.7x10^3/uL (0.0-1.1) Eosinophils # (Auto) 0.1x10^3/uL (0.0-0.7) Basophils # (Auto) 0.0x10^3/uL (0.0-0.2) Platelet Estimate Adequate (ADEQUATE) Giant Platelets Occ Polychromasia Slight Anisocytosis Mod Microcytosis Slight Tear Drop Cells Few Ovalocytes Few Sodium Level 139mmol/L (136-145) Potassium Level 4.6mmol/L (3.5-5.1) Chloride Level 99mmol/L (98-107) Carbon Dioxide Level 29mmol/L (21-32) Anion Gap 11 (6-14) Blood Urea Nitrogen 30mg/dL (8-26) Creatinine 2.0mg/dL (0.7-1.3) Estimated GFR (Cockcroft-Gault) 32.3 BUN/Creatinine Ratio 15 (6-20) Glucose Level 165mg/dL (70-99) Lactic Acid Level 1.9mmol/L (0.4-2.0) Calcium Level 8.8mg/dL (8.5-10.1) Total Bilirubin 0.3mg/dL (0.2-1.0) Aspartate Amino Transf (AST/SGOT) 14U/L (15-37) Alanine Aminotransferase (ALT/SGPT) 10U/L (16-63) Alkaline Phosphatase 85U/L (46-116) Troponin I Quantitative < 0.017ng/mL (0.000-0.055) < 0.017ng/mL (0.000-0.055) ZU-Lqf-J-Type Natriuretic Peptide 1041pg/mL (0-449) Total Protein 5.7g/dL (6.4-8.2) Albumin 2.7g/dL (3.4-5.0) Albumin/Globulin Ratio 0.9 (1.0-1.7) Influenza Type A Antigen Negative (NEGATIVE) Influenza Type B Antigen Negative (NEGATIVE) O2 Saturation 95% (92-99) Arterial Blood pH 7.42 (7.35-7.45) Arterial Blood pCO2 at Patient Temp 38mmHg (35-46) Arterial Blood pO2 at Patient Temp 87mmHg (65-108) Arterial Blood HCO3 24mmol/L (21-28) Arterial Blood Base Excess 0mmol/L (-3-3) FiO2 30.0 Images Images IMPRESSION: 1. Mild right upper lobe pneumonia. 2. Bibasilar atelectasis versus additional mild infiltrates. 3. Chronic obstructive pulmonary disease. JAMIL WALL MD Feb 04, 2017 11:56
[2017-02-04] MEDS ORDERED: MAGNESIUM SULFATE 2GM 50 ML IV PRN (12:00)
--- NOTE | 2017-02-04 12:58 | RAD ---
EXAM: Renal/retroperitonal ultrasound HISTORY: Elevated creatinine. COMPARISON: None. FINDINGS: Ultrasound of the kidneys, bladder and retroperitoneum was performed. The right kidney measures 11.9 cm. Cortical thickness and echogenicity are preserved. There is no hydronephrosis. The left kidney measures 10.8 cm. Cortical thickness and echogenicity are preserved. There is no hydronephrosis. The bladder is decompressed by a Coker catheter. IMPRESSION: 1. Unremarkable examination of the kidneys. No hydronephrosis.
--- NOTE | 2017-02-04 13:20 | PDOC ---
Infectious Disease Note Subjective Subjective Pt is known to us, returned with breathing machine malfunction, no fever, had sob, change in MS after ativan in ER, he feels fine now. ROS ROS GEN: Denies fevers, chills, sweats HEENT: Denies blurred vision, sore throat CV: Denies chest pain RESP: Denies shortness of air, cough GI: Denies n/v/d NEURO: Denies confusion, dizziness MSK: Denies weakness, joint pain/swelling Vital Sign Vital Signs Vital Signs Date Time Temp Pulse Resp B/P Pulse Ox O2 Delivery O2 Flow Rate FiO2 02/04/17 13:00 94 Nasal Cannula 3.0 02/04/17 11:29 63 20 145/63 02/04/17 07:00 98.5 98.5 Physical Exam PHYSICAL EXAM GENERAL: NAD, Alert HEENT: PERRL, OC/OP NECK: Supple, no JVD, no LN LUNGS: Clear HEART: S1S2, no gallop, no murmur ABD: Soft, NT, no organomegaly, no rebound EXT: No edema, no cyanosis 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, 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, no focal neurologic deficit SKIN: No rash IV: ok Labs Lab Laboratory Tests Test 02/04/17 00:01 02/04/17 00:05 02/04/17 01:58 02/04/17 07:20 White Blood Count 11.0x10^3/uL (4.0-11.0) Red Blood Count 3.60x10^6/uL (4.30-5.70) Hemoglobin 9.2g/dL (13.0-17.5) Hematocrit 29.4% (39.0-53.0) Mean Corpuscular Volume 82fL (79-100) Mean Corpuscular Hemoglobin 26pg (25-35) Mean Corpuscular Hemoglobin Concent 31g/dL (31-37) Red Cell Distribution Width 20.3% (11.5-14.5) Platelet Count 373x10^3/uL (140-400) Neutrophils (%) (Auto) 74% (31-73) Lymphocytes (%) (Auto) 18% (24-48) Monocytes (%) (Auto) 7% (0-9) Eosinophils (%) (Auto) 1% (0-3) Basophils (%) (Auto) 0% (0-3) Neutrophils # (Auto) 8.1x10^3uL (1.8-7.7) Lymphocytes # (Auto) 2.0x10^3/uL (1.0-4.8) Monocytes # (Auto) 0.7x10^3/uL (0.0-1.1) Eosinophils # (Auto) 0.1x10^3/uL (0.0-0.7) Basophils # (Auto) 0.0x10^3/uL (0.0-0.2) Platelet Estimate Adequate (ADEQUATE) Giant Platelets Occ Polychromasia Slight Anisocytosis Mod Microcytosis Slight Tear Drop Cells Few Ovalocytes Few Sodium Level 139mmol/L (136-145) Potassium Level 4.6mmol/L (3.5-5.1) Chloride Level 99mmol/L (98-107) Carbon Dioxide Level 29mmol/L (21-32) Anion Gap 11 (6-14) Blood Urea Nitrogen 30mg/dL (8-26) Creatinine 2.0mg/dL (0.7-1.3) Estimated GFR (Cockcroft-Gault) 32.3 BUN/Creatinine Ratio 15 (6-20) Glucose Level 165mg/dL (70-99) Lactic Acid Level 1.9mmol/L (0.4-2.0) Calcium Level 8.8mg/dL (8.5-10.1) Total Bilirubin 0.3mg/dL (0.2-1.0) Aspartate Amino Transf (AST/SGOT) 14U/L (15-37) Alanine Aminotransferase (ALT/SGPT) 10U/L (16-63) Alkaline Phosphatase 85U/L (46-116) Troponin I Quantitative < 0.017ng/mL (0.000-0.055) < 0.017ng/mL (0.000-0.055) CS-Rxe-D-Type Natriuretic Peptide 1041pg/mL (0-449) Total Protein 5.7g/dL (6.4-8.2) Albumin 2.7g/dL (3.4-5.0) Albumin/Globulin Ratio 0.9 (1.0-1.7) Influenza Type A Antigen Negative (NEGATIVE) Influenza Type B Antigen Negative (NEGATIVE) O2 Saturation 95% (92-99) Arterial Blood pH 7.42 (7.35-7.45) Arterial Blood pCO2 at Patient Temp 38mmHg (35-46) Arterial Blood pO2 at Patient Temp 87mmHg (65-108) Arterial Blood HCO3 24mmol/L (21-28) Arterial Blood Base Excess 0mmol/L (-3-3) FiO2 30.0 Objective Assessment COPD exacerbation Pneumonia ? chronic changes CHF Leukocytosis h/o MDRO Plan Plan of Care Meropenem supportive care ct pending LUIS MANUEL WALL MD Feb 04, 2017 13:20
[2017-02-04] MEDS ORDERED: TOBRAMYCIN RANDOM LEVEL. MC ONE (14:30)
[2017-02-04] MEDS: METOPROLOL SUCC 24HR ER 50 MG TAB.ER.24H. PO SCH (16:41)
[2017-02-04] MEDS: MEROPENEM 500 MG in IV NORMAL SALINE 50ML 50 ML IV SCH ×2 (16:41→23:15)
[2017-02-04] MEDS: FUROSEMIDE 40 MG TABLET PO SCH (16:42)
[2017-02-04] MEDS: PANTOPRAZOLE 40 MG TABLET. PO SCH (16:42)
[2017-02-04] MEDS: ASPIRIN 81 MG TAB.CHEW PO SCH (16:42)
[2017-02-04] MEDS: DILTIAZEM HCL 240 MG CAP.ER.24H PO SCH (16:42)
[2017-02-04] MEDS: ATORVASTATIN CALCIUM 10 MG TABLET. PO SCH (21:02)
[2017-02-05] MEDS: MEROPENEM 500 MG in IV NORMAL SALINE 50ML 50 ML IV SCH ×4 (00:05→21:57)
[2017-02-05 03:00] VITALS: BP 118/60
--- NOTE | 2017-02-05 03:02 | CONS ---
DATE OF CONSULTATION: 02/04/2017 PRIMARY PHYSICIAN: Dr. Couch. REASON FOR CONSULTATION: Elevated creatinine. HISTORY OF PRESENT ILLNESS: The patient is a pleasant 81-year-old gentleman who is not fully oriented and probably has some underlying speech impediment. His speech is somewhat difficult to understand. He is possibly known to have a history of CHF as documented, he is not a good historian either at this time. He was admitted to the hospital here in November and had a creatinine of 2.0 at that time. No imaging studies of his kidneys, etc., are available at this time. He is not aware of NSAID use per se. This visit, he presented to the ER with observed low oxygen saturation on routine checks. He apparently has been treated for pneumonia in the recent past also. There was some question of agitation on presentation, he was having low oxygen saturations and respiratory rate was about 40s-50s. He was sent over to the ER where he was placed on BiPAP and is now in the ICU. He is recently off BiPAP. He did get IV tobramycin and is being treated for upper respiratory tract signs and symptoms including possible pneumonia. Urine output is adequate at this time, creatinine is 2. He is not aware of underlying renal insufficiency, noted to be mildly anemic. For rest of details, see electronic records. JAMIL WALL MD DR: IRA/makenna JOB#: [id number] / [id number]
[2017-02-05 04:18] LABS: BASO % 1 % (0-3); EOS % 4 % (0-3); HEMATOCRIT 25.5 % (39.0-53.0); HEMOGLOBIN 8.3 g/dL (13.0-17.5); LYMPH # 1.4 x10^3/uL (1.0-4.8); LYMPH % 19 % (24-48); MEAN CORPUSCULAR HEMOGLOBIN 26 pg (25-35); MEAN CORPUSCULAR HGB CONC 33 g/dL (31-37); MEAN CORPUSCULAR VOLUME 80 fL (79-100); MONO % 9 % (0-9); NEUT % 69 % (31-73); PLATELET COUNT 389 x10^3/uL (140-400); RED BLOOD COUNT 3.17 x10^6/uL (4.30-5.70); WHITE BLOOD COUNT 7.5 x10^3/uL (4.0-11.0)
[2017-02-05 04:39] LABS: % SAT IRON 6 % (15-34); IRON,SERUM 10 ug/dL (65-175)
[2017-02-05 04:43] LABS: ALBUMIN 2.1 g/dL (3.4-5.0); ALBUMIN/GLOBULIN RATIO 0.6 (1.0-1.7); CALCIUM 8.5 mg/dL (8.5-10.1); CREATININE 1.9 mg/dL (0.7-1.3); GFR 34.3; PHOSPHORUS 4.1 mg/dL (2.6-4.7); POTASSIUM 3.9 mmol/L (3.5-5.1); TOTAL BILIRUBIN 0.2 mg/dL (0.2-1.0); TOTAL PROTEIN 5.6 g/dL (6.4-8.2)
[2017-02-05 07:00] VITALS: BP 141/60
[2017-02-05] MEDS: IPRATRPIUM/ALBUTEROL 0.5/2.5MG 3 ML NEBU. NEB SCH ×5 (07:02→19:36)
[2017-02-05 07:26] LABS: BILIRUBIN,URINE NEGATIVE (NEG); GLUCOSE,URINE NEGATIVE (NEG); NITRITE,URINE NEGATIVE (NEG); PH,URINE 5.5; PROTEIN,URINE NEGATIVE (NEG-TRACE); UROBILINOGEN,URINE 0.2 mg/dL (0.2 mg/dL)
[2017-02-05 07:45] LABS: BACTERIA,URINE 0 /HPF (0-FEW)
--- NOTE | 2017-02-05 08:28 | RAD ---
EXAM: CT of the chest without intravenous contrast. HISTORY: Pneumonia. TECHNIQUE: Computed tomography of the chest was performed without intravenous contrast. COMPARISON: 02/04/2017. FINDINGS: There are limitations from respiratory motion artifact. 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 It is normal in caliber more distally. Patency cannot be assessed without contrast. There are diffuse moderate to severe atherosclerotic calcifications. Bone windows reveal moderate compression fractures at T12 and L1. The L1 fracture appears subacute. There are no suspicious lesions. There are no pathologically enlarged mediastinal or axillary lymph nodes. Calcified mediastinal lymph nodes are likely secondary to old granulomatous disease. There is no pleural or pericardial effusion. The heart is not enlarged. There are atherosclerotic calcifications of the coronary arteries. There are mild peripheral interstitial and airspace opacities posteriorly in the right upper lobe and in the right greater than left costophrenic angles. These are consistent with mild pneumonia or an interstitial process. There is a 7 mm uncalcified nodule in the left upper lobe on image 25. There is moderate paraseptal greater than centrilobular emphysema. A bulla anteriorly along the left upper lobe measures 17 x 6 cm. IMPRESSION: 1. Mild interstitial and airspace opacities posteriorly in the right upper lobe and within the right greater than left costophrenic angles are consistent with pneumonia if acute, or interstitial lung disease/scarring if chronic. A follow-up in 3 months could assess stability if not already known. 2. A 7 mm nodule in the left upper lobe can also be followed in 3 months. 3. Moderate paraseptal greater than centrilobular emphysema. 17 cm bulla along the left upper lobe anteriorly. 4. 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 5. A moderate L1 compression fracture appears subacute. *One or more of the following individualized dose reduction techniques were utilized for this examination: 1. Automated exposure control. 2. Adjustment of the mA and/or kV according to patient size. 3. Use of iterative reconstruction technique.
[2017-02-05] MEDS: ASPIRIN 81 MG TAB.CHEW PO SCH (08:40)
[2017-02-05] MEDS: METOPROLOL SUCC 24HR ER 50 MG TAB.ER.24H. PO SCH (08:40)
[2017-02-05] MEDS: PANTOPRAZOLE 40 MG TABLET. PO SCH (08:40)
[2017-02-05] MEDS: FUROSEMIDE 40 MG TABLET PO SCH (08:40)
[2017-02-05] MEDS: ENOXAPARIN 30 MG/0.3 ML DISP.SYRIN. SQ SCH (08:41)
[2017-02-05] MEDS: DILTIAZEM HCL 240 MG CAP.ER.24H PO SCH (08:41)
[2017-02-05] MEDS ORDERED: ACETAMINOPHEN 500 MG TABLET PO PRN (09:00)
[2017-02-05] MEDS ORDERED: NON FORMULARY ITEM (Fluticasone/Vilanterol (Breo Ellipta 100-25 Mcg Inh) 1 PUFF) IH SCH (09:00)
[2017-02-05] MEDS ORDERED: BISACODYL 10 MG SUPP.RECT RC PRN (09:00)
[2017-02-05] MEDS ORDERED: ONDANSETRON PF 4 MG/2 ML VIAL. IV PRN (09:00)
[2017-02-05] MEDS ORDERED: MAGNESIUM HYDROXIDE 2,400 MG/30 ML ORAL.SUSP. PO PRN (09:00)
[2017-02-05] MEDS: BUDESONIDE 0.5 MG/2 ML NEBU NEB SCH ×2 (09:54→19:36)
[2017-02-05] MEDS: ALBUTEROL SULFATE 2.5 MG/3 ML NEBU. NEB PRN (09:54)
[2017-02-05] MEDS: LORAZEPAM 0.5 MG TABLET. PO PRN (10:11)
[2017-02-05] MEDS: PRIMIDONE 50 MG TABLET PO SCH (10:11)
[2017-02-05] MEDS: TAMSULOSIN 0.4 MG CAP.ER.24H. PO SCH (10:12)
[2017-02-05] MEDS: MULTIVITAMIN with MINERAL TABLET. PO SCH (10:12)
--- NOTE | 2017-02-05 10:13 | PDOC ---
Infectious Disease Note Subjective Subjective pt feeling good, no complaints ROS ROS GEN: Denies fevers, chills, sweats HEENT: Denies blurred vision, sore throat CV: Denies chest pain RESP: Denies shortness of air, cough GI: Denies n/v/d NEURO: Denies confusion, dizziness MSK: Denies weakness, joint pain/swelling Vital Sign Vital Signs Vital Signs Date Time Temp Pulse Resp B/P Pulse Ox O2 Delivery O2 Flow Rate FiO2 02/05/17 09:56 Nasal Cannula 2.5 02/05/17 08:41 60 141/60 02/05/17 07:00 98.3 18 98 98.3 Physical Exam PHYSICAL EXAM GENERAL: NAD, Alert HEENT: PERRL, OC/OP NECK: Supple, no JVD, no LN LUNGS: Clear HEART: S1S2, no gallop, no murmur ABD: Soft, NT, no organomegaly, no rebound EXT: No edema, no cyanosis 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, 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, no focal neurologic deficit SKIN: No rash IV: ok Labs Lab Laboratory Tests Test 02/04/17 13:00 02/05/17 03:54 Troponin I Quantitative < 0.017ng/mL (0.000-0.055) White Blood Count 7.5x10^3/uL (4.0-11.0) Red Blood Count 3.17x10^6/uL (4.30-5.70) Hemoglobin 8.3g/dL (13.0-17.5) Hematocrit 25.5% (39.0-53.0) Mean Corpuscular Volume 80fL (79-100) Mean Corpuscular Hemoglobin 26pg (25-35) Mean Corpuscular Hemoglobin Concent 33g/dL (31-37) Red Cell Distribution Width 21.0% (11.5-14.5) Platelet Count 389x10^3/uL (140-400) Neutrophils (%) (Auto) 69% (31-73) Lymphocytes (%) (Auto) 19% (24-48) Monocytes (%) (Auto) 9% (0-9) Eosinophils (%) (Auto) 4% (0-3) Basophils (%) (Auto) 1% (0-3) Neutrophils # (Auto) 5.2x10^3uL (1.8-7.7) Lymphocytes # (Auto) 1.4x10^3/uL (1.0-4.8) Monocytes # (Auto) 0.7x10^3/uL (0.0-1.1) Eosinophils # (Auto) 0.3x10^3/uL (0.0-0.7) Basophils # (Auto) 0.0x10^3/uL (0.0-0.2) Sodium Level 141mmol/L (136-145) Potassium Level 3.9mmol/L (3.5-5.1) Chloride Level 104mmol/L (98-107) Carbon Dioxide Level 30mmol/L (21-32) Anion Gap 7 (6-14) Blood Urea Nitrogen 31mg/dL (8-26) Creatinine 1.9mg/dL (0.7-1.3) Estimated GFR (Cockcroft-Gault) 34.3 BUN/Creatinine Ratio 16 (6-20) Glucose Level 146mg/dL (70-99) Calcium Level 8.5mg/dL (8.5-10.1) Phosphorus Level 4.1mg/dL (2.6-4.7) Magnesium Level 1.9mg/dL (1.8-2.4) Iron Level 10ug/dL (65-175) Total Iron Binding Capacity 166ug/dL (250-450) Iron Saturation 6% (15-34) Total Bilirubin 0.2mg/dL (0.2-1.0) Aspartate Amino Transf (AST/SGOT) 11U/L (15-37) Alanine Aminotransferase (ALT/SGPT) 8U/L (16-63) Alkaline Phosphatase 71U/L (46-116) Total Protein 5.6g/dL (6.4-8.2) Albumin 2.1g/dL (3.4-5.0) Albumin/Globulin Ratio 0.6 (1.0-1.7) Objective Assessment COPD exacerbation Pneumonia ? chronic changes CHF Leukocytosis h/o MDRO Plan Plan of Care Meropenem supportive care ct noted LUIS MANUEL WALL MD Feb 05, 2017 10:12
--- NOTE | 2017-02-05 10:53 | PDOC ---
PROGRESS NOTES Chief Complaint Chief Complaint Sepsis PNA, HCAP weakness, acute delirium, metabolic encephalopathy hypertension, CHF, COPD, strokes, pneumonia, atrial fib AFIB, CHF, HTN, Hyperlipidemia COPD Dementia Osteoarthritis Chronic renal insuff, Benign prostatic enlarg. History of Present Illness History of Present Illness Breathing better\ Bothered/worried about the fact he claims he lost 1 day's worth of memory, LAst he remembered was talking to family in [facility], then nexy thing he realizes he is in the hospital with [facility] NO SZ like activity Never happened before Chart reveiwed, [address] - all notes reviewed Solomon, on [place] 24/06 PLAN: Add neuro consult Duciro PT/OT Resume home meds Currently A and O x 3 Vitals Vitals Vital Signs Date Time Temp Pulse Resp B/P Pulse Ox O2 Delivery O2 Flow Rate FiO2 02/05/17 09:56 Nasal Cannula 2.5 02/05/17 08:41 60 141/60 02/05/17 07:00 98.3 18 98 98.3 Physical Exam General: Alert, Cooperative, No acute distress Heart: Normal S1, Normal S2, Other (irregular- WAP) Lungs: Clear Abdomen: Soft, No tenderness Extremities: No cyanosis, No edema Skin: No breakdown, No significant lesion, Other (UE ecchymoses) Labs LABS Laboratory Tests Test 02/04/17 13:00 02/05/17 03:54 Troponin I Quantitative < 0.017ng/mL (0.000-0.055) White Blood Count 7.5x10^3/uL (4.0-11.0) Red Blood Count 3.17x10^6/uL (4.30-5.70) Hemoglobin 8.3g/dL (13.0-17.5) Hematocrit 25.5% (39.0-53.0) Mean Corpuscular Volume 80fL (79-100) Mean Corpuscular Hemoglobin 26pg (25-35) Mean Corpuscular Hemoglobin Concent 33g/dL (31-37) Red Cell Distribution Width 21.0% (11.5-14.5) Platelet Count 389x10^3/uL (140-400) Neutrophils (%) (Auto) 69% (31-73) Lymphocytes (%) (Auto) 19% (24-48) Monocytes (%) (Auto) 9% (0-9) Eosinophils (%) (Auto) 4% (0-3) Basophils (%) (Auto) 1% (0-3) Neutrophils # (Auto) 5.2x10^3uL (1.8-7.7) Lymphocytes # (Auto) 1.4x10^3/uL (1.0-4.8) Monocytes # (Auto) 0.7x10^3/uL (0.0-1.1) Eosinophils # (Auto) 0.3x10^3/uL (0.0-0.7) Basophils # (Auto) 0.0x10^3/uL (0.0-0.2) Sodium Level 141mmol/L (136-145) Potassium Level 3.9mmol/L (3.5-5.1) Chloride Level 104mmol/L (98-107) Carbon Dioxide Level 30mmol/L (21-32) Anion Gap 7 (6-14) Blood Urea Nitrogen 31mg/dL (8-26) Creatinine 1.9mg/dL (0.7-1.3) Estimated GFR (Cockcroft-Gault) 34.3 BUN/Creatinine Ratio 16 (6-20) Glucose Level 146mg/dL (70-99) Calcium Level 8.5mg/dL (8.5-10.1) Phosphorus Level 4.1mg/dL (2.6-4.7) Magnesium Level 1.9mg/dL (1.8-2.4) Iron Level 10ug/dL (65-175) Total Iron Binding Capacity 166ug/dL (250-450) Iron Saturation 6% (15-34) Total Bilirubin 0.2mg/dL (0.2-1.0) Aspartate Amino Transf (AST/SGOT) 11U/L (15-37) Alanine Aminotransferase (ALT/SGPT) 8U/L (16-63) Alkaline Phosphatase 71U/L (46-116) Total Protein 5.6g/dL (6.4-8.2) Albumin 2.1g/dL (3.4-5.0) Albumin/Globulin Ratio 0.6 (1.0-1.7) Review of Systems Review of Systems no inc in soa, fevers or cp Assessment and Plan Assessmemt and Plan Problems Medical Problems: (1) Acute respiratory failure Status: Acute (2) Dyspnea Status: Acute (3) HCAP (healthcare-associated pneumonia) Status: Acute Problems: Comment Review of Relevant I have reviewed the following items be (where applicable) has been applied. Labs Laboratory Tests Test 02/04/17 00:01 02/04/17 00:05 02/04/17 01:58 02/04/17 05:00 White Blood Count 11.0x10^3/uL (4.0-11.0) Red Blood Count 3.60x10^6/uL (4.30-5.70) Hemoglobin 9.2g/dL (13.0-17.5) Hematocrit 29.4% (39.0-53.0) Mean Corpuscular Volume 82fL (79-100) Mean Corpuscular Hemoglobin 26pg (25-35) Mean Corpuscular Hemoglobin Concent 31g/dL (31-37) Red Cell Distribution Width 20.3% (11.5-14.5) Platelet Count 373x10^3/uL (140-400) Neutrophils (%) (Auto) 74% (31-73) Lymphocytes (%) (Auto) 18% (24-48) Monocytes (%) (Auto) 7% (0-9) Eosinophils (%) (Auto) 1% (0-3) Basophils (%) (Auto) 0% (0-3) Neutrophils # (Auto) 8.1x10^3uL (1.8-7.7) Lymphocytes # (Auto) 2.0x10^3/uL (1.0-4.8) Monocytes # (Auto) 0.7x10^3/uL (0.0-1.1) Eosinophils # (Auto) 0.1x10^3/uL (0.0-0.7) Basophils # (Auto) 0.0x10^3/uL (0.0-0.2) Platelet Estimate Adequate (ADEQUATE) Giant Platelets Occ Polychromasia Slight Anisocytosis Mod Microcytosis Slight Tear Drop Cells Few Ovalocytes Few Sodium Level 139mmol/L (136-145) Potassium Level 4.6mmol/L (3.5-5.1) Chloride Level 99mmol/L (98-107) Carbon Dioxide Level 29mmol/L (21-32) Anion Gap 11 (6-14) Blood Urea Nitrogen 30mg/dL (8-26) Creatinine 2.0mg/dL (0.7-1.3) Estimated GFR (Cockcroft-Gault) 32.3 BUN/Creatinine Ratio 15 (6-20) Glucose Level 165mg/dL (70-99) Lactic Acid Level 1.9mmol/L (0.4-2.0) Calcium Level 8.8mg/dL (8.5-10.1) Total Bilirubin 0.3mg/dL (0.2-1.0) Aspartate Amino Transf (AST/SGOT) 14U/L (15-37) Alanine Aminotransferase (ALT/SGPT) 10U/L (16-63) Alkaline Phosphatase 85U/L (46-116) Troponin I Quantitative < 0.017ng/mL (0.000-0.055) RI-Prg-Q-Type Natriuretic Peptide 1041pg/mL (0-449) Total Protein 5.7g/dL (6.4-8.2) Albumin 2.7g/dL (3.4-5.0) Albumin/Globulin Ratio 0.9 (1.0-1.7) Influenza Type A Antigen Negative (NEGATIVE) Influenza Type B Antigen Negative (NEGATIVE) O2 Saturation 95% (92-99) Arterial Blood pH 7.42 (7.35-7.45) Arterial Blood pCO2 at Patient Temp 38mmHg (35-46) Arterial Blood pO2 at Patient Temp 87mmHg (65-108) Arterial Blood HCO3 24mmol/L (21-28) Arterial Blood Base Excess 0mmol/L (-3-3) FiO2 30.0 Nasal Screen MRSA (PCR) Negative (Negative) Test 02/04/17 06:50 02/04/17 07:20 02/04/17 13:00 02/05/17 03:54 Urine Collection Type Unknown Urine Color Yellow Urine Clarity Clear Urine pH 5.5 Urine Specific [place] 1.010 Urine Protein Negativemg/dL (NEG-TRACE) Urine Glucose (UA) Negativemg/dL (NEG) Urine Ketones (Stick) Negativemg/dL (NEG) Urine Blood Large (NEG) Urine Nitrite Negative (NEG) Urine Bilirubin Negative (NEG) Urine Urobilinogen Dipstick 0.2mg/dL (0.2 mg/dL) Urine Leukocyte Esterase Small (NEG) Urine RBC 11-20/HPF (0-2) Urine WBC 5-10/HPF (0-4) Urine Bacteria 0/HPF (0-FEW) Urine Hyaline Casts Occasional/HPF Urine Mucus Mod/LPF Troponin I Quantitative < 0.017ng/mL (0.000-0.055) < 0.017ng/mL (0.000-0.055) White Blood Count 7.5x10^3/uL (4.0-11.0) Red Blood Count 3.17x10^6/uL (4.30-5.70) Hemoglobin 8.3g/dL (13.0-17.5) Hematocrit 25.5% (39.0-53.0) Mean Corpuscular Volume 80fL (79-100) Mean Corpuscular Hemoglobin 26pg (25-35) Mean Corpuscular Hemoglobin Concent 33g/dL (31-37) Red Cell Distribution Width 21.0% (11.5-14.5) Platelet Count 389x10^3/uL (140-400) Neutrophils (%) (Auto) 69% (31-73) Lymphocytes (%) (Auto) 19% (24-48) Monocytes (%) (Auto) 9% (0-9) Eosinophils (%) (Auto) 4% (0-3) Basophils (%) (Auto) 1% (0-3) Neutrophils # (Auto) 5.2x10^3uL (1.8-7.7) Lymphocytes # (Auto) 1.4x10^3/uL (1.0-4.8) Monocytes # (Auto) 0.7x10^3/uL (0.0-1.1) Eosinophils # (Auto) 0.3x10^3/uL (0.0-0.7) Basophils # (Auto) 0.0x10^3/uL (0.0-0.2) Sodium Level 141mmol/L (136-145) Potassium Level 3.9mmol/L (3.5-5.1) Chloride Level 104mmol/L (98-107) Carbon Dioxide Level 30mmol/L (21-32) Anion Gap 7 (6-14) Blood Urea Nitrogen 31mg/dL (8-26) Creatinine 1.9mg/dL (0.7-1.3) Estimated GFR (Cockcroft-Gault) 34.3 BUN/Creatinine Ratio 16 (6-20) Glucose Level 146mg/dL (70-99) Calcium Level 8.5mg/dL (8.5-10.1) Phosphorus Level 4.1mg/dL (2.6-4.7) Magnesium Level 1.9mg/dL (1.8-2.4) Iron Level 10ug/dL (65-175) Total Iron Binding Capacity 166ug/dL (250-450) Iron Saturation 6% (15-34) Total Bilirubin 0.2mg/dL (0.2-1.0) Aspartate Amino Transf (AST/SGOT) 11U/L (15-37) Alanine Aminotransferase (ALT/SGPT) 8U/L (16-63) Alkaline Phosphatase 71U/L (46-116) Total Protein 5.6g/dL (6.4-8.2) Albumin 2.1g/dL (3.4-5.0) Albumin/Globulin Ratio 0.6 (1.0-1.7) Laboratory Tests Test 02/04/17 13:00 02/05/17 03:54 Troponin I Quantitative < 0.017ng/mL (0.000-0.055) White Blood Count 7.5x10^3/uL (4.0-11.0) Red Blood Count 3.17x10^6/uL (4.30-5.70) Hemoglobin 8.3g/dL (13.0-17.5) Hematocrit 25.5% (39.0-53.0) Mean Corpuscular Volume 80fL (79-100) Mean Corpuscular Hemoglobin 26pg (25-35) Mean Corpuscular Hemoglobin Concent 33g/dL (31-37) Red Cell Distribution Width 21.0% (11.5-14.5) Platelet Count 389x10^3/uL (140-400) Neutrophils (%) (Auto) 69% (31-73) Lymphocytes (%) (Auto) 19% (24-48) Monocytes (%) (Auto) 9% (0-9) Eosinophils (%) (Auto) 4% (0-3) Basophils (%) (Auto) 1% (0-3) Neutrophils # (Auto) 5.2x10^3uL (1.8-7.7) Lymphocytes # (Auto) 1.4x10^3/uL (1.0-4.8) Monocytes # (Auto) 0.7x10^3/uL (0.0-1.1) Eosinophils # (Auto) 0.3x10^3/uL (0.0-0.7) Basophils # (Auto) 0.0x10^3/uL (0.0-0.2) Sodium Level 141mmol/L (136-145) Potassium Level 3.9mmol/L (3.5-5.1) Chloride Level 104mmol/L (98-107) Carbon Dioxide Level 30mmol/L (21-32) Anion Gap 7 (6-14) Blood Urea Nitrogen 31mg/dL (8-26) Creatinine 1.9mg/dL (0.7-1.3) Estimated GFR (Cockcroft-Gault) 34.3 BUN/Creatinine Ratio 16 (6-20) Glucose Level 146mg/dL (70-99) Calcium Level 8.5mg/dL (8.5-10.1) Phosphorus Level 4.1mg/dL (2.6-4.7) Magnesium Level 1.9mg/dL (1.8-2.4) Iron Level 10ug/dL (65-175) Total Iron Binding Capacity 166ug/dL (250-450) Iron Saturation 6% (15-34) Total Bilirubin 0.2mg/dL (0.2-1.0) Aspartate Amino Transf (AST/SGOT) 11U/L (15-37) Alanine Aminotransferase (ALT/SGPT) 8U/L (16-63) Alkaline Phosphatase 71U/L (46-116) Total Protein 5.6g/dL (6.4-8.2) Albumin 2.1g/dL (3.4-5.0) Albumin/Globulin Ratio 0.6 (1.0-1.7) Microbiology 02/04/17 Blood Culture - Preliminary, Resulted NO GROWTH AFTER 1 DAY Medications Current Medications Albuterol/ Ipratropium (Duoneb) 3 ml 1X ONCE NEB Last administered on t 00:31; Start 02/04/17 at 00:30; Stop 02/04/17 at 00:31; Status DC Tobramycin Sulfate 1 each 1 each PRN DAILY PRN PHARMACY TO DOSE Last administered on 02/04/17 03:00; Start 02/04/17 at 01:00; Stop 02/04/17 at 09:26; Status DC Piperacillin Sod/ Tazobactam Sod 4.5 gm/Sodium Chloride 100 ml @ 200 mls/hr 1X ONCE IV Last administered on 02/04/17 01:29; Start 02/04/17 at 01:00; Stop 02/04/17 at 01:29; Status DC Tobramycin Sulfate/Sodium Chloride (Nebcin/Iv Sodium Chloride 0.9% 100ml) 108.75 ml @ 108.75 mls/hr 1X ONCE IV Last administered on 02/04/17 02:32; Start 02/04/17 at 01:30; Stop 02/04/17 at 09:24; Status DC Lorazepam 1 mg 1 mg 1X ONCE IV Last administered on 02/04/17 01:29; Start 02/04 at 01:30; Stop 02/04/17 at 01:31; Status DC Sodium Chloride (Iv Sodium Chloride 0.9% 1000ml Bag) 1,000 ml @ 1,000 mls/hr Q1H IV Last administered on 02/04/17 02:00; Start 02/04/17 at 01:00; Stop at 02:24; Status DC Ondansetron HCl (Zofran) 4 mg PRN Q8HRS PRN IV NAUSEA/VOMITING; Start 02/04/17 at 01:00; Stop 02/05/17 at 00:59; Status DC Morphine Sulfate 2 mg PRN Q2HR PRN IV SEVERE PAIN; Start 02/04/17 at 01:00; Stop 02/05/17 at 00:59; Status DC Acetaminophen (Tylenol) 650 mg PRN Q4HRS PRN PO FEVER; Start 02/04/17 at 01:00; Stop 02/05/17 at 00:59; Status DC Albuterol/ Ipratropium (Duoneb) 3 ml RTQID NEB Last administered on 02/05/17 07 :02; Start 02/04/17 at 08:00; Stop 02/05/17 at 07:59; Status DC Diphenhydramine HCl (Benadryl) 25 mg 1X ONCE IVP Last administered on 02:31; Start 02/04/17 at 02:45; Stop 02/04/17 at 02:46; Status DC Tobramycin Sulfate 1 each 1 each 1X ONCE MC ; Start 02/04/17 at 14:30; Stop 02/04 at 14:30; Status DC Tobramycin Sulfate 350 mg/ Sodium Chloride 108.75 ml @ 108.75 mls/hr Q48H IV ; Start 02/05/17 at 23:00; Stop 02/05/17 at 23:00; Status DC Piperacillin Sod/ Tazobactam Sod/ Sodium Chloride (Zosyn/Iv Sodium Chloride 0.9 % 50ml) 50 ml @ 100 mls/hr Q6HRS IV Last administered on 02/04/17 05:47; Start 02/04/17 at 06:00; Stop 02/04/17 at 13:11; Status DC Vancomycin HCl 1 each 1 each PRN DAILY PRN MC SEE COMMENTS Last administered on 02/04/17 09:37; Start 02/04/17 at 09:15; Stop 02/04/17 at 13:12; Status DC Levofloxacin/ Dextrose (LEVAQUIN 750mg PREMIX) 150 ml @ 100 mls/hr 1X ONCE IV Last administered on 02/04/17 11:21; Start 02/04/17 at 09:30; Stop 02/04/17 at 10:59; Status DC Enoxaparin Sodium 30 mg 30 mg Q24H SQ Last administered on 02/05/17 08:41; Start 02/04/17 at 09:30 Vancomycin HCl 1.75 gm/Sodium Chloride 500 ml @ 250 mls/hr 1X ONCE IV Last administered on 02/04/17 11:23; Start 02/04/17 at 11:00; Stop 02/04/17 at 12:59; Status DC Vancomycin HCl/ Sodium Chloride (Iv Sodium Chloride 0.9% 250ml) 250 ml @ 250 mls/hr Q24H IV ; Start 02/05/17 at 11:00; Stop 02/05/17 at 11:00; Status DC Vancomycin HCl 1 each 1 each 1X ONCE MC ; Start 02/06/17 at 10:30; Stop 02/06/17 at 10:30; Status DC Magnesium Sulfate/ Dextrose (Magnesium Sulfate PREMIX 2GM) 50 ml @ 25 mls/hr PRN DAILY PRN IV for Mag < 1.7 on am labs; Start 02/04/17 at 12:00 Aspirin (Children'S Aspirin) 81 mg DAILY08 PO Last administered on 02/05/17 08: 40; Start 02/04/17 at 13:00 Diltiazem HCl (Cardizem 24hr Cd) 240 mg DAILY PO Last administered on 02/05/17 08:41; Start 02/04/17 at 13:00 Furosemide (Lasix) 40 mg DAILY PO Last administered on 02/05/17 08:40; Start at 13:00 Metoprolol Succinate (Toprol Xl) 25 mg DAILY PO Last administered on 02/05/17 08:40; Start 02/04/17 at 13:00 Pantoprazole Sodium (Protonix) 40 mg DAILY PO Last administered on 02/05/17 08: 40; Start 02/04/17 at 13:00 Atorvastatin Calcium 10 mg 10 mg QHS PO Last administered on 02/04/17 21:02; Start 02/04/17 at 21:00 Meropenem/Sodium Chloride (Merrem/Iv Sodium Chloride 0.9% 50ml) 50 ml @ 100 mls /hr Q8HRS IV Last administered on 02/05/17 05:41; Start 02/04/17 at 14:00 Albuterol/ Ipratropium (Duoneb) 3 ml RTQID NEB Last administered on 02/05/17 08 :36; Start 02/05/17 at 09:00 Acetaminophen (Tylenol) 500 mg PRN Q6HRS PRN PO MILD PAIN / TEMP; Start at 09:00 Ondansetron HCl (Zofran) 4 mg PRN Q6HRS PRN IV NAUSEA/VOMITING; Start 02/05/17 at 09:00 Bisacodyl (Dulcolax Supp) 10 mg PRN DAILY PRN RC CONSTIPATION; Start 02/05/17 at 09:00 Albuterol Sulfate (Ventolin Neb Soln) 2.5 mg PRN Q4HRS PRN NEB SHORTNESS OF BREATH Last administered on 02/05/17 09:54; Start 02/05/17 at 09:00 Lorazepam (Ativan) 0.5 mg PRN Q8HRS PRN PO ANXIETY / AGITATION Last administered on 02/05/17 10:11; Start 02/05/17 at 09:00 Magnesium Hydroxide (Milk Of Magnesia) 400 mg PRN DAILY PRN PO CONSTIPATION; Start 02/05/17 at 09:00 Primidone (Mysoline) 50 mg DAILY PO Last administered on 02/05/17 10:11; Start 02/05/17 at 09:30 Tamsulosin HCl (Flomax) 0.4 mg DAILY PO Last administered on 02/05/17 10:12; Start 02/05/17 at 09:30 Non-Formulary Medication 1 puff DAILY IH ; Start 02/05/17 at 09:00; Status UNV Multivitamins (Thera M Plus) 1 tab DAILY PO Last administered on 02/05/17 10:12 ; Start 02/05/17 at 09:30 Albuterol Sulfate (Ventolin Neb Soln) 2.5 mg RTQID NEB ; Start 02/05/17 at 12:00 ; Stop 02/05/17 at 12:00; Status DC Budesonide (Pulmicort) 0.5 mg RTBID NEB Last administered on 02/05/17 09:54; Start 02/05/17 at 10:00 Active Scripts Active Reported Protonix (Pantoprazole Sodium) 40 Mg Tablet.dr 1 Tab PO DAILY Multi-Vitamin Daily (Multivitamin) 1 Each Tablet 1 Each PO DAILY Diltiazem 24HR Cd (Diltiazem Hcl) 240 Mg Cap.er.24h 240 Mg PO DAILY Breo Ellipta 100-25 Mcg Inh (Fluticasone/Vilanterol) 1 Each Aer.pow.ba 1 Puff IH DAILY Tamsulosin Hcl 0.4 Mg Cap.er.24h 1 Cap PO DAILY Primidone 50 Mg Tablet 50 Mg PO DAILY Metoprolol Succinate 50 Mg Tab.er.24h 25 Mg PO DAILY Lorazepam 0.5 Mg Tablet 1 Tab PO PRN Q8HRS PRN Milk Of Magnesia (Magnesium Hydroxide) 400 Mg/5 Ml Oral.susp 400 Mg PO PRN DAILY PRN Atorvastatin Calcium 10 Mg Tablet 1 Tab PO DAILY Aspirin 81 Mg Tab.chew 81 Mg PO DAILY Acetaminophen 325 Mg Tablet 650 Mg PO Q4HRS PRN Duoneb 0.5-3(2.5) Mg/3 Ml (Albuterol/Ipratropium) 3 Ml Ampul.neb 3 Ml NEB PRN Q4HRS PRN Furosemide 40 Mg Tablet 40 Mg PO DAILY Dulcolax (Bisacodyl) 10 Mg Supp.rect 10 Mg RC PRN DAILY PRN Vitals/I & O Vital Sign - Last 24 Hours 02/04/17 02/04/17 02/04/17 02/04/17 11:29 11:31 11:33 13:00 Pulse 63 Resp 20 B/P 145/63 Pulse Ox 98 94 O2 Delivery Nasal Cannula Bi-pap Nasal Cannula O2 Flow Rate 2.5 2.5 2.5 3.0 02/04/17 02/04/17 02/04/17 02/04/17 16:41 16:42 17:18 17:48 Pulse 65 63 65 Resp 17 B/P 136/52 136/52 146/60 Pulse Ox 99 96 O2 Delivery Nasal Cannula Nasal Cannula O2 Flow Rate 2.5 3.0 02/04/17 02/04/17 02/04/17 02/04/17 18:09 19:00 19:54 20:00 Temp 97.8 98.4 97.8 98.4 Pulse 69 59 Resp 22 20 B/P 122/59 105/51 Pulse Ox 100 97 97 O2 Delivery Nasal Cannula Nasal Cannula Nasal Cannula Nasal Cannula O2 Flow Rate 2.5 2.5 2.5 2.5 02/04/17 02/04/17 02/05/17 02/05/17 22:05 23:00 01:15 03:00 Temp 98.7 98.4 98.7 98.4 Pulse 57 59 Resp 20 20 B/P 113/58 118/60 Pulse Ox 97 2 98 98 O2 Delivery BiPAP/CPAP Nasal Cannula BiPAP/CPAP Nasal Cannula O2 Flow Rate 2.5 2.5 02/05/17 02/05/17 02/05/17 02/05/17 07:00 07:08 08:00 08:36 Temp 98.3 98.3 Pulse 60 Resp 18 B/P 141/60 Pulse Ox 98 O2 Delivery Room Air Nasal Cannula Nasal Cannula Nasal Cannula O2 Flow Rate 2.5 2.5 2.5 02/05/17 02/05/17 02/05/17 08:40 08:41 09:56 Pulse 60 60 B/P 141/60 141/60 O2 Delivery Nasal Cannula O2 Flow Rate 2.5 Intake and Output 02/04/17 02/04/17 02/05/17 15:00 23:00 07:00 Intake Total 906 ml 200 ml Output Total 450 ml 850 ml 1400 ml Balance -450 ml 56 ml -1200 ml ABBEY PARKS MD Feb 05, 2017 10:53
[2017-02-05] MEDS ORDERED: VANCOMYCIN 1 GM in IV NORMAL SALINE 250ML 250 ML IV SCH (11:00)
[2017-02-05 11:09] VITALS: BP 108/63
--- NOTE | 2017-02-05 11:27 | PDOC ---
PULMONARY PROGRESS NOTES Subjective no linus confused Vitals Vital Signs Date Time Temp Pulse Resp B/P Pulse Ox O2 Delivery O2 Flow Rate FiO2 02/05/17 11:18 96 Nasal Cannula 2.5 02/05/17 11:09 98.3 67 14 108/63 98.3 General: No acute distress, Confused HEENT: Other Lungs: Other (coarse bilateral) Cardiovascular: S1, S2 Abdomen: Soft, Non-tender Extremities: No Edema Skin: Warm Labs Laboratory Tests Test 02/04/17 00:01 02/04/17 00:05 02/04/17 01:58 02/04/17 05:00 White Blood Count 11.0x10^3/uL (4.0-11.0) Red Blood Count 3.60x10^6/uL (4.30-5.70) Hemoglobin 9.2g/dL (13.0-17.5) Hematocrit 29.4% (39.0-53.0) Mean Corpuscular Volume 82fL (79-100) Mean Corpuscular Hemoglobin 26pg (25-35) Mean Corpuscular Hemoglobin Concent 31g/dL (31-37) Red Cell Distribution Width 20.3% (11.5-14.5) Platelet Count 373x10^3/uL (140-400) Neutrophils (%) (Auto) 74% (31-73) Lymphocytes (%) (Auto) 18% (24-48) Monocytes (%) (Auto) 7% (0-9) Eosinophils (%) (Auto) 1% (0-3) Basophils (%) (Auto) 0% (0-3) Neutrophils # (Auto) 8.1x10^3uL (1.8-7.7) Lymphocytes # (Auto) 2.0x10^3/uL (1.0-4.8) Monocytes # (Auto) 0.7x10^3/uL (0.0-1.1) Eosinophils # (Auto) 0.1x10^3/uL (0.0-0.7) Basophils # (Auto) 0.0x10^3/uL (0.0-0.2) Platelet Estimate Adequate (ADEQUATE) Giant Platelets Occ Polychromasia Slight Anisocytosis Mod Microcytosis Slight Tear Drop Cells Few Ovalocytes Few Sodium Level 139mmol/L (136-145) Potassium Level 4.6mmol/L (3.5-5.1) Chloride Level 99mmol/L (98-107) Carbon Dioxide Level 29mmol/L (21-32) Anion Gap 11 (6-14) Blood Urea Nitrogen 30mg/dL (8-26) Creatinine 2.0mg/dL (0.7-1.3) Estimated GFR (Cockcroft-Gault) 32.3 BUN/Creatinine Ratio 15 (6-20) Glucose Level 165mg/dL (70-99) Lactic Acid Level 1.9mmol/L (0.4-2.0) Calcium Level 8.8mg/dL (8.5-10.1) Total Bilirubin 0.3mg/dL (0.2-1.0) Aspartate Amino Transf (AST/SGOT) 14U/L (15-37) Alanine Aminotransferase (ALT/SGPT) 10U/L (16-63) Alkaline Phosphatase 85U/L (46-116) Troponin I Quantitative < 0.017ng/mL (0.000-0.055) IQ-Qfs-Z-Type Natriuretic Peptide 1041pg/mL (0-449) Total Protein 5.7g/dL (6.4-8.2) Albumin 2.7g/dL (3.4-5.0) Albumin/Globulin Ratio 0.9 (1.0-1.7) Influenza Type A Antigen Negative (NEGATIVE) Influenza Type B Antigen Negative (NEGATIVE) O2 Saturation 95% (92-99) Arterial Blood pH 7.42 (7.35-7.45) Arterial Blood pCO2 at Patient Temp 38mmHg (35-46) Arterial Blood pO2 at Patient Temp 87mmHg (65-108) Arterial Blood HCO3 24mmol/L (21-28) Arterial Blood Base Excess 0mmol/L (-3-3) FiO2 30.0 Nasal Screen MRSA (PCR) Negative (Negative) Test 02/04/17 06:50 02/04/17 07:20 02/04/17 13:00 02/05/17 03:54 Urine Collection Type Unknown Urine Color Yellow Urine Clarity Clear Urine pH 5.5 Urine Specific [place] 1.010 Urine Protein Negativemg/dL (NEG-TRACE) Urine Glucose (UA) Negativemg/dL (NEG) Urine Ketones (Stick) Negativemg/dL (NEG) Urine Blood Large (NEG) Urine Nitrite Negative (NEG) Urine Bilirubin Negative (NEG) Urine Urobilinogen Dipstick 0.2mg/dL (0.2 mg/dL) Urine Leukocyte Esterase Small (NEG) Urine RBC 11-20/HPF (0-2) Urine WBC 5-10/HPF (0-4) Urine Bacteria 0/HPF (0-FEW) Urine Hyaline Casts Occasional/HPF Urine Mucus Mod/LPF Troponin I Quantitative < 0.017ng/mL (0.000-0.055) < 0.017ng/mL (0.000-0.055) White Blood Count 7.5x10^3/uL (4.0-11.0) Red Blood Count 3.17x10^6/uL (4.30-5.70) Hemoglobin 8.3g/dL (13.0-17.5) Hematocrit 25.5% (39.0-53.0) Mean Corpuscular Volume 80fL (79-100) Mean Corpuscular Hemoglobin 26pg (25-35) Mean Corpuscular Hemoglobin Concent 33g/dL (31-37) Red Cell Distribution Width 21.0% (11.5-14.5) Platelet Count 389x10^3/uL (140-400) Neutrophils (%) (Auto) 69% (31-73) Lymphocytes (%) (Auto) 19% (24-48) Monocytes (%) (Auto) 9% (0-9) Eosinophils (%) (Auto) 4% (0-3) Basophils (%) (Auto) 1% (0-3) Neutrophils # (Auto) 5.2x10^3uL (1.8-7.7) Lymphocytes # (Auto) 1.4x10^3/uL (1.0-4.8) Monocytes # (Auto) 0.7x10^3/uL (0.0-1.1) Eosinophils # (Auto) 0.3x10^3/uL (0.0-0.7) Basophils # (Auto) 0.0x10^3/uL (0.0-0.2) Sodium Level 141mmol/L (136-145) Potassium Level 3.9mmol/L (3.5-5.1) Chloride Level 104mmol/L (98-107) Carbon Dioxide Level 30mmol/L (21-32) Anion Gap 7 (6-14) Blood Urea Nitrogen 31mg/dL (8-26) Creatinine 1.9mg/dL (0.7-1.3) Estimated GFR (Cockcroft-Gault) 34.3 BUN/Creatinine Ratio 16 (6-20) Glucose Level 146mg/dL (70-99) Calcium Level 8.5mg/dL (8.5-10.1) Phosphorus Level 4.1mg/dL (2.6-4.7) Magnesium Level 1.9mg/dL (1.8-2.4) Iron Level 10ug/dL (65-175) Total Iron Binding Capacity 166ug/dL (250-450) Iron Saturation 6% (15-34) Total Bilirubin 0.2mg/dL (0.2-1.0) Aspartate Amino Transf (AST/SGOT) 11U/L (15-37) Alanine Aminotransferase (ALT/SGPT) 8U/L (16-63) Alkaline Phosphatase 71U/L (46-116) Total Protein 5.6g/dL (6.4-8.2) Albumin 2.1g/dL (3.4-5.0) Albumin/Globulin Ratio 0.6 (1.0-1.7) Laboratory Tests Test 02/04/17 13:00 02/05/17 03:54 Troponin I Quantitative < 0.017ng/mL (0.000-0.055) White Blood Count 7.5x10^3/uL (4.0-11.0) Red Blood Count 3.17x10^6/uL (4.30-5.70) Hemoglobin 8.3g/dL (13.0-17.5) Hematocrit 25.5% (39.0-53.0) Mean Corpuscular Volume 80fL (79-100) Mean Corpuscular Hemoglobin 26pg (25-35) Mean Corpuscular Hemoglobin Concent 33g/dL (31-37) Red Cell Distribution Width 21.0% (11.5-14.5) Platelet Count 389x10^3/uL (140-400) Neutrophils (%) (Auto) 69% (31-73) Lymphocytes (%) (Auto) 19% (24-48) Monocytes (%) (Auto) 9% (0-9) Eosinophils (%) (Auto) 4% (0-3) Basophils (%) (Auto) 1% (0-3) Neutrophils # (Auto) 5.2x10^3uL (1.8-7.7) Lymphocytes # (Auto) 1.4x10^3/uL (1.0-4.8) Monocytes # (Auto) 0.7x10^3/uL (0.0-1.1) Eosinophils # (Auto) 0.3x10^3/uL (0.0-0.7) Basophils # (Auto) 0.0x10^3/uL (0.0-0.2) Sodium Level 141mmol/L (136-145) Potassium Level 3.9mmol/L (3.5-5.1) Chloride Level 104mmol/L (98-107) Carbon Dioxide Level 30mmol/L (21-32) Anion Gap 7 (6-14) Blood Urea Nitrogen 31mg/dL (8-26) Creatinine 1.9mg/dL (0.7-1.3) Estimated GFR (Cockcroft-Gault) 34.3 BUN/Creatinine Ratio 16 (6-20) Glucose Level 146mg/dL (70-99) Calcium Level 8.5mg/dL (8.5-10.1) Phosphorus Level 4.1mg/dL (2.6-4.7) Magnesium Level 1.9mg/dL (1.8-2.4) Iron Level 10ug/dL (65-175) Total Iron Binding Capacity 166ug/dL (250-450) Iron Saturation 6% (15-34) Total Bilirubin 0.2mg/dL (0.2-1.0) Aspartate Amino Transf (AST/SGOT) 11U/L (15-37) Alanine Aminotransferase (ALT/SGPT) 8U/L (16-63) Alkaline Phosphatase 71U/L (46-116) Total Protein 5.6g/dL (6.4-8.2) Albumin 2.1g/dL (3.4-5.0) Albumin/Globulin Ratio 0.6 (1.0-1.7) Medications Active Scripts Medications Dose Route/Sig Days Date Category Protonix (Pantoprazole Sodium) 40 Mg Tablet.dr 1 Tab PO DAILY 02/04/17 Reported Multi-Vitamin Daily (Multivitamin) 1 Each Tablet 1 Each PO DAILY 02/04/17 Reported Diltiazem 24HR Cd (Diltiazem Hcl) 240 Mg Cap.er.24h 240 Mg PO DAILY 02/04/17 Reported Breo Ellipta 100-25 Mcg Inh (Fluticasone/Vilanterol) 1 Each Aer.pow.ba 1 Puff IH DAILY 02/04/17 Reported Tamsulosin Hcl 0.4 Mg Cap.er.24h 1 Cap PO DAILY 11/09/16 Reported Primidone 50 Mg Tablet 50 Mg PO DAILY 11/09/16 Reported Metoprolol Succinate 50 Mg Tab.er.24h 25 Mg PO DAILY 11/09/16 Reported Lorazepam 0.5 Mg Tablet 1 Tab PO PRN Q8HRS PRN 11/09/16 Reported Milk Of Magnesia (Magnesium Hydroxide) 400 Mg/5 Ml Oral.susp 400 Mg PO PRN DAILY PRN 11/09/16 Reported Atorvastatin Calcium 10 Mg Tablet 1 Tab PO DAILY 11/09/16 Reported Aspirin 81 Mg Tab.chew 81 Mg PO DAILY 11/09/16 Reported Acetaminophen 325 Mg Tablet 650 Mg PO Q4HRS PRN 11/09/16 Reported Duoneb 0.5-3(2.5) Mg/3 Ml (Albuterol/Ipratropium) 3 Ml Ampul.neb 3 Ml NEB PRN Q4HRS PRN 11/09/16 Reported Furosemide 40 Mg Tablet 40 Mg PO DAILY 11/09/16 Reported Dulcolax (Bisacodyl) 10 Mg Supp.rect 10 Mg RC PRN DAILY PRN 11/09/[address] CHEST 1. Mild interstitial and airspace opacities posteriorly in the right upper lobe and within the right greater than left costophrenic angles are consistent with pneumonia if acute, or interstitial lung disease/scarring if chronic. A follow-up in 3 months could assess stability if not already known. 2. A 7 mm nodule in the left upper lobe can also be followed in 3 months. 3. Moderate paraseptal greater than centrilobular emphysema. 17 cm bulla along the left upper lobe anteriorly. 4. 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 5. A moderate L1 compression fracture appears subacute. Impression . 1. Acute hypoxic respiratory failure secondary to recurrent healthcare-associated pneumonia. Chest x-ray showing new infiltrate in the right upper lobe. The basal mild atelectasis or infiltrates are unchanged compared to previous film. 2. Abnormal chest x-ray with new infiltrate in the right upper lobe suggesting new pneumonia, healthcare-associated. Suspect gram-negative and gram-positive. 3. Suspected acute on chronic renal failure, probably dehydration. 4. Moderate protein-calorie malnutrition. 5. Influenza screen negative. 6. Encephalopathy, metabolic due to pneumonia, but could be toxic as well. He did receive Ativan in the ER and has p.r.n. lorazepam as a home medication. He also received Benadryl in the ER as well. 7. 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 Plan . 1. Continue with present nasal cannula. 2. Continue Zosyn, Levaquin and vancomycin, 3. Mental status improving 4. Avoid benzodiazepines. 5. Follow up chest x-ray in few days. 6. noncontrast CT of chest reviewed/ RUL pneumonia, 7 mm DEWEY nodule. f/u ct chest in 4 months 7. IV hydration and monitor renal function. 8. Improve nutritional status. 9. DVT prophylaxis with Lovenox. 10. will leave upto PCP regarding ?vascular consult for superior mesentery artery aneurysm YOSELIN KAUFMAN MD Feb 05, 2017 11:26
[2017-02-05] MEDS ORDERED: ALBUTEROL SULFATE 2.5 MG/3 ML NEBU. NEB SCH (12:00)
[2017-02-05 15:00] VITALS: BP 108/47
--- NOTE | 2017-02-05 15:17 | PDOC2 ---
NEUROLOGY CONSULT Date of Admission Date of Admission DATE: 02/05/17 TIME: 15:04 Reason for Consult Reason for Consult: IMPRESSION: Metabolic encephalopathy. Confusion. UTI Fever Pneumonia Respiratory distress 7 mm lesion in left upper lobe of lung. Subacute L1 compression fracture. Anemia, Hgb 8.3 g Iron insufficiency. AFib CHF COPD HTN Renal failure RECOMMENDATIONS/PLAN: HCT w/o contrast. EEG for evaluation of confusion. Lab: see orders. Further evaluation of 7 mm lung lesion per floor team. Treat medical diseases per floor team. OT/PT. HISTORY OF THE PRESENT ILLNESS: 81-y-old male patient with multiple medical diseases developed symptoms of confusion, mental status changes, and cognition impairment. Neurology was called for consultation. No focalized motor or sensory deficits noted. PAST MEDICAL HISTORY: Please see above. PAST SURGERY HISTORY: Hernia Repair. ALLERGY: Reviewed. MEDICATIONS: Refer to [facility] FAMILY HISTORY: Non contributory. SOCIAL HISTORY: Denies smoking, drinking, and illicit drug use. REVIEW OF SYSTEMS: Constitutional: No malnutrition, weight loss, cachexia. Head: No traumatic brain or head injury. Skin: No edema, or rash. Ear: No infection, tinnitus. Eyes: No vision loss or color blindness. Nose: No bleeding or purulent discharges. Hearing: Hearing decrease. Neck: No injury. Cardiac: CHF, HTN Pulmonary: COPD. GI: No GI ulcer, GI bleeding. Urinary/genital: UTI. Endocrinologic: No cousin face, craniofacial dysmorphism, polydactyly, obesity, morbid obesity. Skeletomuscular: Generalized weakness. Neurological: see HP. Psychiatric: Denies drug use/abuse. Otherwise, not [id number] review of systems. PHYSICAL EXAMINATION: General appearance is in subacute distress. HEENT: Normocephalic and nontraumatic. Eyes, nose, ears, and throat are unremarkable. Neck is supple. No lymphadenopathy. No crepitus. Cardiovascular: S1, S2, regular rate and rhythm. Pulmonary: Clear to auscultation bilaterally. Abdomen: Bowel sounds are positive. Extremities: No rash, lesions, or edema. No restriction of range of motion NEUROLOGICAL EXAMINATION: Awake. Able to follow some commands. Oriented to place and person but not to time. PERRL. EOMI. CN: no focal findings. Muscle tone: within normal. Muscle strength: 4 DTR: 2- Plantar reflex: Flexor response bilaterally Gait: not examined in bed. Sensory exam: no abnormal findings. No cerebellar signs elicited. F-T-N test not performed due to not follow commands. Current Medications Current Medications Current Medications Albuterol/ Ipratropium (Duoneb) 3 ml 1X ONCE NEB Last administered on 00:31; Start 02/04/17 at 00:30; Stop 02/04/17 at 00:31; Status DC Tobramycin Sulfate 1 each 1 each PRN DAILY PRN PHARMACY TO DOSE Last administered on 02/04/17 03:00; Start 02/04/17 at 01:00; Stop 02/04/17 at 09:26; Status DC Piperacillin Sod/ Tazobactam Sod 4.5 gm/Sodium Chloride 100 ml @ 200 mls/hr 1X ONCE IV Last administered on 02/04/17 01:29; Start 02/04/17 at 01:00; Stop 02/04/17 at 01:29; Status DC Tobramycin Sulfate/Sodium Chloride (Nebcin/Iv Sodium Chloride 0.9% 100ml) 108.75 ml @ 108.75 mls/hr 1X ONCE IV Last administered on 02/04/17 02:32; Start 02/04/17 at 01:30; Stop 02/04/17 at 09:24; Status DC Lorazepam 1 mg 1 mg 1X ONCE IV Last administered on 02/04/17 01:29; Start 02/04 at 01:30; Stop 02/04/17 at 01:31; Status DC Sodium Chloride (Iv Sodium Chloride 0.9% 1000ml Bag) 1,000 ml @ 1,000 mls/hr Q1H IV Last administered on 02/04/17 02:00; Start 02/04/17 at 01:00; Stop at 02:24; Status DC Ondansetron HCl (Zofran) 4 mg PRN Q8HRS PRN IV NAUSEA/VOMITING; Start 02/04/17 at 01:00; Stop 02/05/17 at 00:59; Status DC Morphine Sulfate 2 mg PRN Q2HR PRN IV SEVERE PAIN; Start 02/04/17 at 01:00; Stop 02/05/17 at 00:59; Status DC Acetaminophen (Tylenol) 650 mg PRN Q4HRS PRN PO FEVER; Start 02/04/17 at 01:00; Stop 02/05/17 at 00:59; Status DC Albuterol/ Ipratropium (Duoneb) 3 ml RTQID NEB Last administered on 02/05/17 07 :02; Start 02/04/17 at 08:00; Stop 02/05/17 at 07:59; Status DC Diphenhydramine HCl (Benadryl) 25 mg 1X ONCE IVP Last administered on 02:31; Start 02/04/17 at 02:45; Stop 02/04/17 at 02:46; Status DC Tobramycin Sulfate 1 each 1 each 1X ONCE MC ; Start 02/04/17 at 14:30; Stop 02/04 at 14:30; Status DC Tobramycin Sulfate 350 mg/ Sodium Chloride 108.75 ml @ 108.75 mls/hr Q48H IV ; Start 02/05/17 at 23:00; Stop 02/05/17 at 23:00; Status DC Piperacillin Sod/ Tazobactam Sod/ Sodium Chloride (Zosyn/Iv Sodium Chloride 0.9 % 50ml) 50 ml @ 100 mls/hr Q6HRS IV Last administered on 02/04/17 05:47; Start 02/04/17 at 06:00; Stop 02/04/17 at 13:11; Status DC Vancomycin HCl 1 each 1 each PRN DAILY PRN MC SEE COMMENTS Last administered on 02/04/17 09:37; Start 02/04/17 at 09:15; Stop 02/04/17 at 13:12; Status DC Levofloxacin/ Dextrose (LEVAQUIN 750mg PREMIX) 150 ml @ 100 mls/hr 1X ONCE IV Last administered on 02/04/17 11:21; Start 02/04/17 at 09:30; Stop 02/04/17 at 10:59; Status DC Enoxaparin Sodium 30 mg 30 mg Q24H SQ Last administered on 02/05/17 08:41; Start 02/04/17 at 09:30; Stop 02/05/17 at 14:13; Status DC Vancomycin HCl 1.75 gm/Sodium Chloride 500 ml @ 250 mls/hr 1X ONCE IV Last administered on 02/04/17 11:23; Start 02/04/17 at 11:00; Stop 02/04/17 at 12:59; Status DC Vancomycin HCl/ Sodium Chloride (Iv Sodium Chloride 0.9% 250ml) 250 ml @ 250 mls/hr Q24H IV ; Start 02/05/17 at 11:00; Stop 02/05/17 at 11:00; Status DC Vancomycin HCl 1 each 1 each 1X ONCE MC ; Start 02/06/17 at 10:30; Stop 02/06/17 at 10:30; Status DC Magnesium Sulfate/ Dextrose (Magnesium Sulfate PREMIX 2GM) 50 ml @ 25 mls/hr PRN DAILY PRN IV for Mag < 1.7 on am labs; Start 02/04/17 at 12:00 Aspirin (Children'S Aspirin) 81 mg DAILY08 PO Last administered on 02/05/17 08: 40; Start 02/04/17 at 13:00 Diltiazem HCl (Cardizem 24hr Cd) 240 mg DAILY PO Last administered on 02/05/17 08:41; Start 02/04/17 at 13:00 Furosemide (Lasix) 40 mg DAILY PO Last administered on 02/05/17 08:40; Start at 13:00 Metoprolol Succinate (Toprol Xl) 25 mg DAILY PO Last administered on 02/05/17 08:40; Start 02/04/17 at 13:00 Pantoprazole Sodium (Protonix) 40 mg DAILY PO Last administered on 02/05/17 08: 40; Start 02/04/17 at 13:00 Atorvastatin Calcium 10 mg 10 mg QHS PO Last administered on 02/04/17 21:02; Start 02/04/17 at 21:00 Meropenem/Sodium Chloride (Merrem/Iv Sodium Chloride 0.9% 50ml) 50 ml @ 100 mls /hr Q8HRS IV Last administered on 02/05/17 14:19; Start 02/04/17 at 14:00 Albuterol/ Ipratropium (Duoneb) 3 ml RTQID NEB Last administered on 02/05/17 11 :18; Start 02/05/17 at 09:00 Acetaminophen (Tylenol) 500 mg PRN Q6HRS PRN PO MILD PAIN / TEMP; Start at 09:00 Ondansetron HCl (Zofran) 4 mg PRN Q6HRS PRN IV NAUSEA/VOMITING; Start 02/05/17 at 09:00 Bisacodyl (Dulcolax Supp) 10 mg PRN DAILY PRN RC CONSTIPATION; Start 02/05/17 at 09:00 Albuterol Sulfate (Ventolin Neb Soln) 2.5 mg PRN Q4HRS PRN NEB SHORTNESS OF BREATH Last administered on 02/05/17 09:54; Start 02/05/17 at 09:00 Lorazepam (Ativan) 0.5 mg PRN Q8HRS PRN PO ANXIETY / AGITATION Last administered on 02/05/17 10:11; Start 02/05/17 at 09:00 Magnesium Hydroxide (Milk Of Magnesia) 400 mg PRN DAILY PRN PO CONSTIPATION; Start 02/05/17 at 09:00 Primidone (Mysoline) 50 mg DAILY PO Last administered on 02/05/17 10:11; Start 02/05/17 at 09:30 Tamsulosin HCl (Flomax) 0.4 mg DAILY PO Last administered on 02/05/17 10:12; Start 02/05/17 at 09:30 Non-Formulary Medication 1 puff DAILY IH ; Start 02/05/17 at 09:00; Status UNV Multivitamins (Thera M Plus) 1 tab DAILY PO Last administered on 02/05/17 10:12 ; Start 02/05/17 at 09:30 Albuterol Sulfate (Ventolin Neb Soln) 2.5 mg RTQID NEB ; Start 02/05/17 at 12:00 ; Stop 02/05/17 at 12:00; Status DC Budesonide (Pulmicort) 0.5 mg RTBID NEB Last administered on 02/05/17 09:54; Start 02/05/17 at 10:00 Enoxaparin Sodium (Lovenox 40mg Syringe) 40 mg Q24H SQ ; Start 02/06/17 at 09:00 Active Scripts Active Reported Protonix (Pantoprazole Sodium) 40 Mg Tablet.dr 1 Tab PO DAILY Multi-Vitamin Daily (Multivitamin) 1 Each Tablet 1 Each PO DAILY Diltiazem 24HR Cd (Diltiazem Hcl) 240 Mg Cap.er.24h 240 Mg PO DAILY Breo Ellipta 100-25 Mcg Inh (Fluticasone/Vilanterol) 1 Each Aer.pow.ba 1 Puff IH DAILY Tamsulosin Hcl 0.4 Mg Cap.er.24h 1 Cap PO DAILY Primidone 50 Mg Tablet 50 Mg PO DAILY Metoprolol Succinate 50 Mg Tab.er.24h 25 Mg PO DAILY Lorazepam 0.5 Mg Tablet 1 Tab PO PRN Q8HRS PRN Milk Of Magnesia (Magnesium Hydroxide) 400 Mg/5 Ml Oral.susp 400 Mg PO PRN DAILY PRN Atorvastatin Calcium 10 Mg Tablet 1 Tab PO DAILY Aspirin 81 Mg Tab.chew 81 Mg PO DAILY Acetaminophen 325 Mg Tablet 650 Mg PO Q4HRS PRN Duoneb 0.5-3(2.5) Mg/3 Ml (Albuterol/Ipratropium) 3 Ml Ampul.neb 3 Ml NEB PRN Q4HRS PRN Furosemide 40 Mg Tablet 40 Mg PO DAILY Dulcolax (Bisacodyl) 10 Mg Supp.rect 10 Mg RC PRN DAILY PRN Allergies Allergies: Coded Allergies: No Known Drug Allergies (Unverified , 11/08/16) Vitals VITALS Vital Signs Date Time Temp Pulse Resp B/P Pulse Ox O2 Delivery O2 Flow Rate FiO2 02/05/17 11:18 96 Nasal Cannula 2.5 02/05/17 11:09 98.3 67 14 108/63 98.3 Labs Labs Laboratory Tests Test 02/04/17 00:01 02/04/17 00:05 02/04/17 01:58 02/04/17 05:00 White Blood Count 11.0x10^3/uL (4.0-11.0) Red Blood Count 3.60x10^6/uL (4.30-5.70) Hemoglobin 9.2g/dL (13.0-17.5) Hematocrit 29.4% (39.0-53.0) Mean Corpuscular Volume 82fL (79-100) Mean Corpuscular Hemoglobin 26pg (25-35) Mean Corpuscular Hemoglobin Concent 31g/dL (31-37) Red Cell Distribution Width 20.3% (11.5-14.5) Platelet Count 373x10^3/uL (140-400) Neutrophils (%) (Auto) 74% (31-73) Lymphocytes (%) (Auto) 18% (24-48) Monocytes (%) (Auto) 7% (0-9) Eosinophils (%) (Auto) 1% (0-3) Basophils (%) (Auto) 0% (0-3) Neutrophils # (Auto) 8.1x10^3uL (1.8-7.7) Lymphocytes # (Auto) 2.0x10^3/uL (1.0-4.8) Monocytes # (Auto) 0.7x10^3/uL (0.0-1.1) Eosinophils # (Auto) 0.1x10^3/uL (0.0-0.7) Basophils # (Auto) 0.0x10^3/uL (0.0-0.2) Platelet Estimate Adequate (ADEQUATE) Giant Platelets Occ Polychromasia Slight Anisocytosis Mod Microcytosis Slight Tear Drop Cells Few Ovalocytes Few Sodium Level 139mmol/L (136-145) Potassium Level 4.6mmol/L (3.5-5.1) Chloride Level 99mmol/L (98-107) Carbon Dioxide Level 29mmol/L (21-32) Anion Gap 11 (6-14) Blood Urea Nitrogen 30mg/dL (8-26) Creatinine 2.0mg/dL (0.7-1.3) Estimated GFR (Cockcroft-Gault) 32.3 BUN/Creatinine Ratio 15 (6-20) Glucose Level 165mg/dL (70-99) Lactic Acid Level 1.9mmol/L (0.4-2.0) Calcium Level 8.8mg/dL (8.5-10.1) Total Bilirubin 0.3mg/dL (0.2-1.0) Aspartate Amino Transf (AST/SGOT) 14U/L (15-37) Alanine Aminotransferase (ALT/SGPT) 10U/L (16-63) Alkaline Phosphatase 85U/L (46-116) Troponin I Quantitative < 0.017ng/mL (0.000-0.055) BU-Xlu-A-Type Natriuretic Peptide 1041pg/mL (0-449) Total Protein 5.7g/dL (6.4-8.2) Albumin 2.7g/dL (3.4-5.0) Albumin/Globulin Ratio 0.9 (1.0-1.7) Influenza Type A Antigen Negative (NEGATIVE) Influenza Type B Antigen Negative (NEGATIVE) O2 Saturation 95% (92-99) Arterial Blood pH 7.42 (7.35-7.45) Arterial Blood pCO2 at Patient Temp 38mmHg (35-46) Arterial Blood pO2 at Patient Temp 87mmHg (65-108) Arterial Blood HCO3 24mmol/L (21-28) Arterial Blood Base Excess 0mmol/L (-3-3) FiO2 30.0 Nasal Screen MRSA (PCR) Negative (Negative) Test 02/04/17 06:50 02/04/17 07:20 02/04/17 13:00 02/05/17 03:54 Urine Collection Type Unknown Urine Color Yellow Urine Clarity Clear Urine pH 5.5 Urine Specific Warden 1.010 Urine Protein Negativemg/dL (NEG-TRACE) Urine Glucose (UA) Negativemg/dL (NEG) Urine Ketones (Stick) Negativemg/dL (NEG) Urine Blood Large (NEG) Urine Nitrite Negative (NEG) Urine Bilirubin Negative (NEG) Urine Urobilinogen Dipstick 0.2mg/dL (0.2 mg/dL) Urine Leukocyte Esterase Small (NEG) Urine RBC 11-20/HPF (0-2) Urine WBC 5-10/HPF (0-4) Urine Bacteria 0/HPF (0-FEW) Urine Hyaline Casts Occasional/HPF Urine Mucus Mod/LPF Troponin I Quantitative < 0.017ng/mL (0.000-0.055) < 0.017ng/mL (0.000-0.055) White Blood Count 7.5x10^3/uL (4.0-11.0) Red Blood Count 3.17x10^6/uL (4.30-5.70) Hemoglobin 8.3g/dL (13.0-17.5) Hematocrit 25.5% (39.0-53.0) Mean Corpuscular Volume 80fL (79-100) Mean Corpuscular Hemoglobin 26pg (25-35) Mean Corpuscular Hemoglobin Concent 33g/dL (31-37) Red Cell Distribution Width 21.0% (11.5-14.5) Platelet Count 389x10^3/uL (140-400) Neutrophils (%) (Auto) 69% (31-73) Lymphocytes (%) (Auto) 19% (24-48) Monocytes (%) (Auto) 9% (0-9) Eosinophils (%) (Auto) 4% (0-3) Basophils (%) (Auto) 1% (0-3) Neutrophils # (Auto) 5.2x10^3uL (1.8-7.7) Lymphocytes # (Auto) 1.4x10^3/uL (1.0-4.8) Monocytes # (Auto) 0.7x10^3/uL (0.0-1.1) Eosinophils # (Auto) 0.3x10^3/uL (0.0-0.7) Basophils # (Auto) 0.0x10^3/uL (0.0-0.2) Sodium Level 141mmol/L (136-145) Potassium Level 3.9mmol/L (3.5-5.1) Chloride Level 104mmol/L (98-107) Carbon Dioxide Level 30mmol/L (21-32) Anion Gap 7 (6-14) Blood Urea Nitrogen 31mg/dL (8-26) Creatinine 1.9mg/dL (0.7-1.3) Estimated GFR (Cockcroft-Gault) 34.3 BUN/Creatinine Ratio 16 (6-20) Glucose Level 146mg/dL (70-99) Calcium Level 8.5mg/dL (8.5-10.1) Phosphorus Level 4.1mg/dL (2.6-4.7) Magnesium Level 1.9mg/dL (1.8-2.4) Iron Level 10ug/dL (65-175) Total Iron Binding Capacity 166ug/dL (250-450) Iron Saturation 6% (15-34) Total Bilirubin 0.2mg/dL (0.2-1.0) Aspartate Amino Transf (AST/SGOT) 11U/L (15-37) Alanine Aminotransferase (ALT/SGPT) 8U/L (16-63) Alkaline Phosphatase 71U/L (46-116) Total Protein 5.6g/dL (6.4-8.2) Albumin 2.1g/dL (3.4-5.0) Albumin/Globulin Ratio 0.6 (1.0-1.7) Test 02/05/17 12:50 Erythrocyte Sedimentation Rate 70 (0-15) Creatine Kinase 23U/L (39-308) Thyroid Stimulating Hormone (TSH) 1.074uIU/mL (0.358-3.74) Laboratory Tests Test 02/05/17 03:54 02/05/17 12:50 White Blood Count 7.5x10^3/uL (4.0-11.0) Red Blood Count 3.17x10^6/uL (4.30-5.70) Hemoglobin 8.3g/dL (13.0-17.5) Hematocrit 25.5% (39.0-53.0) Mean Corpuscular Volume 80fL (79-100) Mean Corpuscular Hemoglobin 26pg (25-35) Mean Corpuscular Hemoglobin Concent 33g/dL (31-37) Red Cell Distribution Width 21.0% (11.5-14.5) Platelet Count 389x10^3/uL (140-400) Neutrophils (%) (Auto) 69% (31-73) Lymphocytes (%) (Auto) 19% (24-48) Monocytes (%) (Auto) 9% (0-9) Eosinophils (%) (Auto) 4% (0-3) Basophils (%) (Auto) 1% (0-3) Neutrophils # (Auto) 5.2x10^3uL (1.8-7.7) Lymphocytes # (Auto) 1.4x10^3/uL (1.0-4.8) Monocytes # (Auto) 0.7x10^3/uL (0.0-1.1) Eosinophils # (Auto) 0.3x10^3/uL (0.0-0.7) Basophils # (Auto) 0.0x10^3/uL (0.0-0.2) Sodium Level 141mmol/L (136-145) Potassium Level 3.9mmol/L (3.5-5.1) Chloride Level 104mmol/L (98-107) Carbon Dioxide Level 30mmol/L (21-32) Anion Gap 7 (6-14) Blood Urea Nitrogen 31mg/dL (8-26) Creatinine 1.9mg/dL (0.7-1.3) Estimated GFR (Cockcroft-Gault) 34.3 BUN/Creatinine Ratio 16 (6-20) Glucose Level 146mg/dL (70-99) Calcium Level 8.5mg/dL (8.5-10.1) Phosphorus Level 4.1mg/dL (2.6-4.7) Magnesium Level 1.9mg/dL (1.8-2.4) Iron Level 10ug/dL (65-175) Total Iron Binding Capacity 166ug/dL (250-450) Iron Saturation 6% (15-34) Total Bilirubin 0.2mg/dL (0.2-1.0) Aspartate Amino Transf (AST/SGOT) 11U/L (15-37) Alanine Aminotransferase (ALT/SGPT) 8U/L (16-63) Alkaline Phosphatase 71U/L (46-116) Total Protein 5.6g/dL (6.4-8.2) Albumin 2.1g/dL (3.4-5.0) Albumin/Globulin Ratio 0.6 (1.0-1.7) Erythrocyte Sedimentation Rate 70 (0-15) Creatine Kinase 23U/L (39-308) Thyroid Stimulating Hormone (TSH) 1.074uIU/mL (0.358-3.74) TIFFANIE LAND MD Feb 05, 2017 15:17
[2017-02-05 15:29] LABS: BARBITURATES POS (NEG); BENZODIAZEPINES NEG (NEG); CANNABINOIDS NEG (NEG); COCAINE NEG (NEG); METHADONE NEG (NEG); OPIATES NEG (NEG); PHENCYCLIDINE NEG (NEG)
[2017-02-05 15:33] LABS: ETHANOL, URINE NEG (NEG)
--- NOTE | 2017-02-05 15:44 | RAD ---
EXAM: CT head without contrast. HISTORY: Altered mental status. TECHNIQUE: Computed tomography of the head was performed without intravenous contrast. COMPARISON: None. FINDINGS: There is no intracranial hemorrhage. Hypoattenuation within the periventricular white matter indicates moderate chronic small vessel ischemic change. Prominence of the lateral ventricles and hemispheric sulci indicate moderate atrophy. The visualized paranasal sinuses appear clear. The orbits are unremarkable. The temporal bones are unremarkable. The calvarium reveals no suspicious lesions. There are atherosclerotic calcifications of the internal carotid and vertebral arteries. IMPRESSION: 1. No acute intracranial findings. 2. Moderate atrophy and chronic small vessel ischemic white matter change. *One or more of the following individualized dose reduction techniques were utilized for this examination: 1. Automated exposure control. 2. Adjustment of the mA and/or kV according to patient size. 3. Use of iterative reconstruction technique.
--- NOTE | 2017-02-05 18:09 | PDOC ---
SUBJECTIVE ROS ^ed Creat; ? CKD III doing a whole lot better today CVS: no Orthopnea, no CP RESP: no SOB, no SANON GI: no Nausea, no Vomiting : no Dysuria, no Urgency OBJECTIVE Vital Signs Vital Signs Date Time Temp Pulse Resp B/P Pulse Ox O2 Delivery O2 Flow Rate FiO2 02/05/17 15:40 96 Nasal Cannula 2.5 02/05/17 15:00 98.9 57 14 108/47 98.9 I & 0 Intake and Output 02/05/17 07:00 Intake Total 1106 ml Output Total 2700 ml Balance -1594 ml Intake Oral 200 ml Other 906 ml Output Urine Total 2700 ml PHYSICAL EXAM Physical Exam GEN: Awake, Oriented x 2, In no distress - looks more perky today Eyes: VIsion Unchanged Conjunctiva Normal EN: No EN Drainage Mucous Memb. moist Neck: no JVD no JVP Supple no Thyromegaly CVS: S1 S2 no Murmur No Gallop No Rub no Edema Resp: no Rales occ URT Rhonchi no Acc. Muscle use GI: BS +ve NO Bruit Non Tender Non Distended : no CVA tenderness; no Suprapubic Tenderness Assessment & Plan CKD III - no prior baseline x from Nov 2016. Current FLuid and E-lyte status does not necessitate emergent need for Dialysis. UA suggestive of pre-renal state and US was WNL. UO has been brisk so IVF not started - PO intake is also good. HypoALbuminemia - presumably du eto recent Pn and hospitalization. Anemia: IV Iron, Epogen as ordered; Transfuse as needed for hgb < 7 HTN: Current BP meds reviewed. See orders for changes. Discussed Plan of Care and prognosis etc. at length with family. COMMENT/RELEVANT DATA Meds Current Medications Medications (Trade) Dose Ordered Sig/Porfirio Start Time Stop Time Status Last Admin Dose Admin Acetaminophen (Tylenol) 500 mg PRN Q6HRS PRN 02/05/17 09:00 Albuterol Sulfate (Ventolin Neb Soln) 2.5 mg RTQID 02/05/17 12:00 02/05/17 12:00 DC Albuterol/ Ipratropium (Duoneb) 3 ml RTQID 02/05/17 09:00 02/05/17 15:39 3 ML Albuterol/ Ipratropium 3 ml 3 ml 1X ONCE 02/04/17 00:30 02/04/17 00:31 DC 02/04/17 00:31 3 ML Aspirin (Children'S Aspirin) 81 mg DAILY08 02/04/17 13:00 02/05/17 08:40 81 MG Atorvastatin Calcium 10 mg 10 mg QHS 02/04/17 21:00 02/04/17 21:02 10 MG Bisacodyl (Dulcolax Supp) 10 mg PRN DAILY PRN 02/05/17 09:00 Budesonide (Pulmicort) 0.5 mg RTBID 02/05/17 10:00 02/05/17 09:54 0.5 MG Diltiazem HCl (Cardizem 24hr Cd) 240 mg DAILY 02/04/17 13:00 02/05/17 08:41 240 MG Diphenhydramine HCl (Benadryl) 25 mg 1X ONCE 02/04/17 02:45 02/04/17 02:46 DC 02/04/17 02:31 25 MG Enoxaparin Sodium (Lovenox 40mg Syringe) 40 mg Q24H 02/06/17 09:00 Enoxaparin Sodium 30 mg 30 mg Q24H 02/04/17 09:30 02/05/17 14:13 DC 02/05/17 08:41 30 MG Furosemide (Lasix) 40 mg DAILY 02/04/17 13:00 02/05/17 08:40 40 MG Levofloxacin/ Dextrose (LEVAQUIN 750mg PREMIX) 150 ml @ 100 mls/hr 1X ONCE 02/04/17 09:30 02/04/17 10:59 DC 02/04/17 11:21 100 MLS/HR Lorazepam (Ativan) 0.5 mg PRN Q8HRS PRN 02/05/17 09:00 02/05/17 10:11 0.5 MG Lorazepam 1 mg 1 mg 1X ONCE 02/04/17 01:30 02/04/17 01:31 DC 02/04/17 01:29 1 MG Magnesium Hydroxide (Milk Of Magnesia) 400 mg PRN DAILY PRN 02/05/17 09:00 Magnesium Sulfate/ Dextrose (Magnesium Sulfate PREMIX 2GM) 50 ml @ 25 mls/hr PRN DAILY PRN 02/04/17 12:00 Meropenem/Sodium Chloride (Merrem/Iv Sodium Chloride 0.9% 50ml) 50 ml @ 100 mls/hr Q8HRS 02/04/17 14:00 02/05/17 14:19 100 MLS/HR Metoprolol Succinate (Toprol Xl) 25 mg DAILY 02/04/17 13:00 02/05/17 08:40 25 MG Morphine Sulfate 2 mg PRN Q2HR PRN 02/04/17 01:00 02/05/17 00:59 DC Multivitamins (Thera M Plus) 1 tab DAILY 02/05/17 09:30 02/05/17 10:12 1 TAB Non-Formulary Medication 1 puff DAILY 02/05/17 09:00 UNV Ondansetron HCl (Zofran) 4 mg PRN Q6HRS PRN 02/05/17 09:00 Pantoprazole Sodium (Protonix) 40 mg DAILY 02/04/17 13:00 02/05/17 08:40 40 MG Piperacillin Sod/ Tazobactam Sod 2.25 gm/Sodium Chloride 50 ml @ 100 mls/hr Q6HRS 02/04/17 06:00 02/04/17 13:11 DC 02/04/17 05:47 100 MLS/HR Piperacillin Sod/ Tazobactam Sod 4.5 gm/Sodium Chloride 100 ml @ 200 mls/hr 1X ONCE 02/04/17 01:00 02/04/17 01:29 DC 02/04/17 01:29 200 MLS/HR Primidone (Mysoline) 50 mg DAILY 02/05/17 09:30 02/05/17 10:11 50 MG Sodium Chloride (Iv Sodium Chloride 0.9% 1000ml Bag) 1,000 ml @ 1,000 mls/hr Q1H 02/04/17 01:00 02/04/17 02:24 DC 02/04/17 02:00 1,000 MLS/HR Tamsulosin HCl (Flomax) 0.4 mg DAILY 02/05/17 09:30 02/05/17 10:12 0.4 MG Tobramycin Sulfate 1 each 1 each 1X ONCE 02/04/17 14:30 02/04/17 14:30 DC Tobramycin Sulfate 350 mg/ Sodium Chloride 108.75 ml @ 108.75 mls/hr Q48H 02/05/17 23:00 3/7/17 23:00 DC Tobramycin Sulfate/Sodium Chloride (Nebcin/Iv Sodium Chloride 0.9% 100ml) 108.75 ml @ 108.75 mls/hr 1X ONCE 02/04/17 01:30 02/04/17 09:24 DC 02/04/17 02:32 108.75 MLS/HR Vancomycin HCl 1.75 gm/Sodium Chloride 500 ml @ 250 mls/hr 1X ONCE 02/04/17 11:00 02/04/17 12:59 DC 02/04/17 11:23 250 MLS/HR Vancomycin HCl 1 each 1 each 1X ONCE 02/06/17 10:30 02/06/17 10:30 DC Vancomycin HCl/ Sodium Chloride (Iv Sodium Chloride 0.9% 250ml) 250 ml @ 250 mls/hr Q24H 02/05/17 11:00 02/05/17 11:00 DC Lab Laboratory Tests Test 02/05/17 03:54 02/05/17 12:50 White Blood Count 7.5x10^3/uL (4.0-11.0) Red Blood Count 3.17x10^6/uL (4.30-5.70) Hemoglobin 8.3g/dL (13.0-17.5) Hematocrit 25.5% (39.0-53.0) Mean Corpuscular Volume 80fL (79-100) Mean Corpuscular Hemoglobin 26pg (25-35) Mean Corpuscular Hemoglobin Concent 33g/dL (31-37) Red Cell Distribution Width 21.0% (11.5-14.5) Platelet Count 389x10^3/uL (140-400) Neutrophils (%) (Auto) 69% (31-73) Lymphocytes (%) (Auto) 19% (24-48) Monocytes (%) (Auto) 9% (0-9) Eosinophils (%) (Auto) 4% (0-3) Basophils (%) (Auto) 1% (0-3) Neutrophils # (Auto) 5.2x10^3uL (1.8-7.7) Lymphocytes # (Auto) 1.4x10^3/uL (1.0-4.8) Monocytes # (Auto) 0.7x10^3/uL (0.0-1.1) Eosinophils # (Auto) 0.3x10^3/uL (0.0-0.7) Basophils # (Auto) 0.0x10^3/uL (0.0-0.2) Sodium Level 141mmol/L (136-145) Potassium Level 3.9mmol/L (3.5-5.1) Chloride Level 104mmol/L (98-107) Carbon Dioxide Level 30mmol/L (21-32) Anion Gap 7 (6-14) Blood Urea Nitrogen 31mg/dL (8-26) Creatinine 1.9mg/dL (0.7-1.3) Estimated GFR (Cockcroft-Gault) 34.3 BUN/Creatinine Ratio 16 (6-20) Glucose Level 146mg/dL (70-99) Calcium Level 8.5mg/dL (8.5-10.1) Phosphorus Level 4.1mg/dL (2.6-4.7) Magnesium Level 1.9mg/dL (1.8-2.4) Iron Level 10ug/dL (65-175) Total Iron Binding Capacity 166ug/dL (250-450) Iron Saturation 6% (15-34) Total Bilirubin 0.2mg/dL (0.2-1.0) Aspartate Amino Transf (AST/SGOT) 11U/L (15-37) Alanine Aminotransferase (ALT/SGPT) 8U/L (16-63) Alkaline Phosphatase 71U/L (46-116) Total Protein 5.6g/dL (6.4-8.2) Albumin 2.1g/dL (3.4-5.0) Albumin/Globulin Ratio 0.6 (1.0-1.7) Erythrocyte Sedimentation Rate 70 (0-15) Creatine Kinase 23U/L (39-308) Thyroid Stimulating Hormone (TSH) 1.074uIU/mL (0.358-3.74) JAMIL WALL MD Feb 05, 2017 18:09
[2017-02-05 19:00] VITALS: BP 115/53
[2017-02-05] MEDS ORDERED: DARBEPOETIN ALFA 60 MCG/0.3 ML DISP.SYRIN. SQ SCH (21:00)
[2017-02-05] MEDS: ATORVASTATIN CALCIUM 10 MG TABLET. PO SCH (21:53)
[2017-02-05 23:00] VITALS: BP 124/57
[2017-02-05] MEDS ORDERED: TOBRAMYCIN SULFATE IV SCH (23:00)
[2017-02-05] MEDS ORDERED: NORMAL SALINE IV SCH (23:00)
[2017-02-06] MEDS: MEROPENEM 500 MG in IV NORMAL SALINE 50ML 50 ML IV SCH ×2 (00:05→05:22)
[2017-02-06 03:00] VITALS: BP 117/57
[2017-02-06 06:33] LABS: ALBUMIN 2.1 g/dL (3.4-5.0); CALCIUM 8.6 mg/dL (8.5-10.1); CREATININE 1.9 mg/dL (0.7-1.3); GFR 34.3; PHOSPHORUS 3.7 mg/dL (2.6-4.7); POTASSIUM 4.4 mmol/L (3.5-5.1)
[2017-02-06] MEDS: BUDESONIDE 0.5 MG/2 ML NEBU NEB SCH ×2 (06:53→19:32)
[2017-02-06] MEDS: IPRATRPIUM/ALBUTEROL 0.5/2.5MG 3 ML NEBU. NEB SCH ×4 (06:53→19:32)
[2017-02-06 07:00] VITALS: BP 108/55
[2017-02-06] MEDS ORDERED: MAGNESIUM HYDROXIDE 2,400 MG/30 ML ORAL.SUSP. PO PRN (09:00)
[2017-02-06] MEDS: PRIMIDONE 50 MG TABLET PO SCH (09:02)
[2017-02-06] MEDS: PANTOPRAZOLE 40 MG TABLET. PO SCH (09:02)
[2017-02-06] MEDS: METOPROLOL SUCC 24HR ER 50 MG TAB.ER.24H. PO SCH (09:03)
[2017-02-06] MEDS: FUROSEMIDE 40 MG TABLET PO SCH (09:04)
[2017-02-06] MEDS: TAMSULOSIN 0.4 MG CAP.ER.24H. PO SCH (09:04)
[2017-02-06] MEDS: DILTIAZEM HCL 240 MG CAP.ER.24H PO SCH (09:04)
[2017-02-06] MEDS: MULTIVITAMIN with MINERAL TABLET. PO SCH (09:04)
[2017-02-06] MEDS: IRON SUCROSE COMPLEX 200 MG in IV NORMAL SALINE 100ML 100 ML IV SCH (09:05)
[2017-02-06] MEDS: ENOXAPARIN 40 MG/0.4 ML DISP.SYRIN. SQ SCH (09:05)
[2017-02-06] MEDS: ASPIRIN 81 MG TAB.CHEW PO SCH (09:06)
--- NOTE | 2017-02-06 09:29 | PDOC ---
Infectious Disease Note Subjective Subjective pt feeling good, no complaints ROS ROS GEN: Denies fevers, chills, sweats HEENT: Denies blurred vision, sore throat CV: Denies chest pain RESP: Denies shortness of air, cough GI: Denies n/v/d NEURO: Denies confusion, dizziness MSK: Denies weakness, joint pain/swelling Vital Sign Vital Signs Vital Signs Date Time Temp Pulse Resp B/P Pulse Ox O2 Delivery O2 Flow Rate FiO2 02/06/17 07:00 98.6 75 16 108/55 Room Air 96.0 98.6 02/06/17 06:54 98 Physical Exam PHYSICAL EXAM GENERAL: NAD, Alert HEENT: PERRL, OC/OP NECK: Supple, no JVD, no LN LUNGS: Clear HEART: S1S2, no gallop, no murmur ABD: Soft, NT, no organomegaly, no rebound EXT: No edema, no cyanosis 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, 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, no focal neurologic deficit SKIN: No rash IV: ok Labs Lab Laboratory Tests Test 02/05/17 12:50 02/06/17 05:10 Erythrocyte Sedimentation Rate 70 (0-15) Creatine Kinase 23U/L (39-308) Thyroid Stimulating Hormone (TSH) 1.074uIU/mL (0.358-3.74) Sodium Level 139mmol/L (136-145) Potassium Level 4.4mmol/L (3.5-5.1) Chloride Level 105mmol/L (98-107) Carbon Dioxide Level 31mmol/L (21-32) Anion Gap 3 (6-14) Blood Urea Nitrogen 26mg/dL (8-26) Creatinine 1.9mg/dL (0.7-1.3) Estimated GFR (Cockcroft-Gault) 34.3 Glucose Level 98mg/dL (70-99) Calcium Level 8.6mg/dL (8.5-10.1) Phosphorus Level 3.7mg/dL (2.6-4.7) Magnesium Level 2.1mg/dL (1.8-2.4) Albumin 2.1g/dL (3.4-5.0) Objective Assessment COPD exacerbation Pneumonia ? chronic changes CHF Leukocytosis h/o MDRO Plan Plan of Care Meropenem,, change to po vantin supportive care d/c to SNF LUIS MANUEL Li MD Feb 06, 2017 09:29
--- NOTE | 2017-02-06 09:57 | PDOC ---
PROGRESS NOTES Chief Complaint Chief Complaint Sepsis PNA, HCAP weakness, acute delirium, metabolic encephalopathy hypertension, CHF, COPD, strokes, pneumonia, atrial fib AFIB, CHF, HTN, Hyperlipidemia COPD Dementia Osteoarthritis Chronic renal insuff, Benign prostatic enlarg. History of Present Illness History of Present Illness Claims feet are numb, maybe form staying in bed too long PAlpable strong dorsalis pedis pulses, intact sensation NO inc in SOA ESR elevated CTs can noted - PNA< atelectasis CT head neg EEG done, looks good Undergoing 24 hr urine - started 12MN PLAN: COnt 24 hr urine Await further neuro recs COnt pT./OT Will go back to [facility] upon dc Vitals Vitals Vital Signs Date Time Temp Pulse Resp B/P Pulse Ox O2 Delivery O2 Flow Rate FiO2 02/06/17 09:04 75 108/55 02/06/17 07:00 98.6 16 Room Air 96.0 98.6 02/06/17 06:54 98 Physical Exam General: Alert, Cooperative, No acute distress Heart: Normal S1, Normal S2, Other (irregular- WAP) Lungs: Other (coarse bilateral) Abdomen: Soft, No tenderness Extremities: No cyanosis, No edema Skin: No breakdown, No significant lesion, Other (UE ecchymoses) Labs LABS Laboratory Tests Test 02/05/17 12:50 02/06/17 05:10 Erythrocyte Sedimentation Rate 70 (0-15) Creatine Kinase 23U/L (39-308) Thyroid Stimulating Hormone (TSH) 1.074uIU/mL (0.358-3.74) Sodium Level 139mmol/L (136-145) Potassium Level 4.4mmol/L (3.5-5.1) Chloride Level 105mmol/L (98-107) Carbon Dioxide Level 31mmol/L (21-32) Anion Gap 3 (6-14) Blood Urea Nitrogen 26mg/dL (8-26) Creatinine 1.9mg/dL (0.7-1.3) Estimated GFR (Cockcroft-Gault) 34.3 Glucose Level 98mg/dL (70-99) Calcium Level 8.6mg/dL (8.5-10.1) Phosphorus Level 3.7mg/dL (2.6-4.7) Magnesium Level 2.1mg/dL (1.8-2.4) Albumin 2.1g/dL (3.4-5.0) Review of Systems Review of Systems bilateral feet numb, all else is neg Assessment and Plan Assessmemt and Plan Problems Medical Problems: (1) Acute respiratory failure Status: Acute (2) Dyspnea Status: Acute (3) HCAP (healthcare-associated pneumonia) Status: Acute Problems: Comment Review of Relevant I have reviewed the following items be (where applicable) has been applied. Labs Laboratory Tests Test 02/04/17 13:00 02/05/17 03:54 02/05/17 12:50 02/06/17 05:10 Troponin I Quantitative < 0.017ng/mL (0.000-0.055) White Blood Count 7.5x10^3/uL (4.0-11.0) Red Blood Count 3.17x10^6/uL (4.30-5.70) Hemoglobin 8.3g/dL (13.0-17.5) Hematocrit 25.5% (39.0-53.0) Mean Corpuscular Volume 80fL (79-100) Mean Corpuscular Hemoglobin 26pg (25-35) Mean Corpuscular Hemoglobin Concent 33g/dL (31-37) Red Cell Distribution Width 21.0% (11.5-14.5) Platelet Count 389x10^3/uL (140-400) Neutrophils (%) (Auto) 69% (31-73) Lymphocytes (%) (Auto) 19% (24-48) Monocytes (%) (Auto) 9% (0-9) Eosinophils (%) (Auto) 4% (0-3) Basophils (%) (Auto) 1% (0-3) Neutrophils # (Auto) 5.2x10^3uL (1.8-7.7) Lymphocytes # (Auto) 1.4x10^3/uL (1.0-4.8) Monocytes # (Auto) 0.7x10^3/uL (0.0-1.1) Eosinophils # (Auto) 0.3x10^3/uL (0.0-0.7) Basophils # (Auto) 0.0x10^3/uL (0.0-0.2) Sodium Level 141mmol/L (136-145) 139mmol/L (136-145) Potassium Level 3.9mmol/L (3.5-5.1) 4.4mmol/L (3.5-5.1) Chloride Level 104mmol/L (98-107) 105mmol/L (98-107) Carbon Dioxide Level 30mmol/L (21-32) 31mmol/L (21-32) Anion Gap 7 (6-14) 3 (6-14) Blood Urea Nitrogen 31mg/dL (8-26) 26mg/dL (8-26) Creatinine 1.9mg/dL (0.7-1.3) 1.9mg/dL (0.7-1.3) Estimated GFR (Cockcroft-Gault) 34.3 34.3 BUN/Creatinine Ratio 16 (6-20) Glucose Level 146mg/dL (70-99) 98mg/dL (70-99) Calcium Level 8.5mg/dL (8.5-10.1) 8.6mg/dL (8.5-10.1) Phosphorus Level 4.1mg/dL (2.6-4.7) 3.7mg/dL (2.6-4.7) Magnesium Level 1.9mg/dL (1.8-2.4) 2.1mg/dL (1.8-2.4) Iron Level 10ug/dL (65-175) Total Iron Binding Capacity 166ug/dL (250-450) Iron Saturation 6% (15-34) Total Bilirubin 0.2mg/dL (0.2-1.0) Aspartate Amino Transf (AST/SGOT) 11U/L (15-37) Alanine Aminotransferase (ALT/SGPT) 8U/L (16-63) Alkaline Phosphatase 71U/L (46-116) Total Protein 5.6g/dL (6.4-8.2) Albumin 2.1g/dL (3.4-5.0) 2.1g/dL (3.4-5.0) Albumin/Globulin Ratio 0.6 (1.0-1.7) Erythrocyte Sedimentation Rate 70 (0-15) Creatine Kinase 23U/L (39-308) Thyroid Stimulating Hormone (TSH) 1.074uIU/mL (0.358-3.74) Laboratory Tests Test 02/05/17 12:50 02/06/17 05:10 Erythrocyte Sedimentation Rate 70 (0-15) Creatine Kinase 23U/L (39-308) Thyroid Stimulating Hormone (TSH) 1.074uIU/mL (0.358-3.74) Sodium Level 139mmol/L (136-145) Potassium Level 4.4mmol/L (3.5-5.1) Chloride Level 105mmol/L (98-107) Carbon Dioxide Level 31mmol/L (21-32) Anion Gap 3 (6-14) Blood Urea Nitrogen 26mg/dL (8-26) Creatinine 1.9mg/dL (0.7-1.3) Estimated GFR (Cockcroft-Gault) 34.3 Glucose Level 98mg/dL (70-99) Calcium Level 8.6mg/dL (8.5-10.1) Phosphorus Level 3.7mg/dL (2.6-4.7) Magnesium Level 2.1mg/dL (1.8-2.4) Albumin 2.1g/dL (3.4-5.0) Microbiology 02/04/17 Blood Culture - Preliminary, Resulted NO GROWTH AFTER 2 DAYS Medications Current Medications Albuterol/ Ipratropium (Duoneb) 3 ml 1X ONCE NEB Last administered on 00:31; Start 02/04/17 at 00:30; Stop 02/04/17 at 00:31; Status DC Tobramycin Sulfate 1 each 1 each PRN DAILY PRN PHARMACY TO DOSE Last administered on 02/04/17 03:00; Start 02/04/17 at 01:00; Stop 02/04/17 at 09:26; Status DC Piperacillin Sod/ Tazobactam Sod 4.5 gm/Sodium Chloride 100 ml @ 200 mls/hr 1X ONCE IV Last administered on 02/04/17 01:29; Start 02/04/17 at 01:00; Stop 02/04/17 at 01:29; Status DC Tobramycin Sulfate/Sodium Chloride (Nebcin/Iv Sodium Chloride 0.9% 100ml) 108.75 ml @ 108.75 mls/hr 1X ONCE IV Last administered on 02/04/17 02:32; Start 02/04/17 at 01:30; Stop 02/04/17 at 09:24; Status DC Lorazepam 1 mg 1 mg 1X ONCE IV Last administered on 02/04/17 01:29; Start 02/04 at 01:30; Stop 02/04/17 at 01:31; Status DC Sodium Chloride (Iv Sodium Chloride 0.9% 1000ml Bag) 1,000 ml @ 1,000 mls/hr Q1H IV Last administered on 02/04/17 02:00; Start 02/04/17 at 01:00; Stop at 02:24; Status DC Ondansetron HCl (Zofran) 4 mg PRN Q8HRS PRN IV NAUSEA/VOMITING; Start 02/04/17 at 01:00; Stop 02/05/17 at 00:59; Status DC Morphine Sulfate 2 mg PRN Q2HR PRN IV SEVERE PAIN; Start 02/04/17 at 01:00; Stop 02/05/17 at 00:59; Status DC Acetaminophen (Tylenol) 650 mg PRN Q4HRS PRN PO FEVER; Start 02/04/17 at 01:00; Stop 02/05/17 at 00:59; Status DC Albuterol/ Ipratropium (Duoneb) 3 ml RTQID NEB Last administered on 02/05/17 07 :02; Start 02/04/17 at 08:00; Stop 02/05/17 at 07:59; Status DC Diphenhydramine HCl (Benadryl) 25 mg 1X ONCE IVP Last administered on 02:31; Start 02/04/17 at 02:45; Stop 02/04/17 at 02:46; Status DC Tobramycin Sulfate 1 each 1 each 1X ONCE MC ; Start 02/04/17 at 14:30; Stop 02/04 at 14:30; Status DC Tobramycin Sulfate 350 mg/ Sodium Chloride 108.75 ml @ 108.75 mls/hr Q48H IV ; Start 02/05/17 at 23:00; Stop 02/05/17 at 23:00; Status DC Piperacillin Sod/ Tazobactam Sod/ Sodium Chloride (Zosyn/Iv Sodium Chloride 0.9 % 50ml) 50 ml @ 100 mls/hr Q6HRS IV Last administered on 02/04/17 05:47; Start 02/04/17 at 06:00; Stop 02/04/17 at 13:11; Status DC Vancomycin HCl 1 each 1 each PRN DAILY PRN MC SEE COMMENTS Last administered on 02/04/17 09:37; Start 02/04/17 at 09:15; Stop 02/04/17 at 13:12; Status DC Levofloxacin/ Dextrose (LEVAQUIN 750mg PREMIX) 150 ml @ 100 mls/hr 1X ONCE IV Last administered on 02/04/17 11:21; Start 02/04/17 at 09:30; Stop 02/04/17 at 10:59; Status DC Enoxaparin Sodium 30 mg 30 mg Q24H SQ Last administered on 02/05/17 08:41; Start 02/04/17 at 09:30; Stop 02/05/17 at 14:13; Status DC Vancomycin HCl 1.75 gm/Sodium Chloride 500 ml @ 250 mls/hr 1X ONCE IV Last administered on 02/04/17 11:23; Start 02/04/17 at 11:00; Stop 02/04/17 at 12:59; Status DC Vancomycin HCl/ Sodium Chloride (Iv Sodium Chloride 0.9% 250ml) 250 ml @ 250 mls/hr Q24H IV ; Start 02/05/17 at 11:00; Stop 02/05/17 at 11:00; Status DC Vancomycin HCl 1 each 1 each 1X ONCE MC ; Start 02/06/17 at 10:30; Stop 02/06/17 at 10:30; Status DC Magnesium Sulfate/ Dextrose (Magnesium Sulfate PREMIX 2GM) 50 ml @ 25 mls/hr PRN DAILY PRN IV for Mag < 1.7 on am labs; Start 02/04/17 at 12:00 Aspirin (Children'S Aspirin) 81 mg DAILY08 PO Last administered on 02/06/17 09: 06; Start 02/04/17 at 13:00 Diltiazem HCl (Cardizem 24hr Cd) 240 mg DAILY PO Last administered on 02/06/17 09:04; Start 02/04/17 at 13:00 Furosemide (Lasix) 40 mg DAILY PO Last administered on 02/06/17 09:04; Start at 13:00 Metoprolol Succinate (Toprol Xl) 25 mg DAILY PO Last administered on 02/06/17 09:03; Start 02/04/17 at 13:00 Pantoprazole Sodium (Protonix) 40 mg DAILY PO Last administered on 02/06/17 09: 02; Start 02/04/17 at 13:00 Atorvastatin Calcium 10 mg 10 mg QHS PO Last administered on 02/05/17 21:53; Start 02/04/17 at 21:00 Meropenem/Sodium Chloride (Merrem/Iv Sodium Chloride 0.9% 50ml) 50 ml @ 100 mls /hr Q8HRS IV Last administered on 02/06/17 05:22; Start 02/04/17 at 14:00; Stop 02/06/17 at 09:30; Status DC Albuterol/ Ipratropium (Duoneb) 3 ml RTQID NEB Last administered on 02/06/17 06 :53; Start 02/05/17 at 09:00 Acetaminophen (Tylenol) 500 mg PRN Q6HRS PRN PO MILD PAIN / TEMP; Start at 09:00 Ondansetron HCl (Zofran) 4 mg PRN Q6HRS PRN IV NAUSEA/VOMITING; Start 02/05/17 at 09:00 Bisacodyl (Dulcolax Supp) 10 mg PRN DAILY PRN RC CONSTIPATION; Start 02/05/17 at 09:00 Albuterol Sulfate (Ventolin Neb Soln) 2.5 mg PRN Q4HRS PRN NEB SHORTNESS OF BREATH Last administered on 02/05/17 09:54; Start 02/05/17 at 09:00 Lorazepam (Ativan) 0.5 mg PRN Q8HRS PRN PO ANXIETY / AGITATION Last administered on 02/05/17 10:11; Start 02/05/17 at 09:00 Magnesium Hydroxide (Milk Of Magnesia) 400 mg PRN DAILY PRN PO CONSTIPATION; Start 02/05/17 at 09:00 Primidone (Mysoline) 50 mg DAILY PO Last administered on 02/06/17 09:02; Start 02/05/17 at 09:30 Tamsulosin HCl (Flomax) 0.4 mg DAILY PO Last administered on 02/06/17 09:04; Start 02/05/17 at 09:30 Non-Formulary Medication 1 puff DAILY IH ; Start 02/05/17 at 09:00; Status UNV Multivitamins (Thera M Plus) 1 tab DAILY PO Last administered on 02/06/17 09:04 ; Start 02/05/17 at 09:30 Albuterol Sulfate (Ventolin Neb Soln) 2.5 mg RTQID NEB ; Start 02/05/17 at 12:00 ; Stop 02/05/17 at 12:00; Status DC Budesonide (Pulmicort) 0.5 mg RTBID NEB Last administered on 02/06/17 06:53; Start 02/05/17 at 10:00 Enoxaparin Sodium 40 mg 40 mg Q24H SQ Last administered on 02/06/17 09:05; Start 02/06/17 at 09:00 Iron Sucrose/ Sodium Chloride (Venofer/Iv Sodium Chloride 0.9% 100ml) 110 ml @ 55 mls/hr 3X/WEEK IV Last administered on 02/06/17 09:05; Start 02/06/17 at 09: 00; Stop 02/15/17 at 10:59 Darbepoetin Moe (Aranesp) 60 mcg Tu SQ Last administered on 02/05/17 21:57; Start 02/05/17 at 21:00 Magnesium Hydroxide (Milk Of Magnesia) 2,400 mg PRN DAILY PRN PO CONSTIPATION; Start 02/06/17 at 09:00 Cefpodoxime Proxetil (Vantin) 200 mg BID PO ; Start 02/06/17 at 21:00 Active Scripts Active Reported Protonix (Pantoprazole Sodium) 40 Mg Tablet.dr 1 Tab PO DAILY Multi-Vitamin Daily (Multivitamin) 1 Each Tablet 1 Each PO DAILY Diltiazem 24HR Cd (Diltiazem Hcl) 240 Mg Cap.er.24h 240 Mg PO DAILY Breo Ellipta 100-25 Mcg Inh (Fluticasone/Vilanterol) 1 Each Aer.pow.ba 1 Puff IH DAILY Tamsulosin Hcl 0.4 Mg Cap.er.24h 1 Cap PO DAILY Primidone 50 Mg Tablet 50 Mg PO DAILY Metoprolol Succinate 50 Mg Tab.er.24h 25 Mg PO DAILY Lorazepam 0.5 Mg Tablet 1 Tab PO PRN Q8HRS PRN Milk Of Magnesia (Magnesium Hydroxide) 400 Mg/5 Ml Oral.susp 400 Mg PO PRN DAILY PRN Atorvastatin Calcium 10 Mg Tablet 1 Tab PO DAILY Aspirin 81 Mg Tab.chew 81 Mg PO DAILY Acetaminophen 325 Mg Tablet 650 Mg PO Q4HRS PRN Duoneb 0.5-3(2.5) Mg/3 Ml (Albuterol/Ipratropium) 3 Ml Ampul.neb 3 Ml NEB PRN Q4HRS PRN Furosemide 40 Mg Tablet 40 Mg PO DAILY Dulcolax (Bisacodyl) 10 Mg Supp.rect 10 Mg RC PRN DAILY PRN Vitals/I & O Vital Sign - Last 24 Hours 02/05/17 02/05/17 02/05/17 02/05/17 09:56 11:09 11:18 15:00 Temp 98.3 98.9 98.3 98.9 Pulse 67 57 Resp 14 14 B/P 108/63 108/47 Pulse Ox 97 96 97 O2 Delivery Nasal Cannula Room Air Nasal Cannula Room Air O2 Flow Rate 2.5 2.5 02/05/17 02/05/17 02/05/17 02/05/17 15:40 19:00 19:38 19:41 Temp 98.8 98.8 Pulse 75 Resp 24 B/P 115/53 Pulse Ox 96 99 100 100 O2 Delivery Nasal Cannula Nasal Cannula Nasal Cannula Nasal Cannula O2 Flow Rate 2.5 2.0 2.5 2.5 02/05/17 02/05/17 02/06/17 02/06/17 20:00 23:00 03:00 06:54 Temp 98.4 98.2 98.4 98.2 Pulse 64 69 Resp 20 20 B/P 124/57 117/57 Pulse Ox 100 98 98 O2 Delivery Nasal Cannula Nasal Cannula Nasal Cannula Nasal Cannula O2 Flow Rate 2.5 2.0 2.0 2.0 02/06/17 02/06/17 02/06/17 07:00 09:03 09:04 Temp 98.6 98.6 Pulse 75 75 75 Resp 16 B/P 108/55 108/55 108/55 O2 Delivery Room Air O2 Flow Rate 96.0 Intake and Output 02/05/17 02/05/17 02/06/17 15:00 23:00 07:00 Intake Total 360 ml 220 ml Output Total 1600 ml Balance -1240 ml 220 ml ABBEY PARKS MD Feb 06, 2017 09:57
[2017-02-06 11:00] VITALS: BP 106/51
--- NOTE | 2017-02-06 11:42 | PDOC ---
SUBJECTIVE ROS CKD III DOing much better this [place] CVS: no Orthopnea, no CP RESP: no SOB, no SANON; occ cough GI: no Nausea, no Vomiting : no Dysuria, no Urgency OBJECTIVE Vital Signs Vital Signs Date Time Temp Pulse Resp B/P Pulse Ox O2 Delivery O2 Flow Rate FiO2 02/06/17 11:14 97 Nasal Cannula 2.0 02/06/17 09:04 75 108/55 02/06/17 07:00 98.6 16 98.6 I & 0 Intake and Output 02/06/17 07:00 Intake Total 580 ml Output Total 1600 ml Balance -1020 ml Intake Oral 480 ml IV Total 100 ml Output Urine Total 1600 ml PHYSICAL EXAM Physical Exam GEN: Awake, Oriented x 2, In no distress - looks more perky today Eyes: VIsion Unchanged Conjunctiva Normal EN: No EN Drainage Mucous Memb. moist Neck: no JVD no JVP Supple no Thyromegaly CVS: S1 S2 no Murmur No Gallop No Rub no Edema Resp: no Rales occ URT Rhonchi no Acc. Muscle use GI: BS +ve NO Bruit Non Tender Non Distended : no CVA tenderness; no Suprapubic Tenderness Assessment & Plan CKD III - no prior baseline x from Nov 2016. Current FLuid and E-lyte status does not necessitate emergent need for Dialysis. UA suggestive of pre-renal state and US was WNL. decrease Lasix and reval. Not sure why he needed it (was on it at home too) HypoALbuminemia - presumably du eto recent Pn and hospitalization. Fe def Anemia: IV Iron, Epogen as ordered; Transfuse as needed for hgb < 7 HTN: Current BP meds reviewed. See orders for changes. OK to D/c From renal standpoint; D/c Coker Discussed Plan of Care and prognosis etc. at length with family. COMMENT/RELEVANT DATA Meds Current Medications Medications (Trade) Dose Ordered Sig/Porfirio Start Time Stop Time Status Last Admin Dose Admin Acetaminophen (Tylenol) 500 mg PRN Q6HRS PRN 02/05/17 09:00 Albuterol Sulfate (Ventolin Neb Soln) 2.5 mg RTQID 02/05/17 12:00 02/05/17 12:00 DC Albuterol/ Ipratropium (Duoneb) 3 ml RTQID 02/05/17 09:00 02/06/17 11:12 3 ML Albuterol/ Ipratropium 3 ml 3 ml 1X ONCE 02/04/17 00:30 02/04/17 00:31 DC 02/04/17 00:31 3 ML Aspirin (Children'S Aspirin) 81 mg DAILY08 02/04/17 13:00 02/06/17 09:06 81 MG Atorvastatin Calcium 10 mg 10 mg QHS 02/04/17 21:00 02/05/17 21:53 10 MG Bisacodyl (Dulcolax Supp) 10 mg PRN DAILY PRN 02/05/17 09:00 Budesonide (Pulmicort) 0.5 mg RTBID 02/05/17 10:00 02/06/17 06:53 0.5 MG Cefpodoxime Proxetil (Vantin) 200 mg BID 02/06/17 21:00 Darbepoetin Moe (Aranesp) 60 mcg Tu 02/05/17 21:00 02/05/17 21:57 60 MCG Diltiazem HCl (Cardizem 24hr Cd) 240 mg DAILY 02/04/17 13:00 02/06/17 09:04 240 MG Diphenhydramine HCl (Benadryl) 25 mg 1X ONCE 02/04/17 02:45 02/04/17 02:46 DC 02/04/17 02:31 25 MG Enoxaparin Sodium 30 mg 30 mg Q24H 02/04/17 09:30 02/05/17 14:13 DC 02/05/17 08:41 30 MG Enoxaparin Sodium 40 mg 40 mg Q24H 02/06/17 09:00 02/06/17 09:05 40 MG Furosemide (Lasix) 40 mg DAILY 02/04/17 13:00 02/06/17 09:04 40 MG Iron Sucrose/ Sodium Chloride (Venofer/Iv Sodium Chloride 0.9% 100ml) 110 ml @ 55 mls/hr 3X/WEEK 02/06/17 09:00 02/15/17 10:59 02/06/17 09:05 55 MLS/HR Levofloxacin/ Dextrose (LEVAQUIN 750mg PREMIX) 150 ml @ 100 mls/hr 1X ONCE 02/04/17 09:30 02/04/17 10:59 DC 02/04/17 11:21 100 MLS/HR Lorazepam (Ativan) 0.5 mg PRN Q8HRS PRN 02/05/17 09:00 02/05/17 10:11 0.5 MG Lorazepam 1 mg 1 mg 1X ONCE 02/04/17 01:30 02/04/17 01:31 DC 02/04/17 01:29 1 MG Magnesium Hydroxide (Milk Of Magnesia) 2,400 mg PRN DAILY PRN 02/06/17 09:00 Magnesium Sulfate/ Dextrose (Magnesium Sulfate PREMIX 2GM) 50 ml @ 25 mls/hr PRN DAILY PRN 02/04/17 12:00 Meropenem/Sodium Chloride (Merrem/Iv Sodium Chloride 0.9% 50ml) 50 ml @ 100 mls/hr Q8HRS 02/04/17 14:00 02/06/17 09:30 DC 02/06/17 05:22 100 MLS/HR Metoprolol Succinate (Toprol Xl) 25 mg DAILY 02/04/17 13:00 02/06/17 09:03 25 MG Morphine Sulfate 2 mg PRN Q2HR PRN 02/04/17 01:00 02/05/17 00:59 DC Multivitamins (Thera M Plus) 1 tab DAILY 02/05/17 09:30 02/06/17 09:04 1 TAB Non-Formulary Medication 1 puff DAILY 02/05/17 09:00 UNV Ondansetron HCl (Zofran) 4 mg PRN Q6HRS PRN 02/05/17 09:00 Pantoprazole Sodium (Protonix) 40 mg DAILY 02/04/17 13:00 02/06/17 09:02 40 MG Piperacillin Sod/ Tazobactam Sod 2.25 gm/Sodium Chloride 50 ml @ 100 mls/hr Q6HRS 02/04/17 06:00 02/04/17 13:11 DC 02/04/17 05:47 100 MLS/HR Piperacillin Sod/ Tazobactam Sod 4.5 gm/Sodium Chloride 100 ml @ 200 mls/hr 1X ONCE 02/04/17 01:00 02/04/17 01:29 DC 02/04/17 01:29 200 MLS/HR Primidone (Mysoline) 50 mg DAILY 02/05/17 09:30 02/06/17 09:02 50 MG Sodium Chloride (Iv Sodium Chloride 0.9% 1000ml Bag) 1,000 ml @ 1,000 mls/hr Q1H 02/04/17 01:00 02/04/17 02:24 DC 02/04/17 02:00 1,000 MLS/HR Tamsulosin HCl (Flomax) 0.4 mg DAILY 02/05/17 09:30 02/06/17 09:04 0.4 MG Tobramycin Sulfate 1 each 1 each 1X ONCE 02/04/17 14:30 02/04/17 14:30 DC Tobramycin Sulfate 350 mg/ Sodium Chloride 108.75 ml @ 108.75 mls/hr Q48H 02/05/17 23:00 02/05/17 23:00 DC Tobramycin Sulfate/Sodium Chloride (Nebcin/Iv Sodium Chloride 0.9% 100ml) 108.75 ml @ 108.75 mls/hr 1X ONCE 02/04/17 01:30 02/04/17 09:24 DC 02/04/17 02:32 108.75 MLS/HR Vancomycin HCl 1.75 gm/Sodium Chloride 500 ml @ 250 mls/hr 1X ONCE 02/04/17 11:00 02/04/17 12:59 DC 02/04/17 11:23 250 MLS/HR Vancomycin HCl 1 each 1 each 1X ONCE 02/06/17 10:30 02/06/17 10:30 DC Vancomycin HCl/ Sodium Chloride (Iv Sodium Chloride 0.9% 250ml) 250 ml @ 250 mls/hr Q24H 02/05/17 11:00 02/05/17 11:00 DC Lab Laboratory Tests Test 02/05/17 12:50 02/06/17 05:10 02/06/17 10:20 Erythrocyte Sedimentation Rate 70 (0-15) Creatine Kinase 23U/L (39-308) Thyroid Stimulating Hormone (TSH) 1.074uIU/mL (0.358-3.74) Sodium Level 139mmol/L (136-145) Potassium Level 4.4mmol/L (3.5-5.1) Chloride Level 105mmol/L (98-107) Carbon Dioxide Level 31mmol/L (21-32) Anion Gap 3 (6-14) Blood Urea Nitrogen 26mg/dL (8-26) Creatinine 1.9mg/dL (0.7-1.3) Estimated GFR (Cockcroft-Gault) 34.3 Glucose Level 98mg/dL (70-99) Calcium Level 8.6mg/dL (8.5-10.1) Phosphorus Level 3.7mg/dL (2.6-4.7) Magnesium Level 2.1mg/dL (1.8-2.4) Albumin 2.1g/dL (3.4-5.0) Vancomycin Level Trough 8.7mcg/mL (10.0-20.0) Vancomycin Last Dose Date 02/05/17 Vancomycin Last Dose Time 1100 JAMIL WALL MD Feb 06, 2017 11:41
--- NOTE | 2017-02-06 12:49 | PDOC ---
PULMONARY PROGRESS NOTES Subjective no linus confusion resolved Vitals Vital Signs Date Time Temp Pulse Resp B/P Pulse Ox O2 Delivery O2 Flow Rate FiO2 02/06/17 11:14 97 Nasal Cannula 2.0 02/06/17 11:00 98.2 67 14 106/51 98.2 General: No acute distress, Confused HEENT: Other Lungs: Other (coarse bilateral) Cardiovascular: S1, S2 Abdomen: Soft, Non-tender Extremities: No Edema Skin: Warm Labs Laboratory Tests Test 02/04/17 13:00 02/05/17 03:54 02/05/17 12:50 02/06/17 05:10 Troponin I Quantitative < 0.017ng/mL (0.000-0.055) White Blood Count 7.5x10^3/uL (4.0-11.0) Red Blood Count 3.17x10^6/uL (4.30-5.70) Hemoglobin 8.3g/dL (13.0-17.5) Hematocrit 25.5% (39.0-53.0) Mean Corpuscular Volume 80fL (79-100) Mean Corpuscular Hemoglobin 26pg (25-35) Mean Corpuscular Hemoglobin Concent 33g/dL (31-37) Red Cell Distribution Width 21.0% (11.5-14.5) Platelet Count 389x10^3/uL (140-400) Neutrophils (%) (Auto) 69% (31-73) Lymphocytes (%) (Auto) 19% (24-48) Monocytes (%) (Auto) 9% (0-9) Eosinophils (%) (Auto) 4% (0-3) Basophils (%) (Auto) 1% (0-3) Neutrophils # (Auto) 5.2x10^3uL (1.8-7.7) Lymphocytes # (Auto) 1.4x10^3/uL (1.0-4.8) Monocytes # (Auto) 0.7x10^3/uL (0.0-1.1) Eosinophils # (Auto) 0.3x10^3/uL (0.0-0.7) Basophils # (Auto) 0.0x10^3/uL (0.0-0.2) Sodium Level 141mmol/L (136-145) 139mmol/L (136-145) Potassium Level 3.9mmol/L (3.5-5.1) 4.4mmol/L (3.5-5.1) Chloride Level 104mmol/L (98-107) 105mmol/L (98-107) Carbon Dioxide Level 30mmol/L (21-32) 31mmol/L (21-32) Anion Gap 7 (6-14) 3 (6-14) Blood Urea Nitrogen 31mg/dL (8-26) 26mg/dL (8-26) Creatinine 1.9mg/dL (0.7-1.3) 1.9mg/dL (0.7-1.3) Estimated GFR (Cockcroft-Gault) 34.3 34.3 BUN/Creatinine Ratio 16 (6-20) Glucose Level 146mg/dL (70-99) 98mg/dL (70-99) Calcium Level 8.5mg/dL (8.5-10.1) 8.6mg/dL (8.5-10.1) Phosphorus Level 4.1mg/dL (2.6-4.7) 3.7mg/dL (2.6-4.7) Magnesium Level 1.9mg/dL (1.8-2.4) 2.1mg/dL (1.8-2.4) Iron Level 10ug/dL (65-175) Total Iron Binding Capacity 166ug/dL (250-450) Iron Saturation 6% (15-34) Total Bilirubin 0.2mg/dL (0.2-1.0) Aspartate Amino Transf (AST/SGOT) 11U/L (15-37) Alanine Aminotransferase (ALT/SGPT) 8U/L (16-63) Alkaline Phosphatase 71U/L (46-116) Total Protein 5.6g/dL (6.4-8.2) Albumin 2.1g/dL (3.4-5.0) 2.1g/dL (3.4-5.0) Albumin/Globulin Ratio 0.6 (1.0-1.7) Erythrocyte Sedimentation Rate 70 (0-15) Creatine Kinase 23U/L (39-308) Thyroid Stimulating Hormone (TSH) 1.074uIU/mL (0.358-3.74) Test 02/06/17 10:20 Vancomycin Level Trough 8.7mcg/mL (10.0-20.0) Vancomycin Last Dose Date 02/05/17 Vancomycin Last Dose Time 1100 Laboratory Tests Test 02/05/17 12:50 02/06/17 05:10 02/06/17 10:20 Erythrocyte Sedimentation Rate 70 (0-15) Creatine Kinase 23U/L (39-308) Thyroid Stimulating Hormone (TSH) 1.074uIU/mL (0.358-3.74) Sodium Level 139mmol/L (136-145) Potassium Level 4.4mmol/L (3.5-5.1) Chloride Level 105mmol/L (98-107) Carbon Dioxide Level 31mmol/L (21-32) Anion Gap 3 (6-14) Blood Urea Nitrogen 26mg/dL (8-26) Creatinine 1.9mg/dL (0.7-1.3) Estimated GFR (Cockcroft-Gault) 34.3 Glucose Level 98mg/dL (70-99) Calcium Level 8.6mg/dL (8.5-10.1) Phosphorus Level 3.7mg/dL (2.6-4.7) Magnesium Level 2.1mg/dL (1.8-2.4) Albumin 2.1g/dL (3.4-5.0) Vancomycin Level Trough 8.7mcg/mL (10.0-20.0) Vancomycin Last Dose Date 02/05/17 Vancomycin Last Dose Time 1100 Medications Active Scripts Medications Dose Route/Sig Days Date Category Protonix (Pantoprazole Sodium) 40 Mg Tablet.dr 1 Tab PO DAILY 02/04/17 Reported Multi-Vitamin Daily (Multivitamin) 1 Each Tablet 1 Each PO DAILY 02/04/17 Reported Diltiazem 24HR Cd (Diltiazem Hcl) 240 Mg Cap.er.24h 240 Mg PO DAILY 02/04/17 Reported Breo Ellipta 100-25 Mcg Inh (Fluticasone/Vilanterol) 1 Each Aer.pow.ba 1 Puff IH DAILY 02/04/17 Reported Tamsulosin Hcl 0.4 Mg Cap.er.24h 1 Cap PO DAILY 11/09/16 Reported Primidone 50 Mg Tablet 50 Mg PO DAILY 11/09/16 Reported Metoprolol Succinate 50 Mg Tab.er.24h 25 Mg PO DAILY 11/09/16 Reported Lorazepam 0.5 Mg Tablet 1 Tab PO PRN Q8HRS PRN 11/09/16 Reported Milk Of Magnesia (Magnesium Hydroxide) 400 Mg/5 Ml Oral.susp 400 Mg PO PRN DAILY PRN 11/09/16 Reported Atorvastatin Calcium 10 Mg Tablet 1 Tab PO DAILY 11/09/16 Reported Aspirin 81 Mg Tab.chew 81 Mg PO DAILY 11/09/16 Reported Acetaminophen 325 Mg Tablet 650 Mg PO Q4HRS PRN 11/09/16 Reported Duoneb 0.5-3(2.5) Mg/3 Ml (Albuterol/Ipratropium) 3 Ml Ampul.neb 3 Ml NEB PRN Q4HRS PRN 11/09/16 Reported Furosemide 40 Mg Tablet 40 Mg PO DAILY 11/09/16 Reported Dulcolax (Bisacodyl) 10 Mg Supp.rect 10 Mg RC PRN DAILY PRN 11/09/[address] CHEST 1. Mild interstitial and airspace opacities posteriorly in the right upper lobe and within the right greater than left costophrenic angles are consistent with pneumonia if acute, or interstitial lung disease/scarring if chronic. A follow-up in 3 months could assess stability if not already known. 2. A 7 mm nodule in the left upper lobe can also be followed in 3 months. 3. Moderate paraseptal greater than centrilobular emphysema. 17 cm bulla along the left upper lobe anteriorly. 4. 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 5. A moderate L1 compression fracture appears subacute. Impression . 1. Acute hypoxic respiratory failure secondary to recurrent healthcare-associated pneumonia. Chest x-ray showing new infiltrate in the right upper lobe. The basal mild atelectasis or infiltrates are unchanged compared to previous film. 2. Abnormal chest x-ray with new infiltrate in the right upper lobe suggesting new pneumonia, healthcare-associated. Suspect gram-negative and gram-positive. 3. Suspected acute on chronic renal failure, probably dehydration. 4. Moderate protein-calorie malnutrition. 5. Influenza screen negative. 6. Encephalopathy, metabolic due to pneumonia, but could be toxic as well. He did receive Ativan in the ER and has p.r.n. lorazepam as a home medication. He also received Benadryl in the ER as well. 7. 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 Plan . 1. Continue with present nasal cannula. 2. de-escalate antibiotics, now on PO 3. Mental status improved 4. Avoid benzodiazepines. 5. Follow up chest x-ray prn 6. noncontrast CT of chest reviewed/ RUL pneumonia, 7 mm DEWEY nodule. f/u ct chest in 4 months 7. IV hydration and monitor renal function. 8. Improve nutritional status. 9. DVT prophylaxis with Lovenox. 10. will leave upto PCP regarding ?vascular consult for superior mesentery artery aneurysm back to skill pulmonary couch YOSELIN KAUFMAN MD Feb 06, 2017 12:49
[2017-02-06] MEDS: ALBUTEROL SULFATE 2.5 MG/3 ML NEBU. NEB PRN (14:22)
--- NOTE | 2017-02-06 18:31 | PDOC ---
PROGRESS NOTES Assessment Assessment Metabolic encephalopathy. Confusion. UTI Fever Pneumonia Respiratory distress 7 mm lesion in left upper lobe of lung. Subacute L1 compression fracture. Anemia, Hgb 8.3 g Iron insufficiency. AFib CHF COPD HTN Renal failure RECOMMENDATIONS/PLAN: HCT w/o contrast was negative. EEG for evaluation of confusion. Further evaluation of 7 mm lung lesion per floor team. Treat medical diseases per floor team. OT/PT. HISTORY OF THE PRESENT ILLNESS: 81-y-old male patient with multiple medical diseases developed symptoms of confusion, mental status changes, and cognition impairment. Neurology was called for consultation. No focalized motor or sensory deficits noted. He stated he was doing fine on 02/06. PAST MEDICAL HISTORY: Please see above. PAST SURGERY HISTORY: Hernia Repair. ALLERGY: Reviewed. MEDICATIONS: Refer to [facility] FAMILY HISTORY: Non contributory. SOCIAL HISTORY: Denies smoking, drinking, and illicit drug use. REVIEW OF SYSTEMS: Constitutional: No malnutrition, weight loss, cachexia. Head: No traumatic brain or head injury. Skin: No edema, or rash. Ear: No infection, tinnitus. Eyes: No vision loss or color blindness. Nose: No bleeding or purulent discharges. Hearing: Hearing decrease. Neck: No injury. Cardiac: CHF, HTN Pulmonary: COPD. GI: No GI ulcer, GI bleeding. Urinary/genital: UTI. Endocrinologic: No cousin face, craniofacial dysmorphism, polydactyly, obesity, morbid obesity. Skeletomuscular: Generalized weakness. Neurological: see HP. Psychiatric: Denies drug use/abuse. Otherwise, not [id number] review of systems. PHYSICAL EXAMINATION: General appearance is in subacute distress. HEENT: Normocephalic and nontraumatic. Eyes, nose, ears, and throat are unremarkable. Neck is supple. No lymphadenopathy. No crepitus. Cardiovascular: S1, S2, regular rate and rhythm. Pulmonary: Clear to auscultation bilaterally. Abdomen: Bowel sounds are positive. Extremities: No rash, lesions, or edema. No restriction of range of motion NEUROLOGICAL EXAMINATION: Awake. Able to follow some commands. Oriented to place and person but not to time. PERRL. EOMI. CN: no focal findings. Muscle tone: within normal. Muscle strength: 4 DTR: 2- Plantar reflex: Flexor response bilaterally Gait: not examined in bed. Sensory exam: no abnormal findings. No cerebellar signs elicited. F-T-N test not performed due to not follow commands. Objective Objective Vital Signs Date Time Temp Pulse Resp B/P Pulse Ox O2 Delivery O2 Flow Rate FiO2 02/06/17 15:22 Nasal Cannula 2.0 02/06/17 14:22 93 02/06/17 11:00 98.2 67 14 106/51 98.2 Intake and Output 02/06/17 07:00 Intake Total 580 ml Output Total 1600 ml Balance -1020 ml Intake Oral 480 ml IV Total 100 ml Output Urine Total 1600 ml Vitals Signs Vitals VS - Last 72 Hours, by Label Date Time Temp Pulse Resp B/P Pulse Ox O2 Delivery O2 Flow Rate FiO2 02/06/17 15:22 Nasal Cannula 2.0 02/06/17 14:22 93 Nasal Cannula 2.0 02/06/17 11:14 97 Nasal Cannula 2.0 02/06/17 11:00 98.2 67 14 106/51 97 Room Air 98.2 02/06/17 09:04 75 108/55 02/06/17 09:03 75 108/55 02/06/17 09:00 Nasal Cannula 2.5 02/06/17 07:00 98.6 75 16 108/55 Room Air 96.0 98.6 02/06/17 06:54 98 Nasal Cannula 2.0 02/06/17 03:00 98.2 69 20 117/57 98 Nasal Cannula 2.0 98.2 02/05/17 23:00 98.4 64 20 124/57 100 Nasal Cannula 2.0 98.4 02/05/17 20:00 Nasal Cannula 2.5 02/05/17 19:41 100 Nasal Cannula 2.5 02/05/17 19:38 100 Nasal Cannula 2.5 02/05/17 19:00 98.8 75 24 115/53 99 Nasal Cannula 2.0 98.8 02/05/17 15:40 96 Nasal Cannula 2.5 02/05/17 15:00 98.9 57 14 108/47 97 Room Air 98.9 02/05/17 11:18 96 Nasal Cannula 2.5 02/05/17 11:09 98.3 67 14 108/63 97 Room Air 98.3 02/05/17 09:56 Nasal Cannula 2.5 02/05/17 08:41 60 141/60 02/05/17 08:40 60 141/60 02/05/17 08:36 Nasal Cannula 2.5 02/05/17 08:00 Nasal Cannula 2.5 02/05/17 07:08 Nasal Cannula 2.5 02/05/17 07:00 98.3 60 18 141/60 98 Room Air 98.3 Laboratory Laboratory Laboratory Tests Test 02/06/17 05:10 02/06/17 10:20 Sodium Level 139mmol/L (136-145) Potassium Level 4.4mmol/L (3.5-5.1) Chloride Level 105mmol/L (98-107) Carbon Dioxide Level 31mmol/L (21-32) Anion Gap 3 (6-14) Blood Urea Nitrogen 26mg/dL (8-26) Creatinine 1.9mg/dL (0.7-1.3) Estimated GFR (Cockcroft-Gault) 34.3 Glucose Level 98mg/dL (70-99) Calcium Level 8.6mg/dL (8.5-10.1) Phosphorus Level 3.7mg/dL (2.6-4.7) Magnesium Level 2.1mg/dL (1.8-2.4) Albumin 2.1g/dL (3.4-5.0) Vancomycin Level Trough 8.7mcg/mL (10.0-20.0) Vancomycin Last Dose Date 02/05/17 Vancomycin Last Dose Time 1100 Microbiology 02/04/17 Blood Culture - Preliminary, Resulted NO GROWTH AFTER 2 DAYS 02/05/17 Urine Culture - Preliminary, Resulted 02/05/17 Urine Culture Result 1 (DON) - Preliminary, Resulted Medication Medications Current Medications Cefpodoxime Proxetil (Vantin) 200 mg BID PO ; Start 02/06/17 at 21:00 Darbepoetin Moe (Aranesp) 60 mcg Tu SQ Last administered on 02/05/17 21:57; Start 02/05/17 at 21:00 Enoxaparin Sodium 40 mg 40 mg Q24H SQ Last administered on 02/06/17 09:05; Start 02/06/17 at 09:00 Furosemide (Lasix) 20 mg DAILY PO ; Start 02/07/17 at 09:00 Iron Sucrose/ Sodium Chloride (Venofer/Iv Sodium Chloride 0.9% 100ml) 110 ml @ 55 mls/hr 3X/WEEK IV Last administered on 02/06/17t 09:05; Start 02/06/17 at 09: 00; Stop 02/15/17 at 10:59 Magnesium Hydroxide (Milk Of Magnesia) 2,400 mg PRN DAILY PRN PO CONSTIPATION; Start 02/06/17 at 09:00 Tobramycin Sulfate/Sodium Chloride (Nebcin/Iv Sodium Chloride 0.9% 100ml) 108.75 ml @ 108.75 mls/hr Q48H IV ; Start 02/05/17 at 23:00; Stop 02/05/17 at 23: 00; Status DC Vancomycin HCl 1 each 1X ONCE MC ; Start 02/06/17 at 10:30; Stop 02/06/17 at 10: 30; Status DC Comment Review of Relevant I have reviewed the following items be (where applicable) has been applied. TIFFANIE LAND MD Feb 06, 2017 18:31
--- NOTE | 2017-02-06 20:10 | PDOC2 ---
CONSULT Date of Consult Date of Consult DATE: 02/06/17 TIME: 19:58 Reason for Consult Reason for Consult: SMA aneurysm Referring Physician Referring Physician: Dr. Hay Identification/Chief Complaint Chief Complaint Sepsis with delerium Source Source: Caregiver, Patient History of Present Illness Reason for Visit: Mr. Salgado is a 81 y/o male with Afib, CHF, HTN, HLD, COPD (on oxygen) that was admitted from [facility] facility after PNA and mental status changes. He had a stroke back in August 2016, and since that time has been admitted multiple times to the hospital for respiratory distress and CHF. On this most recent admission, he had recurrent pneumonia and had mental status changes. His mental status has since improved, and he is alert and oriented and can answer questions appropriately. 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 He denies any abdominal pain or changes in bowel function. He has a history of stroke in 2016. He denies any rest pain or ulcers, and he has not been walking much while in the SNF. Past Medical History Cardiovascular: AFIB (?), CHF, HTN, Hyperlipidemia Pulmonary: COPD, Pneumonia, Other (aspiration) CENTRAL NERVOUS SYSTEM: Dementia GI: GERD Heme/Onc: Anemia NOS Hepatobiliary: No pertinent hx Psych: Other (past alcoholism) Musculoskeletal: Osteoarthritis Rheumatologic: No pertinent hx Infectious disease: No pertinent hx ENT: No pertinent hx Renal/: Chronic renal insuff (CKD2), Benign prostatic enlarg. Endocrine: Hyperthyroidism (subclinical) Dermatology: No pertinent hx Past Surgical History Past Surgical History: Hernia Repair, Colon Resection (?), Other (colosotomy in the past) Family History Family History: Family History Unknown Social History Quit ALCOHOL: heavy Drugs: None Lives: [facility] Current Problem List Problem List Problems Medical Problems: (1) Acute respiratory failure Status: Acute (2) Dyspnea Status: Acute (3) HCAP (healthcare-associated pneumonia) Status: Acute Current Medications Current Medications Current Medications Albuterol/ Ipratropium (Duoneb) 3 ml 1X ONCE NEB Last administered on 00:31; Start 02/04/17 at 00:30; Stop 02/04/17 at 00:31; Status DC Tobramycin Sulfate 1 each 1 each PRN DAILY PRN PHARMACY TO DOSE Last administered on 02/04/17 03:00; Start 02/04/17 at 01:00; Stop 02/04/17 at 09:26; Status DC Piperacillin Sod/ Tazobactam Sod 4.5 gm/Sodium Chloride 100 ml @ 200 mls/hr 1X ONCE IV Last administered on 02/04/17 01:29; Start 02/04/17 at 01:00; Stop 02/04/17 at 01:29; Status DC Tobramycin Sulfate/Sodium Chloride (Nebcin/Iv Sodium Chloride 0.9% 100ml) 108.75 ml @ 108.75 mls/hr 1X ONCE IV Last administered on 02/04/17 02:32; Start 02/04/17 at 01:30; Stop 02/04/17 at 09:24; Status DC Lorazepam 1 mg 1 mg 1X ONCE IV Last administered on 02/04/17 01:29; Start 02/04 at 01:30; Stop 02/04/17 at 01:31; Status DC Sodium Chloride (Iv Sodium Chloride 0.9% 1000ml Bag) 1,000 ml @ 1,000 mls/hr Q1H IV Last administered on 02/04/17 02:00; Start 02/04/17 at 01:00; Stop at 02:24; Status DC Ondansetron HCl (Zofran) 4 mg PRN Q8HRS PRN IV NAUSEA/VOMITING; Start 02/04/17 at 01:00; Stop 02/05/17 at 00:59; Status DC Morphine Sulfate 2 mg PRN Q2HR PRN IV SEVERE PAIN; Start 02/04/17 at 01:00; Stop 02/05/17 at 00:59; Status DC Acetaminophen (Tylenol) 650 mg PRN Q4HRS PRN PO FEVER; Start 02/04/17 at 01:00; Stop 02/05/17 at 00:59; Status DC Albuterol/ Ipratropium (Duoneb) 3 ml RTQID NEB Last administered on 02/05/17 07 :02; Start 02/04/17 at 08:00; Stop 02/05/17 at 07:59; Status DC Diphenhydramine HCl (Benadryl) 25 mg 1X ONCE IVP Last administered on 02:31; Start 02/04/17 at 02:45; Stop 02/04/17 at 02:46; Status DC Tobramycin Sulfate 1 each 1 each 1X ONCE MC ; Start 02/04/17 at 14:30; Stop 02/04 at 14:30; Status DC Tobramycin Sulfate 350 mg/ Sodium Chloride 108.75 ml @ 108.75 mls/hr Q48H IV ; Start 02/05/17 at 23:00; Stop 02/05/17 at 23:00; Status DC Piperacillin Sod/ Tazobactam Sod/ Sodium Chloride (Zosyn/Iv Sodium Chloride 0.9 % 50ml) 50 ml @ 100 mls/hr Q6HRS IV Last administered on 02/04/17 05:47; Start 02/04/17 at 06:00; Stop 02/04/17 at 13:11; Status DC Vancomycin HCl 1 each 1 each PRN DAILY PRN MC SEE COMMENTS Last administered on 02/04/17 09:37; Start 02/04/17 at 09:15; Stop 02/04/17 at 13:12; Status DC Levofloxacin/ Dextrose (LEVAQUIN 750mg PREMIX) 150 ml @ 100 mls/hr 1X ONCE IV Last administered on 02/04/17 11:21; Start 02/04/17 at 09:30; Stop 02/04/17 at 10:59; Status DC Enoxaparin Sodium 30 mg 30 mg Q24H SQ Last administered on 02/05/17 08:41; Start 02/04/17 at 09:30; Stop 02/05/17 at 14:13; Status DC Vancomycin HCl 1.75 gm/Sodium Chloride 500 ml @ 250 mls/hr 1X ONCE IV Last administered on 02/04/17 11:23; Start 02/04/17 at 11:00; Stop 02/04/17 at 12:59; Status DC Vancomycin HCl/ Sodium Chloride (Iv Sodium Chloride 0.9% 250ml) 250 ml @ 250 mls/hr Q24H IV ; Start 02/05/17 at 11:00; Stop 02/05/17 at 11:00; Status DC Vancomycin HCl 1 each 1 each 1X ONCE MC ; Start 02/06/17 at 10:30; Stop 02/06/17 at 10:30; Status DC Magnesium Sulfate/ Dextrose (Magnesium Sulfate PREMIX 2GM) 50 ml @ 25 mls/hr PRN DAILY PRN IV for Mag < 1.7 on am labs; Start 02/04/17 at 12:00 Aspirin (Children'S Aspirin) 81 mg DAILY08 PO Last administered on 02/06/17 09: 06; Start 02/04/17 at 13:00 Diltiazem HCl (Cardizem 24hr Cd) 240 mg DAILY PO Last administered on 02/06/17 09:04; Start 02/04/17 at 13:00 Furosemide (Lasix) 40 mg DAILY PO Last administered on 02/06/17 09:04; Start at 13:00; Stop 02/06/17 at 11:37; Status DC Metoprolol Succinate (Toprol Xl) 25 mg DAILY PO Last administered on 02/06/17 09:03; Start 02/04/17 at 13:00 Pantoprazole Sodium (Protonix) 40 mg DAILY PO Last administered on 02/06/17 09: 02; Start 02/04/17 at 13:00 Atorvastatin Calcium 10 mg 10 mg QHS PO Last administered on 02/05/17 21:53; Start 02/04/17 at 21:00 Meropenem/Sodium Chloride (Merrem/Iv Sodium Chloride 0.9% 50ml) 50 ml @ 100 mls /hr Q8HRS IV Last administered on 02/06/17 05:22; Start 02/04/17 at 14:00; Stop 02/06/17 at 09:30; Status DC Albuterol/ Ipratropium (Duoneb) 3 ml RTQID NEB Last administered on 02/06/17 19 :32; Start 02/05/17 at 09:00 Acetaminophen (Tylenol) 500 mg PRN Q6HRS PRN PO MILD PAIN / TEMP; Start at 09:00 Ondansetron HCl (Zofran) 4 mg PRN Q6HRS PRN IV NAUSEA/VOMITING; Start 02/05/17 at 09:00 Bisacodyl (Dulcolax Supp) 10 mg PRN DAILY PRN RC CONSTIPATION; Start 02/05/17 at 09:00 Albuterol Sulfate (Ventolin Neb Soln) 2.5 mg PRN Q4HRS PRN NEB SHORTNESS OF BREATH Last administered on 02/06/17 14:22; Start 02/05/17 at 09:00 Lorazepam (Ativan) 0.5 mg PRN Q8HRS PRN PO ANXIETY / AGITATION Last administered on 02/05/17 10:11; Start 02/05/17 at 09:00 Magnesium Hydroxide (Milk Of Magnesia) 400 mg PRN DAILY PRN PO CONSTIPATION; Start 02/05/17 at 09:00 Primidone (Mysoline) 50 mg DAILY PO Last administered on 02/06/17 09:02; Start 02/05/17 at 09:30 Tamsulosin HCl (Flomax) 0.4 mg DAILY PO Last administered on 02/06/17 09:04; Start 02/05/17 at 09:30 Non-Formulary Medication 1 puff DAILY IH ; Start 02/05/17 at 09:00; Status UNV Multivitamins (Thera M Plus) 1 tab DAILY PO Last administered on 02/06/17 09:04 ; Start 02/05/17 at 09:30 Albuterol Sulfate (Ventolin Neb Soln) 2.5 mg RTQID NEB ; Start 02/05/17 at 12:00 ; Stop 02/05/17 at 12:00; Status DC Budesonide (Pulmicort) 0.5 mg RTBID NEB Last administered on 02/06/17 19:32; Start 02/05/17 at 10:00 Enoxaparin Sodium 40 mg 40 mg Q24H SQ Last administered on 02/06/17 09:05; Start 02/06/17 at 09:00 Iron Sucrose/ Sodium Chloride (Venofer/Iv Sodium Chloride 0.9% 100ml) 110 ml @ 55 mls/hr 3X/WEEK IV Last administered on 02/06/17 09:05; Start 02/06/17 at 09: 00; Stop 02/15/17 at 10:59 Darbepoetin Moe (Aranesp) 60 mcg Tu SQ Last administered on 02/05/17 21:57; Start 02/05/17 at 21:00 Magnesium Hydroxide (Milk Of Magnesia) 2,400 mg PRN DAILY PRN PO CONSTIPATION; Start 02/06/17 at 09:00 Cefpodoxime Proxetil (Vantin) 200 mg BID PO ; Start 02/06/17 at 21:00 Furosemide (Lasix) 20 mg DAILY PO ; Start 02/07/17 at 09:00 Active Scripts Active Reported Protonix (Pantoprazole Sodium) 40 Mg Tablet.dr 1 Tab PO DAILY Multi-Vitamin Daily (Multivitamin) 1 Each Tablet 1 Each PO DAILY Diltiazem 24HR Cd (Diltiazem Hcl) 240 Mg Cap.er.24h 240 Mg PO DAILY Breo Ellipta 100-25 Mcg Inh (Fluticasone/Vilanterol) 1 Each Aer.pow.ba 1 Puff IH DAILY Tamsulosin Hcl 0.4 Mg Cap.er.24h 1 Cap PO DAILY Primidone 50 Mg Tablet 50 Mg PO DAILY Metoprolol Succinate 50 Mg Tab.er.24h 25 Mg PO DAILY Lorazepam 0.5 Mg Tablet 1 Tab PO PRN Q8HRS PRN Milk Of Magnesia (Magnesium Hydroxide) 400 Mg/5 Ml Oral.susp 400 Mg PO PRN DAILY PRN Atorvastatin Calcium 10 Mg Tablet 1 Tab PO DAILY Aspirin 81 Mg Tab.chew 81 Mg PO DAILY Acetaminophen 325 Mg Tablet 650 Mg PO Q4HRS PRN Duoneb 0.5-3(2.5) Mg/3 Ml (Albuterol/Ipratropium) 3 Ml Ampul.neb 3 Ml NEB PRN Q4HRS PRN Furosemide 40 Mg Tablet 40 Mg PO DAILY Dulcolax (Bisacodyl) 10 Mg Supp.rect 10 Mg RC PRN DAILY PRN Allergies Allergies: Coded Allergies: No Known Drug Allergies (Unverified , 11/08/16) ROS Respiratory: YES: Cough, SOB with excertion, Shortness of breath, Wheezing Cardiovascular: yes Edema Physical Exam General: Alert, Oriented X3, No acute distress HEENT: Atraumatic, EOMI Lungs: Other (Coarse BS b/l) Heart: Regular rate, Normal S1, Normal S2, No murmurs Abdomen: Normal bowel sounds, Soft, No tenderness Extremities: No clubbing, No cyanosis, No edema, Normal pulses Skin: No rashes, No breakdown Neuro: Strength at 5/5 X4 ext, Sensation intact MUSCULOSKELETAL: No deformity, Full range of motion without pain Vitals VITALS Vital Signs Date Time Temp Pulse Resp B/P Pulse Ox O2 Delivery O2 Flow Rate FiO2 02/06/17 19:34 Nasal Cannula 2.0 02/06/17 14:22 93 02/06/17 11:00 98.2 67 14 106/51 98.2 Labs Labs Laboratory Tests Test 02/05/17 03:54 02/05/17 12:50 02/06/17 05:10 02/06/17 10:20 White Blood Count 7.5x10^3/uL (4.0-11.0) Red Blood Count 3.17x10^6/uL (4.30-5.70) Hemoglobin 8.3g/dL (13.0-17.5) Hematocrit 25.5% (39.0-53.0) Mean Corpuscular Volume 80fL (79-100) Mean Corpuscular Hemoglobin 26pg (25-35) Mean Corpuscular Hemoglobin Concent 33g/dL (31-37) Red Cell Distribution Width 21.0% (11.5-14.5) Platelet Count 389x10^3/uL (140-400) Neutrophils (%) (Auto) 69% (31-73) Lymphocytes (%) (Auto) 19% (24-48) Monocytes (%) (Auto) 9% (0-9) Eosinophils (%) (Auto) 4% (0-3) Basophils (%) (Auto) 1% (0-3) Neutrophils # (Auto) 5.2x10^3uL (1.8-7.7) Lymphocytes # (Auto) 1.4x10^3/uL (1.0-4.8) Monocytes # (Auto) 0.7x10^3/uL (0.0-1.1) Eosinophils # (Auto) 0.3x10^3/uL (0.0-0.7) Basophils # (Auto) 0.0x10^3/uL (0.0-0.2) Sodium Level 141mmol/L (136-145) 139mmol/L (136-145) Potassium Level 3.9mmol/L (3.5-5.1) 4.4mmol/L (3.5-5.1) Chloride Level 104mmol/L (98-107) 105mmol/L (98-107) Carbon Dioxide Level 30mmol/L (21-32) 31mmol/L (21-32) Anion Gap 7 (6-14) 3 (6-14) Blood Urea Nitrogen 31mg/dL (8-26) 26mg/dL (8-26) Creatinine 1.9mg/dL (0.7-1.3) 1.9mg/dL (0.7-1.3) Estimated GFR (Cockcroft-Gault) 34.3 34.3 BUN/Creatinine Ratio 16 (6-20) Glucose Level 146mg/dL (70-99) 98mg/dL (70-99) Calcium Level 8.5mg/dL (8.5-10.1) 8.6mg/dL (8.5-10.1) Phosphorus Level 4.1mg/dL (2.6-4.7) 3.7mg/dL (2.6-4.7) Magnesium Level 1.9mg/dL (1.8-2.4) 2.1mg/dL (1.8-2.4) Iron Level 10ug/dL (65-175) Total Iron Binding Capacity 166ug/dL (250-450) Iron Saturation 6% (15-34) Total Bilirubin 0.2mg/dL (0.2-1.0) Aspartate Amino Transf (AST/SGOT) 11U/L (15-37) Alanine Aminotransferase (ALT/SGPT) 8U/L (16-63) Alkaline Phosphatase 71U/L (46-116) Total Protein 5.6g/dL (6.4-8.2) Albumin 2.1g/dL (3.4-5.0) 2.1g/dL (3.4-5.0) Albumin/Globulin Ratio 0.6 (1.0-1.7) Erythrocyte Sedimentation Rate 70 (0-15) Creatine Kinase 23U/L (39-308) Thyroid Stimulating Hormone (TSH) 1.074uIU/mL (0.358-3.74) Vancomycin Level Trough 8.7mcg/mL (10.0-20.0) Vancomycin Last Dose Date 02/05/17 Vancomycin Last Dose Time 1100 Laboratory Tests Test 02/06/17 05:10 02/06/17 10:20 Sodium Level 139mmol/L (136-145) Potassium Level 4.4mmol/L (3.5-5.1) Chloride Level 105mmol/L (98-107) Carbon Dioxide Level 31mmol/L (21-32) Anion Gap 3 (6-14) Blood Urea Nitrogen 26mg/dL (8-26) Creatinine 1.9mg/dL (0.7-1.3) Estimated GFR (Cockcroft-Gault) 34.3 Glucose Level 98mg/dL (70-99) Calcium Level 8.6mg/dL (8.5-10.1) Phosphorus Level 3.7mg/dL (2.6-4.7) Magnesium Level 2.1mg/dL (1.8-2.4) Albumin 2.1g/dL (3.4-5.0) Vancomycin Level Trough 8.7mcg/mL (10.0-20.0) Vancomycin Last Dose Date 02/05/17 Vancomycin Last Dose Time [address] scan ([facility]): 2.1 cm SMA aneurysm (report only) Assessment/Plan Assessment/Plan Assessment: 1. SMA aneurysm at origin 2. PNA 3. mental status changes, delerium 4. Afib 5. HTN 6. COPD Plan: The plan will be to obtain the CT scan, and review the images to determine if he is a candidate for an endovascular repair with a stent for the SMA aneurysm. I discussed with the patient and the daughter this depends on the anatomy of the SMA. If he is not a candidate for an endovascular repair, would likely recommend observation with repeat imaging because of his medical comorbidities and his multiple hospitalizations with deconditioning. The patient and his daughter are reluctant to proceed with an open repair given his overall medical condition. Will provide further recommendations after reviewing the images. ANSELMO YOUNGBLOOD MD Feb 06, 2017 20:10
[2017-02-06] MEDS: ATORVASTATIN CALCIUM 10 MG TABLET. PO SCH (21:08)
[2017-02-06] MEDS: CEFPODOXIME PROXETIL 100 MG TABLET PO SCH (21:08)
--- NOTE | 2017-02-06 22:40 | EKG ---
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
[2017-02-06 23:00] VITALS: BP 90/53
--- NOTE | 2017-02-06 23:51 | RAD ---
PROCEDURE Single-view chest dated 02/06/2017. HISTORY [id number]. TECHNIQUE Single upright portable exam performed. COMPARISON 01/05/2017. FINDINGS Heart and mediastinal contours are stable. Lungs are hyperinflated with biapical lucency, consistent with emphysema. There is some patchy increased density at both lung bases, similar to slightly increased no apparent pleural effusion. There is some nodular densities at the right costophrenic sulcus that are most likely related artifact. No pneumothorax. IMPRESSION - Patchy bibasilar airspace disease, atelectasis versus early pneumonia. This appears somewhat more prominent from prior study. - Findings consistent with COPD. Electronically signed by: Erwin Jordan (Feb 06, 2017 23:48:50)
[2017-02-07 03:02] VITALS: BP 108/63
[2017-02-07 05:55] LABS: ALBUMIN 2.1 g/dL (3.4-5.0); CALCIUM 8.9 mg/dL (8.5-10.1); CREATININE 1.7 mg/dL (0.7-1.3); PHOSPHORUS 3.6 mg/dL (2.6-4.7); POTASSIUM 4.8 mmol/L (3.5-5.1)
[2017-02-07] MEDS: IPRATRPIUM/ALBUTEROL 0.5/2.5MG 3 ML NEBU. NEB SCH ×4 (06:50→19:21)
[2017-02-07] MEDS: BUDESONIDE 0.5 MG/2 ML NEBU NEB SCH ×2 (06:50→19:21)
[2017-02-07 07:15] VITALS: BP 117/51
--- NOTE | 2017-02-07 08:14 | RAD ---
Portable chest, 02/17/2017: History: Shortness of breath Comparison is made to 02/06/2017. The heart size is normal. There are emphysematous changes in the lungs, particularly in the left upper chest. There are scattered mild parenchymal opacities, probably predominantly due to scarring. On yesterday's study there were superimposed opacities projected over the right lower chest which have resolved. These were probably artifacts. Mild right upper lobe opacities seen on 02/04/2017 have largely cleared. No new pulmonary abnormality is seen. There is no evidence of pleural fluid. IMPRESSION: Improving pulmonary opacities compatible with resolving pneumonia superimposed upon scarring.
[2017-02-07] MEDS: MORPHINE SULFATE 2 MG/ML DISP.SYRIN. IV PRN ×2 (09:48→20:57)
--- NOTE | 2017-02-07 10:34 | PDOC ---
Infectious Disease Note Subjective Subjective pt feeling good, no complaints ROS ROS GEN: Denies fevers, chills, sweats HEENT: Denies blurred vision, sore throat CV: Denies chest pain RESP: Denies shortness of air, cough GI: Denies n/v/d NEURO: Denies confusion, dizziness MSK: Denies weakness, joint pain/swelling Vital Sign Vital Signs Vital Signs Date Time Temp Pulse Resp B/P Pulse Ox O2 Delivery O2 Flow Rate FiO2 02/07/17 09:48 Nasal Cannula 2.5 02/07/17 07:15 97.9 79 18 117/51 97 97.9 Physical Exam PHYSICAL EXAM GENERAL: NAD, Alert HEENT: PERRL, OC/OP NECK: Supple, no JVD, no LN LUNGS: Clear HEART: S1S2, no gallop, no murmur ABD: Soft, NT, no organomegaly, no rebound EXT: No edema, no cyanosis 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: Alert, 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, no focal neurologic deficit SKIN: No rash IV: ok Labs Lab Laboratory Tests Test 02/06/17 23:00 02/07/17 05:00 02/07/17 07:40 HU-Lzb-J-Type Natriuretic Peptide 838pg/mL (0-449) Sodium Level 143mmol/L (136-145) Potassium Level 4.8mmol/L (3.5-5.1) Chloride Level 106mmol/L (98-107) Carbon Dioxide Level 30mmol/L (21-32) Anion Gap 7 (6-14) Blood Urea Nitrogen 25mg/dL (8-26) Creatinine 1.7mg/dL (0.7-1.3) Estimated GFR (Cockcroft-Gault) 39.0 Glucose Level 109mg/dL (70-99) Calcium Level 8.9mg/dL (8.5-10.1) Phosphorus Level 3.6mg/dL (2.6-4.7) Magnesium Level 2.0mg/dL (1.8-2.4) Albumin 2.1g/dL (3.4-5.0) D-Dimer (Marnie) 1.49ug/mlFEU (0.00-0.50) Objective Assessment COPD exacerbation Pneumonia ? chronic changes CHF Leukocytosis h/o MDRO Plan Plan of Care po vantin supportive care d/c to SNF LUIS MANUEL Li MD Feb 07, 2017 10:34
[2017-02-07] MEDS: CEFPODOXIME PROXETIL 100 MG TABLET PO SCH ×2 (10:40→20:56)
[2017-02-07] MEDS: PRIMIDONE 50 MG TABLET PO SCH (10:40)
[2017-02-07] MEDS: FUROSEMIDE 20 MG TABLET PO SCH (10:40)
[2017-02-07] MEDS: ASPIRIN 81 MG TAB.CHEW PO SCH (10:40)
[2017-02-07] MEDS: TAMSULOSIN 0.4 MG CAP.ER.24H. PO SCH (10:41)
[2017-02-07] MEDS: DILTIAZEM HCL 240 MG CAP.ER.24H PO SCH (10:41)
[2017-02-07] MEDS: MULTIVITAMIN with MINERAL TABLET. PO SCH (10:41)
[2017-02-07] MEDS: PANTOPRAZOLE 40 MG TABLET. PO SCH (10:41)
[2017-02-07] MEDS: METOPROLOL SUCC 24HR ER 50 MG TAB.ER.24H. PO SCH (10:42)
[2017-02-07] MEDS: ENOXAPARIN 40 MG/0.4 ML DISP.SYRIN. SQ SCH (10:44)
[2017-02-07 10:51] VITALS: BP 119/67
--- NOTE | 2017-02-07 11:12 | PDOC ---
PULMONARY PROGRESS NOTES Subjective confused Vitals Vital Signs Date Time Temp Pulse Resp B/P Pulse Ox O2 Delivery O2 Flow Rate FiO2 02/07/17 10:51 98.2 64 16 119/67 96 2.0 98.2 02/07/17 10:18 Nasal Cannula General: Confused HEENT: Other Lungs: Other (decrease bs) Cardiovascular: S1, S2 Abdomen: Soft, Non-tender Extremities: No Edema Skin: Warm Labs Laboratory Tests Test 02/05/17 12:50 02/06/17 05:10 02/06/17 10:20 02/06/17 23:00 Erythrocyte Sedimentation Rate 70 (0-15) Creatine Kinase 23U/L (39-308) Thyroid Stimulating Hormone (TSH) 1.074uIU/mL (0.358-3.74) Sodium Level 139mmol/L (136-145) Potassium Level 4.4mmol/L (3.5-5.1) Chloride Level 105mmol/L (98-107) Carbon Dioxide Level 31mmol/L (21-32) Anion Gap 3 (6-14) Blood Urea Nitrogen 26mg/dL (8-26) Creatinine 1.9mg/dL (0.7-1.3) Estimated GFR (Cockcroft-Gault) 34.3 Glucose Level 98mg/dL (70-99) Calcium Level 8.6mg/dL (8.5-10.1) Phosphorus Level 3.7mg/dL (2.6-4.7) Magnesium Level 2.1mg/dL (1.8-2.4) Albumin 2.1g/dL (3.4-5.0) Vancomycin Level Trough 8.7mcg/mL (10.0-20.0) Vancomycin Last Dose Date 02/05/17 Vancomycin Last Dose Time 1100 YT-Ovd-P-Type Natriuretic Peptide 838pg/mL (0-449) Test 02/07/17 05:00 02/07/17 07:40 Sodium Level 143mmol/L (136-145) Potassium Level 4.8mmol/L (3.5-5.1) Chloride Level 106mmol/L (98-107) Carbon Dioxide Level 30mmol/L (21-32) Anion Gap 7 (6-14) Blood Urea Nitrogen 25mg/dL (8-26) Creatinine 1.7mg/dL (0.7-1.3) Estimated GFR (Cockcroft-Gault) 39.0 Glucose Level 109mg/dL (70-99) Calcium Level 8.9mg/dL (8.5-10.1) Phosphorus Level 3.6mg/dL (2.6-4.7) Magnesium Level 2.0mg/dL (1.8-2.4) Albumin 2.1g/dL (3.4-5.0) D-Dimer (Marnie) 1.49ug/mlFEU (0.00-0.50) Laboratory Tests Test 02/06/17 23:00 02/07/17 05:00 02/07/17 07:40 TJ-Edb-I-Type Natriuretic Peptide 838pg/mL (0-449) Sodium Level 143mmol/L (136-145) Potassium Level 4.8mmol/L (3.5-5.1) Chloride Level 106mmol/L (98-107) Carbon Dioxide Level 30mmol/L (21-32) Anion Gap 7 (6-14) Blood Urea Nitrogen 25mg/dL (8-26) Creatinine 1.7mg/dL (0.7-1.3) Estimated GFR (Cockcroft-Gault) 39.0 Glucose Level 109mg/dL (70-99) Calcium Level 8.9mg/dL (8.5-10.1) Phosphorus Level 3.6mg/dL (2.6-4.7) Magnesium Level 2.0mg/dL (1.8-2.4) Albumin 2.1g/dL (3.4-5.0) D-Dimer (Marnie) 1.49ug/mlFEU (0.00-0.50) Medications Active Scripts Medications Dose Route/Sig Days Date Category Protonix (Pantoprazole Sodium) 40 Mg Tablet.dr 1 Tab PO DAILY 02/04/17 Reported Multi-Vitamin Daily (Multivitamin) 1 Each Tablet 1 Each PO DAILY 02/04/17 Reported Diltiazem 24HR Cd (Diltiazem Hcl) 240 Mg Cap.er.24h 240 Mg PO DAILY 02/04/17 Reported Breo Ellipta 100-25 Mcg Inh (Fluticasone/Vilanterol) 1 Each Aer.pow.ba 1 Puff IH DAILY 02/04/17 Reported Tamsulosin Hcl 0.4 Mg Cap.er.24h 1 Cap PO DAILY 11/09/16 Reported Primidone 50 Mg Tablet 50 Mg PO DAILY 11/09/16 Reported Metoprolol Succinate 50 Mg Tab.er.24h 25 Mg PO DAILY 11/09/16 Reported Lorazepam 0.5 Mg Tablet 1 Tab PO PRN Q8HRS PRN 11/09/16 Reported Milk Of Magnesia (Magnesium Hydroxide) 400 Mg/5 Ml Oral.susp 400 Mg PO PRN DAILY PRN 11/09/16 Reported Atorvastatin Calcium 10 Mg Tablet 1 Tab PO DAILY 11/09/16 Reported Aspirin 81 Mg Tab.chew 81 Mg PO DAILY 11/09/16 Reported Acetaminophen 325 Mg Tablet 650 Mg PO Q4HRS PRN 11/09/16 Reported Duoneb 0.5-3(2.5) Mg/3 Ml (Albuterol/Ipratropium) 3 Ml Ampul.neb 3 Ml NEB PRN Q4HRS PRN 11/09/16 Reported Furosemide 40 Mg Tablet 40 Mg PO DAILY 11/09/16 Reported Dulcolax (Bisacodyl) 10 Mg Supp.rect 10 Mg RC PRN DAILY PRN 11/09/[address] CHEST 1. Mild interstitial and airspace opacities posteriorly in the right upper lobe and within the right greater than left costophrenic angles are consistent with pneumonia if acute, or interstitial lung disease/scarring if chronic. A follow-up in 3 months could assess stability if not already known. 2. A 7 mm nodule in the left upper lobe can also be followed in 3 months. 3. Moderate paraseptal greater than centrilobular emphysema. 17 cm bulla along the left upper lobe anteriorly. 4. 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 5. A moderate L1 compression fracture appears subacute. Impression . 1. Acute hypoxic respiratory failure secondary to recurrent healthcare-associated pneumonia. 2. Abnormal ct chest . RUL pneumonia, 7 mm DEWEY nodule. f/u ct chest in 4 months Suspect gram-negative and gram-positive pneumonia 3. Suspected acute on chronic renal failure, probably dehydration. 4. Moderate protein-calorie malnutrition. 5. Influenza screen negative. 6. Encephalopathy, metabolic due to pneumonia, but could be toxic as well. 7. 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 Plan . 1. Continue with present nasal cannula. 2. de-escalate antibiotics, now on PO 3. Mental status borderline, neurology following 4. Avoid benzodiazepines. 5. Follow up chest x-ray today with resolved RUL pneumonia 6. noncontrast CT of chest reviewed/ RUL pneumonia, 7 mm DEWEY nodule. f/u ct chest in 4 months 7. monitor renal function. 8. Improve nutritional status. 9. DVT prophylaxis with Lovenox. 10. will leave upto PCP regarding ?vascular consult for superior mesentery artery aneurysm skill pulmonary couch YOSELIN KAUFMAN MD Feb 07, 2017 11:12
[2017-02-07] MEDS ORDERED: FUROSEMIDE 40 MG/4 ML VIAL IVP ONE (11:45)
--- NOTE | 2017-02-07 11:45 | PDOC ---
Provider Note Provider Note pt had increase dyspnea/ crackles bases CXR 02/07 improved from last night with CHF suspect recurrent CHF BIPAP diuresis ABG cardiology f/u consult palliative care to establish code YOSELIN Fuller MD Feb 07, 2017 11:45
[2017-02-07 11:49] LABS: HCO3 ABG 26 mmol/L (21-28); PCO2 ABG 40 mmHg (35-46); PH ABG 7.44 (7.35-7.45); PO2 ABG 75 mmHg (65-108); SAT O2 ABG 94 % (92-99)
--- NOTE | 2017-02-07 11:55 | PDOC ---
PROGRESS NOTES Chief Complaint Chief Complaint Sepsis PNA, HCAP weakness, acute delirium, metabolic encephalopathy hypertension, CHF, COPD, strokes, pneumonia, atrial fib AFIB, CHF, HTN, Hyperlipidemia COPD Dementia Osteoarthritis Chronic renal insuff, Benign prostatic enlarg. 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 STat CXR shows worsened pulm edema On lasix PO 40 at home, dec to 20 mg PO by renal for kidney issues Last echo was 11/2016 , EF 55-60 mild valve TR This AM, almost a rapid response again Crackles, SOA, VS ok I ordered for stat CXR, VQ and D dimer and ABG this 7 AM- not yet done (11;30AM) D dimer 1 plus, CXR improved this AM Ordered for stat IV lasix 40 now Called joe, saw pt together at bedside BIPAP Pt full Code Will involve Palliative MAintain allen NPO for now START heparin SQ DVT prophy dose Elytes sonam again Cards on case Dw RN, joe, RT CC 30 Vitals Vitals Vital Signs Date Time Temp Pulse Resp B/P Pulse Ox O2 Delivery O2 Flow Rate FiO2 02/07/17 10:51 98.2 64 16 119/67 96 2.0 98.2 02/07/17 10:18 Nasal Cannula Physical Exam General: Alert, Oriented X3, No acute distress Heart: Regular rate, Normal S1, Normal S2, No murmurs Lungs: Other (decrease bs) Abdomen: Normal bowel sounds, Soft, No tenderness Extremities: No clubbing, No cyanosis, No edema, Normal pulses Skin: No rashes, No breakdown Labs LABS Laboratory Tests Test 02/06/17 23:00 02/07/17 05:00 02/07/17 07:40 SR-Ssj-D-Type Natriuretic Peptide 838pg/mL (0-449) Sodium Level 143mmol/L (136-145) Potassium Level 4.8mmol/L (3.5-5.1) Chloride Level 106mmol/L (98-107) Carbon Dioxide Level 30mmol/L (21-32) Anion Gap 7 (6-14) Blood Urea Nitrogen 25mg/dL (8-26) Creatinine 1.7mg/dL (0.7-1.3) Estimated GFR (Cockcroft-Gault) 39.0 Glucose Level 109mg/dL (70-99) Calcium Level 8.9mg/dL (8.5-10.1) Phosphorus Level 3.6mg/dL (2.6-4.7) Magnesium Level 2.0mg/dL (1.8-2.4) Albumin 2.1g/dL (3.4-5.0) D-Dimer (Marnie) 1.49ug/mlFEU (0.00-0.50) Review of Systems Review of Systems confused now Assessment and Plan Assessmemt and Plan Problems Medical Problems: (1) Acute respiratory failure Status: Acute (2) Dyspnea Status: Acute (3) HCAP (healthcare-associated pneumonia) Status: Acute Problems: Comment Review of Relevant I have reviewed the following items be (where applicable) has been applied. Labs Laboratory Tests Test 02/05/17 12:50 02/06/17 05:10 02/06/17 10:20 02/06/17 23:00 Erythrocyte Sedimentation Rate 70 (0-15) Creatine Kinase 23U/L (39-308) Thyroid Stimulating Hormone (TSH) 1.074uIU/mL (0.358-3.74) Sodium Level 139mmol/L (136-145) Potassium Level 4.4mmol/L (3.5-5.1) Chloride Level 105mmol/L (98-107) Carbon Dioxide Level 31mmol/L (21-32) Anion Gap 3 (6-14) Blood Urea Nitrogen 26mg/dL (8-26) Creatinine 1.9mg/dL (0.7-1.3) Estimated GFR (Cockcroft-Gault) 34.3 Glucose Level 98mg/dL (70-99) Calcium Level 8.6mg/dL (8.5-10.1) Phosphorus Level 3.7mg/dL (2.6-4.7) Magnesium Level 2.1mg/dL (1.8-2.4) Albumin 2.1g/dL (3.4-5.0) Vancomycin Level Trough 8.7mcg/mL (10.0-20.0) Vancomycin Last Dose Date 02/05/17 Vancomycin Last Dose Time 1100 OI-Dqn-M-Type Natriuretic Peptide 838pg/mL (0-449) Test 02/07/17 05:00 02/07/17 07:40 Sodium Level 143mmol/L (136-145) Potassium Level 4.8mmol/L (3.5-5.1) Chloride Level 106mmol/L (98-107) Carbon Dioxide Level 30mmol/L (21-32) Anion Gap 7 (6-14) Blood Urea Nitrogen 25mg/dL (8-26) Creatinine 1.7mg/dL (0.7-1.3) Estimated GFR (Cockcroft-Gault) 39.0 Glucose Level 109mg/dL (70-99) Calcium Level 8.9mg/dL (8.5-10.1) Phosphorus Level 3.6mg/dL (2.6-4.7) Magnesium Level 2.0mg/dL (1.8-2.4) Albumin 2.1g/dL (3.4-5.0) D-Dimer (Marnie) 1.49ug/mlFEU (0.00-0.50) Laboratory Tests Test 02/06/17 23:00 02/07/17 05:00 02/07/17 07:40 ZB-Cwp-L-Type Natriuretic Peptide 838pg/mL (0-449) Sodium Level 143mmol/L (136-145) Potassium Level 4.8mmol/L (3.5-5.1) Chloride Level 106mmol/L (98-107) Carbon Dioxide Level 30mmol/L (21-32) Anion Gap 7 (6-14) Blood Urea Nitrogen 25mg/dL (8-26) Creatinine 1.7mg/dL (0.7-1.3) Estimated GFR (Cockcroft-Gault) 39.0 Glucose Level 109mg/dL (70-99) Calcium Level 8.9mg/dL (8.5-10.1) Phosphorus Level 3.6mg/dL (2.6-4.7) Magnesium Level 2.0mg/dL (1.8-2.4) Albumin 2.1g/dL (3.4-5.0) D-Dimer (Marnie) 1.49ug/mlFEU (0.00-0.50) Microbiology 02/04/17 Blood Culture - Preliminary, Resulted NO GROWTH AFTER 3 DAYS 02/05/17 Urine Culture - Preliminary, Resulted 02/05/17 Urine Culture Result 1 (DON) - Preliminary, Resulted Medications Current Medications Albuterol/ Ipratropium (Duoneb) 3 ml 1X ONCE NEB Last administered on 00:31; Start 02/04/17 at 00:30; Stop 02/04/17 at 00:31; Status DC Tobramycin Sulfate 1 each 1 each PRN DAILY PRN PHARMACY TO DOSE Last administered on 02/04/17 03:00; Start 02/04/17 at 01:00; Stop 02/04/17 at 09:26; Status DC Piperacillin Sod/ Tazobactam Sod 4.5 gm/Sodium Chloride 100 ml @ 200 mls/hr 1X ONCE IV Last administered on 02/04/17 01:29; Start 02/04/17 at 01:00; Stop 02/04/17 at 01:29; Status DC Tobramycin Sulfate/Sodium Chloride (Nebcin/Iv Sodium Chloride 0.9% 100ml) 108.75 ml @ 108.75 mls/hr 1X ONCE IV Last administered on 02/04/17 02:32; Start 02/04/17 at 01:30; Stop 02/04/17 at 09:24; Status DC Lorazepam 1 mg 1 mg 1X ONCE IV Last administered on 02/04/17 01:29; Start 02/04 at 01:30; Stop 02/04/17 at 01:31; Status DC Sodium Chloride (Iv Sodium Chloride 0.9% 1000ml Bag) 1,000 ml @ 1,000 mls/hr Q1H IV Last administered on 02/04/17 02:00; Start 02/04/17 at 01:00; Stop at 02:24; Status DC Ondansetron HCl (Zofran) 4 mg PRN Q8HRS PRN IV NAUSEA/VOMITING; Start 02/04/17 at 01:00; Stop 02/05/17 at 00:59; Status DC Morphine Sulfate 2 mg PRN Q2HR PRN IV SEVERE PAIN; Start 02/04/17 at 01:00; Stop 02/05/17 at 00:59; Status DC Acetaminophen (Tylenol) 650 mg PRN Q4HRS PRN PO FEVER; Start 02/04/17 at 01:00; Stop 02/05/17 at 00:59; Status DC Albuterol/ Ipratropium (Duoneb) 3 ml RTQID NEB Last administered on 02/05/17 07 :02; Start 02/04/17 at 08:00; Stop 02/05/17 at 07:59; Status DC Diphenhydramine HCl (Benadryl) 25 mg 1X ONCE IVP Last administered on 02:31; Start 02/04/17 at 02:45; Stop 02/04/17 at 02:46; Status DC Tobramycin Sulfate 1 each 1 each 1X ONCE MC ; Start 02/04/17 at 14:30; Stop 02/04 at 14:30; Status DC Tobramycin Sulfate 350 mg/ Sodium Chloride 108.75 ml @ 108.75 mls/hr Q48H IV ; Start 02/05/17 at 23:00; Stop 02/05/17 at 23:00; Status DC Piperacillin Sod/ Tazobactam Sod/ Sodium Chloride (Zosyn/Iv Sodium Chloride 0.9 % 50ml) 50 ml @ 100 mls/hr Q6HRS IV Last administered on 02/04/17 05:47; Start 02/04/17 at 06:00; Stop 02/04/17 at 13:11; Status DC Vancomycin HCl 1 each 1 each PRN DAILY PRN MC SEE COMMENTS Last administered on 02/04/17 09:37; Start 02/04/17 at 09:15; Stop 02/04/17 at 13:12; Status DC Levofloxacin/ Dextrose (LEVAQUIN 750mg PREMIX) 150 ml @ 100 mls/hr 1X ONCE IV Last administered on 02/04/17 11:21; Start 02/04/17 at 09:30; Stop 02/04/17 at 10:59; Status DC Enoxaparin Sodium 30 mg 30 mg Q24H SQ Last administered on 02/05/17 08:41; Start 02/04/17 at 09:30; Stop 02/05/17 at 14:13; Status DC Vancomycin HCl 1.75 gm/Sodium Chloride 500 ml @ 250 mls/hr 1X ONCE IV Last administered on 02/04/17 11:23; Start 02/04/17 at 11:00; Stop 02/04/17 at 12:59; Status DC Vancomycin HCl/ Sodium Chloride (Iv Sodium Chloride 0.9% 250ml) 250 ml @ 250 mls/hr Q24H IV ; Start 02/05/17 at 11:00; Stop 02/05/17 at 11:00; Status DC Vancomycin HCl 1 each 1 each 1X ONCE MC ; Start 02/06/17 at 10:30; Stop 02/06/17 at 10:30; Status DC Magnesium Sulfate/ Dextrose (Magnesium Sulfate PREMIX 2GM) 50 ml @ 25 mls/hr PRN DAILY PRN IV for Mag < 1.7 on am labs; Start 02/04/17 at 12:00 Aspirin (Children'S Aspirin) 81 mg DAILY08 PO Last administered on 02/07/17 10: 40; Start 02/04/17 at 13:00 Diltiazem HCl (Cardizem 24hr Cd) 240 mg DAILY PO Last administered on 02/07/17 10:41; Start 02/04/17 at 13:00 Furosemide (Lasix) 40 mg DAILY PO Last administered on 02/06/17 09:04; Start at 13:00; Stop 02/06/17 at 11:37; Status DC Metoprolol Succinate (Toprol Xl) 25 mg DAILY PO Last administered on 02/07/17 10:42; Start 02/04/17 at 13:00 Pantoprazole Sodium (Protonix) 40 mg DAILY PO Last administered on 02/07/17 10: 41; Start 02/04/17 at 13:00 Atorvastatin Calcium 10 mg 10 mg QHS PO Last administered on 02/06/17 21:08; Start 02/04/17 at 21:00 Meropenem/Sodium Chloride (Merrem/Iv Sodium Chloride 0.9% 50ml) 50 ml @ 100 mls /hr Q8HRS IV Last administered on 02/06/17 05:22; Start 02/04/17 at 14:00; Stop 02/06/17 at 09:30; Status DC Albuterol/ Ipratropium (Duoneb) 3 ml RTQID NEB Last administered on 02/07/17 06 :50; Start 02/05/17 at 09:00 Acetaminophen (Tylenol) 500 mg PRN Q6HRS PRN PO MILD PAIN / TEMP; Start at 09:00 Ondansetron HCl (Zofran) 4 mg PRN Q6HRS PRN IV NAUSEA/VOMITING; Start 02/05/17 at 09:00 Bisacodyl (Dulcolax Supp) 10 mg PRN DAILY PRN RC CONSTIPATION; Start 02/05/17 at 09:00 Albuterol Sulfate (Ventolin Neb Soln) 2.5 mg PRN Q4HRS PRN NEB SHORTNESS OF BREATH Last administered on 02/06/17 14:22; Start 02/05/17 at 09:00 Lorazepam (Ativan) 0.5 mg PRN Q8HRS PRN PO ANXIETY / AGITATION Last administered on 02/05/17 10:11; Start 02/05/17 at 09:00 Magnesium Hydroxide (Milk Of Magnesia) 400 mg PRN DAILY PRN PO CONSTIPATION; Start 02/05/17 at 09:00 Primidone (Mysoline) 50 mg DAILY PO Last administered on 02/07/17 10:40; Start 02/05/17 at 09:30 Tamsulosin HCl (Flomax) 0.4 mg DAILY PO Last administered on 02/07/17 10:41; Start 02/05/17 at 09:30 Non-Formulary Medication 1 puff DAILY IH ; Start 02/05/17 at 09:00; Status UNV Multivitamins (Thera M Plus) 1 tab DAILY PO Last administered on 02/07/17 10:41 ; Start 02/05/17 at 09:30 Albuterol Sulfate (Ventolin Neb Soln) 2.5 mg RTQID NEB ; Start 02/05/17 at 12:00 ; Stop 02/05/17 at 12:00; Status DC Budesonide (Pulmicort) 0.5 mg RTBID NEB Last administered on 02/07/17 06:50; Start 02/05/17 at 10:00 Enoxaparin Sodium 40 mg 40 mg Q24H SQ Last administered on 02/07/17 10:44; Start 02/06/17 at 09:00 Iron Sucrose/ Sodium Chloride (Venofer/Iv Sodium Chloride 0.9% 100ml) 110 ml @ 55 mls/hr 3X/WEEK IV Last administered on 02/06/17 09:05; Start 02/06/17 at 09: 00; Stop 02/15/17 at 10:59 Darbepoetin Moe (Aranesp) 60 mcg Tu SQ Last administered on 02/05/17 21:57; Start 02/05/17 at 21:00 Magnesium Hydroxide (Milk Of Magnesia) 2,400 mg PRN DAILY PRN PO CONSTIPATION; Start 02/06/17 at 09:00 Cefpodoxime Proxetil (Vantin) 200 mg BID PO Last administered on 02/07/17 10:40 ; Start 02/06/17 at 21:00 Furosemide (Lasix) 20 mg DAILY PO Last administered on 02/07/17 10:40; Start at 09:00 Morphine Sulfate 2 mg PRN Q2HR PRN IV PAIN Last administered on 02/07/17 09:48 ; Start 02/07/17 at 09:45 Furosemide (Lasix) 40 mg 1X ONCE IVP Last administered on 02/07/17 11:43; Start 02/07/17 at 11:45; Stop 02/07/17 at 11:46; Status DC Active Scripts Active Reported Protonix (Pantoprazole Sodium) 40 Mg Tablet.dr 1 Tab PO DAILY Multi-Vitamin Daily (Multivitamin) 1 Each Tablet 1 Each PO DAILY Diltiazem 24HR Cd (Diltiazem Hcl) 240 Mg Cap.er.24h 240 Mg PO DAILY Breo Ellipta 100-25 Mcg Inh (Fluticasone/Vilanterol) 1 Each Aer.pow.ba 1 Puff IH DAILY Tamsulosin Hcl 0.4 Mg Cap.er.24h 1 Cap PO DAILY Primidone 50 Mg Tablet 50 Mg PO DAILY Metoprolol Succinate 50 Mg Tab.er.24h 25 Mg PO DAILY Lorazepam 0.5 Mg Tablet 1 Tab PO PRN Q8HRS PRN Milk Of Magnesia (Magnesium Hydroxide) 400 Mg/5 Ml Oral.susp 400 Mg PO PRN DAILY PRN Atorvastatin Calcium 10 Mg Tablet 1 Tab PO DAILY Aspirin 81 Mg Tab.chew 81 Mg PO DAILY Acetaminophen 325 Mg Tablet 650 Mg PO Q4HRS PRN Duoneb 0.5-3(2.5) Mg/3 Ml (Albuterol/Ipratropium) 3 Ml Ampul.neb 3 Ml NEB PRN Q4HRS PRN Furosemide 40 Mg Tablet 40 Mg PO DAILY Dulcolax (Bisacodyl) 10 Mg Supp.rect 10 Mg RC PRN DAILY PRN Vitals/I & O Vital Sign - Last 24 Hours 02/06/17 02/06/17 02/06/17 02/06/17 14:22 15:22 19:00 19:34 Pulse Ox 93 O2 Delivery Nasal Cannula Nasal Cannula Nasal Cannula Nasal Cannula O2 Flow Rate 2.0 2.0 3.0 2.0 02/06/17 02/06/17 02/06/17 02/07/17 20:00 20:00 23:00 03:02 Temp 98.0 98.0 98.0 98.0 Pulse 112 66 Resp 24 18 B/P 90/53 108/63 Pulse Ox 98 O2 Delivery Nasal Cannula Nasal Cannula Nasal Cannula Nasal Cannula O2 Flow Rate 2.5 2.5 2.0 2.0 02/07/17 02/07/17 02/07/17 02/07/17 06:51 07:15 08:10 09:48 Temp 97.9 97.9 Pulse 79 Resp 18 B/P 117/51 Pulse Ox 97 O2 Delivery Nasal Cannula Nasal Cannula Nasal Cannula Nasal Cannula O2 Flow Rate 2.0 2.5 2.5 2.5 02/07/17 02/07/17 02/07/17 02/07/17 10:18 10:41 10:42 10:51 Temp 98.2 98.2 Pulse 79 79 64 Resp 16 B/P 117/51 117/51 119/67 Pulse Ox 97 96 O2 Delivery Nasal Cannula O2 Flow Rate 2.5 2.0 Intake and Output 02/06/17 02/06/17 02/07/17 15:00 23:00 07:00 Intake Total 200 ml 690 ml Output Total 1150 ml Balance 200 ml -460 ml ABBEY PARKS MD Feb 07, 2017 11:55
[2017-02-07 15:03] VITALS: BP 105/59
--- NOTE | 2017-02-07 15:36 | PDOC ---
PROGRESS NOTES Assessment Assessment Confusion. UTI Fever Pneumonia Respiratory distress 7 mm lesion in left upper lobe of lung. Subacute L1 compression fracture. Anemia, Hgb 8.3 g Iron insufficiency. AFib CHF COPD HTN Renal failure RECOMMENDATIONS/PLAN: HCT w/o contrast was negative. Further evaluation of 7 mm lung lesion per floor team. Treat medical diseases per floor team. OT/PT. EEG on 02/06: Cerebral activity mildly slow for age. No encephalopathy. HISTORY OF THE PRESENT ILLNESS: 81-y-old male patient with multiple medical diseases developed symptoms of confusion, mental status changes, and cognition impairment. Neurology was called for consultation. No focalized motor or sensory deficits noted. He stated he has been doing fine since 02/06. PAST MEDICAL HISTORY: Please see above. PAST SURGERY HISTORY: Hernia Repair. ALLERGY: Reviewed. MEDICATIONS: Refer to [facility] FAMILY HISTORY: Non contributory. SOCIAL HISTORY: Denies smoking, drinking, and illicit drug use. REVIEW OF SYSTEMS: Constitutional: No malnutrition, weight loss, cachexia. Head: No traumatic brain or head injury. Skin: No edema, or rash. Ear: No infection, tinnitus. Eyes: No vision loss or color blindness. Nose: No bleeding or purulent discharges. Hearing: Hearing decrease. Neck: No injury. Cardiac: CHF, HTN Pulmonary: COPD. GI: No GI ulcer, GI bleeding. Urinary/genital: UTI. Endocrinologic: No cousin face, craniofacial dysmorphism, polydactyly, obesity, morbid obesity. Skeletomuscular: Generalized weakness. Neurological: see HP. Psychiatric: Denies drug use/abuse. Otherwise, not [id number] review of systems. PHYSICAL EXAMINATION: General appearance is in subacute distress. HEENT: Normocephalic and nontraumatic. Eyes, nose, ears, and throat are unremarkable. Neck is supple. No lymphadenopathy. No crepitus. Cardiovascular: S1, S2, regular rate and rhythm. Pulmonary: Clear to auscultation bilaterally. Abdomen: Bowel sounds are positive. Extremities: No rash, lesions, or edema. No restriction of range of motion NEUROLOGICAL EXAMINATION: Awake. Able to follow some commands. Oriented to place and person but not to time. PERRL. EOMI. CN: no focal findings. Muscle tone: within normal. Muscle strength: 4+ DTR: 2- Plantar reflex: Flexor response bilaterally Gait: not examined in bed. Sensory exam: no abnormal findings. No cerebellar signs elicited. F-T-N test not performed due to not follow commands. Objective Objective Vital Signs Date Time Temp Pulse Resp B/P Pulse Ox O2 Delivery O2 Flow Rate FiO2 02/07/17 15:09 Nasal Cannula 2.0 02/07/17 15:03 98.2 54 18 105/59 98 98.2 Intake and Output 02/07/17 07:00 Intake Total 890 ml Output Total 1150 ml Balance -260 ml Intake Oral 890 ml Output Urine Total 1150 ml Vitals Signs Vitals VS - Last 72 Hours, by Label Date Time Temp Pulse Resp B/P Pulse Ox O2 Delivery O2 Flow Rate FiO2 02/07/17 15:09 Nasal Cannula 2.0 02/07/17 15:03 98.2 54 18 105/59 98 Nasal Cannula 3.0 98.2 02/07/17 11:59 97 BiPAP/CPAP 02/07/17 10:51 98.2 64 16 119/67 96 2.0 98.2 02/07/17 10:42 79 117/51 02/07/17 10:41 79 117/51 02/07/17 10:18 97 Nasal Cannula 2.5 02/07/17 09:48 Nasal Cannula 2.5 02/07/17 08:10 Nasal Cannula 2.5 02/07/17 07:15 97.9 79 18 117/51 97 Nasal Cannula 2.5 97.9 02/07/17 06:51 Nasal Cannula 2.0 02/07/17 03:02 98.0 66 18 108/63 Nasal Cannula 2.0 98.0 02/06/17 23:00 98.0 112 24 90/53 98 Nasal Cannula 2.0 98.0 02/06/17 20:00 Nasal Cannula 2.5 02/06/17 20:00 Nasal Cannula 2.5 02/06/17 19:34 Nasal Cannula 2.0 02/06/17 19:00 Nasal Cannula 3.0 02/06/17 15:22 Nasal Cannula 2.0 02/06/17 14:22 93 Nasal Cannula 2.0 02/06/17 11:14 97 Nasal Cannula 2.0 02/06/17 11:00 98.2 67 14 106/51 97 Room Air 98.2 02/06/17 09:04 75 108/55 02/06/17 09:03 75 108/55 02/06/17 09:00 Nasal Cannula 2.5 02/06/17 07:00 98.6 75 16 108/55 Room Air 96.0 98.6 Laboratory Laboratory Laboratory Tests Test 02/06/17 23:00 02/07/17 05:00 02/07/17 07:19 02/07/17 07:40 WI-Epk-D-Type Natriuretic Peptide 838pg/mL (0-449) Sodium Level 143mmol/L (136-145) Potassium Level 4.8mmol/L (3.5-5.1) Chloride Level 106mmol/L (98-107) Carbon Dioxide Level 30mmol/L (21-32) Anion Gap 7 (6-14) Blood Urea Nitrogen 25mg/dL (8-26) Creatinine 1.7mg/dL (0.7-1.3) Estimated GFR (Cockcroft-Gault) 39.0 Glucose Level 109mg/dL (70-99) Calcium Level 8.9mg/dL (8.5-10.1) Phosphorus Level 3.6mg/dL (2.6-4.7) Magnesium Level 2.0mg/dL (1.8-2.4) Albumin 2.1g/dL (3.4-5.0) O2 Saturation 94% (92-99) Arterial Blood pH 7.44 (7.35-7.45) Arterial Blood pCO2 at Patient Temp 40mmHg (35-46) Arterial Blood pO2 at Patient Temp 75mmHg (65-108) Arterial Blood HCO3 26mmol/L (21-28) Arterial Blood Base Excess 2mmol/L (-3-3) FiO2 32.0 D-Dimer (Marnie) 1.49ug/mlFEU (0.00-0.50) Microbiology 02/04/17 Blood Culture - Preliminary, Resulted NO GROWTH AFTER 3 DAYS 02/05/17 Urine Culture - Preliminary, Resulted 02/05/17 Urine Culture Result 1 (DON) - Preliminary, Resulted Medication Medications Current Medications Cefpodoxime Proxetil (Vantin) 200 mg BID PO Last administered on 02/07/17 10:40 ; Start 02/06/17 at 21:00 Furosemide (Lasix) 20 mg DAILY PO Last administered on 02/07/17 10:40; Start at 09:00 Furosemide (Lasix) 40 mg 1X ONCE IVP Last administered on 02/07/17 11:43; Start 02/07/17 at 11:45; Stop 02/07/17 at 11:46; Status DC Heparin Sodium (Porcine) 5,000 unit Q8HRS SQ ; Start 02/08/17 at 06:00 Morphine Sulfate 2 mg PRN Q2HR PRN IV PAIN Last administered on 02/07/17 09:48 ; Start 02/07/17 at 09:45 Comment Review of Relevant I have reviewed the following items be (where applicable) has been applied. TIFFANIE LAND MD Feb 07, 2017 15:36
--- NOTE | 2017-02-07 16:37 | EEG ---
DATE OF SERVICE: 02/06/2017 EEG NUMBER: [id number] OBJECTIVE: This is an 81-year-old male patient with history of mental status changes and confusion. EEG was requested to evaluate cerebellar activity and help rule out subclinical seizures. METHODS: Twenty electrodes were applied according to the international 10-20 electrode placement system. EKG monitoring, hyperventilation, intermittent photic stimulation, monopolar, and bipolar montages are routinely utilized. The record was obtained on a digital system with video monitoring. FINDINGS: 1. Background: The patient was recorded in the awake, drowsy and sleep states. The overall background amplitude is 10-20 microvolt. A posterior dominant rhythm of 7-8 hertz is observed. 2. Abnormalities: No specific epileptiform discharge or electrographic seizure is seen. No focal or diffuse slowing. 3. Activation: Hyperventilation was performed with good efforts and normal response. Intermittent photic stimulation was performed with photic driving. IMPRESSION: This EEG is a mildly abnormal study for the awake, drowsy and sleep states. The posterior dominant rhythm of 7-8 hertz is mildly slow for age. No focal, lateralizing, specific epileptiform discharge or electrographic seizure is seen. TIFFANIE LAND MD DR: SAMANTHA/makenna JOB#: [id number] / [id number] SAMUEL
--- NOTE | 2017-02-07 17:37 | PDOC2 ---
PALLIATIVE CARE Palliative Care Note Palliative Care Consult requested by Dr. Hay to address goals of care and code status Diagnosis: Sepsis, pneumonia, weakness, HTN, CHF; COPD, BPH Met with daughter /DPOA and patient Copy of AD placed on chart. Patient wants to continue with current treatment plan Daughter stated she applied for Medicaid in October. Is looking at facilities for placement at discharge Patient is DNR/DNI Outside the Hospital form completed. Will continue to follow to discuss most appropriate support at discharge. NENO SAENZ Feb 07, 2017 17:37
[2017-02-07 19:00] VITALS: BP 124/52
[2017-02-07] MEDS: ATORVASTATIN CALCIUM 10 MG TABLET. PO SCH (20:56)
[2017-02-07 23:24] VITALS: BP 112/57
[2017-02-08] MEDS: LORAZEPAM 0.5 MG TABLET. PO PRN (03:12)
[2017-02-08 03:26] VITALS: BP 128/69
[2017-02-08] MEDS: HEPARIN PF for SUB-Q USE 5,000 UNIT/0.5 ML VIAL. SQ SCH ×2 (05:38→11:05)
[2017-02-08 06:19] LABS: ALBUMIN 2.3 g/dL (3.4-5.0); CALCIUM 8.9 mg/dL (8.5-10.1); CREATININE 1.7 mg/dL (0.7-1.3); POTASSIUM 5.1 mmol/L (3.5-5.1)
[2017-02-08 07:06] VITALS: BP 119/58
[2017-02-08] MEDS: IPRATRPIUM/ALBUTEROL 0.5/2.5MG 3 ML NEBU. NEB SCH ×2 (07:26→11:24)
[2017-02-08] MEDS: BUDESONIDE 0.5 MG/2 ML NEBU NEB SCH (07:26)
[2017-02-08] MEDS: IRON SUCROSE COMPLEX 200 MG in IV NORMAL SALINE 100ML 100 ML IV SCH (08:48)
[2017-02-08] MEDS: CEFPODOXIME PROXETIL 100 MG TABLET PO SCH (08:48)
[2017-02-08] MEDS: PRIMIDONE 50 MG TABLET PO SCH (08:48)
[2017-02-08] MEDS: MULTIVITAMIN with MINERAL TABLET. PO SCH (08:49)
[2017-02-08] MEDS: PANTOPRAZOLE 40 MG TABLET. PO SCH (08:49)
[2017-02-08] MEDS: DILTIAZEM HCL 240 MG CAP.ER.24H PO SCH (08:49)
[2017-02-08] MEDS: ASPIRIN 81 MG TAB.CHEW PO SCH (08:49)
[2017-02-08] MEDS: FUROSEMIDE 20 MG TABLET PO SCH (08:49)
[2017-02-08] MEDS: METOPROLOL SUCC 24HR ER 50 MG TAB.ER.24H. PO SCH (08:49)
[2017-02-08] MEDS: TAMSULOSIN 0.4 MG CAP.ER.24H. PO SCH (08:50)
--- NOTE | 2017-02-08 09:28 | PDOC ---
SUBJECTIVE ROS CKD III doing well CVS: no Orthopnea, no CP RESP: no SOB, no SANON GI: no Nausea, no Vomiting : no Dysuria, n Urgency OBJECTIVE Vital Signs Vital Signs Date Time Temp Pulse Resp B/P Pulse Ox O2 Delivery O2 Flow Rate FiO2 02/08/17 08:49 68 119/58 02/08/17 07:29 97 Nasal Cannula 3.0 02/08/17 07:06 98.1 18 98.1 I & 0 Intake and Output 02/08/17 07:00 Intake Total 980 ml Output Total 2000 ml Balance -1020 ml Intake Oral 980 ml Output Urine Total 2000 ml PHYSICAL EXAM Physical Exam GEN: Awake, Oriented x 2, In no distress Eyes: VIsion Unchanged Conjunctiva Normal EN: No EN Drainage Mucous Memb. moist Neck: no JVD no JVP Supple no Thyromegaly CVS: S1 S2 no Murmur No Gallop No Rub no Edema Resp: no Rales occ URT Rhonchi no Acc. Muscle use GI: BS +ve NO Bruit Non Tender Non Distended : no CVA tenderness; no Suprapubic Tenderness Assessment & Plan CKD III - no prior baseline x from Nov 2016.suspect this is his baseline HypoALbuminemia - presumably du eto recent Pn and hospitalization. trending up Fe def Anemia: IV Iron, Epogen as ordered; Transfuse as needed for hgb < 7 HTN: Current BP meds reviewed. See orders for changes. OK to D/c From renal standpoint; D/c Sheela Discussed Plan of Care and prognosis etc. at length with family. COMMENT/RELEVANT DATA Meds Current Medications Medications (Trade) Dose Ordered Sig/Porfirio Start Time Stop Time Status Last Admin Dose Admin Acetaminophen (Tylenol) 500 mg PRN Q6HRS PRN 02/05/17 09:00 02/08/17 03:12 500 MG Albuterol Sulfate (Ventolin Neb Soln) 2.5 mg RTQID 02/05/17 12:00 02/05/17 12:00 DC Albuterol/ Ipratropium (Duoneb) 3 ml RTQID 02/05/17 09:00 02/08/17 07:26 3 ML Albuterol/ Ipratropium 3 ml 3 ml 1X ONCE 02/04/17 00:30 02/04/17 00:31 DC 02/04/17 00:31 3 ML Aspirin (Children'S Aspirin) 81 mg DAILY08 02/04/17 13:00 02/08/17 08:49 81 MG Atorvastatin Calcium 10 mg 10 mg QHS 02/04/17 21:00 02/07/17 20:56 10 MG Bisacodyl (Dulcolax Supp) 10 mg PRN DAILY PRN 02/05/17 09:00 Budesonide (Pulmicort) 0.5 mg RTBID 02/05/17 10:00 02/08/17 07:26 0.5 MG Cefpodoxime Proxetil (Vantin) 200 mg BID 02/06/17 21:00 02/08/17 08:48 200 MG Darbepoetin Moe (Aranesp) 60 mcg Tu 02/05/17 21:00 02/05/17 21:57 60 MCG Diltiazem HCl (Cardizem 24hr Cd) 240 mg DAILY 02/04/17 13:00 02/08/17 08:49 240 MG Diphenhydramine HCl (Benadryl) 25 mg 1X ONCE 02/04/17 02:45 02/04/17 02:46 DC 02/04/17 02:31 25 MG Enoxaparin Sodium 30 mg 30 mg Q24H 02/04/17 09:30 02/05/17 14:13 DC 02/05/17 08:41 30 MG Enoxaparin Sodium 40 mg 40 mg Q24H 02/06/17 09:00 02/07/17 12:04 DC 02/07/17 10:44 40 MG Furosemide (Lasix) 40 mg 1X ONCE 02/07/17 11:45 02/07/17 11:46 DC 02/07/17 11:43 40 MG Heparin Sodium (Porcine) 5,000 unit Q8HRS 02/08/17 06:00 02/08/17 05:38 5,000 UNIT Iron Sucrose/ Sodium Chloride (Venofer/Iv Sodium Chloride 0.9% 100ml) 110 ml @ 55 mls/hr 3X/WEEK 02/06/17 09:00 02/15/17 10:59 02/08/17 08:48 55 MLS/HR Levofloxacin/ Dextrose (LEVAQUIN 750mg PREMIX) 150 ml @ 100 mls/hr 1X ONCE 02/04/17 09:30 02/04/17 10:59 DC 02/04/17 11:21 100 MLS/HR Lorazepam (Ativan) 0.5 mg PRN Q8HRS PRN 02/05/17 09:00 02/08/17 03:12 0.5 MG Lorazepam 1 mg 1 mg 1X ONCE 02/04/17 01:30 02/04/17 01:31 DC 02/04/17 01:29 1 MG Magnesium Hydroxide (Milk Of Magnesia) 2,400 mg PRN DAILY PRN 02/06/17 09:00 Magnesium Sulfate/ Dextrose (Magnesium Sulfate PREMIX 2GM) 50 ml @ 25 mls/hr PRN DAILY PRN 02/04/17 12:00 Meropenem/Sodium Chloride (Merrem/Iv Sodium Chloride 0.9% 50ml) 50 ml @ 100 mls/hr Q8HRS 02/04/17 14:00 02/06/17 09:30 DC 02/06/17 05:22 100 MLS/HR Metoprolol Succinate (Toprol Xl) 25 mg DAILY 02/04/17 13:00 02/08/17 08:49 25 MG Morphine Sulfate 2 mg PRN Q2HR PRN 02/07/17 09:45 02/07/17 20:57 2 MG Multivitamins (Thera M Plus) 1 tab DAILY 02/05/17 09:30 02/08/17 08:49 1 TAB Non-Formulary Medication 1 puff DAILY 02/05/17 09:00 UNV Ondansetron HCl (Zofran) 4 mg PRN Q6HRS PRN 02/05/17 09:00 Pantoprazole Sodium (Protonix) 40 mg DAILY 02/04/17 13:00 02/08/17 08:49 40 MG Piperacillin Sod/ Tazobactam Sod 2.25 gm/Sodium Chloride 50 ml @ 100 mls/hr Q6HRS 02/04/17 06:00 02/04/17 13:11 DC 02/04/17 05:47 100 MLS/HR Piperacillin Sod/ Tazobactam Sod 4.5 gm/Sodium Chloride 100 ml @ 200 mls/hr 1X ONCE 02/04/17 01:00 02/04/17 01:29 DC 02/04/17 01:29 200 MLS/HR Primidone (Mysoline) 50 mg DAILY 02/05/17 09:30 02/08/17 08:48 50 MG Sodium Chloride (Iv Sodium Chloride 0.9% 1000ml Bag) 1,000 ml @ 1,000 mls/hr Q1H 02/04/17 01:00 02/04/17 02:24 DC 02/04/17 02:00 1,000 MLS/HR Tamsulosin HCl (Flomax) 0.4 mg DAILY 02/05/17 09:30 02/08/17 08:50 0.4 MG Tobramycin Sulfate 1 each 1 each 1X ONCE 02/04/17 14:30 02/04/17 14:30 DC Tobramycin Sulfate 350 mg/ Sodium Chloride 108.75 ml @ 108.75 mls/hr Q48H 02/05/17 23:00 02/05/17 23:00 DC Tobramycin Sulfate/Sodium Chloride (Nebcin/Iv Sodium Chloride 0.9% 100ml) 108.75 ml @ 108.75 mls/hr 1X ONCE 02/04/17 01:30 02/04/17 09:24 DC 02/04/17 02:32 108.75 MLS/HR Vancomycin HCl 1.75 gm/Sodium Chloride 500 ml @ 250 mls/hr 1X ONCE 02/04/17 11:00 02/04/17 12:59 DC 02/04/17 11:23 250 MLS/HR Vancomycin HCl 1 each 1 each 1X ONCE 02/06/17 10:30 02/06/17 10:30 DC Vancomycin HCl/ Sodium Chloride (Iv Sodium Chloride 0.9% 250ml) 250 ml @ 250 mls/hr Q24H 02/05/17 11:00 02/05/17 11:00 DC Lab Laboratory Tests Test 02/08/17 05:00 02/08/17 07:07 Sodium Level 140mmol/L (136-145) Potassium Level 5.1mmol/L (3.5-5.1) Chloride Level 101mmol/L (98-107) Carbon Dioxide Level 31mmol/L (21-32) Anion Gap 8 (6-14) Blood Urea Nitrogen 27mg/dL (8-26) Creatinine 1.7mg/dL (0.7-1.3) Estimated GFR (Cockcroft-Gault) 39.0 Glucose Level 155mg/dL (70-99) Calcium Level 8.9mg/dL (8.5-10.1) Phosphorus Level 4.0mg/dL (2.6-4.7) Magnesium Level 2.2mg/dL (1.8-2.4) Albumin 2.3g/dL (3.4-5.0) Glucose (Fingerstick) 140mg/dL (70-99) JAMIL WALL MD Feb 08, 2017 09:28
--- NOTE | 2017-02-08 09:38 | PDOC ---
Infectious Disease Note Subjective Subjective pt feeling good, no complaints ROS ROS GEN: Denies fevers, chills, sweats HEENT: Denies blurred vision, sore throat CV: Denies chest pain RESP: Denies shortness of air, cough GI: Denies n/v/d NEURO: Denies confusion, dizziness MSK: Denies weakness, joint pain/swelling Vital Sign Vital Signs Vital Signs Date Time Temp Pulse Resp B/P Pulse Ox O2 Delivery O2 Flow Rate FiO2 02/08/17 08:49 68 119/58 02/08/17 08:00 Nasal Cannula 3.0 02/08/17 07:29 97 02/08/17 07:06 98.1 18 98.1 Physical Exam PHYSICAL EXAM GENERAL: NAD, Alert HEENT: PERRL, OC/OP NECK: Supple, no JVD, no LN LUNGS: Clear HEART: S1S2, no gallop, no murmur ABD: Soft, NT, no organomegaly, no rebound EXT: No edema, no cyanosis [employer] HOU[employer]: Alert, 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, no focal neurologic deficit SKIN: No rash IV: ok Labs Lab Laboratory Tests Test 02/08/17 05:00 02/08/17 07:07 Sodium Level 140mmol/L (136-145) Potassium Level 5.1mmol/L (3.5-5.1) Chloride Level 101mmol/L (98-107) Carbon Dioxide Level 31mmol/L (21-32) Anion Gap 8 (6-14) Blood Urea Nitrogen 27mg/dL (8-26) Creatinine 1.7mg/dL (0.7-1.3) Estimated GFR (Cockcroft-Gault) 39.0 Glucose Level 155mg/dL (70-99) Calcium Level 8.9mg/dL (8.5-10.1) Phosphorus Level 4.0mg/dL (2.6-4.7) Magnesium Level 2.2mg/dL (1.8-2.4) Albumin 2.3g/dL (3.4-5.0) Glucose (Fingerstick) 140mg/dL (70-99) Objective Assessment COPD exacerbation Pneumonia ? chronic changes CHF Leukocytosis h/o MDRO Plan Plan of Care po vantin supportive care d/c to SNF LUIS MANUEL Li MD Feb 08, 2017 09:38
[2017-02-08 10:45] VITALS: BP 109/52
[2017-02-08] MEDS ORDERED: CEFP100T PO (11:49)
--- NOTE | 2017-02-08 12:03 | PDOC ---
PULMONARY PROGRESS NOTES Subjective much better Vitals Vital Signs Date Time Temp Pulse Resp B/P Pulse Ox O2 Delivery O2 Flow Rate FiO2 02/08/17 11:24 Nasal Cannula 3.0 02/08/17 10:45 98.9 73 20 109/52 96 98.9 General: Alert, No acute distress HEENT: Other Lungs: Other (crackles Right>left) Cardiovascular: S1, S2 Abdomen: Soft, Non-tender Neuro Exam: Alert Extremities: No Edema Skin: Warm Labs Laboratory Tests Test 02/06/17 23:00 02/07/17 05:00 02/07/17 07:19 02/07/17 07:40 BT-Cvu-L-Type Natriuretic Peptide 838pg/mL (0-449) Sodium Level 143mmol/L (136-145) Potassium Level 4.8mmol/L (3.5-5.1) Chloride Level 106mmol/L (98-107) Carbon Dioxide Level 30mmol/L (21-32) Anion Gap 7 (6-14) Blood Urea Nitrogen 25mg/dL (8-26) Creatinine 1.7mg/dL (0.7-1.3) Estimated GFR (Cockcroft-Gault) 39.0 Glucose Level 109mg/dL (70-99) Calcium Level 8.9mg/dL (8.5-10.1) Phosphorus Level 3.6mg/dL (2.6-4.7) Magnesium Level 2.0mg/dL (1.8-2.4) Albumin 2.1g/dL (3.4-5.0) O2 Saturation 94% (92-99) Arterial Blood pH 7.44 (7.35-7.45) Arterial Blood pCO2 at Patient Temp 40mmHg (35-46) Arterial Blood pO2 at Patient Temp 75mmHg (65-108) Arterial Blood HCO3 26mmol/L (21-28) Arterial Blood Base Excess 2mmol/L (-3-3) FiO2 32.0 D-Dimer (Marnie) 1.49ug/mlFEU (0.00-0.50) Test 02/08/17 05:00 02/08/17 07:07 Sodium Level 140mmol/L (136-145) Potassium Level 5.1mmol/L (3.5-5.1) Chloride Level 101mmol/L (98-107) Carbon Dioxide Level 31mmol/L (21-32) Anion Gap 8 (6-14) Blood Urea Nitrogen 27mg/dL (8-26) Creatinine 1.7mg/dL (0.7-1.3) Estimated GFR (Cockcroft-Gault) 39.0 Glucose Level 155mg/dL (70-99) Calcium Level 8.9mg/dL (8.5-10.1) Phosphorus Level 4.0mg/dL (2.6-4.7) Magnesium Level 2.2mg/dL (1.8-2.4) Albumin 2.3g/dL (3.4-5.0) Glucose (Fingerstick) 140mg/dL (70-99) Laboratory Tests Test 02/08/17 05:00 02/08/17 07:07 Sodium Level 140mmol/L (136-145) Potassium Level 5.1mmol/L (3.5-5.1) Chloride Level 101mmol/L (98-107) Carbon Dioxide Level 31mmol/L (21-32) Anion Gap 8 (6-14) Blood Urea Nitrogen 27mg/dL (8-26) Creatinine 1.7mg/dL (0.7-1.3) Estimated GFR (Cockcroft-Gault) 39.0 Glucose Level 155mg/dL (70-99) Calcium Level 8.9mg/dL (8.5-10.1) Phosphorus Level 4.0mg/dL (2.6-4.7) Magnesium Level 2.2mg/dL (1.8-2.4) Albumin 2.3g/dL (3.4-5.0) Glucose (Fingerstick) 140mg/dL (70-99) Medications Active Scripts Medications Dose Route/Sig Days Date Category Protonix (Pantoprazole Sodium) 40 Mg Tablet.dr 1 Tab PO DAILY 02/04/17 Reported Multi-Vitamin Daily (Multivitamin) 1 Each Tablet 1 Each PO DAILY 02/04/17 Reported Diltiazem 24HR Cd (Diltiazem Hcl) 240 Mg Cap.er.24h 240 Mg PO DAILY 02/04/17 Reported Breo Ellipta 100-25 Mcg Inh (Fluticasone/Vilanterol) 1 Each Aer.pow.ba 1 Puff IH DAILY 02/04/17 Reported Tamsulosin Hcl 0.4 Mg Cap.er.24h 1 Cap PO DAILY 11/09/16 Reported Primidone 50 Mg Tablet 50 Mg PO DAILY 11/09/16 Reported Metoprolol Succinate 50 Mg Tab.er.24h 25 Mg PO DAILY 11/09/16 Reported Lorazepam 0.5 Mg Tablet 1 Tab PO PRN Q8HRS PRN 11/09/16 Reported Milk Of Magnesia (Magnesium Hydroxide) 400 Mg/5 Ml Oral.susp 400 Mg PO PRN DAILY PRN 11/09/16 Reported Atorvastatin Calcium 10 Mg Tablet 1 Tab PO DAILY 11/09/16 Reported Aspirin 81 Mg Tab.chew 81 Mg PO DAILY 11/09/16 Reported Acetaminophen 325 Mg Tablet 650 Mg PO Q4HRS PRN 11/09/16 Reported Duoneb 0.5-3(2.5) Mg/3 Ml (Albuterol/Ipratropium) 3 Ml Ampul.neb 3 Ml NEB PRN Q4HRS PRN 11/09/16 Reported Furosemide 40 Mg Tablet 40 Mg PO DAILY 11/09/16 Reported Dulcolax (Bisacodyl) 10 Mg Supp.rect 10 Mg RC PRN DAILY PRN 11/09/[address] CHEST 1. Mild interstitial and airspace opacities posteriorly in the right upper lobe and within the right greater than left costophrenic angles are consistent with pneumonia if acute, or interstitial lung disease/scarring if chronic. A follow-up in 3 months could assess stability if not already known. 2. A 7 mm nodule in the left upper lobe can also be followed in 3 months. 3. Moderate paraseptal greater than centrilobular emphysema. 17 cm bulla along the left upper lobe anteriorly. 4. 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 5. A moderate L1 compression fracture appears subacute. Impression . 1. Acute hypoxic respiratory failure secondary to recurrent healthcare-associated pneumonia. superimposed CHF 2. Abnormal ct chest . RUL pneumonia, 7 mm DEWEY nodule. f/u ct chest in 4 months Suspect gram-negative and gram-positive pneumonia 3. Suspected acute on chronic renal failure, probably dehydration. 4. Moderate protein-calorie malnutrition. 5. Influenza screen negative. 6. Encephalopathy, metabolic due to pneumonia, but could be toxic as well. 7. 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 Plan . 1. Continue with present nasal cannula. 2. antibiotics, now on PO 3. Mental status improved 4. Avoid benzodiazepines. 5. Follow up chest x-ray stable, resolved RUL pneumonia 6. noncontrast CT of chest reviewed/ RUL pneumonia, 7 mm DEWEY nodule. f/u ct chest in 4 months 7. monitor renal function. 8. Improve nutritional status. 9. DVT prophylaxis with Lovenox. 10. d/w PCP. continue with prn lasix. ok with skill YOSELIN KAUFMAN MD Feb 08, 2017 12:03
--- NOTE | 2017-02-08 14:29 | PDOC3 ---
Discharge Summary [facility] Date of Admission: Feb 04, 2017 Discharge Date: Feb 08, 2017 Admitting Diagnosis Sepsis PNA, HCAP weakness, acute delirium, metabolic encephalopathy 2/2 HAP hypertension, CHF, COPD, strokes, pneumonia, atrial fib AFIB, CHF, HTN, Hyperlipidemia COPD Dementia, mild Osteoarthritis Chronic renal insuff, Benign prostatic enlarg. Problems: Final Diagnosis Problems Medical Problems: (1) Acute respiratory failure Status: Acute (2) Dyspnea Status: Acute (3) HCAP (healthcare-associated pneumonia) Status: Acute CONSULTS id pulm renal card Brief Hospital Course Mr. Salgado is a 81 old M, mild dementia, daughter working here , came here every month for dyspnea, 2/2 either CHF, or copd or PNA. pT WAS admitted this time for HAP, got iv abx, also had LISA on CKD. Pt is better now, dc back to SNF, DNR, cont abx for another 5days, resume lasix 40mg daily. dc time 40min General: Alert, Oriented X3, No acute distress Heart: Regular rate, Normal S1, Normal S2, No murmurs Lungs: bl rhonchis Abdomen: Normal bowel sounds, Soft, No tenderness Extremities: No clubbing, No cyanosis, No edema, Normal pulses Skin: No rashes, No breakdown Problems: Disposition snf CONDITION AT DISCHARGE: Improved Diet cardiac Scheduled Aspirin (Aspirin) 81 MG PO DAILY (Reported) Atorvastatin Calcium (Atorvastatin Calcium) 1 TAB PO DAILY (Reported) Cefpodoxime Proxetil (Cefpodoxime Proxetil) 200 MG PO BID Diltiazem Hcl (Diltiazem 24HR Cd) 240 MG PO DAILY (Reported) Fluticasone/Vilanterol (Breo Ellipta 100-25 Mcg Inh) 1 PUFF IH DAILY (Reported) Furosemide (Furosemide) 40 MG PO DAILY (Reported) Metoprolol Succinate (Metoprolol Succinate) 25 MG PO DAILY (Reported) Multivitamin (Multi-Vitamin Daily) 1 EACH PO DAILY (Reported) Pantoprazole Sodium (Protonix) 1 TAB PO DAILY (Reported) Primidone (Primidone) 50 MG PO DAILY (Reported) Tamsulosin Hcl (Tamsulosin Hcl) 1 CAP PO DAILY (Reported) Scheduled PRN Acetaminophen (Acetaminophen) 650 MG PO Q4HRS PRN PRN MILD PAIN (Reported) Bisacodyl (Dulcolax) 10 MG RC PRN DAILY PRN PRN CONSTIPATION (Reported) Ipratropium/Albuterol Sulfate (Duoneb 0.5-3(2.5) Mg/3 Ml) 3 ML NEB PRN Q4HRS PRN PRN SHORTNESS OF BREATH (Reported) Lorazepam (Lorazepam) 1 TAB PO PRN Q8HRS PRN PRN ANXIETY / AGITATION (Reported) Magnesium Hydroxide (Milk Of Magnesia) 400 MG PO PRN DAILY PRN PRN CONSTIPATION (Reported) Discontinued Medications Aspirin (Aspirin Ec) 1 TAB PO DAILY (Reported) Follow Up pcp in 2 weeks JULIET GODOY MD Feb 08, 2017 14:28
--- NOTE | 2017-02-08 14:40 | PDOC ---
PROGRESS NOTES Subjective Subjective Patient was sitting in chair getting a breathing treatment. Objective Objective Vital Signs Date Time Temp Pulse Resp B/P Pulse Ox O2 Delivery O2 Flow Rate FiO2 02/08/17 11:24 Nasal Cannula 3.0 02/08/17 10:45 98.9 73 20 109/52 96 98.9 Intake and Output 02/08/17 07:00 Intake Total 980 ml Output Total 2000 ml Balance -1020 ml Intake Oral 980 ml Output Urine Total 2000 ml Physical Exam Physical Exam Gen - alert and oriented x3 GI - soft, non-tender Ext - warm, + edema Assessment Assessment Problems Medical Problems: (1) Acute respiratory failure Status: Acute (2) Dyspnea Status: Acute (3) HCAP (healthcare-associated pneumonia) Status: Acute Plan Plan of Care Mr. 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 There is no endovascular option to stent the SMA because the aneurysm starts at the origin of the SMA. Recommend to follow-up in 6 months with Vascular Surgery with a CT of the abd/pelvis to evaluate for progression of the SMA aneurysm. Comment Review of Relevant I have reviewed the following items be (where applicable) has been applied. Labs Laboratory Tests Test 02/06/17 23:00 02/07/17 05:00 02/07/17 07:19 02/07/17 07:40 PK-Pth-B-Type Natriuretic Peptide 838pg/mL (0-449) Sodium Level 143mmol/L (136-145) Potassium Level 4.8mmol/L (3.5-5.1) Chloride Level 106mmol/L (98-107) Carbon Dioxide Level 30mmol/L (21-32) Anion Gap 7 (6-14) Blood Urea Nitrogen 25mg/dL (8-26) Creatinine 1.7mg/dL (0.7-1.3) Estimated GFR (Cockcroft-Gault) 39.0 Glucose Level 109mg/dL (70-99) Calcium Level 8.9mg/dL (8.5-10.1) Phosphorus Level 3.6mg/dL (2.6-4.7) Magnesium Level 2.0mg/dL (1.8-2.4) Albumin 2.1g/dL (3.4-5.0) O2 Saturation 94% (92-99) Arterial Blood pH 7.44 (7.35-7.45) Arterial Blood pCO2 at Patient Temp 40mmHg (35-46) Arterial Blood pO2 at Patient Temp 75mmHg (65-108) Arterial Blood HCO3 26mmol/L (21-28) Arterial Blood Base Excess 2mmol/L (-3-3) FiO2 32.0 D-Dimer (Marnie) 1.49ug/mlFEU (0.00-0.50) Test 02/08/17 05:00 02/08/17 07:07 Sodium Level 140mmol/L (136-145) Potassium Level 5.1mmol/L (3.5-5.1) Chloride Level 101mmol/L (98-107) Carbon Dioxide Level 31mmol/L (21-32) Anion Gap 8 (6-14) Blood Urea Nitrogen 27mg/dL (8-26) Creatinine 1.7mg/dL (0.7-1.3) Estimated GFR (Cockcroft-Gault) 39.0 Glucose Level 155mg/dL (70-99) Calcium Level 8.9mg/dL (8.5-10.1) Phosphorus Level 4.0mg/dL (2.6-4.7) Magnesium Level 2.2mg/dL (1.8-2.4) Albumin 2.3g/dL (3.4-5.0) Glucose (Fingerstick) 140mg/dL (70-99) Laboratory Tests Test 02/08/17 05:00 02/08/17 07:07 Sodium Level 140mmol/L (136-145) Potassium Level 5.1mmol/L (3.5-5.1) Chloride Level 101mmol/L (98-107) Carbon Dioxide Level 31mmol/L (21-32) Anion Gap 8 (6-14) Blood Urea Nitrogen 27mg/dL (8-26) Creatinine 1.7mg/dL (0.7-1.3) Estimated GFR (Cockcroft-Gault) 39.0 Glucose Level 155mg/dL (70-99) Calcium Level 8.9mg/dL (8.5-10.1) Phosphorus Level 4.0mg/dL (2.6-4.7) Magnesium Level 2.2mg/dL (1.8-2.4) Albumin 2.3g/dL (3.4-5.0) Glucose (Fingerstick) 140mg/dL (70-99) Microbiology 02/04/17 Blood Culture - Preliminary, Resulted NO GROWTH AFTER 4 DAYS 02/05/17 Urine Culture - Final, Complete 02/05/17 Urine Culture Result 1 (DON) - Final, Complete Medications Current Medications Albuterol/ Ipratropium (Duoneb) 3 ml 1X ONCE NEB Last administered on 00:31; Start 02/04/17 at 00:30; Stop 02/04/17 at 00:31; Status DC Tobramycin Sulfate 1 each 1 each PRN DAILY PRN PHARMACY TO DOSE Last administered on 02/04/17 03:00; Start 02/04/17 at 01:00; Stop 02/04/17 at 09:26; Status DC Piperacillin Sod/ Tazobactam Sod 4.5 gm/Sodium Chloride 100 ml @ 200 mls/hr 1X ONCE IV Last administered on 02/04/17 01:29; Start 02/04/17 at 01:00; Stop 02/04/17 at 01:29; Status DC Tobramycin Sulfate/Sodium Chloride (Nebcin/Iv Sodium Chloride 0.9% 100ml) 108.75 ml @ 108.75 mls/hr 1X ONCE IV Last administered on 02/04/17 02:32; Start 02/04/17 at 01:30; Stop 02/04/17 at 09:24; Status DC Lorazepam 1 mg 1 mg 1X ONCE IV Last administered on 02/04/17 01:29; Start 02/04 at 01:30; Stop 02/04/17 at 01:31; Status DC Sodium Chloride (Iv Sodium Chloride 0.9% 1000ml Bag) 1,000 ml @ 1,000 mls/hr Q1H IV Last administered on 02/04/17 02:00; Start 02/04/17 at 01:00; Stop at 02:24; Status DC Ondansetron HCl (Zofran) 4 mg PRN Q8HRS PRN IV NAUSEA/VOMITING; Start 02/04/17 at 01:00; Stop 02/05/17 at 00:59; Status DC Morphine Sulfate 2 mg PRN Q2HR PRN IV SEVERE PAIN; Start 02/04/17 at 01:00; Stop 02/05/17 at 00:59; Status DC Acetaminophen (Tylenol) 650 mg PRN Q4HRS PRN PO FEVER; Start 02/04/17 at 01:00; Stop 02/05/17 at 00:59; Status DC Albuterol/ Ipratropium (Duoneb) 3 ml RTQID NEB Last administered on 02/05/17 07 :02; Start 02/04/17 at 08:00; Stop 02/05/17 at 07:59; Status DC Diphenhydramine HCl (Benadryl) 25 mg 1X ONCE IVP Last administered on 02:31; Start 02/04/17 at 02:45; Stop 02/04/17 at 02:46; Status DC Tobramycin Sulfate 1 each 1 each 1X ONCE MC ; Start 02/04/17 at 14:30; Stop 02/04 at 14:30; Status DC Tobramycin Sulfate 350 mg/ Sodium Chloride 108.75 ml @ 108.75 mls/hr Q48H IV ; Start 02/05/17 at 23:00; Stop 02/05/17 at 23:00; Status DC Piperacillin Sod/ Tazobactam Sod/ Sodium Chloride (Zosyn/Iv Sodium Chloride 0.9 % 50ml) 50 ml @ 100 mls/hr Q6HRS IV Last administered on 02/04/17 05:47; Start 02/04/17 at 06:00; Stop 02/04/17 at 13:11; Status DC Vancomycin HCl 1 each 1 each PRN DAILY PRN MC SEE COMMENTS Last administered on 02/04/17 09:37; Start 02/04/17 at 09:15; Stop 02/04/17 at 13:12; Status DC Levofloxacin/ Dextrose (LEVAQUIN 750mg PREMIX) 150 ml @ 100 mls/hr 1X ONCE IV Last administered on 02/04/17 11:21; Start 02/04/17 at 09:30; Stop 02/04/17 at 10:59; Status DC Enoxaparin Sodium 30 mg 30 mg Q24H SQ Last administered on 02/05/17 08:41; Start 02/04/17 at 09:30; Stop 02/05/17 at 14:13; Status DC Vancomycin HCl 1.75 gm/Sodium Chloride 500 ml @ 250 mls/hr 1X ONCE IV Last administered on 02/04/17 11:23; Start 02/04/17 at 11:00; Stop 02/04/17 at 12:59; Status DC Vancomycin HCl/ Sodium Chloride (Iv Sodium Chloride 0.9% 250ml) 250 ml @ 250 mls/hr Q24H IV ; Start 02/05/17 at 11:00; Stop 02/05/17 at 11:00; Status DC Vancomycin HCl 1 each 1 each 1X ONCE MC ; Start 02/06/17 at 10:30; Stop 02/06/17 at 10:30; Status DC Magnesium Sulfate/ Dextrose (Magnesium Sulfate PREMIX 2GM) 50 ml @ 25 mls/hr PRN DAILY PRN IV for Mag < 1.7 on am labs; Start 02/04/17 at 12:00 Aspirin (Children'S Aspirin) 81 mg DAILY08 PO Last administered on 02/08/17 08 :49; Start 02/04/17 at 13:00 Diltiazem HCl (Cardizem 24hr Cd) 240 mg DAILY PO Last administered on 08:49; Start 02/04/17 at 13:00 Furosemide (Lasix) 40 mg DAILY PO Last administered on 02/06/17 09:04; Start at 13:00; Stop 02/06/17 at 11:37; Status DC Metoprolol Succinate (Toprol Xl) 25 mg DAILY PO Last administered on 02/08/17 08:49; Start 02/04/17 at 13:00 Pantoprazole Sodium (Protonix) 40 mg DAILY PO Last administered on 02/08/17 08 :49; Start 02/04/17 at 13:00 Atorvastatin Calcium 10 mg 10 mg QHS PO Last administered on 02/07/17 20:56; Start 02/04/17 at 21:00 Meropenem/Sodium Chloride (Merrem/Iv Sodium Chloride 0.9% 50ml) 50 ml @ 100 mls /hr Q8HRS IV Last administered on 02/06/17 05:22; Start 02/04/17 at 14:00; Stop 02/06/17 at 09:30; Status DC Albuterol/ Ipratropium (Duoneb) 3 ml RTQID NEB Last administered on 02/08/17 11:24; Start 02/05/17 at 09:00 Acetaminophen (Tylenol) 500 mg PRN Q6HRS PRN PO MILD PAIN / TEMP Last administered on 02/08/17 03:12; Start 02/05/17 at 09:00 Ondansetron HCl (Zofran) 4 mg PRN Q6HRS PRN IV NAUSEA/VOMITING; Start 02/05/17 at 09:00 Bisacodyl (Dulcolax Supp) 10 mg PRN DAILY PRN RC CONSTIPATION; Start 02/05/17 at 09:00 Albuterol Sulfate (Ventolin Neb Soln) 2.5 mg PRN Q4HRS PRN NEB SHORTNESS OF BREATH Last administered on 02/06/17 14:22; Start 02/05/17 at 09:00 Lorazepam (Ativan) 0.5 mg PRN Q8HRS PRN PO ANXIETY / AGITATION Last administered on 02/08/17 03:12; Start 02/05/17 at 09:00 Magnesium Hydroxide (Milk Of Magnesia) 400 mg PRN DAILY PRN PO CONSTIPATION; Start 02/05/17 at 09:00 Primidone (Mysoline) 50 mg DAILY PO Last administered on 02/08/17 08:48; Start 02/05/17 at 09:30 Tamsulosin HCl (Flomax) 0.4 mg DAILY PO Last administered on 02/08/17 08:50; Start 02/05/17 at 09:30 Non-Formulary Medication 1 puff DAILY IH ; Start 02/05/17 at 09:00; Status UNV Multivitamins (Thera M Plus) 1 tab DAILY PO Last administered on 02/08/17 08: 49; Start 02/05/17 at 09:30 Albuterol Sulfate (Ventolin Neb Soln) 2.5 mg RTQID NEB ; Start 02/05/17 at 12:00 ; Stop 02/05/17 at 12:00; Status DC Budesonide (Pulmicort) 0.5 mg RTBID NEB Last administered on 02/08/17 07:26; Start 02/05/17 at 10:00 Enoxaparin Sodium 40 mg 40 mg Q24H SQ Last administered on 02/07/17 10:44; Start 02/06/17 at 09:00; Stop 02/07/17 at 12:04; Status DC Iron Sucrose/ Sodium Chloride (Venofer/Iv Sodium Chloride 0.9% 100ml) 110 ml @ 55 mls/hr 3X/WEEK IV Last administered on 02/08/17 08:48; Start 02/06/17 at 09: 00; Stop 02/15/17 at 10:59 Darbepoetin Moe (Aranesp) 60 mcg Tu SQ Last administered on 02/05/17 21:57; Start 02/05/17 at 21:00 Magnesium Hydroxide (Milk Of Magnesia) 2,400 mg PRN DAILY PRN PO CONSTIPATION; Start 02/06/17 at 09:00 Cefpodoxime Proxetil (Vantin) 200 mg BID PO Last administered on 02/08/17 08: 48; Start 02/06/17 at 21:00 Furosemide (Lasix) 20 mg DAILY PO Last administered on 02/08/17 08:49; Start 02/07/17 at 09:00; Stop 02/08/17 at 09:31; Status DC Morphine Sulfate 2 mg PRN Q2HR PRN IV PAIN Last administered on 02/07/17 20:57 ; Start 02/07/17 at 09:45 Furosemide (Lasix) 40 mg 1X ONCE IVP Last administered on 02/07/17 11:43; Start 02/07/17 at 11:45; Stop 02/07/17 at 11:46; Status DC Heparin Sodium (Porcine) 5,000 unit Q8HRS SQ Last administered on 02/08/17 11: 05; Start 02/08/17 at 06:00 Active Scripts Active Cefpodoxime Proxetil 100 Mg Tablet 200 Mg PO BID 5 Days Reported Protonix (Pantoprazole Sodium) 40 Mg Tablet.dr 1 Tab PO DAILY Multi-Vitamin Daily (Multivitamin) 1 Each Tablet 1 Each PO DAILY Diltiazem 24HR Cd (Diltiazem Hcl) 240 Mg Cap.er.24h 240 Mg PO DAILY Breo Ellipta 100-25 Mcg Inh (Fluticasone/Vilanterol) 1 Each Aer.pow.ba 1 Puff IH DAILY Tamsulosin Hcl 0.4 Mg Cap.er.24h 1 Cap PO DAILY Primidone 50 Mg Tablet 50 Mg PO DAILY Metoprolol Succinate 50 Mg Tab.er.24h 25 Mg PO DAILY Lorazepam 0.5 Mg Tablet 1 Tab PO PRN Q8HRS PRN Milk Of Magnesia (Magnesium Hydroxide) 400 Mg/5 Ml Oral.susp 400 Mg PO PRN DAILY PRN Atorvastatin Calcium 10 Mg Tablet 1 Tab PO DAILY Aspirin 81 Mg Tab.chew 81 Mg PO DAILY Acetaminophen 325 Mg Tablet 650 Mg PO Q4HRS PRN Duoneb 0.5-3(2.5) Mg/3 Ml (Albuterol/Ipratropium) 3 Ml Ampul.neb 3 Ml NEB PRN Q4HRS PRN Furosemide 40 Mg Tablet 40 Mg PO DAILY Dulcolax (Bisacodyl) 10 Mg Supp.rect 10 Mg RC PRN DAILY PRN Vitals/I & O Vital Sign - Last 24 Hours 02/07/17 02/07/17 02/07/17 02/07/17 15:03 15:09 19:00 19:21 Temp 98.2 97.5 98.2 97.5 Pulse 54 59 Resp 18 B/P 105/59 124/52 Pulse Ox 98 94 94 O2 Delivery Nasal Cannula Nasal Cannula Nasal Cannula Nasal Cannula O2 Flow Rate 3.0 2.0 3.0 3.0 02/07/17 02/07/17 02/07/17 02/07/17 19:24 19:50 20:57 21:35 Resp 27 20 Pulse Ox 94 O2 Delivery Nasal Cannula Nasal Cannula Nasal Cannula BiPAP/CPAP O2 Flow Rate 3.0 2.5 2.0 02/07/17 02/08/17 02/08/17 02/08/17 23:24 03:26 07:06 07:29 Temp 98.5 98.8 98.1 98.5 98.8 98.1 Pulse 95 77 68 Resp 20 18 18 B/P 112/57 128/69 119/58 Pulse Ox 92 94 95 97 O2 Delivery Nasal Cannula Nasal Cannula Nasal Cannula Nasal Cannula O2 Flow Rate 3.0 3.0 3.0 3.0 02/08/17 02/08/17 02/08/17 02/08/17 08:00 08:49 08:49 10:45 Temp 98.9 98.9 Pulse 68 68 73 Resp 20 B/P 119/58 119/58 109/52 Pulse Ox 96 O2 Delivery Nasal Cannula Nasal Cannula O2 Flow Rate 3.0 3.0 02/08/17 11:24 O2 Delivery Nasal Cannula O2 Flow Rate 3.0 Intake and Output 02/07/17 02/07/17 02/08/17 15:00 23:00 07:00 Intake Total 740 ml 240 ml Output Total 1600 ml 400 ml Balance -860 ml -160 ml ANSELMO YOUNGBLOOD MD Feb 08, 2017 14:40
[2017-02-08 16:28] LABS: ALPHA 1 0.5 g/dL (0.0-0.4); ALPHA 2 1.1 g/dL (0.4-1.0); BETA 0.8 g/dL (0.7-1.3); GAMMA 0.7 g/dL (0.4-1.8); M-SPIKE Not Observed g/dL (Not Observed); PROTEIN TOTAL 5.9 g/dL (6.0-8.5)
--- NOTE | 2017-02-08 16:46 | PDOC ---
PROGRESS NOTES Assessment Assessment Confusion. UTI Fever Pneumonia Respiratory distress 7 mm lesion in left upper lobe of lung. Subacute L1 compression fracture. Anemia, Hgb 8.3 g Iron insufficiency. AFib CHF COPD HTN Renal failure RECOMMENDATIONS/PLAN: HCT w/o contrast was negative. Further evaluation of 7 mm lung lesion per floor team. Treat medical diseases per floor team. OT/PT. EEG on 02/06: Cerebral activity mildly slow for age. No encephalopathy. HISTORY OF THE PRESENT ILLNESS: 81-y-old male patient with multiple medical diseases developed symptoms of confusion, mental status changes, and cognition impairment. Neurology was called for consultation. No focalized motor or sensory deficits noted. He stated he has been doing fine since 02/06. PAST MEDICAL HISTORY: Please see above. PAST SURGERY HISTORY: Hernia Repair. ALLERGY: Reviewed. MEDICATIONS: Refer to [facility] FAMILY HISTORY: Non contributory. SOCIAL HISTORY: Denies smoking, drinking, and illicit drug use. REVIEW OF SYSTEMS: Constitutional: No malnutrition, weight loss, cachexia. Head: No traumatic brain or head injury. Skin: No edema, or rash. Ear: No infection, tinnitus. Eyes: No vision loss or color blindness. Nose: No bleeding or purulent discharges. Hearing: Hearing decrease. Neck: No injury. Cardiac: CHF, HTN Pulmonary: COPD. GI: No GI ulcer, GI bleeding. Urinary/genital: UTI. Endocrinologic: No cousin face, craniofacial dysmorphism, polydactyly, obesity, morbid obesity. Skeletomuscular: Generalized weakness. Neurological: see HP. Psychiatric: Denies drug use/abuse. Otherwise, not -yaatk review of systems. PHYSICAL EXAMINATION: General appearance is in no acute distress. HEENT: Normocephalic and nontraumatic. Eyes, nose, ears, and throat are unremarkable. Neck is supple. No lymphadenopathy. No crepitus. Cardiovascular: S1, S2, regular rate and rhythm. Pulmonary: Clear to auscultation bilaterally. Abdomen: Bowel sounds are positive. Extremities: No rash, lesions, or edema. No restriction of range of motion NEUROLOGICAL EXAMINATION: Awake. Able to follow some commands. Oriented to place and person but not to time. PERRL. EOMI. CN: no focal findings. Muscle tone: within normal. Muscle strength: 4+ DTR: 2- Plantar reflex: Flexor response bilaterally Gait: able to walk with a walker. Sensory exam: no abnormal findings. No cerebellar signs elicited. F-T-N test not performed due to not follow commands. Objective Objective Vital Signs Date Time Temp Pulse Resp B/P Pulse Ox O2 Delivery O2 Flow Rate FiO2 02/08/17 11:24 Nasal Cannula 3.0 02/08/17 10:45 98.9 73 20 109/52 96 98.9 Intake and Output 02/08/17 07:00 Intake Total 980 ml Output Total 2000 ml Balance -1020 ml Intake Oral 980 ml Output Urine Total 2000 ml Vitals Signs Vitals VS - Last 72 Hours, by Label Date Time Temp Pulse Resp B/P Pulse Ox O2 Delivery O2 Flow Rate FiO2 02/08/17 11:24 Nasal Cannula 3.0 02/08/17 10:45 98.9 73 20 109/52 96 Nasal Cannula 3.0 98.9 02/08/17 08:49 68 119/58 02/08/17 08:49 68 119/58 02/08/17 08:00 Nasal Cannula 3.0 02/08/17 07:29 97 Nasal Cannula 3.0 02/08/17 07:06 98.1 68 18 119/58 95 Nasal Cannula 3.0 98.1 02/08/17 03:26 98.8 77 18 128/69 94 Nasal Cannula 3.0 98.8 02/07/17 23:24 98.5 95 20 112/57 92 Nasal Cannula 3.0 98.5 02/07/17 21:35 20 BiPAP/CPAP 02/07/17 20:57 27 Nasal Cannula 2.0 02/07/17 19:50 Nasal Cannula 2.5 02/07/17 19:24 94 Nasal Cannula 3.0 02/07/17 19:21 94 Nasal Cannula 3.0 02/07/17 19:00 97.5 59 18 124/52 94 Nasal Cannula 3.0 97.5 02/07/17 15:09 Nasal Cannula 2.0 02/07/17 15:03 98.2 54 18 105/59 98 Nasal Cannula 3.0 98.2 02/07/17 11:59 97 BiPAP/CPAP 02/07/17 10:51 98.2 64 16 119/67 96 2.0 98.2 02/07/17 10:42 79 117/51 02/07/17 10:41 79 117/51 02/07/17 10:18 97 2.5 02/07/17 09:48 Nasal Cannula 2.5 02/07/17 08:10 Nasal Cannula 2.5 02/07/17 07:15 97.9 79 18 117/51 97 Nasal Cannula 2.5 97.9 Laboratory Laboratory Laboratory Tests Test 02/08/17 05:00 02/08/17 07:07 Sodium Level 140mmol/L (136-145) Potassium Level 5.1mmol/L (3.5-5.1) Chloride Level 101mmol/L (98-107) Carbon Dioxide Level 31mmol/L (21-32) Anion Gap 8 (6-14) Blood Urea Nitrogen 27mg/dL (8-26) Creatinine 1.7mg/dL (0.7-1.3) Estimated GFR (Cockcroft-Gault) 39.0 Glucose Level 155mg/dL (70-99) Calcium Level 8.9mg/dL (8.5-10.1) Phosphorus Level 4.0mg/dL (2.6-4.7) Magnesium Level 2.2mg/dL (1.8-2.4) Albumin 2.3g/dL (3.4-5.0) Glucose (Fingerstick) 140mg/dL (70-99) Microbiology 02/04/17 Blood Culture - Preliminary, Resulted NO GROWTH AFTER 4 DAYS 02/05/17 Urine Culture - Final, Complete 02/05/17 Urine Culture Result 1 (DON) - Final, Complete Medication Medications Current Medications Heparin Sodium (Porcine) 5,000 unit Q8HRS SQ Last administered on 02/08/17t 11: 05; Start 02/08/17 at 06:00; Stop 02/08/17 at 15:05; Status DC Comment Review of Relevant I have reviewed the following items be (where applicable) has been applied. TIFFANIE LAND MD Feb 08, 2017 16:46
[2017-02-08 21:11] LABS: IMMUNOGLOBULIN A 132 mg/dL (61-437); IMMUNOGLOBULIN G 746 mg/dL (700-1600); IMMUNOGLOBULIN M 53 mg/dL (15-143)
[2017-02-11 21:09] LABS: GAMMA UR 16.3 % (.); M-SPIKE, % Not Observed % (Not Observed); PROTEIN 24 UR 334.8 mg/24 hr (30.0-150.0); PROTEIN UR 20.6 mg/dL (Not Estab.)
== END 2017-02-08 15:04 | DRG 871 ==
LOC: ER 23:45 → 1 WEST ICU 02-04 01:02 → 5 SOUTH 02-04 17:58
PROVIDERS: ADMIT Internal Medicine; ATTEND Internal Medicine
PROC: 5A09357 Assistance with Respiratory Ventilation, Less than 24 Consecutive Hours, Continuous Positive Airway Pressure (ICD-10-PCS; principal; 2017-02-04)
DX: A41.9 Sepsis, unspecified organism (principal); J18.9 Pneumonia, unspecified organism; G93.41 Metabolic encephalopathy; I50.33 Acute on chronic diastolic (congestive) heart failure; J96.21 Acute and chronic respiratory failure with hypoxia; E44.0 Moderate protein-calorie malnutrition; I13.0 Hypertensive heart and chronic kidney disease with heart failure and stage 1 through stage 4 chronic kidney disease, or unspecified chronic kidney disease; J44.0 Chronic obstructive pulmonary disease with (acute) lower respiratory infection; J44.1 Chronic obstructive pulmonary disease with (acute) exacerbation; N17.9 Acute kidney failure, unspecified; N18.4 Chronic kidney disease, stage 4 (severe); N39.0 Urinary tract infection, site not specified; M48.56XA Collapsed vertebra, not elsewhere classified, lumbar region, initial encounter for fracture; Z66 Do not resuscitate; N18.3 Chronic kidney disease, stage 3 (moderate); F03.90 Unspecified dementia, unspecified severity, without behavioral disturbance, psychotic disturbance, mood disturbance, and anxiety; E78.5 Hyperlipidemia, unspecified; D63.8 Anemia in other chronic diseases classified elsewhere; F10.21 Alcohol dependence, in remission; I72.8 Aneurysm of other specified arteries; I48.91 Unspecified atrial fibrillation; K21.9 Gastro-esophageal reflux disease without esophagitis; M19.90 Unspecified osteoarthritis, unspecified site; Y95 Nosocomial condition; N40.1 Benign prostatic hyperplasia with lower urinary tract symptoms; E05.90 Thyrotoxicosis, unspecified without thyrotoxic crisis or storm; R41.0 Disorientation, unspecified; Z86.73 Personal history of transient ischemic attack (TIA), and cerebral infarction without residual deficits; Z87.01 Personal history of pneumonia (recurrent); Z99.81 Dependence on supplemental oxygen; Z68.20 Body mass index [BMI] 20.0-20.9, adult; Z93.3 Colostomy status; Z87.891 Personal history of nicotine dependence
CPT/HCPCS: 36415; 36600; 70450; 71010; 71250; 76770; 80053; 80069; 80202; 81001; 82550; 82805; 82947; 83520; 83540; 83550; 83605; 83735; 83880; 84100; 84165; 84166; 84425; 84443; 84484; 85007; 85027; 85379; 85651; 86334; 87040; 87086; 87641; 87804; 93005; 94250; 94640; 94660; 94760; 95816; 96361; 96365; 96375; G0481; J0881; J1200; J1650; J1756; J1940; J1956; J2060; J2185; J2270; J2543; J3370; J7030; J7040; J7620; 97535; 99285-25